=== PATIENT | female | born 1965 | race Caucasian/White ===

== ENCOUNTER 2017-10-09 16:25 | Observation (INO) | payer MEDICARE, SELFPAY ==
[2017-10-09 17:07] LABS: #Eosinphils 0.2 thou/uL (0.0-0.7); #Lymphocytes 2.1 thou/uL (1.20-3.40); #Monocytes 0.3 thou/uL (0.11-0.59); #Neutrophils 4.7 thou/uL (1.40-6.50); %Basophils 0.6 % (0.0-1.0); %Eosinophils 2.1 % (0.0-10.0); %Lymphocytes 29.3 % (21.0-51.0); Hemoglobin 14.7 g/dL (12.0-16.0); Mean Corpuscular HGB CONC 33.8 g/dL (32.0-36.0); Mean Corpuscular Hemoglobin 31.5 pg (27.0-31.0); Mean Corpuscular Volume 93.1 fl (81.0-99.0); Platelet Count 247 thou/uL (130-400); RBC Distribution Width 13.2 % (11.5-14.5); Red Blood Cell (RBC) Count 4.67 mill/uL (4.20-5.40); White Blood Cell (WBC) Count 7.3 thou/uL (4.8-10.8)
[2017-10-09 17:13] LABS: Prothrombin Time 13.3 SEC (12.0-14.7)
[2017-10-09 17:14] LABS: PTT 22.3 SEC (22.9-36.1)
[2017-10-09 17:26] LABS: ALT (SGPT) 16 U/L (8-55); AST (SGOT) 17 U/L (5-34); Albumin 3.9 g/dL (3.5-5.0); Alkaline Phosphatase 68 U/L (40-150); Anion Gap 13 mmol/L (10-20); BUN (Urea Nitrogen) 15 mg/dL (9.8-20.1); CK (CPK) 47 U/L (29-168); Calc. Creatinine Clearance 0 mL/min (70-130); Calcium 10.6 mg/dL (7.8-10.44); Carbon Dioxide 23 mmol/L (22-29); Chloride 103 mmol/L (98-107); Estimated GFR-MDRD 42; Glucose 121 mg/dL (70-105); Lipase 19 U/L (8-78); Protein, Total 6.9 g/dL (6.0-8.3); Sodium 135 mmol/L (136-145)
[2017-10-09 17:31] LABS: CKMB 1.1 ng/mL (0-6.6); Troponin I 0.185 ng/mL (< 0.028)
--- NOTE | 2017-10-09 17:38 | RAD ---
PORTABLE CHEST: 10/09/17 HISTORY: Chest pain. COMPARISON: 04/12/17 study. The heart size is enlarged. Pacemaker is present. The lungs are clear of infiltrates. There is no sig ns of failure. IMPRESSION: Cardiomegaly. POS: CINTHYA
[2017-10-09 19:44] LABS: Troponin I 0.208 ng/mL (< 0.028)
[2017-10-09] MEDS ORDERED: Nitroglycerin 2% Ointment 1 INCH/1 GM Packet ONE (20:28)
[2017-10-09] MEDS ORDERED: Enoxaparin Sodium 100 MG/ML SYRINGE ONE (20:28)
[2017-10-09] MEDS ORDERED: Ondansetron ODT 4 MG TAB SL PRN (21:44)
[2017-10-09] MEDS ORDERED: Ondansetron HCl/PF 4 MG/2 ML Vial IVP PRN ×2 (21:44→21:50)
[2017-10-09] MEDS ORDERED: Acetaminophen 325 MG TAB PO PRN (21:50)
[2017-10-09] MEDS ORDERED: Senokot 8.6 MG TAB PO PRN (21:50)
[2017-10-09] MEDS ORDERED: HYDROcodone/Acetaminophen 5/325 mg Tablet PO PRN (21:50)
[2017-10-09] MEDS ORDERED: Lorazepam 1 MG TAB PO PRN (21:50)
[2017-10-09] MEDS ORDERED: Benzonatate 100 MG CAP PO PRN (21:50)
[2017-10-09] MEDS ORDERED: Calcium Carbonate 500 MG ChewTAB PO PRN (21:50)
[2017-10-09] MEDS ORDERED: Loratadine 10 MG TAB PO PRN (21:50)
[2017-10-09] MEDS ORDERED: Nitroglycerin 0.4 MG TAB (25 Tab Bottle) SL PRN (21:50)
[2017-10-09] MEDS ORDERED: hydrALAZINE 20 MG/ML VIAL SLOW IVP PRN (21:50)
[2017-10-09] MEDS ORDERED: cloNIDine 0.1 MG TAB PO PRN (21:50)
[2017-10-09] MEDS ORDERED: Mag-Al 1200 mg/1200 mg/30 ML UDCUP PO PRN (21:50)
[2017-10-09] MEDS ORDERED: Bisacodyl 5 MG TAB PO PRN (21:50)
[2017-10-09] MEDS ORDERED: Diabetic Tussin 200 MG/10 ML UDCUP PO PRN (21:50)
[2017-10-09] MEDS: traMADol HCl 50 MG TAB PO PRN (22:20)
[2017-10-09] MEDS ORDERED: Sodium Chloride 0.9% 1,000 ML IV SCH (23:15)
[2017-10-09 23:48] LABS: Troponin I 0.206 ng/mL (< 0.028)
[2017-10-09 23:51] VITALS: BMI 37.3
[2017-10-09] MEDS ORDERED: Nitroglycerin 2% Ointment 1 INCH/1 GM Packet TOP SCH (23:59)
[2017-10-10] MEDS ORDERED: Temazepam 15 MG CAP PO PRN (00:35)
--- NOTE | 2017-10-10 01:55 | HP ---
DATE OF ADMISSION: 10/09/2017 PRIMARY CARE PHYSICIAN: None. The patient has not seen a doctor in multiple years. She is not able to afford it. CHIEF COMPLAINT: Chest pain and possible AICD firing. HISTORY OF PRESENT ILLNESS: Ms. Fishman is a 52-year-old morbidly obese female with history of coronary artery disease as well as ischemic cardiomyopathy, status post AICD placement; and SVT, status post ablation who presented to the emergency room with the above-mentioned complaint. History is mainly obtained by the patient herself and electronic medical records have been checked. The robert ocampo was last seen in our facility in 04/2017 when she presented with complaints of AICD firing multi ple times. At that admission, her AICD was upgraded to biventricular and she also underwent ablation of supraventricular tachycardia, which was causing the misfire of the original AICD. Dr. Trevino and Dr. Holloway were involved in her care at that time. She was discharged on amiodarone and among other medications, but unfortunately has not been able to afford any medication and is not taking anything at all. Today, she reports that she was sitting in the car with her family, when all of a sudden she had a sh paulo twinge in the chest and she jerked. Since then, she has been having some chest pain. She is uns ure if it was an AICD firing, but thinks that this is what it was with sudden onset of sharp twinge c hest pain. Other than that, she reports weakness, tiredness, and generalized malaise. She has also not been able to afford a thyroid medication either. She denies any orthopnea, shortness of breath, or excessive lower extremity edema otherwise. She denies any recent illnesses. Upon presentation to the emergency room, she was hemodynamically stable with a blood pressure 162/97 and a pulse of 88. She underwent a 12-lead EKG, which showed paced rhythm with frequent PVCs. Repor tedly, the ER physician tried to contact the [facility] people, but were unable to get hold of them. Her workup included elevated cardiac enzymes at 0.185. Her BNP was elevated to 334. She received o ne dose of therapeutic Lovenox at 1 mg/kg dosing in the emergency room along with nitroglycerin ointm ent and aspirin and is now being admitted for further workup for the chest pain and possible arrhythm ia versus AICD malfunction. PAST MEDICAL HISTORY: 1. History of ventricular tachycardia, status post ablation in 2013 and once again in 04/2017. 2. Ischemic cardiomyopathy. 3. History of myocardial infarction, status post stenting. 4. Hypertension. 5. Dyslipidemia. 6. Chronic systolic congestive heart failure with EF of 29%. 7. Noncompliance. 8. Tobacco abuse. 9. Hypothyroidism. PAST SURGICAL HISTORY: 1. Tonsillectomy. 2. Stent placement. 3. Supraventricular tachycardia ablation. 4. AICD placement and later upgrade in 04/2017. 5. Tonsillectomy. ALLERGIES: IODINE, PENICILLIN, and SHELLFISH DERIVATIVE. CURRENT MEDICATIONS: None. The patient is not able to afford any medication. FAMILY HISTORY: Significant for [place] in the father, and mother with dementia and CVA. SOCIAL HISTORY: She smokes about a pack per day for the last 30 years. No history of drug or alcoho l abuse. She is disabled, , and has 1 child. REVIEW OF SYSTEMS: The following complete review of systems was negative, unless otherwise mentioned in the HPI or below: Constitutional: Weight loss or gain, ability to conduct usual activities. Skin: Rash, itching. Eyes: Double vision, pain. ENT/Mouth: Nose bleeding, neck stiffness, pain, tenderness. Cardiovascular: Palpitations, dyspnea on exertion, orthopnea. Respiratory: Shortness of breath, wheezing, cough, hemoptysis, fever or night sweats. Gastrointestinal: Poor appetite, abdominal pain, heartburn, nausea, vomiting, constipation, or diarr hea. Genitourinary: Urgency, frequency, dysuria, nocturia. Musculoskeletal: Pain, swelling. Neurologic/Psychiatric: Anxiety, depression. Allergy/Immunologic: Skin rash, bleeding tendency. It is negative except for those mentioned in the history and physical. LABORATORY EXAMINATION: CBC is Unremarkable. Serum chemistries showed sodium of 135, creatinine 1.3 4, blood sugar 121, calcium 10.6. Her initial cardiac enzyme is 0.185 with a repeat cardiac enzyme o f troponin of 0.208 and 0.206. CK-MB is normal at 1.1. TSH is 5.91. BNP is 334. Magnesium is norm al at 2.3. Chest x-ray by my review does not show any evidence of pleural effusion, edema, or infilt rate. IMPRESSION AND PLAN: 1. Chest pain. Most likely the patient has sustained either tachycardia with automatic implantable cardioverter-defibrillator firing or just automatic implantable cardioverter-defibrillator misfiring. It is doubtful that she has sustained an acute myocardial infarction at this point. Nevertheless, she has received one dose of therapeutic Lovenox in the emergency room. Her repeat cardiac enzymes s howed a downtrend at this point. We will restart her on aspirin along with carvedilol and lisinopril . We will repeat her echocardiogram and consult her estimate clerk in the morning. We will also conta ct the K[facility] for AICD interrogation. She will be monitored on telemetry unit. At this t enmanuel, there is no arrhythmia on the tele monitor, but if it occurs, we will start her on amiodarone dr moncada. At this time, we will add DVT prophylactic dose of Lovenox for her. 2. History of coronary artery disease, status post stenting. We will restart her home medications a nd reconsult them as per Cardiology recommendations. 3. Hypothyroidism. Restart her on levothyroxine. She has elevated TSH and will need to have repeat blood work done in 4-6 weeks. 4. History of chronic congestive systolic heart failure. Appears euvolemic at this time. We will r epeat the echocardiogram to assess her cardiac function. 5. Ischemic cardiomyopathy. We will restart her aspirin, beta cheryl, KAIMLA inhibitor. We will rest art her atorvastatin as well. She used to be on Plavix as well. At this time, we will defer the use of Plavix in case she needs any surgical intervention. 6. History of supraventricular tachycardia, status post ablation x2. The patient needs to be on an antiarrhythmic. She has stopped taking her amiodarone. She might benefit from any alternative or ma ybe just restarting of this. We will defer the choice of antiarrhythmics to Cardiology at this time. She has AICD in place. 7. Acute renal insufficiency. Creatinine is somewhat elevated from her baseline. We will avoid giv ing any IV fluids until her cardiac function is known. We will avoid any nephrotoxic medications at this time. 8. Dyslipidemia. Resume home medication of atorvastatin. 9. Medication noncompliance. We will consult case management to help with the prescription coverage . 10. Tobacco abuse. We will add nicotine patch. The patient is counseled. 11. Deep venous thrombosis and gastrointestinal prophylaxis. 12. Code status: FULL CODE. DISPOSITION: The patient is currently being admitted to the hospital for workup for chest pain and p ossible AICD misfiring. Further management will depend upon her clinical course. If she requires an y invasive procedure, she can be changed to inpatient status, but at this time, estimated length of s ankit is less than 2 midnights.
[2017-10-10] MEDS: traMADol HCl 50 MG TAB PO PRN (04:49)
[2017-10-10] MEDS ORDERED: Levothyroxine Sodium 25 MCG TAB PO SCH (06:00)
[2017-10-10 06:09] LABS: #Basophils 0.1 thou/uL (0.0-0.2); #Eosinphils 0.2 thou/uL (0.0-0.7); #Lymphocytes 2.2 thou/uL (1.20-3.40); #Monocytes 0.3 thou/uL (0.11-0.59); #Neutrophils 2.5 thou/uL (1.40-6.50); %Basophils 1.2 % (0.0-1.0); %Eosinophils 3.7 % (0.0-10.0); %Lymphocytes 42.2 % (21.0-51.0); %Monocytes 4.9 % (0.0-10.0); Hemoglobin 14.8 g/dL (12.0-16.0); Mean Corpuscular HGB CONC 32.9 g/dL (32.0-36.0); Mean Corpuscular Hemoglobin 31.2 pg (27.0-31.0); Mean Corpuscular Volume 94.8 fl (81.0-99.0); Mean Platelet Volume 10.2 fL (7.4-10.4); Platelet Count 194 thou/uL (130-400); RBC Distribution Width 13.4 % (11.5-14.5); Red Blood Cell (RBC) Count 4.73 mill/uL (4.20-5.40); White Blood Cell (WBC) Count 5.3 thou/uL (4.8-10.8)
[2017-10-10 06:31] LABS: Anion Gap 15 mmol/L (10-20); BUN (Urea Nitrogen) 15 mg/dL (9.8-20.1); Calc. Creatinine Clearance 94 mL/min (70-130); Calcium 9.9 mg/dL (7.8-10.44); Carbon Dioxide 20 mmol/L (22-29); Chloride 104 mmol/L (98-107); Estimated GFR-MDRD 46; Glucose 79 mg/dL (70-105); Sodium 135 mmol/L (136-145)
[2017-10-10] MEDS ORDERED: Carvedilol 3.125 MG TAB PO SCH (08:00)
[2017-10-10 08:04] VITALS: BP 127/84; TEMP 97.6
[2017-10-10] MEDS ORDERED: diphenhydrAMINE 25 MG CAP PO PRN (08:51)
[2017-10-10] MEDS ORDERED: Enoxaparin Sodium 40 MG/0.4 ML SYRINGE SC SCH (09:00)
[2017-10-10] MEDS ORDERED: Lisinopril 10 MG TAB PO SCH (09:00)
[2017-10-10] MEDS ORDERED: FLU VACC QS2017-18 36 mo. & older 0.5 ML SYRINGE IM ONE (09:00)
[2017-10-10] MEDS ORDERED: Aspirin 325 MG TAB PO SCH (09:00)
[2017-10-10] MEDS ORDERED: Aspirin 81 mg Enteric Coated Tablet PO SCH (09:00)
--- NOTE | 2017-10-10 16:56 | CON ---
DATE OF CONSULTATION: 10/10/2017 REASON FOR CONSULTATION: Chest pain. HISTORY OF PRESENT ILLNESS: Mrs. Fishman is a 52-year-old white female, who comes to the hospital for chest pain. She was just sitting there and she felt a little pain around device, her AICD device, a nd she got worried that this might be her AICD firing. She has had it fired before several times in the setting of SVT that was confusing the defibrillator. She was getting appropriate shocks. She al so had ATP therapy several times in the past due to VT that required her to have a VT ablation. She is here, she got her device interrogated yesterday and it showed that she has not received any therap ies recently, the last time she had one was in early August and is in the form of ATP. She also geronimo d an echocardiogram today that showed that her LV function is continued to reduce, EF is at 20% to 25 %. She has been out of medicines for the last 3 months. She has never once called our office. I geronimo ve never seen her in the office. She is noncompliant with her regimen. Her daughter who is with her at the time of my evaluation tells me that she has been a lot more anxious recently and she feels th at her pain that she had yesterday was most likely related to anxiety. Touching her ICD area is a li ttle bit tender and she stated that the same pain she had yesterday. She currently is not having any more pain. PAST MEDICAL HISTORY: 1. History of sustained VT, status post VT ablation. 2. Combined ischemic and nonischemic cardiomyopathy, mostly ischemic. 3. Hypertension. 4. Hyperlipidemia. 5. Heart function reduced chronically. 6. Noncompliance. 7. Tobacco abuse. 8. Hypothyroidism. 9. Supraventricular tachycardia, status post ablation. PAST SURGICAL HISTORY: 1. Tonsillectomy. 2. Stenting in the past with previous stent to the left circumflex and RCA in outside facility. She did receive a left circumflex stent about 7 to 8 months ago. This was a bare metal stent. She has been off Plavix for 3 months. 3. Supraventricular tachycardia, status post supraventricular tachycardia ablation. 4. Sustained ventricular tachycardia, status post VT ablation. 5. AICD placement, biventricular. OUTPATIENT MEDICATIONS: Currently none. ALLERGIES: IODINE, PENICILLIN, and SHELLFISH DERIVATIVES. FAMILY HISTORY: Father with an ME and mother with dementia and CVA. SOCIAL HISTORY: Continues to smoke a pack a day, done so for the last 30 years. No alcohol or drug use. REVIEW OF SYSTEMS: A 12-point review of systems was done and is all negative unless stated in the hi story of present illness. PHYSICAL EXAMINATION: VITAL SIGNS: Temperature 97.6, pulse 83, respiratory rate 16, satting 95% on room air, blood pressur e 127/84. GENERAL: Awake, alert, and oriented x3, in no distress. HEENT: Normocephalic, atraumatic. NECK: Supple. LUNGS: Clear. CARDIOVASCULAR: S1, S2, no S3 or S4. There is a grade 3/6 holosystolic murmur at the apex. ABDOMEN: Soft. Positive bowel sounds. EXTREMITIES: Trace edema bilaterally. SKIN: Warm and dry. LABORATORY DATA: Laboratory work was reviewed. CBC was unremarkable. Coags were unremarkable. Nell mistries were unremarkable. Creatinine is 1.23. Troponins are indeterminate of 0.2, 0.2, and 0.2. BNP was 334. TSH was 5.9. Lipase was normal. IMAGING: EKG was reviewed, AV paced. Interrogation of her AICD shows normal function, good battery life. She had one episode of VT that w as terminated by ATP in August, has not had any episode since. Her is normal. She is not vo lume overload according to the intracardiac pressures. Echocardiogram was reviewed, EF has been reduced, now at 20% to 25%. ASSESSMENT AND PLAN: 1. Chest pain: Most likely related to her device. She has a little pain on palpation of the device and this is consistent with the pain she had yesterday. No evidence of an acute coronary syndrome a t this time. 2. Chronic systolic heart failure. 3. Ischemic dilated cardiomyopathy. 4. Presence of an automatic implantable cardioverter defibrillator. 5. Noncompliance. 6. History of stenting to the left circumflex and right coronary artery. 8. Ventricular tachycardia and supraventricular tachycardia, status post ablation of both. PLAN: 1. At this point, I suspect that reason her LV function is continually coming down, this is related to her noncompliance. She has not really had an acute coronary syndrome and her symptoms are most li kristen related to the AICD site. We will plan on restarting some of her home medications. We will put her back on low-dose beta-cheryl and I have given her a card. She states that she is already marla barrera on her Medicare application as she is supposed to be covered starting 10/10/2017, which is today. I told her that either way I needed to see her back in the office in 1 month after restarting all of these medications. We will also put her back on her lisinopril at 5 mg. We will see her at that ti me in a month and if she is tolerating her medications, we will plan on up titration of them. Otherw ise, continue aspirin. She may be off Plavix at this time as she had a bare metal stent. 2. She may be discharged home today with follow up in 1 month. I have encouraged her to followup. She told to given my office a call at this time and try to get an appointment in a month, her herve r is in the room and she is actually calling as I left the room. Thank you for letting us participate in the care of your patient. We will sign off. Please call stephanie melo any questions.
[2017-10-11] MEDS ORDERED: Lisinopril 5 MG TAB PO SCH (09:00)
--- NOTE | 2017-10-11 09:28 | DIS ---
DISCHARGE DISPOSITION: Home. FOLLOWUP: 1. Follow up with primary care physician at [facility] in 1 week. 2. Outpatient followup with Dr. Trevino was also recommended to the patient. ALLERGIES: The patient is allergic to PENICILLIN, SHELLFISH and IODINE. The patient was seen and examined on the day of discharge, denies any new complaints. No chest pain, shortness of breath or palpitations. BRIEF HOSPITAL COURSE: The patient is a 52-year-old morbidly obese white female with coronary artery disease, chronic systolic heart failure, status post AICD, presented to the emergency room with AICD firing with chest discomfort. Please refer to the history and physical dated 10/09/[address] Ronald Worthington for further details. The patient was admitted to the hospital with the diagnosis of chest discomfort with indeterminate tr oponins as well as recurrent AICD firing. Her AICD was interrogated that showed normal function with good battery life. She had 1 episode of ventricular tachycardia that was terminated by ATP in Dece markus. She had no new episodes since then. She is not volume overloaded according to the intracardiac pressures. She has been cleared by Cardiology for discharge. Please note that patient was taking n o medications on admission. She was advised to continue KAMILA inhibitor and beta blockers along with l ow dose aspirin. She was advised to get blood work done after 2 weeks. FINAL DIAGNOSES: 1. Chest discomfort, acute coronary syndrome ruled out. 2. Elevated troponins, probably secondary to demand ischemia from not taking her medications. 3. Coronary artery disease, status post stent placement. 4. Ischemic cardiomyopathy. 5. Chronic systolic heart failure, status post AICD with normal functioning. There was no AICD firi ng noted. 6. Medication noncompliance. 7. History of ventricular tachycardia, and supraventricular tachycardia in the past, status post abl ation. 8. Chronic kidney disease stage 3. 9. Obesity with body mass index 37.4. 10. Chronic diastolic heart failure. Plan of care was discussed with the patient in detail. DIAGNOSTIC TESTS: Echocardiogram showed ejection fraction 20-25% with grade 2/3 diastolic dysfunctio n with moderate mitral regurgitation.
--- NOTE | 2017-10-12 14:59 | EKG ---
Test Reason : Blood Pressure : / mmHG Vent. Rate : 082 BPM Atrial Rate : 082 BPM P-R Int : 168 ms QRS Dur : 194 ms QT Int : 484 ms P-R-T Axes : 000 -09 077 degrees QTc Int : 565 ms AV dual-paced rhythm with frequent ventricular-paced complexes Abnormal ECG Confirmed by KASSY PATEL DO ([id number]), video effects editor SABRINA LOZANO ([id number]) on 10/12/2017 2:59:08 PM Referred By: Confirmed By:KASSY PATEL DO
== END 2017-10-10 13:17 | disposition home or self-care (01) ==
LOC: ERS 16:25 → INTOOBSV 20:07 → 2SW 20:07
PROVIDERS: ADMIT Internal Medicine; ATTEND Internal Medicine
DX: R07.89 Other chest pain (principal); R79.89 Other specified abnormal findings of blood chemistry; I25.10 Atherosclerotic heart disease of native coronary artery without angina pectoris; I25.5 Ischemic cardiomyopathy; I13.0 Hypertensive heart and chronic kidney disease with heart failure and stage 1 through stage 4 chronic kidney disease, or unspecified chronic kidney disease; N18.3 Chronic kidney disease, stage 3 (moderate); I50.42 Chronic combined systolic (congestive) and diastolic (congestive) heart failure; I25.2 Old myocardial infarction; E78.5 Hyperlipidemia, unspecified; E03.9 Hypothyroidism, unspecified; F17.200 Nicotine dependence, unspecified, uncomplicated; E66.9 Obesity, unspecified; Z68.37 Body mass index [BMI] 37.0-37.9, adult; Z88.0 Allergy status to penicillin; Z91.013 Allergy to seafood; Z91.041 Radiographic dye allergy status; Z91.14 Patient's other noncompliance with medication regimen; Z95.810 Presence of automatic (implantable) cardiac defibrillator; Z95.5 Presence of coronary angioplasty implant and graft; Z98.890 Other specified postprocedural states; Z82.49 Family history of ischemic heart disease and other diseases of the circulatory system; Z82.3 Family history of stroke
CPT/HCPCS: 71045; 80048; 82550; 82553; 83690; 83735; 83880; 84484 ×2; 85025; 85610; 85730; 93005; 93306; 94760; 96372; 96374; 99285; G0008; G0378; Q2036; 36415; 80053; 84443; 90471; 90682; J1650; J2270

== ENCOUNTER 2017-12-08 23:05 | Inpatient (IN) | payer MEDICARE ==
--- NOTE | 2017-12-08 23:42 | RAD ---
PA AND LATERAL CHEST: Indication: Chest pain. IMPRESSION: No acute cardiopulmonary abnormality. There is stable cardiomegaly with AICD, when compared to the pr ior dated 05-15-17. No appreciable change is seen from the comparison study. POS: CINTHYA
[2017-12-08] MEDS ORDERED: Morphine 4 MG/ML VIAL ONE (23:52)
[2017-12-08] MEDS ORDERED: Heparin 5,000 UNITS/ML VIAL ONE (23:53)
[2017-12-08] MEDS ORDERED: Heparin 25,000 units/D5W 500 ML ONE (23:53)
--- NOTE | 2017-12-09 00:07 | PDOC.FPRHP ---
- History of Present Illness Chief Complaint: chest pain since yesterday History of Present Illness: Left upper chest pain since last night. dull pain, with some sharp instances. does not get worse with exertion. very positional, hurts alot when she lays on her left side. got better with nitro drip and heparin. She has felt more pain and some shortness of breath when she lays on her back or left side. no radiation to neck or jaw. ED Course: Nitro drip, heparin drip, morphine, nitro, aspirin - Allergies/Adverse Reactions Allergies Allergy/AdvReac Type Severity Reaction Status Date / Time Iodinated Contrast- Oral and Allergy Hives Verified 12/09/17 02:38 IV Dye Penicillins Allergy Verified 12/09/17 02:38 shellfish derived Allergy Verified 12/09/17 02:38 - Home Medications Medication Instructions Recorded Confirmed Type Aspirin [Ecotrin Low Strength] 81 mg PO DAILY #30 tab 04/11/17 12/09/17 Rx Carvedilol [Coreg] 3.125 mg PO BID-WM #60 tab 10/10/17 12/09/17 Rx Atorvastatin Calcium 40 mg PO DAILY 12/09/17 12/09/17 History Ibuprofen/Diphenhydramine Cit 2 tablet PO HS PRN 12/09/17 12/09/17 History [Advil PM Caplet] diphenhydrAMINE [Benadryl] 50 mg PO Q4HR PRN 12/09/17 12/09/17 History - History PMHx: CAD CHF with reduced EF- 20-25% with 2/3 diastolic dysfunction. HLD Hypothyroidism Tobacco abuse Anxiety HTN PSHx: Biventricular pacer placed april of 2017 Stents- FHx: cardiac disease Social: current smoker (intends to quit) appx 50 pk year hx previous heavy drinker no recreational drugs. - Review of Systems General: reports: fatigue. denies: fever/chills, weight/appetite/sleep changes , night sweats Eyes: denies: eye pain, vision changes ENT: denies: nasal congestion, rhinorrhea Respiratory: reports: cough, shortness of breath Cardiovascular: reports: chest pain, paroxysmal nocturnal dyspnea, orthopnea Gastrointestinal: reports: nausea. denies: vomiting, diarrhea, constipation, abdominal pain, GI bleeding Genitourinary: denies: incontinence, dysuria Skin: denies: rashes, lesions Musculoskeletal: reports: pain, tenderness Neurological: denies: numbness, syncope Psychological: denies: anxiety, depression - Vital signs BP: 133/91 HR: 84 RR: 20 Tmax: 98.4 Pox: 95% on room air Wt: 108 kg - Physical Exam Constitutional: NAD, awake, alert and oriented, other (Obese) HEENT: normocephalic and atraumatic, PERRLA Neck: supple, FROM, trachea midline -Chest: Tender over left upper chest and left upper back. Heart: RRR, normal S1/S2, no murmurs/rubs/gallops, pulses present Lungs: CTAB, no respiratory distress, good air movement, no rales/rhonchi Abdomen: soft, non-tender Musculoskeletal: normal structure, normal tone -Musculoskeletal: Tender to palpation over left chest. Tender over left upper back Neurological: no focal deficit, CN II-XII intact, normal sensation Skin: no rash/lesions, good turgor, capillary refill <2 seconds Heme/Lymphatic: no unusual bruising or bleeding Psychiatric: normal mood and affect, good judgment and insight FMR H&P: Results - Labs Result Diagrams: 12/09/17 03:32 12/09/17 03:32 Lab results: Laboratory Tests 12/08/17 12/08/17 12/08/17 20:50 20:50 21:13 WBC 8.2 Hgb 15.8 Hct 46.8 Plt Count 281 Sodium 135 L Potassium 3.8 Chloride 101 Carbon Dioxide 25 Anion Gap 13 BUN 21 H Creatinine 1.62 H Glucose 119 H Calcium 10.3 Total Bilirubin 0.5 AST 14 ALT 15 CK-MB (CK-2) 0.6 Troponin I 0.158 H Serum Total Protein 6.7 Albumin 3.6 - Radiology Interpretation Chest x-ray Status: image reviewed by me, report reviewed by me Additional comment: cardiomegaly with AICD FMR H&P: A/P - Problem List (1) NSTEMI (non-ST elevated myocardial infarction) Current Visit: No Status: Acute Code(s): I21.4 - NON-ST ELEVATION (NSTEMI) MYOCARDIAL INFARCTION Assessment and Plan: Patient is having chest pain and has a significant cardiac history. Troponins are elevated, but have been elevated to this level before. Dr. Lyons recommended continued heparin and nitro drip until the morning. I will follow that recommendation. There are features of the chest pain that could indicate non cardiac source, such as tenderness to palpation, so we will keep costochondritis in our differential. Will trend troponins and continue drips and aspirin. Appreciate further cardiology recommendations in the morning. (2) AICD (automatic cardioverter/defibrillator) present Current Visit: No Status: Chronic Code(s): Z95.810 - PRESENCE OF AUTOMATIC ( IMPLANTABLE) CARDIAC DEFIBRILLATOR (3) Coronary artery disease Current Visit: No Status: Chronic Code(s): I25.10 - ATHSCL HEART DISEASE OF [place] CORONARY ARTERY W/O ANG PCTRS Qualifiers: Coronary Disease-Associated Artery/Lesion type: [place] artery [place] vs. transplanted heart: [place] heart Associated angina: with other forms of angina Qualified Code(s): I25.118 - Atherosclerotic heart disease of [place] coronary artery with other forms of angina pectoris Assessment and Plan: Patient has hx of stents. continue asa and statin. see NSTEMI (4) Systolic heart failure Current Visit: No Status: Chronic Code(s): I50.20 - UNSPECIFIED SYSTOLIC ( CONGESTIVE) HEART FAILURE Qualifiers: Heart failure chronicity: chronic Qualified Code(s): I50.22 - Chronic systolic (congestive) heart failure Assessment and Plan: Patient states she has had her coreg but not her KAMILA because she does not have an outpatient PCP. Will restart once off the nitro drip. continue coreg. Will order BNP (5) Acute kidney injury Current Visit: No Status: Acute Code(s): N17.9 - ACUTE KIDNEY FAILURE, UNSPECIFIED Assessment and Plan: CR elevated above baseline. She has fluctuating renal function, so she likely has at least CKD2, but we do not have healthy outpatient levels to confirm. Seems to be in state of acute worsening at this time. (6) Tobacco use Current Visit: No Status: Chronic Code(s): Z72.0 - TOBACCO USE Assessment and Plan: Patient states she plans to quit. will encourage and supply nicotine patches in hospital. - Plan DVT PPx- on heparin Full code No established PCP Disposition/LOS: 3 nights. inpatient. Attending Addendum - Attending Addendum Date/Time: 12/09/17 0145 I personally evaluated the patient and discussed the management with Dr. Smiley. The H&P is repeated by me. I agree with the History, Examination, Assessment and Plan documented above with any addition or exceptions noted below.
[2017-12-09 00:16] LABS: Prothrombin Time 13.2 SEC (12.0-14.7)
[2017-12-09 00:18] LABS: CKMB 0.6 ng/mL (0-6.6); Troponin I 0.136 ng/mL (< 0.028)
[2017-12-09] MEDS ORDERED: Nitroglycerin 50 MG/250 ML BOT 250 ML ONE (00:25)
[2017-12-09] MEDS ORDERED: Acetaminophen 325 MG TAB PO PRN (01:31)
[2017-12-09] MEDS ORDERED: Ondansetron HCl/PF 4 MG/2 ML Vial IVP PRN (01:31)
[2017-12-09] MEDS ORDERED: Ondansetron ODT 4 MG TAB SL PRN (01:31)
[2017-12-09 01:47] VITALS: BMI 36.7
[2017-12-09] MEDS ORDERED: Nitroglycerin 50 MG/250 ML BOT 250 ML IVPB SCH (02:15)
[2017-12-09] MEDS ORDERED: Heparin 10,000 UNITS/ 10 ML VIAL SLOW IVP SCH (02:15)
[2017-12-09] MEDS ORDERED: Heparin 25,000 units/D5W 500 ML IVPB SCH (02:15)
[2017-12-09] MEDS: Morphine 4 MG/ML VIAL SLOW IVP PRN ×6 (02:26→20:25)
[2017-12-09 03:41] LABS: #Basophils 0.1 thou/uL (0.0-0.2); #Eosinphils 0.2 thou/uL (0.0-0.7); #Lymphocytes 2.4 thou/uL (1.20-3.40); #Monocytes 0.4 thou/uL (0.11-0.59); #Neutrophils 3.3 thou/uL (1.40-6.50); %Basophils 1.1 % (0.0-1.0); %Eosinophils 3.5 % (0.0-10.0); %Lymphocytes 38.2 % (21.0-51.0); %Monocytes 5.8 % (0.0-10.0); %Neutrophils 51.5 % (42.0-75.0); Hemoglobin 14.6 g/dL (12.0-16.0); Mean Corpuscular HGB CONC 33.3 g/dL (32.0-36.0); Mean Corpuscular Hemoglobin 30.9 pg (27.0-31.0); Mean Corpuscular Volume 92.6 fl (81.0-99.0); Mean Platelet Volume 7.4 fL (7.4-10.4); Platelet Count 243 thou/uL (130-400); RBC Distribution Width 12.6 % (11.5-14.5); Red Blood Cell (RBC) Count 4.73 mill/uL (4.20-5.40); White Blood Cell (WBC) Count 6.4 thou/uL (4.8-10.8)
[2017-12-09 04:03] LABS: Anion Gap 9 mmol/L (10-20); BUN (Urea Nitrogen) 18 mg/dL (9.8-20.1); Calc. Creatinine Clearance 84 mL/min (70-130); Calcium 9.5 mg/dL (7.8-10.44); Carbon Dioxide 24 mmol/L (22-29); Chloride 104 mmol/L (98-107); Estimated GFR-MDRD 41; Glucose 121 mg/dL (70-105); Potassium 3.9 mmol/L (3.5-5.1); Sodium 133 mmol/L (136-145)
[2017-12-09 04:09] LABS: Troponin I 0.122 ng/mL (< 0.028)
[2017-12-09] MEDS: Nicotine 21 MG PATCH TD SCH (05:43)
[2017-12-09 07:21] LABS: Troponin I 0.127 ng/mL (< 0.028)
[2017-12-09] MEDS: Aspirin 81 mg Enteric Coated Tablet PO SCH (09:35)
[2017-12-09] MEDS: Atorvastatin Calcium 20 MG TAB PO SCH (09:35)
[2017-12-09] MEDS: Carvedilol 3.125 MG TAB PO SCH ×2 (09:35→16:26)
--- NOTE | 2017-12-09 14:39 | CON ---
DATE OF CONSULTATION: 12/09/2017 HISTORY OF PRESENT ILLNESS: The patient was admitted with chest pain, worse. She has known history of coronary artery disease. She is on a heparin drip. Proposal Consultant is Dr. Trevino. She smokes a pac k a day. She received nitro and aspirin in [facility]. She is in the ICU, reason for consult. She said she is feeling much better, still having some vague pain, no difficulty breathing, coughing or wheezing. PAST MEDICAL HISTORY: Pertinent for KS, multiple stents, AICD, hypertension, high cholesterol, tobac co abuse. PAST SURGICAL HISTORY: As noted, stents, AICD. MEDICATIONS: List of medicine from home are supposed to be Benadryl, ibuprofen, Coreg 3.25, calcium 40, aspirin, . She is unable to afford her medication. ALLERGIES: PENICILLIN and IODINE. SOCIAL/FAMILY HISTORY: Unemployed. REVIEW OF SYSTEMS: Otherwise, 10-point otherwise unremarkable. PHYSICAL EXAMINATION: GENERAL: Awake, alert, responsive, appears to be in no distress. VITAL SIGNS: Pulse 80, blood pressure 120/86. Sats 90% on 2 liters, respirations 20. CHEST: Chest revealed decreased breath sounds, no wheezing. CARDIAC: Normal S1-S2. No gallops. ABDOMEN: Soft. No mass. LABORATORY: Lab shows a white count 6,000, H&H of 18 and 43, platelet count normal. Creatinine 1.3. BNP 117. Troponin is elevated at 0.12. X-ray shows no acute infiltrates. The rest of additional laboratory pending. IMPRESSION: 1. Omg-SX-neggozo elevation myocardial infarction. 2. Elevated troponin 3. Hypertension. 4. Renal failure. 5. Ongoing tobacco abuse. 6. Status post automatic implantable cardioverter/defibrillator. 7. Obesity. 8. Noncompliance. 9. Hypothyroidism. PLAN: She is on IV heparin. Await input from Cardiology. Pulmonary will follow while in the ICU. She has seen Dr. Wallace in the past. I will notify Dr. Wallace in the morning. Please note this is a consultation note, 70 minutes of which 50% was spent in direct patient care.
--- NOTE | 2017-12-09 18:15 | CON ---
DATE OF CONSULTATION: 12/09/2017 CARDIOLOGY CONSULTATION REASON FOR CONSULTATION: Chest pain. PRIMARY PROOFER BLACK AND WHITE: Dr. Skyler Trevino. HISTORY OF PRESENT ILLNESS: Ms. Fishman is a very pleasant 52-year-old white female very well known t o myself who comes to the hospital for chest pain. She states she has had pain since 2 nights ago. She states the pain is worse when moving her shoulder, worse when lying on her left side, alleviated by laying flat on her back or laying on the right side or not moving her shoulder at all. She tells me she has had an old injury that affected her left shoulder and had the same pain at that time. She feels she might have aggravated this injury. She otherwise denies any diaphoresis, lightheadedness, has not had any defibrillator shocks delivered. She has had MIs in the past. This did not feel lik e any of her previous MIs. PAST MEDICAL HISTORY: 1. History of sustained VT status post VT ablation. 2. Ischemic cardiomyopathy. 3. Ejection fraction at 20-25%. 4. Hypertension. 5. Hyperlipidemia. 6. Noncompliance. 7. Tobacco abuse, ongoing. 8. Hypothyroidism. 9. Supraventricular tachycardia status post ablation. PAST SURGICAL HISTORY: 1. Tonsillectomy. 2. Previous stent to the left circumflex and RCA at outside facility bare metal stent to the left ci rcumflex about 9-10 months ago. This was a bare metal stent. 3. SVT ablation. 4. VT ablation. 5. AICD placement biventricular. OUTPATIENT MEDICATIONS: Include: 1. Benadryl. 2. Ibuprofen. 3. Coreg 3.125 mg b.i.d. 4. Atorvastatin 40 mg a day. 5. Aspirin 81 a day. ALLERGIES: PINEAPPLE, DYE, PENICILLIN, AND SHELLFISH. FAMILY HISTORY: Father with early OK in her 60s. Mother with dementia and CVA. SOCIAL HISTORY: Smokes a pack a day. Continues to do so for the last 30 years. No alcohol or drug use. REVIEW OF SYSTEMS: A 12-point review of systems was done and is all negative unless stated in the hi story of present illness. PHYSICAL EXAMINATION: VITAL SIGNS: Temperature 98.1, pulse 80, respiratory rate 26, satting 96% on 1 liter, blood pressure 144/84. GENERAL: Awake, alert, oriented x3, in moderate pain. HEENT: Normocephalic, atraumatic. NECK: Supple. LUNGS: Clear. CARDIOVASCULAR: S1, S2, no S3, S4, no murmurs or rubs. ABDOMEN: Soft, positive bowel sounds. EXTREMITIES: Trace edema. SKIN: Warm and dry. MUSCULOSKELETAL: She is exquisitely painful on palpation of the left chest and painful on any moveme nt of the left shoulder. This is the pain that brought her to the hospital. LABORATORY WORK: Reviewed. CBC with a white count of 6.4, hemoglobin of 14, hematocrit of 43, plate let count of 243. Coags were reviewed. Chemistries were reviewed. Sodium 133, potassium 3.9, BUN 1 8, creatinine of 1.3, GFR was 41. Troponin I is 0.13, 0.12 0.12. BNP was 111, CK-MB was normal. Gl ucose was 108. Calcium was 9.5. Chest x-ray on admission shows no acute cardiopulmonary abnormalities, AICD in place. Last echocardiogram in September of this year, an EF of 20-25% with 2/3 diastolic dysfunction. ASSESSMENT AND PLAN: Chest pain: Most likely musculoskeletal. It is reproducible with palpation. It is reproducible by moving her left shoulder, exquisitely painful by moving her left shoulder. It is worse when lying on that side, alleviates by not laying on that side unlikely to be cardiac in kostas ure. Her troponin is just chronically elevated and is not in a typical rise and fall pattern that I would expect to see on a real OK. At this point, I will recommend stopping the heparin drip, stoppin g the nitroglycerin drip. I think she can go to the telemetry floor and will repeat an echocardiogra m to make sure there is no fluid around the heart which would suggest pericarditis. I do not have an y plans on doing a heart catheterization at this time unless the fourth set of troponin, which I just ordered has increased significantly, then we will plan on doing this tomorrow morning. Otherwise, s he may need x-ray imaging of her shoulder, we will leave that up to the primary team. Thank you for letting us participate in the care of your patient. We will continue to follow.
[2017-12-09 18:21] LABS: Troponin I 0.125 ng/mL (< 0.028)
[2017-12-09] MEDS: Naproxen 500 MG TAB PO SCH (21:25)
--- NOTE | 2017-12-09 22:08 | EKG ---
Test Reason : Blood Pressure : / mmHG Vent. Rate : 080 BPM Atrial Rate : 080 BPM P-R Int : 000 ms QRS Dur : 198 ms QT Int : 488 ms P-R-T Axes : 000 211 -54 degrees QTc Int : 562 ms AV sequential or dual chamber electronic pacemaker When compared with ECG of 08-DEC-2017 23:10, (Unconfirmed) Vent. rate has decreased BY 2 BPM Confirmed by JONAH MURGUIA M.D. ([id number]) on 12/09/2017 10:08:16 PM Referred By: SEIRRA Confirmed By:JONAH MURGUIA M.D.
[2017-12-10] MEDS: Morphine 4 MG/ML VIAL SLOW IVP PRN (01:02)
[2017-12-10 04:36] LABS: #Eosinphils 0.2 thou/uL (0.0-0.7); #Lymphocytes 1.8 thou/uL (1.20-3.40); #Monocytes 0.4 thou/uL (0.11-0.59); #Neutrophils 3.8 thou/uL (1.40-6.50); %Basophils 0.6 % (0.0-1.0); %Eosinophils 2.8 % (0.0-10.0); %Lymphocytes 28.9 % (21.0-51.0); %Monocytes 6.3 % (0.0-10.0); %Neutrophils 61.4 % (42.0-75.0); Hemoglobin 14.2 g/dL (12.0-16.0); Mean Corpuscular HGB CONC 33.3 g/dL (32.0-36.0); Mean Corpuscular Hemoglobin 31.3 pg (27.0-31.0); Mean Corpuscular Volume 93.9 fl (81.0-99.0); Mean Platelet Volume 7.4 fL (7.4-10.4); Platelet Count 258 thou/uL (130-400); RBC Distribution Width 12.7 % (11.5-14.5); Red Blood Cell (RBC) Count 4.55 mill/uL (4.20-5.40); White Blood Cell (WBC) Count 6.2 thou/uL (4.8-10.8)
[2017-12-10 04:51] LABS: Anion Gap 8 mmol/L (10-20); BUN (Urea Nitrogen) 17 mg/dL (9.8-20.1); Calc. Creatinine Clearance 100 mL/min (70-130); Calcium 9.4 mg/dL (7.8-10.44); Carbon Dioxide 29 mmol/L (22-29); Chloride 101 mmol/L (98-107); Estimated GFR-MDRD 50; Glucose 102 mg/dL (70-105); Potassium 4.4 mmol/L (3.5-5.1); Sodium 134 mmol/L (136-145)
[2017-12-10] MEDS: Nicotine 21 MG PATCH TD SCH (05:15)
--- NOTE | 2017-12-10 07:56 | PDOC.FM ---
- Subjective Subjective: Patient sitting up in bed resting comfortably this morning. Her chest pain has improved, though she still cannot lay on her left side. 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 She denies CODY, SOB, and palpitations. Vital signs remain stable and she is afebrile. - Objective MAR Reviewed: Yes Vital Signs & Weight: Vital Signs (12 hours) Temp Pulse Resp Pulse Ox 12/10/17 04:00 98.3 F 12/10/17 00:00 98.4 F 12/09/17 20:00 98.2 F 80 19 92 L Weight Admit Weight 109.6 kg Weight 109.4 kg Most Recent Monitor Data Heart Rate from ECG 80 NIBP 124/86 NIBP BP-Mean 98 Respiration from ECG 16 SpO2 98 I&O: 12/09/17 12/10/17 12/11/17 06:59 06:59 06:59 Intake Total 177.4 1336 Output Total 1350 Balance 177.4 -14 Result Diagrams: 12/10/17 03:58 12/10/17 03:58 <Timur Shell - Last Filed: 12/10/17 07:54> - Objective Vital Signs & Weight: Vital Signs (12 hours) Temp Pulse Resp Pulse Ox 12/10/17 08:00 97.5 F L 87 20 94 L 12/10/17 04:00 98.3 F 12/10/17 00:00 98.4 F Weight Admit Weight 109.6 kg Weight 109.4 kg Most Recent Monitor Data Heart Rate from ECG 80 NIBP 124/86 NIBP BP-Mean 98 Respiration from ECG 13 SpO2 96 I&O: 12/09/17 12/10/17 12/11/17 06:59 06:59 06:59 Intake Total 177.4 1336 Output Total 1350 250 Balance 177.4 -14 -250 Result Diagrams: 12/10/17 03:58 12/10/17 03:58 <Santo Francisco - Last Filed: 12/10/17 10:43> Phys Exam - Physical Examination Constitutional: NAD HEENT: moist MMs Neck: no JVD Respiratory: no wheezing, no rales Cardiovascular: RRR, no significant murmur Gastrointestinal: soft, non-tender Musculoskeletal: no edema TTP over left chest wall Neurological: non-focal, normal sensation, moves all 4 limbs Psychiatric: normal affect, A&O x 3 Skin: no rash <Timur Shell - Last Filed: 12/10/17 07:54> Dx/Plan (1) Atypical chest pain Code(s): R07.89 - OTHER CHEST PAIN Status: Acute Plan: Cardiology has evaluated and feels this is MSK related given her history, normal cardiac enzyme profile, and normal EKG TTE to r/o pericarditis today Continue Naproxen BID for MSK etiology (2) Coronary artery disease Code(s): I25.10 - ATHSCL HEART DISEASE OF ELEM CORONARY ARTERY W/O ANG PCTRS Status: Chronic QualifierTitle: Coronary Disease-Associated Artery/Lesion type: [place] artery [place] vs. transplanted heart: [place] heart Associated angina: with other forms of angina Qualified Code(s): I25.118 - Atherosclerotic heart disease of [place] coronary artery with other forms of angina pectoris Plan: Patient of Dr. Trevino s/p stent placement He has evaluated patient and has ordered TTE for the morning. No indication for catheterization at this time. F/u in OP setting (3) S/P implantation of automatic cardioverter/defibrillator (AICD) Code(s): Z95.810 - PRESENCE OF AUTOMATIC (IMPLANTABLE) CARDIAC DEFIBRILLATOR Status: Chronic (4) Hyperlipidemia Code(s): E78.5 - HYPERLIPIDEMIA, UNSPECIFIED Status: Chronic QualifierTitle: Hyperlipidemia type: mixed hyperlipidemia Qualified Code( s): E78.2 - Mixed hyperlipidemia Plan: Continue home atorvastatin (5) Hypertension Code(s): I10 - ESSENTIAL (PRIMARY) HYPERTENSION Status: Chronic QualifierTitle: Hypertension type: essential hypertension Qualified Code( s): I10 - Essential (primary) hypertension Plan: Well controlled since admission Continue coreg (6) Systolic CHF with reduced left ventricular function, NYHA class 2 Code(s): I50.20 - UNSPECIFIED SYSTOLIC (CONGESTIVE) HEART FAILURE Status: Chronic Plan: BNP of 111 on admission No CODY, SOB, or orthopnea (7) Tobacco abuse Code(s): Z72.0 - TOBACCO USE Status: Chronic Plan: Nicotine patch - Plan Plan: -TTE this morning per Cardiology -d/c pending results on Naproxen BID for MSK chest pain, f/u OP <Timur Shell - Last Filed: 12/10/17 07:54> Attending Addendum - Attending Addendum Date/Time: 12/10/17 1036 I personally evaluated the patient and discussed the management with Dr. Shell I agree with the History, Examination, Assessment and Plan documented above with any addition or exceptions noted below. 52 y/o F who presented for chest pain initially and placed on nitro and heparin gtt in the ICU. Peak troponin of 0.15 during this time which appeared to be near her baseline from prior admissions. She was seen and evaluated by cardiology who felt that pain was likely MSK in nature. She has since been weaned off the drips and transitioned out of the ICU and to telemetry. Chest pain improved this morning. Plan for TTE with cardiology to rule out any pericardial effusion/pericarditis which could be confounding diagnosis later today. Will admin toradol and monitor for improvement in sxs w/ transition to PO NSAIDs for further pain control upon discharge home later today. <Santo Francisco - Last Filed: 12/10/17 10:43>
[2017-12-10] MEDS: Aspirin 81 mg Enteric Coated Tablet PO SCH (10:48)
[2017-12-10] MEDS: Carvedilol 3.125 MG TAB PO SCH (10:48)
[2017-12-10] MEDS: Atorvastatin Calcium 20 MG TAB PO SCH (10:52)
[2017-12-10] MEDS: Naproxen 500 MG TAB PO SCH (10:52)
[2017-12-10] MEDS ORDERED: Ketorolac Tromethamine 30 MG/ML VIAL IVP SCH (11:45)
--- NOTE | 2017-12-10 12:19 | PDOC.CTH ---
Cardiology Progress Note - Subjective She is feeling better since NSIADs were given for pain. Her follow up troponin is stable and at her baseline. Echo is pending. - Objective Vital Signs Temp Pulse Resp Pulse Ox 12/10/17 08:00 97.5 F L 87 20 94 L 12/10/17 04:00 98.3 F Admit Weight 241 lb 10.026 oz Weight 241 lb 2.971 oz 12/09/17 12/10/17 12/11/17 06:59 06:59 06:59 Intake Total 177.4 1336 Output Total 1350 250 Balance 177.4 -14 -250 - Physical Examination General/Neuro: alert & oriented x3, NAD Neck: no JVD present Lungs: CTA, unlabored respirations Heart: RRR Abdomen: NT/ND Extremities: + edema B (trace) - Telemetry Telemetry Rhythm: Paced - Labs Result Diagrams: 12/10/17 03:58 12/10/17 03:58 Troponin/CKMB CK-MB (CK-2) 0.6 ng/mL (0-6.6) 12/08/17 23:42 Troponin I 0.125 ng/mL (< 0.028) H 12/09/17 17:40 - Assessment/Plan 1. Chest pain. Likely chest wall pain, MSK. 2. CAD, stable. 3. Dilated CM, EF at 20-25% on last echo recently. 4. AICD in place PLAN: - Echo today and if unchanged may discharge home. - Follow up in 2 months in the office.
[2017-12-10 16:29] VITALS: TEMP 97.7
--- NOTE | 2017-12-11 01:21 | DIS-2 ---
DATE OF ADMISSION: 12/09/2017 DATE OF DISCHARGE: 12/10/2017 RESIDENT: Timur Shell M.D. ADMITTING ATTENDING: Jelani Bruce M.D. DISCHARGE ATTENDING: Santo Francisco M.D. CONSULTS: Cardiology. PROCEDURES: 1. PA and lateral chest x-ray showing no acute cardiopulmonary abnormalities. This is a stable card iomegaly with AICD when compared to chest x-ray from 05/15/2017. 2. Transthoracic echocardiogram showing an unchanged ejection fraction of 20%-25%, grade 2/3 diastol ic dysfunction unchanged, and no evidence of any pericardial effusion. PRIMARY DIAGNOSIS: Atypical chest pain. SECONDARY DIAGNOSES: 1. Systolic congestive heart failure. 2. Coronary artery disease, status post multiple stents and automated implantable cardioverter-defib rillator placement. 3. Acute kidney injury. 4. Hyperlipidemia. 5. Hypertension. 6. Hypothyroidism. 7. Tobacco abuse. DISCHARGE MEDICATIONS: 1. Aspirin 81 mg p.o. daily. 2. Carvedilol 3.125 mg p.o. b.i.d. 3. Atorvastatin 40 mg p.o. daily. 4. Benadryl 50 mg p.o. q.4 hours p.r.n. 5. Naproxen 500 mg p.o. b.i.d. DISCONTINUED MEDICATIONS: 1. Nitroglycerin drip. 2. Heparin drip. 3. Morphine 2 mg q.2 hours p.r.n. for pain. 4. Nicotine patch. HISTORY OF PRESENT ILLNESS/HOSPITAL COURSE: A 52-year-old white female admitted to the hospital for chest pain that started 2 nights prior to admission. Pain is worsened by moving the shoulder lying o n the left side, but is alleviated by lying flat on her back or lying on her right side. She has an old musculoskeletal injury of the left shoulder in the remote past. She denies any diaphoresis, ligh theadedness or AICD shocks. Due to her concerning history including previous MIs, she was admitted f or ACS rule out. The patient normally sees Dr. Trevino in the outpatient setting. He was consulted for evaluation. He feels that the chest pain is likely musculoskeletal since it is reproducible with palpation. Her tr oponins remained between 0.12 and 0.15, which is her normal baseline. EKGs remained normal throughou t admission. Heparin drip and nitroglycerin drips were stopped after 24 hours and the patient remain ed stable. Heart rate was monitored by telemetry showing normal sinus throughout admission. Transth oracic echocardiogram was done to rule out any sort of pericardial effusion suggesting pericarditis. This was negative, see above. Cardiology recommended against heart catheterization at this time and recommended followup in 1-2 months in the outpatient setting. The patient was counseled extensively of musculoskeletal nature of this pain. She agrees with the as sessment and will take the naproxen 500 mg b.i.d. until followups. DISPOSITION: Stable. DISCHARGE INSTRUCTIONS: 1. Location: Home. 2. Diet: Heart healthy. 3. Activity: As tolerated. 4. Followup: Followup with [facility] in 1 week to assess renal function and followup with Dr. Trevino in 1-2 months.
--- NOTE | 2017-12-14 20:24 | EKG ---
Test Reason : CHEST PAIN Blood Pressure : / mmHG Vent. Rate : 082 BPM Atrial Rate : 441 BPM P-R Int : 000 ms QRS Dur : 194 ms QT Int : 470 ms P-R-T Axes : 000 211 027 degrees QTc Int : 549 ms AV sequential or dual chamber electronic pacemaker Confirmed by BENNETT MCLEAN ([id number]), avid editor REINIER LANCASTER ([id number] on 12/14/2017 8:23:36 PM Referred By: Confirmed By:BENNETT MCLEAN
== END 2017-12-10 16:23 | disposition home or self-care (01) | DRG 313 ==
LOC: ERS 23:05 → CCU 12-09 00:12
PROVIDERS: ADMIT Family Medicine; ATTEND Family Medicine
DX: R07.89 Other chest pain (principal); I25.10 Atherosclerotic heart disease of native coronary artery without angina pectoris; N17.9 Acute kidney failure, unspecified; I42.0 Dilated cardiomyopathy; I11.0 Hypertensive heart disease with heart failure; I50.22 Chronic systolic (congestive) heart failure; E78.5 Hyperlipidemia, unspecified; E03.9 Hypothyroidism, unspecified; F17.210 Nicotine dependence, cigarettes, uncomplicated; Z79.82 Long term (current) use of aspirin; I25.5 Ischemic cardiomyopathy; Z95.5 Presence of coronary angioplasty implant and graft; Z95.810 Presence of automatic (implantable) cardiac defibrillator; Z88.0 Allergy status to penicillin; Z91.013 Allergy to seafood; Z88.8 Allergy status to other drugs, medicaments and biological substances; Z91.018 Allergy to other foods; Z91.19 Patient's noncompliance with other medical treatment and regimen; F32.9 Major depressive disorder, single episode, unspecified
CPT/HCPCS: 36415; 36416; 71046; 80048; 83880; 84484; 85025; 85610; 85730; 93005; 93010; 93306; 96365; 96375; 99406; J1644; J2270; J2405

== ENCOUNTER 2018-05-25 21:04 | Inpatient (IN) | payer MEDICARE ==
--- NOTE | 2018-05-25 21:34 | RAD ---
CHEST ONE VIEW: HISTORY: Chest pain. COMPARISON: Chest radiograph from 04/28/2018. FINDINGS: The heart size is enlarged. No pneumothorax. No effusion. No acute osseous abnormality. IMPRESSION: Cardiomegaly; otherwise, unremarkable examination. POS: [facility]
[2018-05-25 22:00] LABS: #Eosinphils 0.8 thou/uL (0.0-0.7); #Lymphocytes 2.2 thou/uL (1.20-3.40); #Monocytes 0.4 thou/uL (0.11-0.59); #Neutrophils 4.2 thou/uL (1.40-6.50); %Basophils 0.6 % (0.0-1.0); %Eosinophils 10.1 % (0.0-10.0); %Lymphocytes 29.2 % (21.0-51.0); %Monocytes 5.7 % (0.0-10.0); %Neutrophils 54.5 % (42.0-75.0); Hemoglobin 14.3 g/dL (12.0-16.0); Mean Corpuscular HGB CONC 33.9 g/dL (32.0-36.0); Mean Corpuscular Volume 94.4 fL (78.0-98.0); Mean Platelet Volume 8.2 fL (7.4-10.4); Platelet Count 275 thou/uL (130-400); RBC Distribution Width 12.7 % (11.5-14.5); Red Blood Cell (RBC) Count 4.47 mill/uL (4.20-5.40); White Blood Cell (WBC) Count 7.7 thou/uL (4.8-10.8)
[2018-05-25 22:19] LABS: ALT (SGPT) 11 U/L (8-55); AST (SGOT) 13 U/L (5-34); Albumin 3.6 g/dL (3.5-5.0); Alkaline Phosphatase 64 U/L (40-150); Anion Gap 10 mmol/L (10-20); BUN (Urea Nitrogen) 19 mg/dL (9.8-20.1); CK (CPK) 51 U/L (29-168); Calc. Creatinine Clearance 0 mL/min (70-130); Calcium 10.7 mg/dL (7.8-10.44); Carbon Dioxide 26 mmol/L (22-29); Chloride 104 mmol/L (98-107); Estimated GFR-MDRD 50; Globulin 2.8 g/dL (2.4-3.5); Glucose 115 mg/dL (70-105); Potassium 3.8 mmol/L (3.5-5.1); Protein, Total 6.4 g/dL (6.0-8.3); Sodium 136 mmol/L (136-145)
[2018-05-25 22:23] LABS: CKMB 0.9 ng/mL (0-6.6)
[2018-05-25] MEDS ORDERED: Enoxaparin Sodium 100 MG/ML SYRINGE ONE (22:43)
[2018-05-25 23:45] VITALS: BMI 36.7
[2018-05-26 01:19] LABS: Troponin I 0.148 ng/mL (< 0.028)
[2018-05-26] MEDS: Acetaminophen 325 MG TAB PO PRN ×3 (03:27→20:35)
[2018-05-26 04:55] LABS: Troponin I 0.156 ng/mL (< 0.028)
[2018-05-26] MEDS: Levothyroxine Sodium 75 MCG TAB PO SCH (05:47)
[2018-05-26] MEDS ORDERED: Aspirin 325 MG TAB PO SCH (08:00)
[2018-05-26] MEDS: Carvedilol 25 MG TAB PO SCH ×2 (08:33→16:11)
[2018-05-26] MEDS ORDERED: Enoxaparin Sodium 120 MG/0.8 ML SYRINGE SC SCH (09:00)
[2018-05-26] MEDS ORDERED: Sodium Chloride 0.9% 1,000 ML IV SCH ×2 (09:00→23:30)
[2018-05-26] MEDS: Aspirin 81 mg Enteric Coated Tablet PO SCH (09:51)
--- NOTE | 2018-05-26 11:31 | CON ---
DATE OF CONSULTATION: 05/26/2018 REASON FOR CONSULTATION: Palpitations and chest tightness. HISTORY OF PRESENT ILLNESS: Ms. Fishman is a very pleasant 52-year-old white female who comes to the hospital for palpitations. She has a dilated cardiomyopathy, ischemic, who had an AICD placed and geronimo d to have a VT ablation done as well. She had been on amiodarone chronically and recently was found to have hypothyroidism, likely due to the amiodarone, so the amiodarone was stopped. She was placed on levothyroxine. She states she feels much better with the levothyroxine, but since we stopped the amiodarone she started to have episodes of VT again. She had a few bouts in the last few months. Sh traci was interrogated last week and was told that she had several runs of VT that were successfully catrachito mahamed with antitachycardia pacing. She comes today as yesterday she had several episodes of palpitatio ns similar to the episode when she had VT and decided to come in for evaluation. Currently, she is c hest pain free. She is feeling just well. When she does have the palpitations, she gets a little ch est tightness. PAST MEDICAL HISTORY: 1. Ischemic cardiomyopathy. 2. History of ventricular tachycardia, status post VT ablation. 3. History of an myocardial infarction. 4. Ischemic cardiomyopathy, EF of 20-25%. 5. Hypertension. 6. Coronary artery disease. 7. Hyperlipidemia. 8. Noncompliance. 9. History of smoking. 10. Hypothyroidism. 11. Supraventricular tachycardia status post ablation. PAST SURGICAL HISTORY: 1. Stent to the circ and right coronary arteries; circ was here, right coronary was at a different f acility. 2. VT ablation. 3. Supraventricular tachycardia ablation. 4. Biventricular AICD placement. 5. Tonsillectomy. HOME MEDICATIONS: 1. Aspirin 81. 2. Carvedilol 12.5 twice a day. 3. Levothyroxine 75 mcg a day. 4. Simvastatin 40 mg at bedtime. ALLERGIES: 1. IODINE gives her swelling. 2. PENICILLIN, severe. SOCIAL HISTORY: She continues to smoke for the last 30 years, about a pack a day. Lives alone at [facility]. No drugs or alcohol use. FAMILY HISTORY: Noncontributory. REVIEW OF SYSTEMS: Twelve point review of systems was done and is all negative unless stated in the history of present illness. PHYSICAL EXAMINATION: VITAL SIGNS: Temperature 97.5, pulse 70, respiration rate 15, satting 93% on room air, blood pressur e 125/79. GENERAL: Awake, alert, oriented x3, in no distress. HEENT: Normocephalic, atraumatic. NECK: Supple. LUNGS: Clear. CARDIOVASCULAR: S1, S2. No S3 or S4. ABDOMEN: Soft. Positive bowel sounds. EXTREMITIES: No edema. SKIN: Warm and dry. LABORATORY WORK: Reviewed. CBC is unremarkable. CMP unremarkable except for creatinine 1.15, GFR 5 0, glucose of 115, calcium 10.7. Troponin has been 0.15, 0.14, 0.15 with a BNP of 398. Albumin of 3.6, globulin 2.8. TSH last time it was checked was back on 04/2018 and it was high at 5.7. EKG was reviewed, AV paced, biventricularly paced. ASSESSMENT AND PLAN: 1. Ventricular tachycardia. 2. Coronary artery disease. 3. Ischemic cardiomyopathy, ejection fraction of 20-25%. 4. Status post biventricular automatic implantable cardioverter/defibrillator. 5. Ongoing tobacco abuse. 6. Elevated troponins. PLAN: 1. Certainly has been having more VT since the amiodarone was stopped; however, this could also just mean that she has a new ischemic burden that amiodarone was keeping at bay. We will plan on doing a heart catheterization to further risk stratify. She is allergic to IODINE, so we will have to preme dicate today and hopefully, do this procedure tomorrow morning to make it safer. 2. We will check thyroid studies as the last TSH was elevated. 3. Elevated troponin is just mildly elevated at her normal baseline, most likely related to her dila mahamed cardiomyopathy. Thank you for letting us participate in the care of your patient. We will follow.
[2018-05-26] MEDS ORDERED: predniSONE 50 MG TAB PO SCH (11:45)
[2018-05-26 12:20] LABS: Free T4 (Free Thyroxine) 1.25 ng/dL (0.70-1.48); Thyroid Stimulating Hormone 1.6263 uIU/mL (0.35-4.94)
--- NOTE | 2018-05-26 16:12 | HP ---
PRIMARY CARE PROVIDER: Nelson Gandhi M.D. CHIEF COMPLAINT: Chest pain. HISTORY OF PRESENT ILLNESS: Ms. Fishman is a pleasant 52-year-old lady who was seen at [facility] on 05/26/2018. She reports that she was sitting in her bed watching television yesterday afternoon when she develope d left-sided chest discomfort. She describes it as dull, tightness like sensation, 8-9/[address], on and off, no known aggravating factors, but better she was not moving, accompanied by shortness of breath. She also reports on and off palpitations. She reports that she is followed by Electroph ysiology Service. She was supposed to follow up with them during this week, but today called her to the office last week because there were episodes of ventricular tachycardia. She has been told that she may need a stress test. She also reports lightheadedness and diaphoresis with her chest discomfort and palpitations. REVIEW OF SYSTEMS: All other systems reviewed and found to be negative. PAST MEDICAL HISTORY: Coronary artery disease, congestive heart failure, systolic, dyslipidemia, hyp othyroidism, tobacco abuse, anxiety, and hypertension. PAST SURGICAL HISTORY: Cardiac stent in 2014 and 2017, SVT ablation, tonsillectomy and biventricular AICD placement. FAMILY HISTORY: Her father of myocardial infarction at age 45. SOCIAL HISTORY: She denies alcohol use or recreational drug use. She reports smoking half to 1 pack of cigarettes a day. ALLERGIES: IODINATED CONTRAST and PENICILLIN. HOME MEDICATIONS: Benadryl 50 mg every 4 hours as needed, Coreg 12.5 mg 2 times a day, Zocor 40 mg a t bedtime, aspirin 81 mg daily, Synthroid 75 mcg daily. PHYSICAL EXAMINATION: GENERAL: On examination, Ms. Fishman is awake and alert, not in acute distress. She is obese, with a BMI of 36.8. VITAL SIGNS: Blood pressure is 125/79, pulse 70, respiratory rate 15, and oxygen saturation 93% on r oom air. She is afebrile. EYES: No scleral icterus. No conjunctival pallor. ENT: Moist mucosal membranes, no oropharyngeal erythema or exudates. NECK: Supple, nontender, trachea is midline. RESPIRATORY: Accessory muscles of breathing are not active. Chest wall movements are symmetric bila terally. LUNGS: Clear to auscultation without wheeze, rhonchi or crepitations. CARDIOVASCULAR: S1 and S2 are heard, regular. Peripheral pulses palpable. No carotid bruit, no per icardial rub. NEUROLOGIC: Cranial nerves II-XII intact. Deep tendon reflexes are 2+. ABDOMEN: Soft, nontender, bowel sounds are heard. MUSCULOSKELETAL: Mild reproducible tenderness over the left chest wall. Power is 5/5 in all 4 extre mities. SKIN: No rashes or subcutaneous nodules. LYMPHATIC: No cervical lymphadenopathy. PSYCHIATRIC: Normal mood, normal affect, patient is oriented to person, place, and time. IMAGING DATA AND LABORATORY DATA: Ms. Fishman's labs and investigations were reviewed. I reviewed he r electrocardiogram, which shows electronic AV paced rhythm. I also reviewed her chest x-ray, which does not show any pulmonary infiltrates. She has cardiomegaly. She has an unremarkable CBC, mildly elevated creatinine of 1.15, indeterminate troponin I of 0.150, her troponins have been in the simila r range in the past as well, elevated BNP of 398 and an unremarkable liver profile. Electrolytes are normal. ASSESSMENT AND PLAN: Ms. Fishman is a pleasant 52-year-old lady who was seen at [facility] on 05/26/2018. Her problem list includes: 1. Palpitations: Concern here is regarding whether she is having recurrent ventricular tachycardia. She will be admitted to the hospital for further management and monitored on telemetry. Cardiology Service will be consulted. 2. Chest pain: We will recheck troponins. We will defer to Cardiology regarding further modalities to risk stratify Ms. Fishman. 3. Tobacco abuse: Patient has been counseled regarding tobacco cessation. She reports that she is trying to quit smoking. 4. Hypercalcemia: Calcium is mildly elevated at 10.7. We will recheck. 5. Dyslipidemia: Continue statin. 6. Hypothyroidism: Continue Synthroid. Many thanks for allowing me to participate in your patient's care. Please feel free to contact me wi th any questions or concerns. LEVEL OF RISK: High. LEVEL OF COMPLEXITY: High.
[2018-05-26] MEDS: Atorvastatin Calcium 20 MG TAB PO SCH (20:35)
[2018-05-26] MEDS: predniSONE 50 MG TAB PO SCH (20:35)
[2018-05-27] MEDS: Levothyroxine Sodium 75 MCG TAB PO SCH (05:33)
[2018-05-27] MEDS: Carvedilol 25 MG TAB PO SCH ×2 (05:33→17:49)
[2018-05-27] MEDS: predniSONE 50 MG TAB PO SCH ×2 (05:34→20:34)
[2018-05-27] MEDS: Aspirin 81 mg Enteric Coated Tablet PO SCH (05:35)
[2018-05-27] MEDS ORDERED: Famotidine 20 MG TAB PO SCH (07:00)
[2018-05-27] MEDS ORDERED: diphenhydrAMINE 50 MG CAP PO SCH (07:00)
[2018-05-27] MEDS ORDERED: Iopamidol 370 76% 100 ML VIAL ONE (09:00)
[2018-05-27] MEDS ORDERED: Lidocaine 1% (PF) 30 ML VIAL ONE (11:47)
[2018-05-27] MEDS ORDERED: Midazolam HCl 2 mg/2 ml Vial ONE (13:26)
[2018-05-27] MEDS ORDERED: Fentanyl 100 MCG/2 ML VIAL ONE (13:26)
[2018-05-27] MEDS ORDERED: diphenhydrAMINE 50 MG/ML VIAL ONE (13:47)
[2018-05-27] MEDS ORDERED: hydrALAZINE 20 MG/ML VIAL ONE (14:02)
[2018-05-27] MEDS ORDERED: Acetaminophen/Codeine 30-300mg Tablet PO PRN (14:56)
[2018-05-27] MEDS ORDERED: traMADol HCl 50 MG TAB PO PRN (14:56)
[2018-05-27] MEDS ORDERED: Sodium Chloride 0.9% 200 ML IV PRN (15:00)
--- NOTE | 2018-05-27 17:55 | PDOC.PN ---
- Subjective Encounter Start Date: 05/27/18 Encounter Start Time: 09:20 Pt seen for followup re: chest pain. Reports chest pain is better, palpitations better as well. - Objective MAR Reviewed: Yes Vital Signs & Weight: Vital Signs (12 hours) Temp Pulse Resp BP Pulse Ox 05/27/18 15:06 97.7 F 81 20 111/72 93 L 05/27/18 14:15 97.7 F 89 20 133/87 93 L 05/27/18 11:17 97.5 F L 80 20 132/74 92 L 05/27/18 07:42 97.7 F 81 20 117/60 92 L Weight Admit Weight 241 lb 12.8 oz Weight 241 lb 12.8 oz I&O: 05/26/18 05/27/18 05/28/18 06:59 06:59 06:59 Intake Total 200 770 Output Total 1350 1500 Balance -1150 -730 Result Diagrams: 05/25/18 21:51 05/25/18 21:51 EKG Reviewed by me: Yes (Tele: electronic AV-paced rhythm) Phys Exam - Physical Examination Obese HEENT: moist MMs, sclera anicteric, oral pharynx no lesions, 2+ tonsils Neck: no nodes, no JVD, supple, full ROM Respiratory: no wheezing, no rales, no rhonchi, clear to auscultation bilateral Cardiovascular: RRR, no rub S1, S2 Gastrointestinal: soft, non-tender, no distention, positive bowel sounds Neurological: moves all 4 limbs Psychiatric: normal affect, A&O x 3 Dx/Plan (1) Chest pain Code(s): R07.9 - CHEST PAIN, UNSPECIFIED Status: Acute Comment: for cath today (2) Palpitations Code(s): R00.2 - PALPITATIONS Status: Acute Comment: No arrhythmias seen on tele monitor, continue to monitor (3) Hyperlipidemia Code(s): E78.5 - HYPERLIPIDEMIA, UNSPECIFIED Status: Chronic Qualifiers: Comment: continue statin (4) Hypertension Code(s): I10 - ESSENTIAL (PRIMARY) HYPERTENSION Status: Chronic Comment: controlled (5) Tobacco abuse Code(s): Z72.0 - TOBACCO USE Status: Chronic Comment: Pt counseled re: tobacco cessation - Plan * . Review of Systems - Review of Systems Constitutional: negative: fever, chills, sweats, weakness, malaise Respiratory: Sputum. negative: Cough, Shortness of Breath, SOB with Excertion, Pleuritic Pain, Wheezing Cardiovascular: chest pain, palpitations. negative: orthopnea, paroxysmal nocturnal dyspnea, edema, light headedness Gastrointestinal: negative: Nausea, Vomiting, Abdominal Pain, Diarrhea, Constipation, Melena, Hematochezia Genitourinary: negative: Dysuria, Frequency, Incontinence, Hematuria, Retention Skin: negative: Rash, Lesions, Yruy, Bruising - Medications/Allergies Allergies/Adverse Reactions: Allergies Allergy/AdvReac Type Severity Reaction Status Date / Time pineapple Allergy Unknown Hives Verified 12/09/17 14:17 Iodinated Contrast- Oral and Allergy Hives Verified 05/25/18 23:58 IV Dye Penicillins Allergy Verified 05/25/18 23:58 shellfish derived Allergy Verified 05/25/18 23:58 Medications: Current Medications Acetaminophen (Tylenol) 650 mg PO Q6H PRN PRN Reason: Mild Pain (1-3) Last Admin: 05/26/18 20:35 Dose: 650 mg Acetaminophen/Codeine Phosphate (Tylenol #3) 1 tab PO Q4H PRN PRN Reason: Mild Pain (1-3) Acetaminophen/Codeine Phosphate (Tylenol #3) 2 tab PO Q4H PRN PRN Reason: Moderate Pain (4-6) Aspirin (Ecotrin) 81 mg PO DAILY [facility] Last Admin: 05/27/18 05:35 Dose: 81 mg Atorvastatin Calcium (Lipitor) 20 mg PO [facility] Last Admin: 05/26/18 20:35 Dose: 20 mg Carvedilol (Coreg) 6.25 mg PO BID-[facility] Diphenhydramine HCl (Benadryl) 50 mg PO Q4H PRN PRN Reason: Allergies Sodium Chloride (Normal Saline 0.9%) 1,000 mls @ 50 mls/hr IV .Q20H [facility] Stop: 05/27/18 19:00 Last Admin: 05/27/18 00:14 Dose: 1,000 mls Sodium Chloride (Normal Saline 0.9%) 200 mls @ 0 mls/hr IV ONE PRN PRN Reason: Bolus PRN SBP < 90 mm Hg Stop: 05/30/18 15:01 Levothyroxine Sodium (Synthroid) 75 mcg PO 0600 [facility] Last Admin: 05/27/18 05:33 Dose: 75 mcg Prednisone (Prednisone) 50 mg PO Q12HR [facility] Stop: 05/27/18 23:59 Last Admin: 05/27/18 05:34 Dose: 50 mg Sodium Chloride (Flush - Normal Saline) 10 ml IVF Q12HR [facility] Last Admin: 05/27/18 07:57 Dose: Not Given Sodium Chloride (Flush - Normal Saline) 10 ml IVF PRN PRN PRN Reason: Saline Flush Last Admin: 05/27/18 00:12 Dose: 10 ml Sotalol HCl (Betapace) 120 mg PO BID [facility] Tramadol HCl (Ultram) 50 mg PO Q6H PRN PRN Reason: Moderate Pain (4-6)
[2018-05-27] MEDS: Acetaminophen/Codeine 30-300mg Tablet PO PRN (20:33)
[2018-05-27] MEDS: Atorvastatin Calcium 20 MG TAB PO SCH (20:34)
[2018-05-27] MEDS: Sotalol HCl 80 MG TAB PO SCH (20:34)
[2018-05-28] MEDS: Acetaminophen/Codeine 30-300mg Tablet PO PRN ×2 (00:48→15:19)
[2018-05-28] MEDS: diphenhydrAMINE 50 MG CAP PO PRN ×2 (03:57→22:38)
[2018-05-28] MEDS: Levothyroxine Sodium 75 MCG TAB PO SCH (06:06)
[2018-05-28] MEDS: Carvedilol 6.25 MG TAB PO SCH ×2 (09:07→17:51)
[2018-05-28] MEDS: Sotalol HCl 80 MG TAB PO SCH ×2 (09:07→22:38)
[2018-05-28] MEDS: Aspirin 81 mg Enteric Coated Tablet PO SCH (09:07)
--- NOTE | 2018-05-28 10:29 | CON ---
DATE OF CONSULTATION: 05/27/2018 ELECTROPHYSIOLOGY CONSULTATION REPORT REFERRING PHYSICIAN: Skyler Trevino MD I am seeing Ms. Fishman at our [facility] telemetry as an electrophysiology event management consultant. Her problems are: 1. Recurrent ventricular arrhythmias. A. Prior history of SVT ablation in 2014 Dr. Nguyen. B. Chronic amiodarone therapy. Recently discontinued hence hypothyroidism. C. Recurrent VT terminated ventricular tachycardia episodes with increasing frequency in 05/2018 not ed prompting her current admission. 2. Atrial arrhythmias with rapid rates. A. Prior history of AV susan ablation as well as a biventricular ICD implantation and upgrade Medtronic Viva device, currently with adequate function. 3. Chronic systolic congestive heart failure with ischemic cardiomyopathy. A. History of myocardial infarction with LVEF 40% in the past. B. Prior history of circumflex artery and RCA stenting. C. Left heart catheterization from 05/26/2018 demonstrating a patent circumflex and RCA stent. LVEF 30%. 4. Risk factors including hypertension, tobacco abuse, and obesity. 5. Hypothyroidism, on replacement. 6. History of ETOH abuse. ALLERGIES: PINEAPPLE, IODINATED CONTRAST, IV DYE, PENICILLIN. MEDICATIONS: Medications currently at home included aspirin, diphenhydramine, carvedilol 3.125 mg ta blets up to 12.5 mg twice a day, levothyroxine, simvastatin. SUBJECTIVE: Ms. Fishman is here due to palpitations. She had rapid heartbeats and her ICD interrogat ion did reveal recurrences of ventricular arrhythmias. She did see Dr. Nguyen last week, but cont inued to have palpitations, prompting her to come to the ER again. She was evaluated by Dr. Trevino, undergoing left heart catheterization, and her coronary status was stable. Since hospital, she did n ot have further recurrent arrhythmias. Currently, she is feeling fair, recovering from the heart catheterization. No angina, no CHF. Denie s dizziness or loss of consciousness. No PND or orthopnea. The rest of 12-point systems is otherwis e unremarkable. PAST MEDICAL HISTORY: As above. SOCIAL HISTORY: The patient denies ETOH or drug abuse at this time. She does report smoking 1 pack of cigarettes a day. FAMILY HISTORY: Significant for father dying of myocardial infarction at age 45. OBJECTIVE DATA: VITAL SIGNS: Blood pressure 111/72, heart rate of 81, respirations 20, temperature 97.7 degrees Fahr enheit. GENERAL: Alert and oriented woman in no apparent distress. NECK: Supple. Jugular veins are not distended. CHEST: Coarse without crackles. CARDIOVASCULAR: Heart sounds are regular to rate and rhythm. No murmur or gallop. ABDOMEN: Benign. Bowel sounds positive. EXTREMITIES: Lower extremity without edema, clubbing, or cyanosis. NEUROLOGIC: The patient is nonfocal. MUSCULOSKELETAL: No joint swelling or deformities. SKIN: Without rash. Elevated BMI noted. The right femoral catheterization sites are intact. Left precordial pacing site without reaction. LABORATORY DATA: White count 7.7, hemoglobin 14.3, platelet count is 275. Sodium 136, potassium is 3.8, BUN is 19, creatinine is 1.15. Troponin I are 0.15, 0.148, and 0.156. BNP is 398. DIAGNOSTIC DATA: EKG from admission reveals atrial and ventricular paced rhythm with biventricular p acing present. The QRS is prolonged at 204 milliseconds, QTC is 544 milliseconds, but that is predom inantly provoked by the increased QRS length. Telemetry strips revealed no recurrent ventricular arrhythmias. ICD interrogation was reviewed revealing a Medtronic Viva Quad AICD. Battery longevity is adequate, 5.2 years. Lead parameters are good. There are no significant atrial arrhythmias seen. The ventric ular tachycardia episodes increased frequency in April and also in May noted. Two VT episodes , both pace terminated since last interrogation last week. The chest x-ray shows cardiomegaly, otherwise stable chest. ASSESSMENT AND PLAN: Ms. Fishman is a pleasant 52-year-old woman with history of CHF and ischemic car diomyopathy. She has moderate to severely reduced LVEF at 30% on the left heart catheterization. Sh e had history of ventricular tachycardia and prior ablation, but has been maintained on amiodarone rowe bsequently. Amiodarone had been stopped though in the past due to thyroid abnormalities. Now, she i s back with further ventricular tachycardia episodes. I again discussed the treatment options through suppressive antiarrhythmia therapy is a reasonable op tion. Hence recent hospital and the renal function is still reasonable, I will attempt to load her w ith sotalol. She does have increased QTc, but predominantly this is driven by her markedly prolonged QRS. We will monitor for the initial dosage of sotalol. ICD will be also hopefully preventing furt her ventricular episodes and cover for any proarrhythmia as well if it occurs. Pros and cons of this approach was discussed. We will also entertained consideration of restarting a miodarone as alternative to this. I suspect Mexitil will be less likely to be successful. Finally, repeat VT ablation is also a possibility in the future.
--- NOTE | 2018-05-28 17:00 | PDOC.PN ---
- Subjective Encounter Start Date: 05/28/18 Encounter Start Time: 07:40 Pt seen for followup re: palpitations. Denies chest pain. No fevers or chills. - Objective MAR Reviewed: Yes Vital Signs & Weight: Vital Signs (12 hours) Temp Pulse Resp BP Pulse Ox 05/28/18 16:04 97.6 F 82 24 H 133/85 95 05/28/18 11:55 97.3 F L 81 20 133/84 92 L 05/28/18 07:40 97.4 F L 80 20 134/82 93 L Weight Admit Weight 241 lb 12.8 oz Weight 241 lb 12.8 oz I&O: 05/27/18 05/28/18 05/29/18 06:59 06:59 06:59 Intake Total 770 1176 Output Total 1500 1350 Balance -730 -174 Result Diagrams: 05/25/18 21:51 05/25/18 21:51 EKG Reviewed by me: Yes (Tele: AV-paced rhythm) Phys Exam - Physical Examination Constitutional: NAD HEENT: moist MMs Neck: supple Respiratory: clear to auscultation bilateral Cardiovascular: RRR Gastrointestinal: soft Neurological: moves all 4 limbs Psychiatric: normal affect Skin: no rash Dx/Plan (1) Palpitations Code(s): R00.2 - PALPITATIONS Status: Acute Comment: Pt has been started on sotalol, continue to monitor (2) Chest pain Code(s): R07.9 - CHEST PAIN, UNSPECIFIED Status: Acute Comment: s/p cath, for medical management (3) Hyperlipidemia Code(s): E78.5 - HYPERLIPIDEMIA, UNSPECIFIED Status: Chronic Qualifiers: Comment: on statin (4) Hypertension Code(s): I10 - ESSENTIAL (PRIMARY) HYPERTENSION Status: Chronic Comment: controlled (5) Tobacco abuse Code(s): Z72.0 - TOBACCO USE Status: Chronic - Plan * . Review of Systems - Review of Systems Respiratory: negative: Cough, Shortness of Breath, SOB with Excertion, Pleuritic Pain, Wheezing Cardiovascular: negative: chest pain, palpitations, orthopnea, paroxysmal nocturnal dyspnea, edema, light headedness - Medications/Allergies Allergies/Adverse Reactions: Allergies Allergy/AdvReac Type Severity Reaction Status Date / Time pineapple Allergy Unknown Hives Verified 12/09/17 14:17 Iodinated Contrast- Oral and Allergy Hives Verified 05/25/18 23:58 IV Dye Penicillins Allergy Verified 05/25/18 23:58 shellfish derived Allergy Verified 05/25/18 23:58 Medications: Current Medications Acetaminophen (Tylenol) 650 mg PO Q6H PRN PRN Reason: Mild Pain (1-3) Last Admin: 05/26/18 20:35 Dose: 650 mg Acetaminophen/Codeine Phosphate (Tylenol #3) 1 tab PO Q4H PRN PRN Reason: Mild Pain (1-3) Last Admin: 05/28/18 15:19 Dose: 1 tab Acetaminophen/Codeine Phosphate (Tylenol #3) 2 tab PO Q4H PRN PRN Reason: Moderate Pain (4-6) Aspirin (Ecotrin) 81 mg PO DAILY [facility] Last Admin: 05/28/18 09:07 Dose: 81 mg Atorvastatin Calcium (Lipitor) 20 mg PO HS [facility] Last Admin: 05/27/18 20:34 Dose: 20 mg Carvedilol (Coreg) 6.25 mg PO BID-[facility] Last Admin: 05/28/18 09:07 Dose: 6.25 mg Diphenhydramine HCl (Benadryl) 50 mg PO Q4H PRN PRN Reason: Allergies Last Admin: 05/28/18 03:57 Dose: 50 mg Sodium Chloride (Normal Saline 0.9%) 200 mls @ 0 mls/hr IV ONE PRN PRN Reason: Bolus PRN SBP < 90 mm Hg Stop: 05/30/18 15:01 Levothyroxine Sodium (Synthroid) 75 mcg PO 0600 [facility] Last Admin: 05/28/18 06:06 Dose: 75 mcg Sodium Chloride (Flush - Normal Saline) 10 ml IVF Q12HR [facility] Last Admin: 05/28/18 09:10 Dose: 10 ml Sodium Chloride (Flush - Normal Saline) 10 ml IVF PRN PRN PRN Reason: Saline Flush Last Admin: 05/27/18 00:12 Dose: 10 ml Sotalol HCl (Betapace) 120 mg PO BID [facility] Last Admin: 05/28/18 09:07 Dose: 120 mg Tramadol HCl (Ultram) 50 mg PO Q6H PRN PRN Reason: Moderate Pain (4-6) Last Admin: 05/28/18 09:08 Dose: 50 mg
--- NOTE | 2018-05-28 17:40 | PDOC.CTH ---
Cardiology Progress Note - Subjective EP progress note: patient seen and evaluated. No cardiac concerns or complaints. Denies heart racing, palpitations, chest pain/pressure, passing out. - Objective Vital Signs Temp Pulse Resp BP Pulse Ox 05/28/18 16:04 97.6 F 82 24 H 133/85 95 05/28/18 11:55 97.3 F L 81 20 133/84 92 L 05/28/18 07:40 97.4 F L 80 20 134/82 93 L Admit Weight 241 lb 12.8 oz Weight 241 lb 12.8 oz 05/27/18 05/28/18 05/29/18 06:59 06:59 06:59 Intake Total 770 1176 Output Total 1500 1350 Balance -730 -174 - Physical Examination General/Neuro: alert & oriented x3, NAD Neck: no JVD present Lungs: CTA, unlabored respirations Heart: PMI normal, RRR Abdomen: NT/ND, soft - Telemetry Telemetry Rhythm: SR - Labs Result Diagrams: 05/25/18 21:51 05/25/18 21:51 Troponin/CKMB CK-MB (CK-2) 0.9 ng/mL (0-6.6) 05/25/18 21:51 Troponin I 0.156 ng/mL (< 0.028) H 05/26/18 03:26 - Assessment/Plan Ventricular tachycardia- previously on amiodarone, now being loaded on sotalol which requires hospitalization for monitoring during initiation given its risk for QTc prolongation and PMVT. So far QTc is stable after her 1st dose of sotalol last night. She is AV paced and her QRS complex is already 200msec in duration making the QTc seem prolonged. Once this baseline QRS prolongation is accounted for, her QTc is doing well and has only seen a minimal lengthening with sotalol. ~20msec. Continue loading as ordered with 12 lead EKG 2 hours after every dose of sotalol
[2018-05-28] MEDS ORDERED: Ondansetron HCl/PF 4 MG/2 ML Vial IVP PRN (22:09)
[2018-05-28] MEDS: Atorvastatin Calcium 20 MG TAB PO SCH (22:38)
[2018-05-29] MEDS: Levothyroxine Sodium 75 MCG TAB PO SCH (05:41)
[2018-05-29] MEDS: Carvedilol 6.25 MG TAB PO SCH ×2 (08:57→16:15)
[2018-05-29] MEDS: Aspirin 81 mg Enteric Coated Tablet PO SCH (08:57)
[2018-05-29] MEDS: Sotalol HCl 80 MG TAB PO SCH (08:57)
[2018-05-29] MEDS: Acetaminophen 325 MG TAB PO PRN (10:36)
--- NOTE | 2018-05-29 13:26 | DIS ---
DATE OF ADMISSION: 05/26/2018 DATE OF DISCHARGE: 05/29/2018 PRIMARY CARE PROVIDER: Nelson Gandhi M.D. DISCHARGE DIAGNOSES: 1. Ventricular tachycardia. 2. Palpitations. 3. Coronary artery disease. CONDITION OF PATIENT ON THE DAY OF DISCHARGE: Stable. I assessed Ms. Fishman on the day of discharge. She denies any chest pain or shortness of breath. Vital signs are stable. S1 and S2 are heard, regular. Lungs are clear to auscultation bilaterally. DISCHARGE MEDICATIONS: Coreg dose decreased to 6.25 mg 2 times a day, sotalol 120 mg 2 times a day, Benadryl 50 mg every 4 hours as needed, Synthroid 75 mcg daily, aspirin 81 mg daily, Zocor 40 mg at bedtime. CONSULTATIONS DURING THIS HOSPITALIZATION: Cardiology, Dr. Trevino and Electrophysiology, Dr. Osuna. HOSPITAL COURSE: Ms. Fishman is a pleasant 52-year-old lady who was admitted to [facility] on 05/26/2018 for palpitations secondary to known ventricular tachycardia as well as chest pain. Please refer to my history and physical note dated 05/26/2018 for further details. She was seen by Cardiology Service and underwent cardiac catheterization. She was found to have inferior akinesis, patent left circumflex stent, patent RCA stent and mild coronary artery disease in LAD. She is recommended optimal medical therapy and risk factor modification. Electrophysiology was consulted for suppressive therapy for ventricular tachycardia. She has been started on sotalol. She will be seen by Electrophysiology Service in approximately 6 weeks' time. She had normal TSH, normal free T3 and normal free T4 during this hospitalization. BNP was elevated at 398.3. Creatinine was elevated at 1.15. Many thanks for allowing me to participate in your patient's care. Please feel free to contact me with any questions or concerns. DISCHARGE DESTINATION: Home. TOTAL AMOUNT OF TIME SPENT COORDINATING THIS DISCHARGE: 33 minutes. MTDD
[2018-05-29 16:15] VITALS: BP 122/77; TEMP 97.6
--- NOTE | 2018-06-01 17:06 | EKG ---
Test Reason : TIMED Blood Pressure : / mmHG Vent. Rate : 080 BPM Atrial Rate : 071 BPM P-R Int : 000 ms QRS Dur : 196 ms QT Int : 490 ms P-R-T Axes : 000 226 229 degrees QTc Int : 565 ms AV dual-paced rhythm with premature ventricular complexes Biventricular pacemaker detected Abnormal ECG When compared with ECG of 25-MAY-2018 21:17, (Unconfirmed) No significant change was found Confirmed by MARGARETH CABRERA (2) on 06/01/2018 5:06:09 PM Referred By: MOHAN Confirmed By:MARGARETH CABRERA
--- NOTE | 2018-06-01 17:16 | EKG ---
Test Reason : TIMED POST SOTALOL Blood Pressure : / mmHG Vent. Rate : 081 BPM Atrial Rate : 081 BPM P-R Int : 000 ms QRS Dur : 192 ms QT Int : 480 ms P-R-T Axes : 000 -48 174 degrees QTc Int : 557 ms AV sequential or dual chamber electronic pacemaker When compared with ECG of 27-MAY-2018 22:52, (Unconfirmed) No significant change was found Confirmed by MARGARETH CABRERA (2) on 06/01/2018 5:15:40 PM Referred By: MOHAN Confirmed By:MARGARETH CABRERA
--- NOTE | 2018-06-01 17:30 | EKG ---
Test Reason : Blood Pressure : / mmHG Vent. Rate : 080 BPM Atrial Rate : 080 BPM P-R Int : 000 ms QRS Dur : 196 ms QT Int : 466 ms P-R-T Axes : 000 261 015 degrees QTc Int : 537 ms AV sequential or dual chamber electronic pacemaker with premature ventricular complexes When compared with ECG of 28-MAY-2018 11:12, (Unconfirmed) No significant change was found Confirmed by MARGARETH CABRERA (2) on 06/01/2018 5:30:27 PM Referred By: MOHAN Confirmed By:MARGARETH CABRERA
--- NOTE | 2018-06-01 17:40 | EKG ---
Test Reason : Blood Pressure : / mmHG Vent. Rate : 088 BPM Atrial Rate : 088 BPM P-R Int : 000 ms QRS Dur : 190 ms QT Int : 460 ms P-R-T Axes : 000 -75 007 degrees QTc Int : 556 ms AV sequential or dual chamber electronic pacemaker When compared with ECG of 29-MAY-2018 01:01, (Unconfirmed) Vent. rate has increased BY 8 BPM Confirmed by MARGARETH CABRERA (2) on 06/01/2018 5:40:36 PM Referred By: MOHAN Confirmed By:MARGARETH CABRERA
== END 2018-05-29 18:14 | disposition home or self-care (01) | DRG 287 ==
LOC: ERS 21:04 → 2SW 22:45 → OBSVTOIN 05-26 13:27 → 2NO 05-28 18:14
PROVIDERS: ADMIT Hospitalist; ATTEND Hospitalist
PROC: 4A023N7 Measurement of Cardiac Sampling and Pressure, Left Heart, Percutaneous Approach (ICD-10-PCS; principal; 2018-05-27)
PROC: B2111ZZ Fluoroscopy of Multiple Coronary Arteries using Low Osmolar Contrast (ICD-10-PCS; 2018-05-27)
PROC: B2151ZZ Fluoroscopy of Left Heart using Low Osmolar Contrast (ICD-10-PCS; 2018-05-27)
DX: I47.2 Ventricular tachycardia (principal); I42.0 Dilated cardiomyopathy; I50.22 Chronic systolic (congestive) heart failure; I11.0 Hypertensive heart disease with heart failure; I25.10 Atherosclerotic heart disease of native coronary artery without angina pectoris; I25.2 Old myocardial infarction; E78.5 Hyperlipidemia, unspecified; E03.9 Hypothyroidism, unspecified; F17.210 Nicotine dependence, cigarettes, uncomplicated; F41.9 Anxiety disorder, unspecified; Z95.5 Presence of coronary angioplasty implant and graft; E83.52 Hypercalcemia; E66.9 Obesity, unspecified; Z79.899 Other long term (current) drug therapy; Z88.0 Allergy status to penicillin; Z91.041 Radiographic dye allergy status; Z91.018 Allergy to other foods; Z91.19 Patient's noncompliance with other medical treatment and regimen; Z95.810 Presence of automatic (implantable) cardiac defibrillator; Z79.82 Long term (current) use of aspirin
CPT/HCPCS: 36415; 71045; 80053; 82550; 82553; 83880; 84439; 84443; 84481; 84484; 85025; 93005; 93010; 93458; 96372; 99152; 99406; A4216; C1769; J0360; J1200; J1644; J1650; J2001; J2250; J2270; J2405; J3010

== ENCOUNTER 2018-06-11 19:55 | Observation (INO) | payer MEDICARE ==
[2018-06-11 20:52] LABS: #Eosinphils 0.5 thou/uL (0.0-0.7); #Lymphocytes 1.5 thou/uL (1.20-3.40); #Monocytes 0.5 thou/uL (0.11-0.59); #Neutrophils 7.2 thou/uL (1.40-6.50); %Basophils 0.4 % (0.0-1.0); %Eosinophils 4.9 % (0.0-10.0); %Lymphocytes 15.3 % (21.0-51.0); %Monocytes 4.9 % (0.0-10.0); %Neutrophils 74.6 % (42.0-75.0); Hemoglobin 14.4 g/dL (12.0-16.0); Mean Corpuscular HGB CONC 32.9 g/dL (32.0-36.0); Mean Corpuscular Hemoglobin 31.1 pg (27.0-31.0); Mean Corpuscular Volume 94.7 fL (78.0-98.0); Platelet Count 273 thou/uL (130-400); RBC Distribution Width 12.5 % (11.5-14.5); Red Blood Cell (RBC) Count 4.64 mill/uL (4.20-5.40); White Blood Cell (WBC) Count 9.7 thou/uL (4.8-10.8)
--- NOTE | 2018-06-11 20:57 | RAD ---
CHEST ONE VIEW: 06/11/18 COMPARISON: 05/25/18. HISTORY: Chest pain. FINDINGS: Stable left sided defibrillator. Upper normal cardiac silhouette. Pulmonary vessels and hilum are nor mal. No consolidation or mass. No pneumothorax or osseous abnormality. IMPRESSION: No acute cardiopulmonary process. POS: PPP
[2018-06-11 21:18] LABS: CKMB 1.1 ng/mL (0-6.6); Troponin I 0.152 ng/mL (< 0.028)
[2018-06-11 21:22] LABS: ALT (SGPT) 13 U/L (8-55); Albumin 3.7 g/dL (3.5-5.0); Alkaline Phosphatase 58 U/L (40-150); Anion Gap 13 mmol/L (10-20); BUN (Urea Nitrogen) 15 mg/dL (9.8-20.1); CK (CPK) 48 U/L (29-168); Calc. Creatinine Clearance 0 mL/min (70-130); Calcium 10.6 mg/dL (7.8-10.44); Carbon Dioxide 23 mmol/L (22-29); Chloride 106 mmol/L (98-107); Estimated GFR-MDRD 45; Globulin 2.9 g/dL (2.4-3.5); Glucose 135 mg/dL (70-105); Potassium 3.6 mmol/L (3.5-5.1); Protein, Total 6.6 g/dL (6.0-8.3); Sodium 138 mmol/L (136-145)
[2018-06-11] MEDS ORDERED: Morphine 4 MG/ML VIAL ONE (21:42)
[2018-06-11 23:03] LABS: AST (SGOT) 19 U/L (5-34)
[2018-06-12 00:37] VITALS: BMI 36.3
[2018-06-12 01:31] LABS: Troponin I 0.178 ng/mL (< 0.028)
[2018-06-12] MEDS: Ondansetron HCl/PF 4 MG/2 ML Vial SLOW IVP PRN (01:36)
[2018-06-12] MEDS: Morphine 2 MG/ML SYRINGE SLOW IVP PRN ×4 (01:38→21:52)
[2018-06-12 03:45] LABS: Troponin I 0.167 ng/mL (< 0.028)
[2018-06-12] MEDS ORDERED: diphenhydrAMINE 50 MG CAP PO PRN (06:06)
[2018-06-12] MEDS ORDERED: Acetaminophen 325 MG TAB PO PRN (06:09)
[2018-06-12] MEDS ORDERED: Sodium Chloride 0.9% 1,000 ML IV SCH (06:15)
--- NOTE | 2018-06-12 07:02 | HP ---
CHIEF COMPLAINT: Chest pain. HISTORY OF PRESENT ILLNESS: This is a 52-year-old female with past medical history of MO x2 treated with stents placement on ICD since 2017, hyperlipidemia, hypertension presenting with chest pain, pal pitations. The patient on the day of admission she sustained V-tach multiple times throughout the da y and she felt that her defibrillator fired during those times. The patient stated that she had a lo t of pain and she felt some palpitations. The patient then called EMS and EMS gave the patient aspir in. Amiodarone was also given and the patient also received nitro. The patient stated that her pain was 9/10 and it was substernal. Per patient, she had a cardiac catheterization 2 weeks ago and no s tents were placed during that procedure. At this time, patient denies any headaches, fever, shortnes s of breath, abdominal pain. REVIEW OF SYSTEMS: Positive for chest pain, palpitations, nausea and vomiting. Otherwise, as stated in the HPI. All other systems were reviewed and are negative. PAST MEDICAL HISTORY: MO x2, status post stents x4, status post AICD, hyperlipidemia, hypertension, obesity, hypothyroidism. PAST SURGICAL HISTORY: Cardiac stents x4, tonsillectomy. PSYCHIATRIC HISTORY: Depression, anxiety. SOCIAL HISTORY: The patient is a smoker. Patient smokes 1 pack per day. Patient denies ethanol use and illicit drug use. FAMILY HISTORY: Reviewed and noncontributory. ALLERGIES: The patient is allergic to IODINATED CONTRAST, PENICILLIN, PINEAPPLE and SHELLFISH. CURRENT MEDICATIONS: The patient is on simvastatin 40 mg, levothyroxine 75 mcg. Carvedilol 12.5 mg b.i.d., Sotalol 120 mg daily, aspirin 81 mg. PHYSICAL EXAMINATION: VITAL SIGNS: Blood pressure 172/92, pulse of 82, respiratory rate of 18, temperature of 97.8, oxygen saturation of 95. GENERAL: The patient is alert, oriented x3, not in acute distress, speaking in full sentences. She s tated that his thought she still has some discomfort due to her AICD firing. HEENT: Normocephalic, atraumatic. Pupils are equally round and reactive to light. Extraocular move ments are intact. No scleral icterus. Mucous membranes are moist. NECK: Supple, nontender. Trachea is midline. No JVD. . LUNGS: Clear to auscultation bilaterally. No wheezing, no rales, no rhonchi is appreciated. CARDIOVASCULAR: Positive S1, S2, regular rate and rhythm. No murmurs, no gallops, no rubs appreciat ed. ABDOMEN: Obese abdomen, soft, nontender, nondistended, positive bowel sounds in all quadrants. EXTREMITIES: Upper extremities 5/5, lower extremities 5/5. No edema noted and good pulses bilateral ly of the upper and lower extremities. NEURO: No focal neurologic deficits. SKIN: Warm, dry, and intact. PSYCHIATRIC: Normal affect, alert and oriented x3. EKG: A 12-lead EKG was done in the ED which showed a paced rhythm. In the ED, the patient was given morphine 4 mg. LABORATORY DATA: WBC 9.7, hemoglobin 14.4, hematocrit 43.9, platelet count is 273. Sodium 138, pota ssium 3.6, chloride 106, carbon dioxide 23, BUN is 15, creatinine is 1.24, GFR is 45, glucose is 135, calcium is 10.6. AST is 19, ALT is 13. Troponin 0.152, second troponin 0.167. ASSESSMENT AND PLAN: 1. This is a 52-year-old female being admitted for V-tach with defibrillator firing. At this point, we are going to admit the patient to telemetry. We will get Cardiology on consult to interrogate hua gustafson's AICD. We will start patient on her home medications to be taken with sips of water and we wi ll make the patient n.p.o. 2. Palpitations, likely due to arrhythmias. The patient was found to have ventricular tachycardia. The patient was given amiodarone en route to the hospital. At this point, we will wait for Cardiolo gy to evaluate the patient and we will follow cardiology's recommendations. 3. Elevated troponins, likely due to AICD ____. We will currently observe the patient's troponins. Cardiology is on consult. 4. Acute kidney injury. We will start the patient on IV fluids. We are assuming that the patient's elevated creatinine is due to possible dehydration. We will follow up on morning labs. 5. Hyperlipidemia, we will continue patient on current medications. 6. Hypothyroidism. We will continue the patient on her current medications. 7. History of depression, anxiety currently stable. We will monitor the patient. 8. Deep venous thrombosis and gastrointestinal prophylaxis. We do Lovenox for DVT prophylaxis and P epcid for GI prophylaxis.
[2018-06-12] MEDS: Levothyroxine Sodium 75 MCG TAB PO SCH (07:34)
[2018-06-12] MEDS: Famotidine 20 MG TAB PO SCH ×2 (07:38→21:45)
[2018-06-12] MEDS: Aspirin 81 mg Enteric Coated Tablet PO SCH (07:38)
[2018-06-12] MEDS ORDERED: Carvedilol 6.25 MG TAB PO SCH (08:00)
[2018-06-12] MEDS ORDERED: Sotalol HCl 80 MG TAB PO SCH (09:00)
[2018-06-12] MEDS ORDERED: Calcium Carbonate 500 MG ChewTAB PO SCH (11:00)
[2018-06-12] MEDS: Enoxaparin Sodium 40 MG/0.4 ML SYRINGE SC SCH (11:18)
[2018-06-12] MEDS ORDERED: Potassium Chloride 20 MEQ TAB PO SCH (14:30)
--- NOTE | 2018-06-12 15:00 | PDOC.PN ---
- Subjective Encounter Start Date: 06/12/18 Encounter Start Time: 12:00 -: old records requested/rev PT seen and examined, chart reviewed in its entirety, this is my frist visit with this patient follow up for VTach with AICD discharge. No further problems here. pt gives history of recently starting sotalol. no f/C, no N/V/D/C, no CP or SOB, no acute events all systems reviewed and neg x as above - Objective Resuscitation Status: Resuscitation Status FULL:Full Resuscitation MAR Reviewed: Yes Vital Signs & Weight: Vital Signs (12 hours) Temp Pulse Resp BP Pulse Ox 06/12/18 11:25 97.5 F L 80 16 124/73 93 L 06/12/18 07:08 97.7 F 80 18 115/74 93 L 06/12/18 04:38 97.6 F 80 16 115/69 92 L Weight Weight 239 lb 4 oz I&O: 06/11/18 06/12/18 06/13/18 06:59 06:59 06:59 Intake Total 240 Output Total 700 Balance -460 Result Diagrams: 06/11/18 20:43 06/11/18 20:43 Radiology Reviewed by me: Yes EKG Reviewed by me: Yes Phys Exam - Physical Examination Constitutional: NAD HEENT: PERRLA, moist MMs, sclera anicteric, oral pharynx no lesions Neck: no nodes, no JVD, supple, full ROM Respiratory: no wheezing, no rales, no rhonchi, clear to auscultation bilateral Cardiovascular: RRR, no significant murmur, no rub Gastrointestinal: soft, non-tender, no distention, positive bowel sounds Musculoskeletal: edema present Neurological: non-focal, normal sensation, moves all 4 limbs Lymphatic: no nodes Psychiatric: normal affect, A&O x 3 Skin: no rash, normal turgor, cap refill <2 seconds Dx/Plan (1) AICD discharge Code(s): Z45.02 - ENCNTR FOR ADJUST AND MGMT OF AUTOMATIC IMPLNTBL CARD DEFIB Status: Acute (2) Anxiety Code(s): F41.9 - ANXIETY DISORDER, UNSPECIFIED Status: Acute (3) Chest pain Code(s): R07.9 - CHEST PAIN, UNSPECIFIED Status: Acute Qualifiers: Chest pain type: precordial pain Qualified Code(s): R07.2 - Precordial pain Comment: s/p cath last month wiht minimal CAD, for medical management (4) Troponin I above reference range Code(s): R79.89 - OTHER SPECIFIED ABNORMAL FINDINGS OF BLOOD CHEMISTRY Status : Acute (5) AICD (automatic cardioverter/defibrillator) present Code(s): Z95.810 - PRESENCE OF AUTOMATIC (IMPLANTABLE) CARDIAC DEFIBRILLATOR Status: Chronic (6) Hyperlipidemia Code(s): E78.5 - HYPERLIPIDEMIA, UNSPECIFIED Status: Chronic Qualifiers: Comment: on statin (7) Hypertension Code(s): I10 - ESSENTIAL (PRIMARY) HYPERTENSION Status: Chronic Qualifiers: Hypertension type: essential hypertension Qualified Code(s): I10 - Essential (primary) hypertension Comment: controlled (8) Hypothyroidism Code(s): E03.9 - HYPOTHYROIDISM, UNSPECIFIED Status: Chronic Qualifiers: Hypothyroidism type: acquired Qualified Code(s): E03.9 - Hypothyroidism, unspecified (9) Obesity (BMI 30.0-34.9) Code(s): E66.9 - OBESITY, UNSPECIFIED Status: Chronic (10) Systolic CHF with reduced left ventricular function, NYHA class 2 Code(s): I50.20 - UNSPECIFIED SYSTOLIC (CONGESTIVE) HEART FAILURE Status: Chronic - Plan cont current plan of care, plan discussed w/ family * . follow up on EP recs
--- NOTE | 2018-06-12 18:20 | CON ---
DATE OF CONSULTATION: 06/12/2018 CARDIOLOGY CONSULTATION REASON FOR CONSULTATION: VT. HISTORY OF PRESENT ILLNESS: Ms. Fishman is a very pleasant 52-year-old white female, very well known to myself who comes to the hospital for episodes of VT. She has a history of previous NH with a redu jeet LV function of 30%. She has had a VT ablation in the past and had been on suppressive therapy wi th amiodarone, she developed hypothyroidism recently, it is thought to be a complication from the ami odarone, so the amiodarone was stopped and she was placed on thyroid replacement therapy. She starte d having VT a few weeks ago and she was evaluated at that time with a heart catheterization, which sh owed widely patent stents and really no significant coronary disease to attest for her VT, so this is most likely coming from her scar, so she was started on sotalol 120 mg twice a day and discharged ho me. She states that yesterday she started having lots of palpitations. She could feel the VT coming . Interrogation of her device shows that she had 15 episodes of ventricular tachycardia successfully treated with antitachycardia pacing, except for one where she had ATP twice and had to get a shock d elivered. She was being wheeled out of her house at that time by EMS. EMS gave her a bolus of amiod arone and she states that once that amiodarone came in, she has not had any more problems. PAST MEDICAL HISTORY: 1. Ischemic cardiomyopathy. 2. History of ventricular tachycardia, status post VT ablation. 3. History of myocardial infarction x2. 4. Ischemic cardiomyopathy with an EF of 30%. 5. Hypertension. 6. Hyperlipidemia. 7. Noncompliance in the past. She has been much more compliant recently. 8. History of smoking. 9. Hypothyroidism. 10. Supraventricular tachycardia status post ablation. PAST SURGICAL HISTORY: 1. PCI to the stent in right coronary artery in the past, widely patent on heart catheterization jus t 2 weeks ago. 2. VT ablation. 3. SVT ablation. 4. Biventricular AICD placement. 5. Tonsillectomy. OUTPATIENT MEDICATIONS: Include, 1. Ibuprofen PM. 2. Aspirin 81 a day. 3. Sotalol 120 mg b.i.d. 4. Zocor 40 mg at bedtime. 5. Synthroid 75 mcg a day. 6. Carvedilol 12.5 mg b.i.d. 7. Diphenhydramine 50 mg q.4 hours p.r.n. ALLERGIES: 1. IODINE. 2. PENICILLIN. SOCIAL HISTORY: Continues to smoke. Lives alone. No drugs or alcohol use. FAMILY HISTORY: Noncontributory. REVIEW OF SYSTEMS: A 12-point review of systems was done and is all negative unless stated in the hi story of present illness. PHYSICAL EXAMINATION: VITAL SIGNS: Temperature 97.4, pulse 80, respiration rate 16, satting 96% on room air, blood pressur e 108/57. GENERAL: Awake, alert, oriented x3, in no distress. HEENT: Normocephalic. NECK: Supple. LUNGS: Clear. CARDIOVASCULAR: S1, S2. No S3, S4. No murmurs. ABDOMEN: Soft, positive bowel sounds. EXTREMITIES: No edema. SKIN: Warm and dry. LABORATORY WORK: Reviewed. Her CBC is unremarkable. Chemistry is unremarkable. Creatinine is 1.24 , GFR of 45. Glucose was 135. Calcium was 10.6. Normal magnesium. Normal potassium. Troponin is in the indeterminate level, which is where it usually runs at, at 0.15, 0.17, 0.16. Normal CK-MB. Chest x-ray, no acute cardiopulmonary process. AICD interrogation was reviewed. She had 15 episodes of VT, 14 of them were successfully treated wit h ATP. One of them had 2 runs of ATP that were unsuccessful and received a 32-joule shock, which con verted her to sinus rhythm. ASSESSMENT AND PLAN: 1. Ventricular tachycardia. 2. Ischemic cardiomyopathy. 3. Coronary artery disease, stable on last evaluation just 2 weeks ago. 4. Hypothyroidism thought to be related to amiodarone. PLAN: 1. We may have to rechallenge her with amiodarone just to treat her hypothyroidism. We will discuss with EP, but sotalol is not being sufficient for suppression of ventricular tachycardia. 2. EP consultation pending. We will await their recommendations. 3. She may need a VT ablation and we will defer to Dr. Osuna. Thank you for letting us to participate in the care of your patient. We will follow.
[2018-06-12] MEDS ORDERED: Simvastatin 40 MG TAB PO SCH (21:00)
[2018-06-12] MEDS: Sotalol HCl 80 MG TAB PO SCH (21:46)
--- NOTE | 2018-06-12 23:16 | CON ---
ELECTROPHYSIOLOGY CONSULTATION DATE OF CONSULTATION: 06/12/2018 REFERRING PHYSICIAN: Dr. Demian Kline. REASON FOR CONSULTATION: Ventricular tachycardia and ICD discharges. HISTORY OF PRESENT ILLNESS: Ms. iFshman recently presented to [facility] via EMS. She had been experiencing ventricular tachycardia episodes at home with great frequency on 06/11/2018 an d eventually received an ICD shock. She was given amiodarone and nitro en route to the hospital. Dhruv aviles was recently hospitalized and discharged in the near past for her ventricular tachycardia and was l oaded on sotalol and also underwent cardiac catheterization that revealed nonocclusive coronary arter y disease and no PCI was indicated at that time. She has been tolerating the sotalol well without an y dizziness or hypotension. Her only presenting and concerning factor with her episodes of heart rac ing palpitation and suspected ventricular tachycardia with her eventual ICD discharge. She was place d in observation and her device was interrogated revealing frequent VT episodes recently and then grzegorz ntually the defibrillator fired. Currently, Ms. Fishman reports that she is feeling mostly well. She has not had any episodes of VTE, heart racing or palpitations and she received IV amiodarone. She does have some residual aching in h er chest from the tachycardia yesterday, but no acute chest pain is noted. She denies any recent str seamus or stroke-like symptoms. REVIEW OF SYSTEMS: Twelve-point review of systems was conducted, positive for diffuse chest aching, palpitations, some nausea, and otherwise, negative and as per HPI. PAST MEDICAL HISTORY: 1. Persistent congestive heart failure with ischemic cardiomyopathy, ejection fraction 40% with a hi story of prior [place]. 2. Coronary artery disease with prior myocardial infarction and RCA and circumflex stenting, left he art catheterization in 05/2018 as essentially normal. 3. Ventricular tachycardia with radiofrequency [place] [address] Nguyen requiring amiodaron e for suppression in the past recently loaded on sotalol. 4. Paroxysmal atrial arrhythmias occasionally with RVR, prompting AV susan ablation with a BiV ICD u pgrade on 04/12/2017 with a [employer] Viva device. 5. Hypothyroidism. 6. Coronary artery disease risk factors include hypertension and continued tobacco abuse. 7. History of alcohol abuse. 8. Continued tobacco habituation. 9. Obesity. ALLERGIES: Include PENICILLIN, IODINE CONTRAST, PINEAPPLE, and SHELLFISH. HOME MEDICATIONS: Include ibuprofen as needed, aspirin 81 mg daily, sotalol 120 mg p.o. b.i.d., Zoco r 40 mg p.o. at bedtime, Synthroid 75 mcg p.o. q.a.m., Coreg 12.5 mg p.o. b.i.d. and Benadryl 50 mg a s needed. FAMILY HISTORY: Negative for sudden cardiac or early-onset coronary artery disease. SOCIAL HISTORY: Positive for tobacco habituation 1 pack per day, longstanding history. Denies curre nt alcohol or illicit drug use, but does have a history of alcohol abuse. PHYSICAL EXAMINATION: VITAL SIGNS: Most recent vital signs 97.7 degrees Fahrenheit, pulse 80, blood pressure 115/74, respi rations 18, and oxygen is 96% on room air. GENERAL: This is a well-nourished, well-groomed, but obese woman in no apparent distress. HEENT: Normocephalic, atraumatic. Sclerae are anicteric. EOMs are intact. Oral mucosa is moist an d pink with poor dentition. NECK: Supple without jugular venous distention. CARDIOVASCULAR: Her heart rate is currently regular. Her device is seated at the left infraclavicul ar fossa without swelling, bruising, erosion, or drainage. ABDOMEN: Obese, soft, and nontender without palpable masses. Hepatojugular reflex is negative. LUNGS: Her lungs are clear to auscultation bilaterally. EXTREMITIES: Her extremities are warm and dry to touch without clubbing, cyanosis or edema. NEUROLOGIC: Her neurologic exam is grossly intact and nonfocal. DATABASE: Labs were all personally reviewed and were mostly unremarkable. Her creatinine is slightl y elevated at 1.24. Electrolytes were largely normal, potassium 3.6, magnesium 1.9. Her serum tropo nins were slightly elevated and attributed to her ventricular tachycardia and ICD discharge. Her ICD interrogation was reviewed and shows recent ventricular tachycardia episodes and ICD discharge. ASSESSMENT AND PLAN: 1. Recurrent ventricular tachycardia with eventual implantable cardioverter-defibrillator discharge. 2. Sotalol for antiarrhythmic suppression and recently added that higher doses required. 3. Biventricular implantable cardioverter-defibrillator in situ with normal operation. 4. Chronic systolic heart failure and ischemic cardiomyopathy. 5. Continued tobacco habituation. 6. Morbid obesity. RECOMMENDATIONS: For now, her QTC is stable from what it was prior to her sotalol initiation. Demetria alberto her baseline QTC was already prolonged with biventricular pacing and when she was discharged, her b aseline QRS complex is already 200 milliseconds in duration for initiating sotalol making her QTC see n somewhat prolonged. With her initial sotalol loading, there was only 20 milliseconds lengthening s een. At this point, we will increase her sotalol to 180 mg p.o. b.i.d. We have discussed redo ablat ion with her in the past. She has been on amiodarone in the past, which is not an ideal option for h er with her thyroid disease, but may be necessary if sotalol is an adequate suppression of ventricula r arrhythmias. We will keep her for additional monitoring while we increased her sotalol therapy and we will continue with 12-lead EKGs 2 hours after every dose. In the meantime, we recommend monitori ng her electrolytes and replacing her potassium to 4 and magnesium to 2.0. QTC is currently 569. Thank you for allowing us to participate in the care of this patient. We will continue to follow thr ough her hospitalization.
[2018-06-13] MEDS: Ondansetron HCl/PF 4 MG/2 ML Vial SLOW IVP PRN (01:08)
[2018-06-13 05:48] LABS: #Eosinphils 0.4 thou/uL (0.0-0.7); #Lymphocytes 1.5 thou/uL (1.20-3.40); #Monocytes 0.3 thou/uL (0.11-0.59); #Neutrophils 3.7 thou/uL (1.40-6.50); %Basophils 0.6 % (0.0-1.0); %Eosinophils 7.5 % (0.0-10.0); %Lymphocytes 24.8 % (21.0-51.0); %Monocytes 5.6 % (0.0-10.0); %Neutrophils 61.6 % (42.0-75.0); Hemoglobin 13.6 g/dL (12.0-16.0); Mean Corpuscular HGB CONC 32.7 g/dL (32.0-36.0); Mean Corpuscular Hemoglobin 31.3 pg (27.0-31.0); Mean Corpuscular Volume 95.8 fL (78.0-98.0); Mean Platelet Volume 8.8 fL (7.4-10.4); Platelet Count 237 thou/uL (130-400); RBC Distribution Width 12.6 % (11.5-14.5); Red Blood Cell (RBC) Count 4.36 mill/uL (4.20-5.40)
[2018-06-13] MEDS: Levothyroxine Sodium 75 MCG TAB PO SCH (05:49)
[2018-06-13 05:52] LABS: ALT (SGPT) 12 U/L (8-55); AST (SGOT) 14 U/L (5-34); Albumin 3.4 g/dL (3.5-5.0); Alkaline Phosphatase 54 U/L (40-150); Anion Gap 9 mmol/L (10-20); BUN (Urea Nitrogen) 12 mg/dL (9.8-20.1); Bilirubin, Total 0.8 mg/dL (0.2-1.2); Calc. Creatinine Clearance 112 mL/min (70-130); Calcium 8.9 mg/dL (7.8-10.44); Carbon Dioxide 23 mmol/L (22-29); Chloride 105 mmol/L (98-107); Estimated GFR-MDRD 58; Globulin 2.6 g/dL (2.4-3.5); Glucose 85 mg/dL (70-105); Magnesium 2.2 mg/dL (1.6-2.6); Potassium 4.3 mmol/L (3.5-5.1); Sodium 133 mmol/L (136-145)
[2018-06-13 08:05] VITALS: BP 107/67; TEMP 97.6
[2018-06-13] MEDS: Morphine 2 MG/ML SYRINGE SLOW IVP PRN (09:11)
[2018-06-13] MEDS: Sotalol HCl 80 MG TAB PO SCH (09:20)
[2018-06-13] MEDS: Aspirin 81 mg Enteric Coated Tablet PO SCH (09:23)
[2018-06-13] MEDS: Famotidine 20 MG TAB PO SCH (09:24)
[2018-06-13] MEDS: Enoxaparin Sodium 40 MG/0.4 ML SYRINGE SC SCH (09:25)
--- NOTE | 2018-06-13 10:31 | PRG ---
DATE OF SERVICE: 06/13/2018 SUBJECTIVE: Ms. Fishman seems to be doing better. No recurrent arrhythmias are noted. She currently is a higher dose of sotalol. OBJECTIVE DATA: VITAL SIGNS: Blood pressure is 107/67, heart rate 80, respiration 16, temperature 97.6 degrees Fahre nheit. GENERAL: Alert and oriented woman in no apparent distress. NECK: Supple. Jugular veins are distended. CHEST: Coarse without crackles. CARDIOVASCULAR: Heart sounds are regular rate and rhythm. No murmur or gallop. ABDOMEN: Benign. Bowel sounds positive. EXTREMITIES: Lower extremities without edema, clubbing or cyanosis. DATABASE: The EKG from 06/12/2018 at 10:00 p.m. reviewed revealing atrial ventricular paced rhythm. A very wide QRS of 196 milliseconds and QTC is 572 milliseconds noted. Allowing for long QRS. The QTC is not that extremely prolonged. Telemetry strips reveal no proarrhythmia. LABORATORY DATA: Laboratory reviewed is unremarkable. Sodium 133. The troponin levels peaked at 0. 178. The magnesium levels are adequate at 2.2. ASSESSMENT AND PLAN: Ms. Fishman is a pleasant 52-year-old woman with history of congestive heart carlos lure and cardiomyopathy. She had ischemic cardiomyopathy. She had prior ventricular tachycardia, st atus post ablation in the past. She had recurrent ventricular arrhythmias which most responding well to ATP therapy, but on occasion required shock. She was started on sotalol 100 mg twice a day, last visit, but now had recurrence. At this point opted for increasing the sotalol to 180 mg twice a day dose. Also might increase the aggressive use of the ATP therapies. I discussed the option for a re do ablation options as well. She is considering it. We will make arrangements as an outpatient. Hopefully, she will be stable for discharge this evening or tomorrow with the increased sotalol dose. We will discuss with Dr. Trevino if these efforts fail the next medical option would likely be resumin g amiodarone with close monitoring of her thyroid levels.
[2018-06-13] MEDS ORDERED: ALPRAZolam 0.25 MG TAB PO SCH (10:45)
--- NOTE | 2018-06-13 13:15 | PDOC.CTH ---
Cardiology Progress Note - Subjective She is doing well. No VT since increasing sotalol. - Objective Vital Signs Temp Pulse Resp BP Pulse Ox 06/13/18 09:20 80 06/13/18 07:08 97.6 F 80 16 107/67 93 L 06/13/18 05:04 97.7 F 76 16 108/68 94 L Weight 239 lb 3.2 oz 06/12/18 06/13/18 06/14/18 06:59 06:59 06:59 Intake Total 240 1120 Output Total 700 1450 250 Balance -460 -330 -250 - Physical Examination General/Neuro: alert & oriented x3, NAD Neck: no JVD present Lungs: unlabored respirations Heart: RRR Abdomen: NT/ND Extremities: + edema B (1+) - Telemetry Telemetry Rhythm: NSR - Labs Result Diagrams: 06/13/18 04:37 06/13/18 04:37 Troponin/CKMB CK-MB (CK-2) 1.1 ng/mL (0-6.6) 06/11/18 20:43 Troponin I 0.167 ng/mL (< 0.028) H 06/12/18 03:11 - Assessment/Plan 1. VT 2. CAD, stable 3. Ischemic CM 4. Presence of an AICD. PLAN: - Continue increased sotalol dose. - If she fails she will get a VT ablation. - May d/c home.
--- NOTE | 2018-06-15 20:57 | EKG ---
Test Reason : TIMED Blood Pressure : / mmHG Vent. Rate : 080 BPM Atrial Rate : 081 BPM P-R Int : 000 ms QRS Dur : 196 ms QT Int : 496 ms P-R-T Axes : 000 214 -03 degrees QTc Int : 572 ms AV dual-paced rhythm Biventricular pacemaker detected Abnormal ECG When compared with ECG of 11-JUN-2018 20:22, (Unconfirmed) Vent. rate has decreased BY 6 BPM Confirmed by Bill RODRIGUEZ ([id number]) on 06/15/2018 8:57:10 PM Referred By: JUAN JOSE Confirmed By:Bill RODRIGUEZ
--- NOTE | 2018-06-15 21:13 | EKG ---
Test Reason : 2HR POST MED Blood Pressure : / mmHG Vent. Rate : 080 BPM Atrial Rate : 080 BPM P-R Int : 000 ms QRS Dur : 200 ms QT Int : 510 ms P-R-T Axes : 000 168 -62 degrees QTc Int : 588 ms AV sequential or dual chamber electronic pacemaker When compared with ECG of 12-JUN-2018 22:22, (Unconfirmed) No significant change was found Confirmed by Bill RODRIGUEZ ([id number]) on 06/15/2018 9:12:48 PM Referred By: JUAN JOSE Confirmed By:Bill RODRIGUEZ
== END 2018-06-13 11:40 | disposition home or self-care (01) ==
LOC: ERS 19:55 → 2SW 22:44
PROVIDERS: ADMIT Internal Medicine; ATTEND Internal Medicine
DX: I47.2 Ventricular tachycardia (principal); I25.2 Old myocardial infarction; E78.5 Hyperlipidemia, unspecified; E03.9 Hypothyroidism, unspecified; F41.9 Anxiety disorder, unspecified; F32.9 Major depressive disorder, single episode, unspecified; F17.210 Nicotine dependence, cigarettes, uncomplicated; N17.9 Acute kidney failure, unspecified; R79.89 Other specified abnormal findings of blood chemistry; I11.0 Hypertensive heart disease with heart failure; I50.22 Chronic systolic (congestive) heart failure; I25.5 Ischemic cardiomyopathy; F10.11 Alcohol abuse, in remission; E66.01 Morbid (severe) obesity due to excess calories; Z68.36 Body mass index [BMI] 36.0-36.9, adult; Z95.5 Presence of coronary angioplasty implant and graft; Z95.810 Presence of automatic (implantable) cardiac defibrillator; Z79.82 Long term (current) use of aspirin; Z79.899 Other long term (current) drug therapy; Z88.0 Allergy status to penicillin; Z91.013 Allergy to seafood; Z91.018 Allergy to other foods; Z91.041 Radiographic dye allergy status
CPT/HCPCS: 71045; 80053 ×2; 82550; 82553; 83735 ×2; 84484 ×3; 85025 ×2; 90686; 93005 ×3; 96361; 96374; 96375; 96376 ×2; 99285; G0008; G0378 ×2; 36415; 90471; 93010; A4216; J1650; J2270; J2405

== ENCOUNTER 2018-08-24 07:37 | Observation (INO) | payer MEDICARE ==
--- NOTE | 2018-08-24 08:05 | RAD ---
RADIOGRAPH CHEST 1 VIEW: Date: 08/24/18 Time: 0657 HOURS HISTORY: 53-year-old female with dyspnea and chest pain. COMPARISON: 06/11/18. FINDINGS: Cardiomegaly is again noted. New finding of dense opacification of retrocardiac portion of left lower lobe, with partial silhouetting of the left hemidiaphragm. Again noted is the multilead left subclav pretty AICD. No pneumothorax. There is also a new finding of haziness in the right lower lobe. IMPRESSION: 1. Interval increase in attenuation of the bilateral lower lobes, left greater than right. Uncertain whether these represent atelectasis, pulmonary edema, or pneumonia. 2. There are probably small bilateral pleural effusions. 3. Cardiomegaly. 4. Automatic implantable cardioverter-defibrillator. 5. A lateral view would be useful. MARLON [] POS: FARRUKH
[2018-08-24 08:30] LABS: #Basophils 0.1 thou/uL (0.0-0.2); #Eosinphils 0.5 thou/uL (0.0-0.7); #Monocytes 0.4 thou/uL (0.11-0.59); #Neutrophils 5.2 thou/uL (1.40-6.50); %Basophils 0.7 % (0.0-1.0); %Eosinophils 6.2 % (0.0-10.0); %Lymphocytes 24.7 % (21.0-51.0); %Monocytes 4.3 % (0.0-10.0); Hemoglobin 14.8 g/dL (12.0-16.0); Mean Corpuscular Hemoglobin 30.1 pg (27.0-31.0); Mean Platelet Volume 8.3 fL (7.4-10.4); Platelet Count 234 thou/uL (130-400); RBC Distribution Width 12.5 % (11.5-14.5); Red Blood Cell (RBC) Count 4.91 mill/uL (4.20-5.40); White Blood Cell (WBC) Count 8.1 thou/uL (4.8-10.8)
[2018-08-24 08:39] LABS: PTT 28.5 SEC (22.9-36.1); Prothrombin Time 13.7 SEC (12.0-14.7)
[2018-08-24 08:55] LABS: ALT (SGPT) 9 U/L (8-55); AST (SGOT) 13 U/L (5-34); Albumin 3.9 g/dL (3.5-5.0); Alkaline Phosphatase 66 U/L (40-150); Anion Gap 10 mmol/L (10-20); BUN (Urea Nitrogen) 16 mg/dL (9.8-20.1); Bilirubin, Total 1.3 mg/dL (0.2-1.2); Calc. Creatinine Clearance 0 mL/min (70-130); Calcium 9.8 mg/dL (7.8-10.44); Carbon Dioxide 22 mmol/L (22-29); Chloride 108 mmol/L (98-107); Estimated GFR-MDRD 51; Globulin 3.1 g/dL (2.4-3.5); Glucose 102 mg/dL (70-105); Potassium 4.7 mmol/L (3.5-5.1); Sodium 135 mmol/L (136-145)
[2018-08-24 09:17] LABS: CKMB 1.2 ng/mL (0-6.6)
[2018-08-24 09:21] LABS: Bilirubin Small (Negative); Blood, Urine Negative (Negative); Clarity CLEAR (Clear); Glucose, Urine (Dipstick) Negative (Negative); Leukocyte Negative (Negative); Nitrite Negative (Negative); Protein, Urine (Dipstick) Trace mg/dL (Neg-Trace); pH, Urine 5.5 (5.0-9.0)
[2018-08-24] MEDS ORDERED: Furosemide 40 MG/4 ML VIAL ONE (09:25)
[2018-08-24] MEDS ORDERED: Sodium Chloride 0.65% Nasal 44 ML BOT EA NARE PRN (11:09)
[2018-08-24] MEDS ORDERED: hydrALAZINE 20 MG/ML VIAL SLOW IVP PRN (11:09)
[2018-08-24] MEDS ORDERED: Diabetic Tussin 200 MG/10 ML UDCUP PO PRN (11:09)
[2018-08-24] MEDS ORDERED: Zolpidem Tartrate 5 MG TAB PO PRN (11:09)
[2018-08-24] MEDS ORDERED: Loratadine 10 MG TAB PO PRN (11:09)
[2018-08-24] MEDS ORDERED: Calcium Carbonate 500 MG ChewTAB PO PRN (11:09)
[2018-08-24] MEDS ORDERED: Senokot S 8.6-50 MG TAB PO PRN (11:09)
[2018-08-24] MEDS ORDERED: Loperamide HCl 2 MG CAP PO PRN (11:09)
[2018-08-24] MEDS ORDERED: Bisacodyl 5 MG TAB PO PRN (11:09)
[2018-08-24] MEDS ORDERED: Metoclopramide HCl 10 MG/2 ML VIAL IVP PRN (11:09)
[2018-08-24] MEDS ORDERED: Nicotine 21 MG PATCH TD PRN (11:09)
[2018-08-24] MEDS ORDERED: Eucerin (Mineral Oil/Petrolatum,White) 30 gm Jar TOP PRN (11:09)
[2018-08-24] MEDS ORDERED: Artificial Tears 18 DROP/0.9 ML EA EYE PRN (11:09)
[2018-08-24] MEDS ORDERED: Cepastat Lozenges 1 LOZ PO PRN (11:09)
[2018-08-24] MEDS ORDERED: Acetaminophen 325 MG TAB PO PRN (11:09)
[2018-08-24] MEDS ORDERED: Bisacodyl 10 MG SUPP PR PRN (11:09)
--- NOTE | 2018-08-24 11:13 | HP ---
PRIMARY CARE PHYSICIAN: Dr. Gandhi. REASON FOR ADMISSION: [id number] systolic and diastolic congestive heart failure exacerbation, chest pain. HISTORY OF PRESENT ILLNESS: A 53-year-old female who has underlying history of ischemic cardiomyopathy as well as paroxysmal ventricular tachycardia, who came to emergency room today for evaluation of increasing shortness of breath. The patient normally able to do routine activities without getting out of breath. She has baseline NYHA stage II shortness of breath. For last 3 to 4 days, she was experiencing increasing shortness of breath. Lately whenever she was going outside for shopping, she noticed that she cannot walk longer which she used to, and for last 3 to 4 days, the patient is experiencing walking short distance, and now, the patient is getting out of breath even with rest and after walking few steps. The patient does give history of orthopnea, sometimes PND and she noticed that her chest was getting congested and she was hearing her own wheezing and she was having cough, which is mostly productive of white sputum. She started getting chest pain today, which was predominantly right-sided without any radiation and without any association of vomiting. Only one time nausea happened today in the emergency room. She denies any associated diaphoresis. She did not feel any palpitation, dizziness, or syncope. She denies any fever or chills. She denies any UTI symptoms. She denies any constipation or diarrhea. The patient reports that she is still smoking, but she sees trying to cut down. The patient was not taking any Lasix at home. In the emergency room, the patient has chronically elevated troponin. Her BNP is significantly elevated. Her chest x-ray is showing more pulmonary vascular congestion and small pleural effusion. Her vitals were stable in the emergency room. In the emergency room, the patient was given Lasix and aspirin, and subsequently, we are admitting this patient to telemetry floor. The patient denies any drinking excessive liquids. She denies any constipation, melena, or hematochezia. She denies any abdominal pain. She denies any cough, hemoptysis, lower extremity edema, or calf tenderness. She denies any relation of chest pain with food or activity. REVIEW OF SYSTEMS: CONSTITUTIONAL: Negative for weight loss or gain, ability to conduct usual activities. SKIN: Negative for rash, itching. EYES: Negative for double vision, pain. ENT/MOUTH: Negative for nose bleeding, neck stiffness, pain, tenderness. CARDIOVASCULAR: Negative for palpitations, dyspnea on exertion, orthopnea. RESPIRATORY: Negative for shortness of breath, wheezing, cough, hemoptysis, fever or night sweats. GASTROINTESTINAL: Negative for poor appetite, abdominal pain, heartburn, nausea, vomiting, constipation, or diarrhea. GENITOURINARY: Negative for urgency, frequency, dysuria, nocturia. MUSCULOSKELETAL: Negative for pain, swelling. NEUROLOGIC/PSYCHIATRIC: Negative for anxiety, depression. ALLERGY/IMMUNOLOGIC: Negative for skin rash, bleeding tendency. Please see my HPI for pertinent positives and negatives. All other review of systems are reviewed and negative except as mentioned in HPI. PAST MEDICAL HISTORY: Ischemic cardiomyopathy, chronic systolic and diastolic heart failure with EF of 20% to 25%, coronary artery disease, hypothyroidism, dyslipidemia, tobacco abuse disorder, hypertension, obesity, hypothyroidism. PAST PSYCHIATRIC HISTORY: Anxiety and depression. PAST SURGICAL HISTORY: Cardiac catheterization and stent placement in 2014 as well as in 2016, biventricular AICD placement in April 2017, and tonsillectomy. FAMILY HISTORY: Positive for coronary artery disease among several family members. SOCIAL HISTORY: The patient has history of smoking about 1 pack per day. She reports that she is trying to cut down, but she has not completely quit yet. She denies any alcohol abuse. She denies any other illicit drug abuse. She lives at home with family. ALLERGIES: TO IODINE AND PENICILLIN. CURRENT HOME MEDICATIONS: Based on last discharge summary, the patient was on following medications; 1. Coreg 12.5 mg p.o. b.i.d. 2. Zocor 40 mg p.o. at bedtime. 3. Aspirin 81 mg daily. 4. Synthroid 75 mcg p.o. daily. 5. Sotalol 180 mg p.o. b.i.d. PHYSICAL EXAMINATION: VITAL SIGNS: Today, blood pressure 128/87, pulse 79, respiratory rate 22, temperature 98.3, saturation 96% on room air. Weight 108.8 kg. GENERAL: The patient is currently alert, awake, in no obvious acute distress. HEENT: Head; normocephalic, atraumatic. Eyes; pupils are round, reactive to light. Extraocular muscle intact. ENT; oropharynx within normal limit. Moist mucous membranes. No oral lesion. No pharyngeal erythema. No exudate. NECK: Elevated JVD. No thyromegaly. No carotid bruit. LUNGS: Bibasilar rales and reduced air entry. Few end-expiratory wheezing heard. CARDIAC: S1, S2 appears regular. No murmur elicited. No gallop. No rub. ABDOMEN: Soft. Obesity present. Bowel sounds present. Nontender. Nondistended. No organomegaly. No mass. No suprapubic tenderness. BACK: Unremarkable. No CVA tenderness. EXTREMITIES: Upper extremities; passive movement of all joints are normal. Lower extremities; bilateral trace lower extremity pitting edema noted. No calf tenderness. SKIN: No skin rash. HEMATOLOGICAL: No lymphadenopathy. PSYCHIATRIC: Normal affect. NEUROLOGIC: Nonfocal examination. SIGNIFICANT LABORATORY AND DIAGNOSTIC DATA: EKG showing pacemaker rhythm. Chest x-ray showing bilateral pulmonary vascular congestion, more on the left; bilateral pleural effusion; AICD in place. CBC; WBC 8.1, hemoglobin 14.8, platelets 234. INR 1.0. BMP; sodium 135, potassium 4.7, chloride 108, carbon dioxide 22, anion gap 10, BUN 16, creatinine 1.12, glucose 102, calcium 9.8. LFT; AST 13, ALT 9, alkaline phosphatase 66, albumin 3.9. CK-MB 1.2, troponin I 0.131. BNP 1304. Urinalysis, unremarkable. ASSESSMENT AND PLAN: 1. [id number] systolic and diastolic congestive heart failure exacerbation. The patient has an EF of 20% to 25% with diastolic dysfunction based on echocardiography in April 2018. She has biventricular synchronized pacemaker in place. Currently, the patient has history of dyspnea on exertion, orthopnea, PND, leg swelling, elevated BNP, and chest x-ray finding as well as physical examination finding all supportive of CHF exacerbation. The patient was not on any diuretic therapy at home. Currently, the patient will need Lasix 40 mg IV b.i.d. We will replace magnesium oxide 400 mg twice daily along with potassium chloride 20 mEq p.o. daily and will repeat BMP as well as magnesium and uric acid tomorrow. We will also check TSH tomorrow. We will consult Cardiology as well, given the patient has advanced cardiomyopathy and recurrent ventricular tachycardia. We will monitor on telemetry floor. Heart failure education, fluid restriction, dietary education given to the patient. Cardiac rehab will be consulted. 2. Ischemic cardiomyopathy with AICD in place along with chronic heart failure. Currently, the patient is on Coreg 12.5 mg p.o. twice daily, which will continue while in hospital. We will also add low dose of lisinopril 2.5 mg p.o. daily. The patient is on Lasix for acute exacerbation. 3. Ventricular tachycardia, paroxysmal. We will monitor on telemetry floor. We will make sure electrolytes are well replaced. We will continue sotalol 180 mg p.o. b.i.d. as per home dosage. Cardiology will be consulted. 4. Hypothyroidism. We will continue Synthroid 75 mcg p.o. daily. We will check TSH tomorrow. 5. Dyslipidemia. Continue Zocor 40 mg p.o. at bedtime and check lipid profile tomorrow. 6. Elevated troponin, likely due to underlying demand ischemia and this elevated troponin is chronic. We will see the trend of troponin, and the patient will be kept on aspirin 81 mg daily. 7. Coronary artery disease. Continue aspirin, beta cheryl, KAMILA inhibitor therapy, and statin therapy. 8. Chest pain. The patient's chest pain description is atypical. We will do serial cardiac enzyme x3. The patient is already fully evaluated in the recent past with cardiac catheterization and things like her stroke or coronary artery disease is stable. Cardiology will be consulted. At this point, we will not pursue any more testing unless the patient's troponin gets significantly elevated. 9. Morbid obesity. Dietary education given. Weight loss education given. Healthy lifestyle measure discussed with the patient. 10. Tobacco abuse disorder. Smoking cessation counseling given. Healthy lifestyle measure discussed with the patient. 11. Deep venous thrombosis prophylaxis, on Lovenox 40 mg subcu daily. 12. GI prophylaxis, on Pepcid 20 mg p.o. b.i.d. CODE STATUS: The patient is full code. The patient does not have any surrogate decision maker. DISPOSITION PLAN: Based on clinical course and Cardiology recommendation. Plan of care discussed with the patient and family member at bedside in the emergency room extensively. Job ID: [id number]
[2018-08-24] MEDS ORDERED: Ondansetron PF 4 MG/2 ML Vial IVP PRN (11:16)
[2018-08-24] MEDS ORDERED: Ondansetron ODT 4 MG TAB PO PRN (11:16)
[2018-08-24 11:40] LABS: Troponin I 0.141 ng/mL (< 0.028)
[2018-08-24 11:48] VITALS: BMI 36.3
[2018-08-24] MEDS: Furosemide 40 MG/4 ML VIAL SLOW IVP SCH (14:54)
[2018-08-24 15:10] LABS: Troponin I 0.131 ng/mL (< 0.028)
[2018-08-24] MEDS: HYDROcodone/Acetaminophen 5/325 mg Tablet PO PRN ×2 (17:23→21:56)
[2018-08-24] MEDS: Famotidine 20 MG TAB PO SCH (20:02)
[2018-08-24] MEDS: Magnesium Oxide 400 MG TAB PO SCH (20:02)
[2018-08-24] MEDS: Simvastatin 40 MG TAB PO SCH (20:02)
[2018-08-24] MEDS: Sotalol HCl 80 MG TAB PO SCH (20:03)
[2018-08-25] MEDS: Carvedilol 6.25 MG TAB PO SCH ×3 (00:32→20:41)
[2018-08-25 05:07] LABS: #Basophils 0.1 thou/uL (0.0-0.2); #Eosinphils 0.4 thou/uL (0.0-0.7); #Lymphocytes 1.5 thou/uL (1.20-3.40); #Monocytes 0.3 thou/uL (0.11-0.59); #Neutrophils 2.3 thou/uL (1.40-6.50); %Basophils 1.1 % (0.0-1.0); %Eosinophils 8.9 % (0.0-10.0); %Lymphocytes 33.2 % (21.0-51.0); %Monocytes 5.8 % (0.0-10.0); Hemoglobin 15.2 g/dL (12.0-16.0); Mean Corpuscular HGB CONC 34.2 g/dL (32.0-36.0); Mean Corpuscular Volume 93.7 fL (78.0-98.0); Mean Platelet Volume 8.6 fL (7.4-10.4); Platelet Count 213 thou/uL (130-400); RBC Distribution Width 12.5 % (11.5-14.5); Red Blood Cell (RBC) Count 4.76 mill/uL (4.20-5.40); White Blood Cell (WBC) Count 4.6 thou/uL (4.8-10.8)
[2018-08-25 05:28] LABS: ALT (SGPT) 9 U/L (8-55); AST (SGOT) 13 U/L (5-34); Albumin 3.7 g/dL (3.5-5.0); Alkaline Phosphatase 64 U/L (40-150); Anion Gap 10 mmol/L (10-20); BUN (Urea Nitrogen) 19 mg/dL (9.8-20.1); Bilirubin, Total 1.5 mg/dL (0.2-1.2); Calc. Creatinine Clearance 95 mL/min (70-130); Carbon Dioxide 27 mmol/L (22-29); Cardiac Risk 3.9 (Less than 4.5); Chloride 101 mmol/L (98-107); Cholesterol 106 mg/dl (< 200 Desired); Estimated GFR-MDRD 48; Globulin 2.9 g/dL (2.4-3.5); Glucose 81 mg/dL (70-105); HDL Cholesterol 27 mg/dL (>60 Neg Risk); LDL Cholesterol, Calculated 56 mg/dL; Magnesium 2.2 mg/dL (1.6-2.6); Potassium 3.3 mmol/L (3.5-5.1); Protein, Total 6.6 g/dL (6.0-8.3); Sodium 135 mmol/L (136-145); Triglycerides 116 mg/dL (Less than 150); Uric Acid 5.3 mg/dL (2.6-6.0)
[2018-08-25] MEDS ORDERED: Levothyroxine Sodium 75 MCG TAB PO SCH ×2 (06:00→07:37)
[2018-08-25] MEDS: Furosemide 40 MG/4 ML VIAL SLOW IVP SCH ×2 (06:15→14:34)
[2018-08-25] MEDS ORDERED: diphenhydrAMINE 50 MG CAP PO PRN (07:36)
[2018-08-25] MEDS ORDERED: Potassium Chloride 20 MEQ TAB PO SCH (07:45)
--- NOTE | 2018-08-25 09:35 | CON ---
DATE OF CONSULTATION: HISTORY OF PRESENT ILLNESS: The patient a 53-year-old woman, who presents for evaluation of chest discomfort. The patient has a long history of coronary artery disease. She has previously undergone multiple PTCA and stent placements. The patient also has a long history of anxiety. Most recently, the patient underwent a cardiac catheterization in May of this year. She was found to have moderately decreased left ventricular ejection fraction of 30%. The inferior wall was akinetic. There was a patent stent in the left circumflex and right coronary artery with only mild disease in the LAD. The patient was felt to have atypical chest pain. She also has a history of ventricular tachycardia. She has undergone VT ablation. The patient presents once again with left-sided chest discomfort. She states that it is left-sided, associated with dyspnea. The patient states she has been having discomfort for the past several days. PAST MEDICAL HISTORY: 1. Ischemic cardiomyopathy. 2. Hypertension. 3. Hyperlipidemia. 4. Dyslipidemia. 5. History of VT ablation. 6. History of SVT ablation. 7. AICD placement. PAST SURGICAL HISTORY: Tonsillectomy ALLERGIES: IODINE AND PENICILLIN. SOCIAL HISTORY: Continues to smoke cigars. FAMILY HISTORY: Positive family history of coronary artery disease. MEDICATIONS: See nursing list. PHYSICAL EXAMINATION: GENERAL: Obese woman, in no acute distress. VITAL SIGNS: Blood pressure is 131/83. NECK: No jugular venous distention. LUNGS: Coarse breath sounds bilaterally. HEART: Regular rate and rhythm. Normal S1 and S2. ABDOMEN: Distended. EXTREMITIES: Showed no edema. LABORATORY DATA: Sodium 135, potassium 4.7, chloride 108, bicarbonate 22, BUN 15, creatinine is 1.12. Troponin 0.13. Her white blood cell count is 8.1, hemoglobin 14.8, hematocrit 46.1, platelet 234. IMAGING STUDIES: Her EKG revealed biventricular pacing. IMPRESSION: 1. Chest pain, atypical. 2. Cardiomyopathy. 3. History of PCI and stent placement. 4. History of automatic implantable cardioverter-defibrillator placement. 5. Status post VT ablation. 6. Status post SVT ablation. 7. Dyslipidemia. 8. Tobacco abuse. 9. Morbid obesity. 10. Anxiety. This patient presents with atypical chest pain. Cardiac enzymes reveal no evidence of myocardial infarction. Dr. Trevino will evaluate the patient tomorrow. Further recommendation will follow. Job ID: [id number] [facility]
[2018-08-25] MEDS: Potassium Chloride 20 MEQ TAB PO SCH (09:51)
[2018-08-25] MEDS: Aspirin 81 mg Enteric Coated Tablet PO SCH (09:53)
[2018-08-25] MEDS: Citalopram 20 MG TAB PO SCH (09:53)
[2018-08-25] MEDS: Lisinopril 2.5 MG TAB PO SCH (09:54)
[2018-08-25] MEDS: Famotidine 20 MG TAB PO SCH ×2 (09:54→20:37)
[2018-08-25] MEDS: Magnesium Oxide 400 MG TAB PO SCH ×2 (09:54→20:36)
[2018-08-25] MEDS: Enoxaparin Sodium 40 MG/0.4 ML SYRINGE SC SCH (09:54)
[2018-08-25] MEDS: Sotalol HCl 80 MG TAB PO SCH ×2 (10:40→20:42)
[2018-08-25] MEDS: HYDROcodone/Acetaminophen 5/325 mg Tablet PO PRN ×3 (10:41→20:36)
--- NOTE | 2018-08-25 12:01 | PDOC.PN ---
- Subjective Encounter Start Date: 08/25/18 Encounter Start Time: 09:00 -: old records requested/rev Patient seen and examined. No new complaints. No overnight events pt is feeling better, she is on room air, she still has CODY - Objective Resuscitation Status - Order Detail: 08/24/18 10:12 Resuscitation Status Routine Resuscitation Status: FULL: Full Resuscitation MAR Reviewed: Yes Vital Signs & Weight: Vital Signs (12 hours) Temp Pulse Resp BP BP Pulse Ox 08/25/18 10:40 89 107/61 08/25/18 09:54 89 107/61 08/25/18 09:53 107/61 08/25/18 07:20 97.4 F L 89 20 107/61 92 L 08/25/18 03:30 98.3 F 80 18 90/53 L 93 L 08/25/18 00:19 98.1 F 80 21 H 114/70 91 L Weight Weight 239 lb 11.2 oz I&O: 08/24/18 08/25/18 08/26/18 06:59 06:59 06:59 Intake Total 1014 Output Total 2800 900 Balance -1786 -900 Result Diagrams: 08/25/18 04:21 08/25/18 04:21 EKG Reviewed by me: Yes (pacing) Phys Exam - Physical Examination Constitutional: NAD HEENT: PERRLA, moist MMs, sclera anicteric Neck: no JVD, supple Respiratory: no wheezing, no rhonchi basal rales Cardiovascular: RRR, no significant murmur, no rub Gastrointestinal: soft, non-tender, no distention, positive bowel sounds Musculoskeletal: no edema, pulses present Neurological: non-focal, normal sensation, moves all 4 limbs Lymphatic: no nodes Psychiatric: normal affect, A&O x 3 Skin: no rash, normal turgor Dx/Plan (1) Acute on chronic combined systolic and diastolic ACC/AHA stage C congestive heart failure Code(s): I50.43 - ACUTE ON CHRONIC COMBINED SYSTOLIC AND DIASTOLIC HRT FAIL Status: Acute (2) Chest pain Code(s): R07.9 - CHEST PAIN, UNSPECIFIED Status: Acute Qualifiers: Comment: s/p cath last month wiht minimal CAD, for medical management (3) Hypokalemia Code(s): E87.6 - HYPOKALEMIA Status: Acute (4) AICD (automatic cardioverter/defibrillator) present Code(s): Z95.810 - PRESENCE OF AUTOMATIC (IMPLANTABLE) CARDIAC DEFIBRILLATOR Status: Chronic (5) Coronary artery disease Code(s): I25.10 - ATHSCL HEART DISEASE OF [place] CORONARY ARTERY W/O ANG PCTRS Status: Chronic Qualifiers: (6) Dysthymic disorder Status: Chronic (7) Hyperlipidemia Code(s): E78.5 - HYPERLIPIDEMIA, UNSPECIFIED Status: Chronic Qualifiers: Comment: on statin (8) Hypertension Code(s): I10 - ESSENTIAL (PRIMARY) HYPERTENSION Status: Chronic Qualifiers: Comment: controlled (9) Hypothyroidism Code(s): E03.9 - HYPOTHYROIDISM, UNSPECIFIED Status: Chronic Qualifiers: (10) Noncompliance with medication regimen Code(s): Z91.14 - PATIENT'S OTHER NONCOMPLIANCE WITH MEDICATION REGIMEN Status : Chronic (11) Paroxysmal SVT (supraventricular tachycardia) Code(s): I47.1 - SUPRAVENTRICULAR TACHYCARDIA Status: Chronic (12) Paroxysmal VT Code(s): I47.2 - VENTRICULAR TACHYCARDIA Status: Chronic (13) Tobacco abuse Code(s): Z72.0 - TOBACCO USE Status: Chronic - Plan cont current plan of care, respiratory therapy * continue lasix * replace potassium * monitor labs * medication reviewed as below * symptomatic treatment. * add levothyroxine 25 mcg po daily * cardiology following Review of Systems - Review of Systems Eyes: negative: Pain, Vision Change, Conjunctivae Inflammation, Eyelid Inflammation, Redness, Other ENT: negative: Ear Pain, Ear Discharge, Nose Pain, Nose Discharge, Nose Congestion, Mouth Pain, Mouth Swelling, Throat Pain, Throat Swelling, Other Respiratory: Shortness of Breath, SOB with Excertion. negative: Cough, Dry, Hemoptysis, Pleuritic Pain, Sputum, Wheezing Cardiovascular: negative: chest pain, palpitations, orthopnea, paroxysmal nocturnal dyspnea, edema, light headedness, other Gastrointestinal: negative: Nausea, Vomiting, Abdominal Pain, Diarrhea, Constipation, Melena, Hematochezia, Other Genitourinary: negative: Dysuria, Frequency, Incontinence, Hematuria, Retention , Other Musculoskeletal: negative: Neck Pain, Shoulder Pain, Arm Pain, Back Pain, Hand Pain, Leg Pain, Foot Pain, Other Skin: negative: Rash, Lesions, [place], Bruising, Other - Medications/Allergies Allergies/Adverse Reactions: Allergies Allergy/AdvReac Type Severity Reaction Status Date / Time pineapple Allergy Unknown Hives Verified 08/24/18 11:14 Iodinated Contrast- Oral and Allergy Hives Verified 08/24/18 11:14 IV Dye Penicillins Allergy Verified 08/24/18 11:14 shellfish derived Allergy Verified 08/24/18 11:14 Medications: Current Medications Acetaminophen (Tylenol) 650 mg PO Q4H PRN PRN Reason: Headache/Fever/Mild Pain (1-3) Hydrocodone Bitart/Acetaminophen ([place] 5/325) 1 tab PO Q4H PRN PRN Reason: Moderate Pain (4-6) Last Admin: 08/25/18 10:41 Dose: 1 tab Artificial Tears (Tears Naturale) 2 drop EA EYE PRN PRN PRN Reason: Dry Eyes Aspirin (Ecotrin) 81 mg PO DAILY [facility] Last Admin: 08/25/18 09:53 Dose: 81 mg Bisacodyl (Dulcolax) 10 mg RI DAILYPRN PRN PRN Reason: Constipation Bisacodyl (Dulcolax) 10 mg PO DAILYPRN PRN PRN Reason: Constipation Calcium Carbonate (Tums) 1,000 mg PO Q4H PRN PRN Reason: Heartburn or Indigestion Carvedilol (Coreg) 12.5 mg PO BID [facility] Last Admin: 08/25/18 09:53 Dose: 12.5 mg Citalopram Hydrobromide (Celexa) 40 mg PO DAILY [facility] Last Admin: 08/25/18 09:53 Dose: 40 mg Diphenhydramine HCl (Benadryl) 50 mg PO Q4H PRN PRN Reason: Allergies Enoxaparin Sodium (Lovenox) 40 mg SC 0900 [facility] Last Admin: 08/25/18 09:54 Dose: 40 mg Famotidine (Pepcid) 20 mg PO BID [facility] Last Admin: 08/25/18 09:54 Dose: 20 mg Furosemide (Lasix) 40 mg SLOW IVP 0600,1400 [facility] Last Admin: 08/25/18 06:15 Dose: 40 mg Guaifenesin (Robitussin Sf) 200 mg PO Q4H PRN PRN Reason: Cough Hydralazine HCl (Apresoline) 10 mg SLOW IVP Q4H PRN PRN Reason: SBP > 180 and HR < 70 Levothyroxine Sodium (Synthroid) 25 mcg PO 0600 [facility] Lisinopril (Zestril) 2.5 mg PO DAILY [facility] Last Admin: 08/25/18 09:54 Dose: 2.5 mg Loperamide HCl (Imodium) 2 mg PO PRN PRN PRN Reason: Diarrhea/Loose Stools Loratadine (Claritin) 10 mg PO DAILYPRN PRN PRN Reason: Sinus Symptoms Magnesium Oxide (Magnesium Oxide) 400 mg PO BID [facility] Last Admin: 08/25/18 09:54 Dose: 400 mg Metoclopramide HCl (Reglan) 10 mg IVP Q6H PRN PRN Reason: Nausea/Vomiting Mineral Oil/White Petrolatum (Eucerin Cream) 0 gm TOP BIDPRN PRN PRN Reason: Dry Skin Nicotine (Nicoderm Patch) 21 mg TD Q24HR PRN PRN Reason: Smoking Cessation Potassium Chloride (K-Dur) 20 meq PO QAM-[facility] Last Admin: 08/25/18 09:51 Dose: Not Given Senna/Docusate Sodium (Senokot S) 2 tab PO BID PRN PRN Reason: Constipation Simvastatin (Zocor) 40 mg PO [facility] Last Admin: 08/24/18 20:02 Dose: 40 mg Sodium Chloride ([place] 0.65%) 0 ml EA NARE QIDPRN PRN PRN Reason: Nasal Congestion Sotalol HCl (Betapace) 180 mg PO BID [facility] Last Admin: 08/25/18 10:40 Dose: 180 mg Throat Lozenges (Cepastat Lozenges) 1 kath PO Q2H PRN PRN Reason: Sore Throat Zolpidem Tartrate (Ambien) 5 mg PO HSPRN PRN PRN Reason: Insomnia
--- NOTE | 2018-08-25 17:53 | PDOC.CTH ---
Cardiology Progress Note - Subjective No new issues. Breathing still difficult but much better than when admitted. - Objective Vital Signs Temp Pulse Pulse Pulse Resp BP BP 08/25/18 15:55 97.2 F L 80 20 08/25/18 12:17 97.3 F L 81 20 08/25/18 11:35 80 82 110/71 08/25/18 10:40 89 107/61 08/25/18 09:54 89 107/61 08/25/18 09:53 107/61 08/25/18 07:20 97.4 F L 89 20 BP BP Pulse Ox Pulse Ox Pulse Ox 08/25/18 15:55 98/58 L 96 08/25/18 12:17 107/65 92 L 08/25/18 11:35 107/65 90 L 95 08/25/18 10:40 08/25/18 09:54 08/25/18 09:53 08/25/18 07:20 107/61 92 L Weight 239 lb 11.2 oz 08/24/18 08/25/18 08/26/18 06:59 06:59 06:59 Intake Total 1014 4 Output Total 2800 900 Balance -7043 -096 - Physical Examination General/Neuro: alert & oriented x3, NAD Neck: no JVD present Lungs: unlabored respirations, other: (Mild crackles. ) Heart: RRR Abdomen: NT/ND Extremities: + edema B (1+) - Telemetry Telemetry Rhythm: NSR - Labs Result Diagrams: 08/25/18 04:21 08/25/18 04:21 Troponin/CKMB CK-MB (CK-2) 1.2 ng/mL (0-6.6) 08/24/18 08:21 Troponin I 0.131 ng/mL (< 0.028) H 08/24/18 14:29 - Assessment/Plan 1. Acute on chronic systolic heart failure. 2. CAD 3. Presence of an AICD. 4. VT s/p ablation/ACID placement. PLAN: - Continue IV diuresis. - No plan on [facility], her troponins are her normal elevation she always has. - Home once diuresed better. . - Replace K.
[2018-08-25] MEDS: Simvastatin 40 MG TAB PO SCH (20:35)
[2018-08-26] MEDS ORDERED: Levothyroxine Sodium 25 MCG TAB PO SCH (06:00)
[2018-08-26] MEDS: HYDROcodone/Acetaminophen 5/325 mg Tablet PO PRN ×2 (06:32→12:43)
[2018-08-26] MEDS: Furosemide 40 MG/4 ML VIAL SLOW IVP SCH ×2 (07:32→14:10)
[2018-08-26] MEDS: Citalopram 20 MG TAB PO SCH (09:55)
[2018-08-26] MEDS: Magnesium Oxide 400 MG TAB PO SCH (09:55)
[2018-08-26] MEDS: Carvedilol 6.25 MG TAB PO SCH (09:55)
[2018-08-26] MEDS: Potassium Chloride 20 MEQ TAB PO SCH (09:55)
[2018-08-26] MEDS: Famotidine 20 MG TAB PO SCH (09:55)
[2018-08-26] MEDS: Sotalol HCl 80 MG TAB PO SCH (09:56)
[2018-08-26] MEDS: Lisinopril 2.5 MG TAB PO SCH (09:56)
[2018-08-26] MEDS: Aspirin 81 mg Enteric Coated Tablet PO SCH (09:56)
[2018-08-26] MEDS: Enoxaparin Sodium 40 MG/0.4 ML SYRINGE SC SCH (09:56)
--- NOTE | 2018-08-26 11:15 | DIS ---
DATE OF ADMISSION: 08/24/2018 DATE OF DISCHARGE: 08/26/2018 PRIMARY CARE PHYSICIAN: Dr. Gandhi. DISCHARGE DISPOSITION: Home. PRIMARY DISCHARGE DIAGNOSES: 1. Acute on chronic combined systolic and diastolic heart failure ACC stage C. 2. Chest pain, ruled out acute coronary syndrome. 3. Hypokalemia, corrected. SECONDARY DISCHARGE DIAGNOSES: 1. Tobacco abuse disorder. 2. Paroxysmal supraventricular tachycardia And ventricular tachycardia. 3. Noncompliance with medication. 4. Hypothyroidism. 5. Hypertension. 6. Dyslipidemia. 7. Dysthymic disorder. 8. Coronary artery disease, AICD in place. 9. Chronic combined systolic and diastolic heart failure. 10. Obesity with BMI 36. PRIMARY PROCEDURE/OPERATION: None. RADIOLOGICAL INVESTIGATION: Chest x-ray. SIGNIFICANT LABORATORY DATA: WBC 4.6, hemoglobin 15.2, platelet 213, INR 1.0. Sodium 135, potassium 3.3, BUN 19, creatinine 1.17, glucose 81. LFT normal. Troponin 0.131. TSH 7.5, LDL 106. Urinalysis unremarkable. DISCHARGE MEDICATION: 1. Benadryl 50 mg q.4 hourly p.r.n. 2. Coreg 12.5 mg p.o. b.i.d. 3. Celexa 40 mg daily. 4. Zocor 40 mg p.o. at bedtime. 5. Aspirin 81 mg daily. 6. Pepcid 20 mg p.o. b.i.d. 7. Lasix 40 mg p.o. b.i.d. 8. Lisinopril 2.5 mg p.o. daily. 9. Magnesium oxide 400 mg p.o. daily. 10. Potassium chloride 20 mEq p.o. daily. 11. Sotalol 180 mg p.o. b.i.d. CONTRAINDICATION: None. CODE STATUS: Full code. INPATIENT FACTORY CLERK: Dr. Trevino and Dr. Lyons were following while in hospital. TEST RESULTS PENDING ON DISCHARGE: None. ALLERGIES: IODINATED CONTRAST, PENICILLIN. DISCHARGE PLAN: Posthospital, the patient is advised to follow up with [facility] Dr. Trevino and Dr. Gandhi as instructed. HOSPITAL COURSE: A 53-year-old female, who was admitted by me. Please see my HPI for further details. The patient was presented to emergency room with dyspnea on exertion, orthopnea, PND, slight lower extremity edema as well as chest pain. Her presentation was consistent with CHF exacerbation. She had elevated troponin, but which was chronic. We admitted this patient in the hospital on telemetry floor as observation status. We treated her with Lasix 40 mg IV b.i.d. and she became euvolemic and significantly improved in next 24 to 48 hours. Cardiology evaluated this patient and they are not thinking that this patient needs any more investigation at this point rather than congestive heart failure treatment. I have provided the patient education about heart failure, dietary education, fluid restriction, and medication compliance education is given. She will follow up with [facility]iology and primary care physician. At this point, the patient is on room air. She is able to lie down flat without any problem. She is euvolemic and ready for discharge. The patient is seen and examined at bedside today. REVIEW OF SYSTEMS: All review of systems reviewed with her and negative. PHYSICAL EXAMINATION: VITAL SIGNS: Currently temperature 97.4, pulse 80, respiratory rate 16, saturation 94% on room air, blood pressure 114/69, weight 239 pounds. GENERAL: The patient is currently alert, awake, in no obvious acute distress. HEENT: Head; normocephalic and atraumatic. Eyes; pupils round, reactive to light. Extraocular muscle intact. ENT; oropharynx within normal limits. Moist mucous membranes. No oral lesion. No pharyngeal erythema. No exudate. NECK: Supple. No JVD. No thyromegaly. No carotid bruit. No jugular venous distention. LUNGS: Clear to auscultation without any rhonchi or rales. CARDIAC: S1 and S2 regular without any murmur. ABDOMEN: Soft and benign without any tenderness. EXTREMITIES: No edema. NEUROLOGIC: Nonfocal examination. While in hospital, her telemetry remained unremarkable. The patient is stable for discharge. During this admission we started Lasix and lisinopril on her regimen. Rest of medication was continued as per previous. Job ID: [id number]
[2018-08-26 12:06] VITALS: TEMP 97.5
[2018-08-26 12:53] VITALS: BP 106/67
--- NOTE | 2018-08-26 12:57 | EKG ---
Test Reason : CP Blood Pressure : / mmHG Vent. Rate : 080 BPM Atrial Rate : 023 BPM P-R Int : 000 ms QRS Dur : 188 ms QT Int : 492 ms P-R-T Axes : 000 -52 068 degrees QTc Int : 567 ms AV dual-paced rhythm Abnormal ECG Confirmed by JHONNY EAGLE ([id number]), primer expeditor and drier REINIER LANCASTER ([id number]) on 08/26/2018 12:56:39 PM Referred By: Confirmed By:JHONNY EAGLE
== END 2018-08-26 14:54 | disposition home or self-care (01) ==
LOC: ERS 07:37 → 2SW 11:03
PROVIDERS: ADMIT Internal Medicine; ATTEND Internal Medicine
DX: I11.0 Hypertensive heart disease with heart failure (principal); I50.42 Chronic combined systolic (congestive) and diastolic (congestive) heart failure; E87.6 Hypokalemia; I25.5 Ischemic cardiomyopathy; I47.2 Ventricular tachycardia; I25.10 Atherosclerotic heart disease of native coronary artery without angina pectoris; E03.9 Hypothyroidism, unspecified; E78.5 Hyperlipidemia, unspecified; F41.9 Anxiety disorder, unspecified; F32.9 Major depressive disorder, single episode, unspecified; F17.210 Nicotine dependence, cigarettes, uncomplicated; F34.1 Dysthymic disorder; E66.01 Morbid (severe) obesity due to excess calories; Z68.36 Body mass index [BMI] 36.0-36.9, adult; Z88.0 Allergy status to penicillin; Z95.810 Presence of automatic (implantable) cardiac defibrillator; Z95.5 Presence of coronary angioplasty implant and graft; Z90.89 Acquired absence of other organs; Z91.041 Radiographic dye allergy status; Z91.013 Allergy to seafood; Z91.018 Allergy to other foods; Z79.82 Long term (current) use of aspirin; Z79.899 Other long term (current) drug therapy
CPT/HCPCS: 51701; 71045; 80053; 80061; 81003; 82553; 83735; 83880; 84484 ×2; 84550; 85025; 85610; 85730; 93005; 93798; 94760; 96372 ×2; 96374; 96376 ×3; 99285; G0378 ×3; 36415; 84443; A4353; J1650; J1940

== ENCOUNTER 2019-02-03 08:05 | Outpatient (CLI) | payer MEDICARE ==
--- NOTE | 2019-02-03 08:46 | MMO ---
Bilateral MAMMO Bilat Screen [facility]. CLINICAL HISTORY: Patient is 53 years old and is seen for screening. The patient has no family history of breast cancer. The patient has no personal history of cancer. VIEWS: The views performed were: bilateral craniocaudal with tomosynthesis; bilateral mediolateral oblique with tomosynthesis; and left mediolateral oblique. MAMMOGRAM FINDINGS: There are scattered fibroglandular densities. There are no suspicious masses, calcifications or areas of architectural distortion. Left breast intramammary lymph node only appreciated on the MLO view. There are no suspicious masses, suspicious calcifications, or new areas of architectural distortion. IMPRESSION: THERE IS NO MAMMOGRAPHIC EVIDENCE OF MALIGNANCY. A ROUTINE FOLLOW-UP MAMMOGRAM IN 1 YEAR IS RECOMMENDED. THE RESULTS OF THIS EXAM WERE SENT TO THE PATIENT. ACR BI-RADS Category 2 - Benign finding MAMMOGRAPHY NOTE: 1. A negative mammogram report should not delay a biopsy if a dominant of clinically suspicious mass is present. 2. Approximately 10% to 15% of breast cancers are not detected by mammography. 3. Adenosis and dense breasts may obscure an underlying neoplasm.
== END 2019-02-03 08:06 | disposition home or self-care (01) ==
LOC: BICMAMMO 08:05
PROVIDERS: ATTEND Internal Medicine
DX: Z12.31 Encounter for screening mammogram for malignant neoplasm of breast (principal)
CPT/HCPCS: 77063; 77067

== ENCOUNTER 2019-03-16 13:40 | Emergency (ER) | payer MEDICARE ==
[2019-03-16 14:22] LABS: #Basophils 0.1 thou/uL (0.0-0.2); #Eosinphils 0.3 thou/uL (0.0-0.7); #Lymphocytes 1.5 thou/uL (1.20-3.40); #Monocytes 0.3 thou/uL (0.11-0.59); #Neutrophils 5.1 thou/uL (1.40-6.50); %Basophils 1.1 % (0.0-1.0); %Eosinophils 3.8 % (0.0-10.0); %Monocytes 4.3 % (0.0-10.0); %Neutrophils 69.8 % (42.0-75.0); Hemoglobin 15.4 g/dL (12.0-16.0); Mean Corpuscular HGB CONC 32.6 g/dL (32.0-36.0); Mean Corpuscular Hemoglobin 31.8 pg (27.0-31.0); Mean Corpuscular Volume 97.4 fL (78.0-98.0); Mean Platelet Volume 8.6 fL (7.4-10.4); Platelet Count 201 thou/uL (130-400); RBC Distribution Width 14.1 % (11.5-14.5); Red Blood Cell (RBC) Count 4.86 mill/uL (4.20-5.40); White Blood Cell (WBC) Count 7.3 thou/uL (4.8-10.8)
--- NOTE | 2019-03-16 14:42 | RAD ---
SINGLE VIEW CHEST: Date: 03/16/19 COMPARISON: 08/24/18. HISTORY: Electrocuted in the left arm with pain in the left side. FINDINGS: Single view of the chest shows an enlarged cardiomediastinal silhouette. The pacemaker is unchanged i n position. There is no evidence of consolidation, mass, or pleural effusion. IMPRESSION: Cardiomegaly. POS: C
[2019-03-16 14:45] LABS: ALT (SGPT) 12 U/L (8-55); AST (SGOT) 14 U/L (5-34); Albumin 4.2 g/dL (3.5-5.0); Alkaline Phosphatase 65 U/L (40-150); Anion Gap 13 mmol/L (10-20); BUN (Urea Nitrogen) 10 mg/dL (9.8-20.1); Bilirubin, Total 1.4 mg/dL (0.2-1.2); CK (CPK) 67 U/L (29-168); Calc. Creatinine Clearance 0 mL/min (70-130); Calcium 9.3 mg/dL (7.8-10.44); Carbon Dioxide 23 mmol/L (22-29); Chloride 104 mmol/L (98-107); Estimated GFR-MDRD 46; Globulin 2.8 g/dL (2.4-3.5); Glucose 109 mg/dL (70-105); Potassium 3.4 mmol/L (3.5-5.1); Sodium 137 mmol/L (136-145)
== END 2019-03-16 15:30 | disposition home or self-care (01) ==
LOC: ERS 13:40
DX: T75.4XXA Electrocution, initial encounter (principal); I11.0 Hypertensive heart disease with heart failure; I50.9 Heart failure, unspecified; R79.89 Other specified abnormal findings of blood chemistry; I25.2 Old myocardial infarction; E78.5 Hyperlipidemia, unspecified; E66.9 Obesity, unspecified; E03.9 Hypothyroidism, unspecified; I48.91 Unspecified atrial fibrillation; F41.9 Anxiety disorder, unspecified; F32.9 Major depressive disorder, single episode, unspecified; F17.210 Nicotine dependence, cigarettes, uncomplicated
CPT/HCPCS: 36415; 71045; 80053; 82550; 82553; 83880; 84484; 85025; 93005

== ENCOUNTER 2019-03-25 20:21 | Observation (INO) | payer MEDICARE ==
[2019-03-25] MEDS ORDERED: Nitroglycerin 2% Ointment 1 INCH/1 GM Packet ONE (20:57)
[2019-03-25] MEDS ORDERED: Morphine 4 MG/ML VIAL ONE (20:57)
[2019-03-25 21:06] LABS: #Eosinphils 0.3 thou/uL (0.0-0.7); #Lymphocytes 2.6 thou/uL (1.20-3.40); #Monocytes 0.4 thou/uL (0.11-0.59); %Basophils 0.1 % (0.0-1.0); %Eosinophils 3.2 % (0.0-10.0); %Lymphocytes 30.9 % (21.0-51.0); %Monocytes 5.3 % (0.0-10.0); %Neutrophils 60.6 % (42.0-75.0); Hemoglobin 14.8 g/dL (12.0-16.0); Mean Corpuscular HGB CONC 32.7 g/dL (32.0-36.0); Mean Corpuscular Hemoglobin 31.9 pg (27.0-31.0); Mean Corpuscular Volume 97.6 fL (78.0-98.0); Mean Platelet Volume 8.9 fL (7.4-10.4); Platelet Count 178 thou/uL (130-400); RBC Distribution Width 14.1 % (11.5-14.5); Red Blood Cell (RBC) Count 4.64 mill/uL (4.20-5.40); White Blood Cell (WBC) Count 8.3 thou/uL (4.8-10.8)
--- NOTE | 2019-03-25 21:07 | RAD ---
CHEST ONE VIEW: 03/25/19 HISTORY: Chest pain. COMPARISON: Radiograph 03/16/19. FINDINGS: Heart size is enlarged. Mild pulmonary venous congestion. AICD/pacer is in place. No acute osseous abnormality. IMPRESSION: Cardiomegaly with mild pulmonary venous congestion. POS: HOME
[2019-03-25] MEDS ORDERED: Ondansetron PF 4 MG/2 ML Vial ONE (21:09)
[2019-03-25 21:19] LABS: Phosphorus 2.8 mg/dL (2.3-4.7)
[2019-03-25 21:21] LABS: ALT (SGPT) 10 U/L (8-55); AST (SGOT) 19 U/L (5-34); Albumin 3.9 g/dL (3.5-5.0); Alkaline Phosphatase 54 U/L (40-150); Anion Gap 12 mmol/L (10-20); BUN (Urea Nitrogen) 10 mg/dL (9.8-20.1); Calc. Creatinine Clearance 0 mL/min (70-130); Calcium 9.7 mg/dL (7.8-10.44); Carbon Dioxide 20 mmol/L (22-29); Chloride 107 mmol/L (98-107); Estimated GFR-MDRD 43; Globulin 2.8 g/dL (2.4-3.5); Glucose 105 mg/dL (70-105); Potassium 4.2 mmol/L (3.5-5.1); Protein, Total 6.7 g/dL (6.0-8.3); Sodium 135 mmol/L (136-145)
--- NOTE | 2019-03-25 21:33 | CT ---
Exam: CT brain PROVIDED CLINICAL HISTORY: Left-sided numbness and tingling COMPARISON: None FINDINGS: The ventricular system is normal in size and morphology. No evidence for intracranial hemorrhage or mass effect. Areas of remote cortical infarction involving the left frontal and right occipital regions. Age-indeterminate lacunar infarctions involving bilateral basal ganglia. The extracranial so ft tissues and osseous structures demonstrate no evidence for an acute abnormality. IMPRESSION: No evidence for intracranial hemorrhage or mass effect.
[2019-03-25 21:35] LABS: CKMB 1.1 ng/mL (0-6.6)
[2019-03-25] MEDS ORDERED: Furosemide 40 MG/4 ML VIAL ONE (22:14)
[2019-03-25] MEDS ORDERED: Fentanyl 100 MCG/2 ML VIAL ONE (22:14)
[2019-03-26 00:13] LABS: Troponin I 0.118 ng/mL (< 0.028)
[2019-03-26 01:00] VITALS: BMI 39.2
[2019-03-26] MEDS ORDERED: Morphine 2 MG/ML SYRINGE SLOW IVP SCH (02:15)
[2019-03-26 03:16] LABS: Troponin I 0.113 ng/mL (< 0.028)
[2019-03-26 07:43] VITALS: BP 100/61; TEMP 97.3
[2019-03-26] MEDS ORDERED: Ondansetron ODT 4 MG TAB PO PRN (08:06)
[2019-03-26] MEDS ORDERED: Enoxaparin Sodium 40 MG/0.4 ML SYRINGE SC SCH (09:00)
--- NOTE | 2019-03-26 09:34 | SS ---
DATE OF ADMISSION: 03/25/2019 DATE OF DISCHARGE: 03/26/2019 PRIMARY CARE PROVIDER: Nelson Gandhi MD. DISPOSITION: Discharged to home. FINAL DIAGNOSES: 1. Ventricular tachycardia terminated normally by pacemaker function. 2. Severe cardiomyopathy. 3. Automatic implantable cardioverter-defibrillator. 4. Ischemic coronary artery disease. 5. Anxiety and depression. 6. Coronary artery disease, hypothyroidism, dyslipidemia, hypertension, tobacco abuse disorder. DISCHARGE MEDICATIONS: 1. Naproxen 500 mg p.o. b.i.d. 2. Celexa 40 mg a day. 3. Coreg 25 mg twice a day. 4. Sotalol 120 mg twice a day. 5. Pepcid 20 mg twice a day. 6. Aspirin 81 mg a day. 7. Zocor 40 mg a day. 8. Potassium chloride 10 mEq a day. 9. Lasix 40 mg a day. 10. Lisinopril 2.5 mg a day. ALLERGIES: 1. IODINATED CONTRAST. 2. PENICILLIN. DIET: Heart healthy. PENDING AT TIME OF DISCHARGE: Nothing. CODE STATUS: Full. [facility]: [facility] The patient states she went into ventricular tachycardia. I asked her how she knew that, she said "I could feel it." She had the defibrillator interrogated. She denies a defibrillator firing. She has had nonstop tight chest discomfort for 12 hours. She states she had a flu shot yesterday in her arm and is still hurts. She smokes one pack per day. No orthopnea or paroxysmal nocturnal dyspnea. REVIEW OF SYSTEMS: GENERAL: She has had some headaches, dizziness with present illness. HEENT: She states she has blurry vision. Eyes watering. Ear, nose, and throat, she has nasal congestion. No nasal bleeding. No oral pain. No ear pain or drainage. CARDIAC: No orthopnea or paroxysmal nocturnal dyspnea. RESPIRATION: She has positive dry cough. Occasional wheezing. GASTROINTESTINAL: She has had some nausea yesterday. This is resolved. No vomiting. No abdominal pain. She had diarrhea yesterday with no blood. GENITOURINARY: No hematuria or dysuria. MUSCULOSKELETAL: She sometimes swells in her left leg. No muscle pains. NEUROLOGICAL: She states that she did a lot of heavy moving and lifting. The both arms were weak. Her legs were weak and she had to walk slow. She had no focal weakness. No speech defect. No double vision, etc,. PSYCHIATRIC: Positive for anxiety, depression. SKIN: She has scratches on her body from her cats and dogs. HEME/LYMPH: No tender or swollen lumps in underarms, neck, or groin. PHYSICAL EXAMINATION: GENERAL: She is alert, oriented, cooperative lady. VITAL SIGNS: Blood pressure 100/61 to 136/92, respirations 16 to 20, room air sats normal, pulse 79 to 80, temperature 97.4. HEAD, EYES, EARS, NOSE, AND THROAT: Revealed pupils are equal, round, and reactive to light. Extraocular movements are intact. Sclerae are white. Tympanic membranes clear. Nose clear. Oral mucous membranes are wet. Dental hygiene is adequate. NECK: No jugular venous distention, adenopathy or thyromegaly. CHEST: Clear to auscultation and percussion. HEART: Regular rate and rhythm. First and second heart sounds are clear. No appreciated murmurs. ABDOMEN: Soft. Bowel sounds are normal. There is no hepatosplenomegaly. No mass. No rebound. EXTREMITIES: Reveal no cyanosis, clubbing, or edema. PULSES: Carotid, radial, femoral, and dorsalis pedis pulses intact and symmetric. SKIN: Warm and dry with some scratches on her legs. HEME/LYMPH NODES: No tender or swollen lymph nodes in axilla, inguinal, cervical area. NEUROLOGICAL: Cranial nerves 2 through 12 are intact. Deep tendon reflexes symmetric. Strength symmetric. Toes downgoing. IMAGING STUDIES: A brain CT was done. No acute intracranial abnormality. Chest x-ray was done, cardiomegaly, AICD pacemaker in the left chest. Both chest x-ray and EKG reviewed by me. LABORATORY DATA: CBC is normal. Comprehensive metabolic profile; sodium is 135, potassium 4.2, chloride 107, CO2 of 20, BUN 10, creatinine 1.29. Bilirubin is 2. Transaminases are normal. Phosphorus and magnesium were normal. Cardiac enzymes 0.118, 0.113, consistent with numbers from previous admission. ADMITTING DIAGNOSES: 1. Ventricular tachycardia, terminated normally by pacemaker automatic implantable cardioverter-defibrillator without defibrillation. 2. Chest discomfort. 3. Severe cardiomyopathy. 4. Coronary artery disease. 5. Hypertension. 6. Hypothyroidism. 7. Dyslipidemia. 8. Tobacco abuse. PLAN: I have discussed this case with Dr. Trevino. Defibrillator function is normal. Electrolytes were unremarkable. He was in agreement with discharge home for followup by PCP was appropriate as the AICD is in for ventricular tachycardia and is working normally. There is no electrolytes abnormalities to adjust. I have discussed was with the patient. She is agreeable with going home. Job ID: [id number]
--- NOTE | 2019-03-28 14:52 | EKG ---
Test Reason : ER INDICATION Blood Pressure : / mmHG Vent. Rate : 080 BPM Atrial Rate : 080 BPM P-R Int : 000 ms QRS Dur : 200 ms QT Int : 488 ms P-R-T Axes : 000 -60 065 degrees QTc Int : 562 ms AV dual-paced rhythm with occasional ventricular-paced complexes Abnormal ECG No Sgarbossa Confirmed by JEANE DE LEON M.D. ([id number]), metropolitan editor SABRINA LOZANO ([id number]) on 03/28/2019 2:51:56 PM Referred By: Confirmed By:JEANE DE LEON M.D.
== END 2019-03-26 09:36 | disposition home or self-care (01) ==
LOC: ERS 20:21 → 2SE 22:00 → INTOOBSV 22:00
PROVIDERS: ADMIT Family Medicine; ATTEND Family Medicine
DX: I47.2 Ventricular tachycardia (principal); I42.9 Cardiomyopathy, unspecified; I25.10 Atherosclerotic heart disease of native coronary artery without angina pectoris; F41.9 Anxiety disorder, unspecified; F32.9 Major depressive disorder, single episode, unspecified; E03.9 Hypothyroidism, unspecified; E78.5 Hyperlipidemia, unspecified; I10 Essential (primary) hypertension; F17.210 Nicotine dependence, cigarettes, uncomplicated; R07.89 Other chest pain; Z79.1 Long term (current) use of non-steroidal anti-inflammatories (NSAID); Z79.82 Long term (current) use of aspirin; Z79.899 Other long term (current) drug therapy; Z88.0 Allergy status to penicillin; Z91.013 Allergy to seafood; Z91.018 Allergy to other foods; Z91.041 Radiographic dye allergy status; Z95.5 Presence of coronary angioplasty implant and graft; Z95.810 Presence of automatic (implantable) cardiac defibrillator
CPT/HCPCS: 36415; 70450; 71045; 80053; 82553; 83735; 83880; 84100; 84439; 84443; 84484; 85025; 93005; 96361; 96372; 96374; 96375; J1650; J1940; J2270; J2405; J3010

== ENCOUNTER 2019-04-06 13:57 | Inpatient (IN) | payer MEDICARE ==
[2019-04-06] MEDS ORDERED: Fentanyl 100 MCG/2 ML VIAL ONE ×2 (16:07→18:53)
[2019-04-06 16:33] LABS: ALT (SGPT) 16 U/L (8-55); AST (SGOT) 13 U/L (5-34); Albumin 3.6 g/dL (3.5-5.0); Alkaline Phosphatase 51 U/L (40-150); Anion Gap 13 mmol/L (10-20); BUN (Urea Nitrogen) 12 mg/dL (9.8-20.1); Bilirubin, Total 1.9 mg/dL (0.2-1.2); Calc. Creatinine Clearance 0 mL/min (70-130); Calcium 8.7 mg/dL (7.8-10.44); Carbon Dioxide 24 mmol/L (22-29); Chloride 103 mmol/L (98-107); Estimated GFR-MDRD 53; Globulin 2.2 g/dL (2.4-3.5); Glucose 116 mg/dL (70-105); Potassium 3.8 mmol/L (3.5-5.1); Protein, Total 5.8 g/dL (6.0-8.3); Sodium 136 mmol/L (136-145)
[2019-04-06 16:38] LABS: Troponin I 0.086 ng/mL (< 0.028)
[2019-04-06] MEDS ORDERED: Acetaminophen 325 MG TAB PO PRN (18:08)
[2019-04-06] MEDS ORDERED: Ondansetron PF 4 MG/2 ML Vial IVP PRN (20:37)
[2019-04-06] MEDS ORDERED: Ondansetron ODT 4 MG TAB SL PRN (20:37)
[2019-04-06] MEDS: metroNIDAZOLE 500 MG in Premix Bag 1 BAG IVPB SCH (21:14)
[2019-04-06] MEDS: Sodium Chloride 0.9% 1,000 ML IV SCH (21:14)
--- NOTE | 2019-04-06 21:20 | HP ---
CHIEF COMPLAINT: Abdominal pain, vomiting. HISTORY OF PRESENT ILLNESS: This patient is a 53-year-old female who reports she was in her usual state of health until Saturday. She reports that she ate at [employer] restaurant, although she has allergies to pineapples and shellfish. She subsequently developed some nausea and vomiting with some mild generalized abdominal pain. She apparently saw in some type of urgent cares because she was feeling like her tongue might be swelling, she got some steroids and was discharged. She continued to have some generalized abdominal pain and vomiting and one episode of diarrhea yesterday. Today, she presented to the emergency department, although she reports that her last episode of vomiting was actually yesterday. She continues to have sharp pain in the right side of her abdomen, primarily in the lower quadrant area. She has not had any significant fevers or chills and has only had the 1 episode of loose stools. She has not been eating much, although today she did actually manage to eat a sausage biscuit, did not seem to exacerbate her pain. All other systems reviewed, all pertinent positives and negatives noted in the History of Present Illness. Specifically, the patient did not have any associated chest pain or shortness of breath. PAST MEDICAL HISTORY: Notable for prior myocardial infarctions. She has a history of severe cardiomyopathy with EF around 30% based on most recent echo. She has a history of VTach with defibrillator placement, anxiety, depression, coronary artery disease with TN x2, hypothyroidism, dyslipidemia, hypertension, tobacco abuse disorder. She also has remote tonsillectomy. PAST SURGICAL HISTORY: AICD placement and coronary stents. FAMILY HISTORY: Positive for coronary artery disease known in multiple family members. SOCIAL HISTORY: The patient continues to smoke about half a pack cigarettes per day. She has no history of alcohol abuse or drug abuse. She lives at home with family. She is full code. ALLERGIES: PINEAPPLE, IODINE CONTRAST, PENICILLIN, AND SHELLFISH. HOME MEDICATIONS: Include; 1. Zoloft 25 mg p.o. daily. 2. Carvedilol 12.5 mg b.i.d. 3. Simvastatin 5 mg daily. 4. Lisinopril 10 mg daily. 5. Lasix 20 mg daily. 6. Potassium 10 mEq daily. 7. Magnesium 100 mg daily. 8. Escitalopram 40 mg daily. PHYSICAL EXAMINATION: VITAL SIGNS: BP is 114/76, pulse 82, respirations 16, O2 saturation 94% on 1 L. GENERAL APPEARANCE: Obese, age-appropriate female, in no distress. She appears to be a bit uncomfortable. She has some mild generalized diaphoresis and her face is a bit erythematous, flushed. HEENT: PERRL. No OP lesions. Some poor dentition. NECK: Supple and symmetric without lymphadenopathy. HEART: Regular rate and rhythm without murmurs, gallops, or rubs. LUNGS: Clear to auscultation bilaterally with good chest wall expansion and air exchange. ABDOMEN: Soft, nondistended. Positive bowel sounds. She has tenderness to palpation in the right lower quadrant with no guarding or rebound. She has slight tenderness in the right upper quadrant. Negative Antunez sign. No guarding. No rebound. EXTREMITIES: Have no cyanosis, clubbing, or edema. PSYCH: Normal affect and behavior. NEUROLOGIC: The patient moves spontaneously in all extremities with no evidence of focal defects or deficits. LABORATORY DATA: Sodium 136, potassium 3.8, chloride 103, CO2 is 24, BUN 12, creatinine is 1.09, glucose 116, calcium 8.4, total bilirubin 1.9, AST 13, ALT 16. Troponin initially 0.71, subsequent 0.86. White count 9.5, hemoglobin 13.7, platelets 194. Of note, initial potassium was 2.9, creatinine 1.23 and GFR is 46. EKG shows paced rhythm at 82. CT scan actually reveals inflammatory changes adjacent to the right colon, possibly secondary to focal colitis or diverticulitis. ER COURSE: The patient was initially seen in the [facility], transferred to this facility. She has received IV Cipro and Flagyl, fluids and pain medications. IMPRESSION AND PLAN: 1. Abdominal pain. This was associated initially with some nausea and vomiting, and one small minimal episode of diarrhea. Currently CT is consistent with right-sided colitis. Her exam lines up with that as well. We will continue with fluids and IV antibiotics of cefepime and Flagyl. She is allergic to penicillin and it looks like she is probably on sotalol as well based on her outpatient pharmacy search, therefore, we will avoid quinolones with a potential interaction. 2. Nausea and vomiting appears to be resolved. 3. History of coronary artery disease. The patient currently has elevated troponins; however, looking at her previous admissions, her troponins have never actually been this low going back to 2014. It appears that this is her baseline or below her baseline level. Do not suspect this represents acute ischemia, nor do I suspect this represents type 2 NSTEMI or demand ischemia, I believe this is simply her normal baseline. 4. Elevated bilirubin. The patient was not substantially tender in the right upper quadrant. She had a negative Antunez sign and CT showed a normal gallbladder and liver. She also has had elevated bilirubin levels on her labs going back to August. We will continue to monitor, but no further investigation anticipated at this time. 5. Hypokalemia. Initial potassium was 2.9, that has been addressed and is back to normal. 6. Chronic kidney disease, stage 3. The patient's current GFR is consistent with her baseline. 7. History of cardiomyopathy, ischemic in nature. Continue with gentle hydration. Watch her fluid levels overall. We will likely hold her Lasix for a day or so to get her back to euvolemic. I suspect she is probably a little on the dry side. We will continue with her carvedilol and KAMILA inhibitor. 8. History of hyperlipidemia. We will continue statin. Job ID: [id number]
[2019-04-06] MEDS: cefOXitin 2 GM in Sodium Chloride 0.9% 100 ML IVPB SCH (23:21)
[2019-04-06] MEDS: Morphine 4 MG/ML VIAL SLOW IVP PRN (23:23)
[2019-04-07 01:09] VITALS: BMI 39.1
[2019-04-07 05:48] LABS: #Eosinphils 0.4 thou/uL (0.0-0.7); #Lymphocytes 1.6 thou/uL (1.20-3.40); #Monocytes 0.5 thou/uL (0.11-0.59); #Neutrophils 4.5 thou/uL (1.40-6.50); %Basophils 0.2 % (0.0-1.0); %Eosinophils 5.4 % (0.0-10.0); %Lymphocytes 23.1 % (21.0-51.0); %Monocytes 6.9 % (0.0-10.0); %Neutrophils 64.4 % (42.0-75.0); Hemoglobin 13.3 g/dL (12.0-16.0); Mean Corpuscular HGB CONC 31.5 g/dL (32.0-36.0); Mean Corpuscular Hemoglobin 31.6 pg (27.0-31.0); Platelet Count 174 thou/uL (130-400); RBC Distribution Width 13.8 % (11.5-14.5); Red Blood Cell (RBC) Count 4.19 mill/uL (4.20-5.40); White Blood Cell (WBC) Count 6.9 thou/uL (4.8-10.8)
[2019-04-07] MEDS: metroNIDAZOLE 500 MG in Premix Bag 1 BAG IVPB SCH ×3 (06:05→21:12)
[2019-04-07] MEDS: cefOXitin 2 GM in Sodium Chloride 0.9% 100 ML IVPB SCH ×3 (06:06→21:34)
[2019-04-07 06:08] LABS: ALT (SGPT) 12 U/L (8-55); AST (SGOT) 12 U/L (5-34); Albumin 3.2 g/dL (3.5-5.0); Alkaline Phosphatase 47 U/L (40-150); Anion Gap 9 mmol/L (10-20); BUN (Urea Nitrogen) 11 mg/dL (9.8-20.1); Bilirubin, Total 1.5 mg/dL (0.2-1.2); Calc. Creatinine Clearance 111 mL/min (70-130); Calcium 8.8 mg/dL (7.8-10.44); Carbon Dioxide 25 mmol/L (22-29); Chloride 106 mmol/L (98-107); Estimated GFR-MDRD 57; Globulin 2.4 g/dL (2.4-3.5); Glucose 82 mg/dL (70-105); Potassium 3.8 mmol/L (3.5-5.1); Protein, Total 5.6 g/dL (6.0-8.3); Sodium 136 mmol/L (136-145)
[2019-04-07] MEDS: Carvedilol 6.25 MG TAB PO SCH ×2 (08:12→21:11)
[2019-04-07] MEDS: Escitalopram Oxalate 20 mg Tablet PO SCH (08:12)
[2019-04-07] MEDS: Lisinopril 2.5 MG TAB PO SCH (08:13)
[2019-04-07] MEDS: Morphine 4 MG/ML VIAL SLOW IVP PRN ×2 (08:13→14:07)
[2019-04-07] MEDS: Sotalol HCl 80 MG TAB PO SCH ×2 (08:13→21:10)
[2019-04-07] MEDS: Aspirin 81 mg Enteric Coated Tablet PO SCH (08:13)
[2019-04-07] MEDS: Sodium Chloride 0.9% 1,000 ML IV SCH ×4 (08:19→18:41)
--- NOTE | 2019-04-07 17:44 | PDOC.HOSPP ---
- Subjective Subjective: Continues to have some right sided abdominal pain. She has not nausea. Tolerating clear liquids. Would like something more. - Objective Vital Signs & Weight: Vital Signs (12 hours) Temp Pulse Resp BP BP Pulse Ox 04/07/19 15:58 97.8 F 80 16 111/88 95 04/07/19 12:00 97.8 F 83 16 111/66 92 L 04/07/19 08:13 83 04/07/19 08:00 97.5 F L 83 18 116/76 92 L Weight Weight 245 lb 12.8 oz I&O: 04/06/19 04/07/19 04/08/19 06:59 06:59 06:59 Intake Total 240 1030.5 Balance 240 1030.5 Result Diagrams: 04/07/19 05:14 04/07/19 05:14 ROS - Review of Systems All systems: All other ROS were reviewed and found negative. - Medication Medications: Active Medications Generic Name Dose Route Start Last Admin Trade Name Freq PRN Reason Stop Dose Admin Aspirin 81 mg 04/07/19 09:00 04/07/19 08:13 Ecotrin PO 81 mg DAILY MALIHA Administration Carvedilol 12.5 mg 04/07/19 09:00 04/07/19 08:12 Coreg PO 12.5 mg BID MALIHA Administration Escitalopram Oxalate 40 mg 04/07/19 09:00 04/07/19 08:12 Lexapro PO 40 mg DAILY MALIHA Administration Cefoxitin Sodium 2 gm/ Sodium 100 mls @ 100 mls/hr 04/06/19 22:00 04/07/19 15 :30 Chloride IVPB 100 mls Q8HR MALIHA Administration Metronidazole 500 mg/ Device 100 mls @ 100 mls/hr 04/06/19 22:00 04/07/19 14: 06 IVPB 100 mls Q8HR MALIHA Administration Lisinopril 2.5 mg 04/07/19 09:00 04/07/19 08:13 Zestril PO 2.5 mg DAILY MALIHA Administration Morphine Sulfate 2 mg 04/06/19 18:42 04/07/19 14:07 Morphine SLOW IVP 2 mg Q4H PRN Administration Moderate to Severe Pain (6-10) Sertraline HCl 25 mg 04/07/19 09:00 04/07/19 08:13 Zoloft PO 25 mg DAILY MALIHA Administration Sodium Chloride 10 ml 07/29/19 21:00 04/07/19 08:23 Flush - Normal Saline IVF Not Given Q12HR [facility] Sotalol HCl 120 mg 04/07/19 09:00 04/07/19 08:13 Betapace PO 120 mg BID MALIHA Administration - Exam NAD (Obese), awake alert Heart: RRR, no murmur, no gallops, no rubs, normal peripheral pulses Respiratory: CTAB, no wheezes, no rales, no ronchi, normal chest expansion, no tachypnea, normal percussion Gastrointestinal: soft, non-distended, normal bowel sounds, no palpable masses, tender to palpation (RLQ) Musculoskeletal: normal tone, normal strength Psychiatric: normal affect, normal behavior, A&O x 3 Hosp A/P (1) Colitis Code(s): K52.9 - NONINFECTIVE GASTROENTERITIS AND COLITIS, UNSPECIFIED Status : Acute (2) Hx of ventricular tachycardia Code(s): Z86.79 - PERSONAL HISTORY OF OTHER DISEASES OF THE CIRCULATORY SYSTEM Status: Acute (3) History of PSVT (paroxysmal supraventricular tachycardia) Code(s): Z86.79 - PERSONAL HISTORY OF OTHER DISEASES OF THE CIRCULATORY SYSTEM Status: Acute (4) AICD (automatic cardioverter/defibrillator) present Code(s): Z95.810 - PRESENCE OF AUTOMATIC (IMPLANTABLE) CARDIAC DEFIBRILLATOR Status: Chronic (5) Coronary artery disease Code(s): I25.10 - ATHSCL HEART DISEASE OF ELEM CORONARY ARTERY W/O ANG PCTRS Status: Chronic Qualifiers: (6) Dysthymic disorder Status: Chronic (7) Hyperlipidemia Code(s): E78.5 - HYPERLIPIDEMIA, UNSPECIFIED Status: Chronic Qualifiers: (8) Hypertension Code(s): I10 - ESSENTIAL (PRIMARY) HYPERTENSION Status: Chronic Qualifiers: (9) Hypothyroidism Code(s): E03.9 - HYPOTHYROIDISM, UNSPECIFIED Status: Chronic Qualifiers: - Plan continue antibiotics Advance diet as tolerated. Will decrease IVF given cardiac situation and increased po intake. Pain meds as needed. Continue Sotalol, Coreg, ACEI, ASA.
[2019-04-07] MEDS ORDERED: Heparin 5,000 UNITS/ML VIAL SC SCH (18:00)
[2019-04-07] MEDS ORDERED: Atorvastatin Calcium 20 MG TAB PO SCH (21:00)
[2019-04-08] MEDS: cefOXitin 2 GM in Sodium Chloride 0.9% 100 ML IVPB SCH (05:17)
[2019-04-08] MEDS: metroNIDAZOLE 500 MG in Premix Bag 1 BAG IVPB SCH (05:18)
[2019-04-08] MEDS ORDERED: Cepastat Lozenges 1 LOZ PO PRN (06:48)
[2019-04-08] MEDS ORDERED: Calcium Carbonate 500 MG ChewTAB PO PRN (06:48)
[2019-04-08] MEDS ORDERED: Senokot S 8.6-50 MG TAB PO PRN (06:48)
[2019-04-08] MEDS ORDERED: Sodium Chloride 0.65% Nasal 44 ML BOT EA NARE PRN (06:48)
[2019-04-08] MEDS ORDERED: Loratadine 10 MG TAB PO PRN (06:48)
[2019-04-08] MEDS ORDERED: hydrALAZINE 20 MG/ML VIAL SLOW IVP PRN (06:48)
[2019-04-08] MEDS ORDERED: Temazepam 15 MG CAP PO PRN (06:48)
[2019-04-08] MEDS ORDERED: Diabetic Tussin 200 MG/10 ML UDCUP PO PRN (06:48)
[2019-04-08] MEDS ORDERED: HYDROcodone/Acetaminophen 5/325 mg Tablet PO PRN (06:48)
[2019-04-08] MEDS ORDERED: Metoclopramide HCl 10 MG/2 ML VIAL IVP PRN (06:49)
[2019-04-08 07:54] VITALS: BP 133/85; TEMP 97.9
[2019-04-08] MEDS ORDERED: metroNIDAZOLE 500 MG TAB PO SCH (09:00)
[2019-04-08] MEDS ORDERED: Enoxaparin Sodium 40 MG/0.4 ML SYRINGE SC SCH (09:00)
[2019-04-08] MEDS ORDERED: Saccharomyces boulardii 250 MG CAP PO SCH (09:00)
[2019-04-08] MEDS ORDERED: Magnesium Oxide 400 MG TAB PO SCH (09:00)
[2019-04-08] MEDS ORDERED: Cefdinir 300 MG CAP PO SCH (09:00)
[2019-04-08] MEDS: Carvedilol 6.25 MG TAB PO SCH (09:45)
[2019-04-08] MEDS: Escitalopram Oxalate 20 mg Tablet PO SCH (09:45)
[2019-04-08] MEDS: Lisinopril 2.5 MG TAB PO SCH (09:47)
[2019-04-08] MEDS: Sotalol HCl 80 MG TAB PO SCH (09:47)
[2019-04-08] MEDS: Aspirin 81 mg Enteric Coated Tablet PO SCH (09:47)
--- NOTE | 2019-04-08 10:28 | DIS ---
DATE OF ADMISSION: 04/07/2019 DATE OF DISCHARGE: 04/08/2019 PRIMARY CARE PHYSICIAN: Nelson Gandhi MD DISCHARGE DISPOSITION: Home. PRIMARY DISCHARGE DIAGNOSIS: Focal colitis. SECONDARY DISCHARGE DIAGNOSES: Tobacco abuse disorder, history of paroxysmal supraventricular tachycardia and ventricular tachycardia, noncompliance with medication treatment, hypothyroidism, hypertension, dyslipidemia, dysthymic disorder, coronary artery disease, automatic implantable cardioverter-defibrillator in place, and chronic combined systolic and diastolic heart failure. PRIMARY PROCEDURE/OPERATION: None. RADIOLOGICAL INVESTIGATION: Abdomen and pelvis CT scan showed focal colitis as well as diverticulosis. SIGNIFICANT LABORATORY DATA: WBC 6.9, hemoglobin 13.3, and platelet 174. Sodium 136, potassium 3.8, BUN 11, and creatinine 1.02. Troponin 0.08. AST 12, ALT 12, alkaline phosphatase 47, and albumin 3.2. DISCHARGE MEDICATIONS: New medications; 1. Omnicef 300 mg p.o. b.i.d. for 5 days. 2. Flagyl 500 mg p.o. t.i.d. for 5 days. 3. Florastor 250 mg p.o. daily for 5 days. Continue following medications; 1. Coreg 12.5 mg p.o. b.i.d. 2. Lexapro 40 mg p.o. daily. 3. Lasix 40 mg p.o. daily. 4. Magnesium oxide 1 tablet daily. 5. Potassium chloride 10 mEq p.o. daily. 6. Zoloft 25 mg p.o. daily. 7. Zocor 40 mg p.o. at bedtime. 8. Sotalol 120 mg p.o. b.i.d. 9. Aspirin 81 mg p.o. daily. 10. Lisinopril 2.5 mg p.o. daily. CONTRAINDICATION: None. CODE STATUS: Full code. INPATIENT ELEVATOR PILOT: None. ALLERGIES: PINEAPPLE, IODINE, PENICILLIN, AND SHELLFISH. DISCHARGE PLAN: Posthospital, the patient will follow up with primary care physician in one week. The patient is instructed to make appointment with insurance business analyst for colonoscopy in 1 or 2 weeks. HOSPITAL COURSE: A 53-year-old female with above-mentioned medical problem, who was admitted by Dr. Méndez, please see his H and P for further details. The patient was having right-sided abdominal pain, nausea, and vomiting. The patient had CT abdomen and pelvis in the emergency room, which showed focal colitis with mild diverticulosis. The patient was admitted to the hospital. She was treated with cefoxitin and Flagyl and IV fluid. The patient had rapid improvement. She was initially kept on clear liquid and then diet was advanced. She was tolerating diet without any nausea or vomiting. The patient did not have any diarrhea. We are suspecting that the patient has underlying cardiomyopathy and she may have ischemic colitis, which improved with IV fluid and conservative therapy. We also offered to go for colonoscopy during this admission, but the patient deferred to that as an outpatient basis. She reassured me that she will follow up with insurance business analyst in 1 or 2 weeks to get done. She had chronically elevated troponin. She did not have any congestive heart failure. She did not have any chest pain while in hospital. She remained hemodynamically stable. Today, we are changing her antibiotic to Omnicef and Flagyl, which she will continue for 5 more days. We are not suspecting any infectious etiology, but we are more prominently thinking that the patient has ischemic colitis and we are giving this antibiotic to prevent infection. The patient is seen and examined at bedside today. All review of systems reviewed with her and negative. She has completely normal examination. She does not have any tenderness or peritoneal signs on her abdomen examination. All new medication prescription sent to her Pharmacy. The patient is stable for discharge today. Job ID: [id number]
--- NOTE | 2019-04-08 10:30 | PDOC.HOSPP ---
- Subjective Subjective: Patient seen and examined. No new complaints. No overnight events - Objective Vital Signs & Weight: Vital Signs (12 hours) Temp Pulse Resp BP Pulse Ox 04/08/19 07:51 97.9 F 79 15 133/85 95 04/08/19 03:01 97.5 F L 80 18 107/66 91 L 04/07/19 23:29 82 121/69 Weight Weight 247 lb 12.8 oz I&O: 04/07/19 04/08/19 04/09/19 06:59 06:59 06:59 Intake Total 240 3305.5 Output Total 700 Balance 240 2605.5 Result Diagrams: 04/07/19 05:14 04/07/19 05:14 EKG Reviewed by me: Yes ROS - Review of Systems All systems: All other ROS were reviewed and found negative. Eyes: denies: pain, vision change, conjunctivae inflammation, eyelid inflammation, redness, other ENT: denies: ear pain, ear discharge, nose pain, nose discharge, nose congestion , mouth pain, mouth swelling, throat pain, throat swelling, other Respiratory: denies: cough, dry, shortness of breath, hemoptysis, SOB with excertion, pleuritic pain, sputum, wheezing, other Cardiovascular: denies: chest pain, palpitations, orthopnea, paroxysmal noc. dyspnea, edema, light headedness, other Gastrointestinal: denies: nausea, vomitting, abdominal pain, diarrhea, constipation, melena, hematochezia, other Genitourinary: denies: dysuria, frequency, incontinence, hematuria, retention, other Musculoskeletal: denies: neck pain, shoulder pain, arm pain, back pain, hand pain, leg pain, foot pain, other - Medication Medications: Active Medications Generic Name Dose Route Start Last Admin Trade Name Freq PRN Reason Stop Dose Admin Aspirin 81 mg 04/07/19 09:00 04/08/19 09:47 Ecotrin PO 81 mg DAILY MALIHA Administration Atorvastatin Calcium 20 mg 04/07/19 21:00 04/07/19 21:11 Lipitor PO 20 mg HS MALIHA Administration Carvedilol 12.5 mg 04/07/19 09:00 04/08/19 09:45 Coreg PO 12.5 mg BID MALIHA Administration Cefdinir 300 mg 04/08/19 09:00 04/08/19 09:45 Omnicef PO 300 mg BID MALIHA Administration Enoxaparin Sodium 40 mg 04/08/19 09:00 04/08/19 09:44 Lovenox SC 40 mg 0900 MALIHA Administration Escitalopram Oxalate 40 mg 04/07/19 09:00 04/08/19 09:45 Lexapro PO 40 mg DAILY MALIHA Administration Sodium Chloride 1,000 mls @ 50 mls/hr 04/07/19 17:41 04/07/19 18:41 Normal Saline 0.9% IV 1,000 mls .Q20H MALIHA Administration Lisinopril 2.5 mg 04/07/19 09:00 04/08/19 09:47 Zestril PO 2.5 mg DAILY MALIHA Administration Magnesium Oxide 100 mg 04/08/19 09:00 04/08/19 09:46 Magnesium Oxide PO 100 mg DAILY MALIHA Administration Metronidazole 500 mg 04/08/19 09:00 04/08/19 09:46 Flagyl PO 500 mg TID MALIHA Administration Morphine Sulfate 2 mg 04/06/19 18:42 04/07/19 14:07 Morphine SLOW IVP 2 mg Q4H PRN Administration Moderate to Severe Pain (6-10) Saccharomyces Boulardii 250 mg 04/08/19 09:00 04/08/19 09:46 Florastor PO 250 mg DAILY MALIHA Administration Sertraline HCl 25 mg 04/07/19 09:00 04/08/19 09:45 Zoloft PO 25 mg DAILY MALIHA Administration Sodium Chloride 10 ml 04/06/19 21:00 04/08/19 09:48 Flush - Normal Saline IVF Not Given Q12HR [facility] Sotalol HCl 120 mg 04/07/19 09:00 04/08/19 09:47 Betapace PO 120 mg BID MALIHA Administration - Exam NAD, awake alert Eye: PERRL, anicteric sclera ENT: normocephalic atraumatic, no oropharyngeal lesions Neck: supple, symmetric, no JVD, no Thyromegaly Heart: RRR, no murmur, no gallops, no rubs Respiratory: CTAB, no wheezes, no rales, no ronchi Gastrointestinal: soft, non-tender, non-distended, normal bowel sounds, no palpable masses Extremities: no cyanosis, no clubbing, no edema Skin: normal turgor, no lesions Neurological: CN's grossly intact, normal sensation to touch, no focal deficits Musculoskeletal: normal tone, normal strength Psychiatric: normal affect, normal behavior Hosp A/P (1) Colitis Code(s): K52.9 - NONINFECTIVE GASTROENTERITIS AND COLITIS, UNSPECIFIED Status : Acute (2) Chronic combined systolic (congestive) and diastolic (congestive) heart failure Code(s): I50.42 - CHRONIC COMBINED SYSTOLIC AND DIASTOLIC HRT FAIL Status: Chronic (3) Hx of ventricular tachycardia Code(s): Z86.79 - PERSONAL HISTORY OF OTHER DISEASES OF THE CIRCULATORY SYSTEM Status: Acute (4) AICD (automatic cardioverter/defibrillator) present Code(s): Z95.810 - PRESENCE OF AUTOMATIC (IMPLANTABLE) CARDIAC DEFIBRILLATOR Status: Chronic (5) Coronary artery disease Code(s): I25.10 - ATHSCL HEART DISEASE OF [place] CORONARY ARTERY W/O ANG PCTRS Status: Chronic Qualifiers: (6) Dysthymic disorder Status: Chronic (7) Hyperlipidemia Code(s): E78.5 - HYPERLIPIDEMIA, UNSPECIFIED Status: Chronic Qualifiers: (8) Hypertension Code(s): I10 - ESSENTIAL (PRIMARY) HYPERTENSION Status: Chronic Qualifiers: (9) Hypothyroidism Code(s): E03.9 - HYPOTHYROIDISM, UNSPECIFIED Status: Chronic Qualifiers: (10) Noncompliance with medication regimen Code(s): Z91.14 - PATIENT'S OTHER NONCOMPLIANCE WITH MEDICATION REGIMEN Status : Chronic (11) Paroxysmal SVT (supraventricular tachycardia) Code(s): I47.1 - SUPRAVENTRICULAR TACHYCARDIA Status: Chronic (12) Paroxysmal VT Code(s): I47.2 - VENTRICULAR TACHYCARDIA Status: Chronic (13) Tobacco abuse Code(s): Z72.0 - TOBACCO USE Status: Chronic - Plan old records reviewed/req, continue antibiotics medication reviewed as below symptomatic treatment see discharge brittany
[2019-04-08] MEDS ORDERED: Cipro 250 MG TAB PO SCH (20:00)
== END 2019-04-08 11:38 | disposition home or self-care (01) | DRG 394 ==
LOC: ERS 13:57 → ERHOLD 15:00 → 2NO 20:27 → OBSVTOIN 04-07 14:06
PROVIDERS: ADMIT Internal Medicine; ATTEND Internal Medicine
DX: K55.9 Vascular disorder of intestine, unspecified (principal); I50.42 Chronic combined systolic (congestive) and diastolic (congestive) heart failure; I13.0 Hypertensive heart and chronic kidney disease with heart failure and stage 1 through stage 4 chronic kidney disease, or unspecified chronic kidney disease; I47.1 Supraventricular tachycardia; Z68.41 Body mass index [BMI] 40.0-44.9, adult; I25.10 Atherosclerotic heart disease of native coronary artery without angina pectoris; E66.9 Obesity, unspecified; E87.6 Hypokalemia; E03.9 Hypothyroidism, unspecified; N18.3 Chronic kidney disease, stage 3 (moderate); E78.5 Hyperlipidemia, unspecified; I25.2 Old myocardial infarction; Z95.810 Presence of automatic (implantable) cardiac defibrillator; Z79.899 Other long term (current) drug therapy; Z91.14 Patient's other noncompliance with medication regimen; Z88.0 Allergy status to penicillin; Z91.013 Allergy to seafood; Z91.041 Radiographic dye allergy status
CPT/HCPCS: 36415; 80053; 85025; 94640; 96374; 96376; J0694; J1644; J1650; J2270; J3010; J3490

== ENCOUNTER 2019-06-05 11:06 | Observation (INO) | payer MEDICARE ==
[2019-06-05] MEDS ORDERED: Pantoprazole 40 MG VIAL ONE (12:07)
[2019-06-05 13:17] LABS: Hemoglobin 15.4 g/dL (12.0-16.0)
[2019-06-05] MEDS ORDERED: metroNIDAZOLE 500 MG/100 ML BAG ONE (13:37)
[2019-06-05] MEDS ORDERED: Morphine 4 MG/ML VIAL ONE (13:37)
[2019-06-05 13:46] LABS: Troponin I 0.137 ng/mL (< 0.028)
[2019-06-05] MEDS ORDERED: Ondansetron ODT 4 MG TAB PO PRN (15:18)
[2019-06-05] MEDS ORDERED: Acetaminophen 325 MG TAB PO PRN (15:18)
[2019-06-05] MEDS ORDERED: hydrALAZINE 20 MG/ML VIAL SLOW IVP PRN (15:18)
[2019-06-05] MEDS ORDERED: Ondansetron PF 4 MG/2 ML Vial IVP PRN (15:18)
[2019-06-05 16:22] VITALS: BMI 38.4
[2019-06-05] MEDS: Sodium Chloride 0.9% 1,000 ML IV SCH (16:25)
[2019-06-05 17:10] LABS: Troponin I 0.125 ng/mL (< 0.028)
[2019-06-05] MEDS ORDERED: HYDROcodone/Acetaminophen 5/325 mg Tablet PO PRN (17:20)
[2019-06-05] MEDS ORDERED: Morphine 4 MG/ML VIAL SLOW IVP PRN (17:20)
[2019-06-05] MEDS: Morphine 2 MG/ML SYRINGE SLOW IVP PRN (17:58)
[2019-06-05 20:11] LABS: Troponin I 0.135 ng/mL (< 0.028)
--- NOTE | 2019-06-05 20:43 | HP ---
PRIMARY CARE: Dr. Michelle. CHIEF COMPLAINT: Bright red blood per rectum. HISTORY OF PRESENT ILLNESS: Ms. Fishman is a very pleasant 53-year-old female, who has a history of coronary artery disease as well as chronic combined systolic and diastolic heart failure. She also has a history of hypertension. She was in her usual state of health until last night. She says that she initially had felt constipated, but then shortly after that she started having some explosive diarrhea. She noticed that it was mostly blood. She says that later on that night, it continued and she said she has spent almost 2 hours straight on the toilet, just passing what look like blood. She also noted some lower abdominal pain, which she says was like a tight heavy feeling as well as a low-grade temperature. She says the pain was kind of cramping in nature and did not seem to be brought on or alleviated by anything. She also says that she vomited about 3 times as well and as a result of these symptoms, she came to the ER for evaluation. She does have a history of heart disease and says it is not her heart this time and denies any chest pain or shortness of breath. No palpitations and it is noted that she had a similar episode about 2 months ago, which was attributed to possible ischemic colitis. She says that she has not had a GI evaluation recently. REVIEW OF SYSTEMS: CONSTITUTIONAL: No fevers or chills. No night sweats. No weight loss. HEENT: No headache. No dizziness. No visual changes. No sore throat. No rhinorrhea. NECK: No neck pain. No adenopathy. PULMONARY: No hemoptysis. No cough. No wheezing. CARDIOVASCULAR: Denies any chest pain. No shortness of breath. No PND. No orthopnea. GASTROINTESTINAL: As per the history of present illness. GENITOURINARY: No urinary frequency or hematuria. No hesitancy. NEUROLOGIC: No focal weakness or numbness. No seizures. PSYCHIATRIC: No symptoms of anxiety or depression. SKIN AND INTEGUMENT: No skin changes. No rash. PAST MEDICAL HISTORY: Significant for hypertension, hyperlipidemia, hypothyroidism, coronary artery disease, chronic systolic and diastolic heart failure, as well as SVT. PAST SURGICAL HISTORY: She had an AICD placed 4 years ago and then had an upgrade a couple of years after that. ALLERGIES: INCLUDE PINEAPPLE, WHICH CAUSES LEFT EYE SWELLING; IODINE AND PENICILLIN, WHICH CAUSES HER THROAT TO TIGHTEN; WELL AN ALLERGY TO SHELLFISH, WHICH CAUSES THE SAME. SOCIAL HISTORY: She smokes about half a pack a day for 30 years. She is , has 1 child. Denies any alcohol use or illicit drug use. FAMILY HISTORY: Significant for coronary artery disease. CURRENT MEDICATIONS: Include: 1. Carvedilol 12.5 mg twice daily. 2. Simvastatin 5 mg once a day. 3. Lisinopril 10 mg once daily. 4. Furosemide 20 mg daily. 5. Potassium chloride 10 mEq daily. 6. Magnesium 100 mg daily. 7. Celexa 40 mg once a day. PHYSICAL EXAMINATION: GENERAL: She is alert and oriented. She appears to be in no acute distress. She is well developed and well nourished, slightly disheveled in appearance. VITAL SIGNS: Blood pressure was 132/87, heart rate 80, respiratory rate of 16, temperature is 98.2. HEENT: Pupils are equal, round, and reactive to light. Extraocular muscles are intact. Sclerae anicteric. Throat, there is no erythema, no exudates. She did have poor dentition. NECK: There is no adenopathy. No bruits. LUNGS: Clear to auscultation. There is no wheezing. No rales. No rhonchi. CARDIOVASCULAR: She has a normal S1 and S2. There is no S3 or S4. No murmurs, clicks, or rubs. ABDOMEN: Soft, obese. She does have some lower abdominal tenderness, but there is no rebound. No guarding. No organomegaly. EXTREMITIES: She has no clubbing or cyanosis. No edema. No calf tenderness. No joint effusions. NEUROLOGIC: Her cranial nerves are intact. Muscle strength is 5/5 in both her upper and lower extremities. SKIN AND INTEGUMENT: No skin changes. No rashes. LABORATORY DATA: White blood cell count is 12.1, hemoglobin 15.4, hematocrit is 45.3, and platelet count is 217. Sodium 137, potassium 4.1, chloride is 105, CO2 is 21, BUN of 11, creatinine 1.08, glucose is 133. She had a CT scan of the abdomen and pelvis, which showed bilateral nonobstructing infrarenal stones and some mucosal thickening and pericolic fat stranding involving the splenic flexure and descending colon. ASSESSMENT: 1. This is a pleasant 53-year-old female, who is being admitted and placed in observation for bright red blood per rectum. There has not been any significant decrease in her hemoglobin. Since this is her second episode and she has not had a gastrointestinal evaluation, we will go ahead and consult Gastrointestinal. We will place her on empiric antibiotics if this in event is an infectious colitis. Place her on moderate IV fluids cautiously given her history of heart failure and check stool studies. 2. Chronic systolic and diastolic heart failure. This is compensated and generally a [place] [employer] class II on admission. 3. Hypertension. Currently, her blood pressure is controlled. 4. Deep venous thrombosis prophylaxis will be with SCDs only and she will be placed on IV Protonix. Job ID: [id number]
[2019-06-05] MEDS: Pantoprazole 40 MG VIAL IVP SCH (21:17)
[2019-06-05] MEDS: metroNIDAZOLE 500 MG in Premix Bag 1 BAG IVPB SCH (21:21)
--- NOTE | 2019-06-06 01:50 | CON ---
DATE OF CONSULTATION: 06/05/2019 REASON FOR CONSULTATION: Abdominal pain, hematochezia, and CAT scan showing colitis involving the splenic flexure, descending colon. HISTORY OF PRESENT ILLNESS: Phoebe Fishman is a very pleasant 53-year-old female with a history of longstanding cardiac disease. The patient has a previous myocardial infarction and stent placement. The first myocardial infarction was 4 years ago. The patient appears to have ischemic cardiomyopathy, low ejection fraction. The patient was hospitalized in August 2018 for cardiac failure. She also has history of ventricular tachycardia. The patient has undergone AICD placement in the past and also has had ablation in September 2017. After ablation, she has done very well. She does walk fairly regularly. Does not have any chest discomfort, dyspnea, or palpitation. The patient was hospitalized here in March 2019 because of abdominal pain and diarrhea. The symptoms started after she ate some [place] food. diarrhea. She had a CAT scan of abdomen done at that time, which revealed colitis to the right colon. She was sent home on antibiotics and afterwards see a rotary drum tanner. However, she has not seen anybody after discharge. She had done well after discharge in March 2019. She woke up at 10 o'clock last night with some feeling of urgency to go to the bathroom. She went and came out. go to the bathroom. She did pass some liquids. She turned around to look at her commode, she saw large amount of blood. She also found blood in her tissue paper. The pain is somewhat mild to moderate. It is not really severe. The pain is over the lower abdomen,it was a kind of diffuse and cramping. She has more pain over the left lower quadrant and in the left upper quadrant of the descending colon area. There is no fever or chills. The patient had a stool yesterday, but since then she had no more stool. She feels like going to the bathroom, when she goes, nothing comes out. She has had no bleeding today. She had no similar episodes. No history of any colonoscopy in the past. She has no family history of colon cancer. Denies any fever. She has no other complaints. ALLERGIES: 1. PINEAPPLE. 2. IV CONTRAST. 3. PENICILLIN. 4. SHELLFISH. SOCIAL HISTORY: The patient is a smoker. She smokes a pack of cigarettes per day. She has smoked 2 packs of cigarettes before. She seldom drink alcohol. MEDICAL ILLNESSES: 1. Myocardial infarction x2. 2. Congestive heart failure with poor ejection fraction. 3. Cardiac arrhythmia. 4. Status post AICD placement. 5. Hypertension. 6. Hyperlipidemia. 7. Hypothyroidism. PAST SURGICAL HISTORY: AICD placement. She has had cardiac stent placement. Also has had tonsillectomy in the past. NEUROPSYCHIATRIC HISTORY: She has history of depression and anxiety. FAMILY HISTORY: Mother had stroke. Father had heart disease and on father's side, strong family history of coronary artery disease. No family history of any colon cancer or any malignancy. MEDICATIONS: List reviewed. REVIEW OF SYSTEMS: CONSTITUTIONAL: No history of any weight loss. She has good exercise tolerance. No fever, no chills. HEENT: No chronic headache. Eyes, no diplopia, no impaired vision. Ears, no hearing loss. Nose, no nosebleed. Throat, no sore throat. No dysphagia. LUNGS: No chronic coughing, hemoptysis, or dyspnea. CARDIOVASCULAR: No chest pain. No palpitation. No acute dyspnea, orthopnea, or PND. GI: As in history of present illness. : No dysuria, hematuria, or frequency of urination. MUSCULOSKELETAL/NEUROENDOCRINE: Unremarkable. PHYSICAL EXAMINATION: GENERAL: She is obese, appears very comfortable. She is awake, alert, and communicative. She is in no distress. VITAL SIGNS: Stable. Temperature 97.5 degrees Fahrenheit, pulse is 88 and blood pressure is 125/72. HEENT: Conjunctivae are clear. NECK: Supple. No adenitis or thyromegaly. CARDIOVASCULAR: First and second heart sounds heard. LUNGS: Clear to auscultation. ABDOMEN: Mildly protuberant and soft. Abdomen is tender minimally across the lower abdomen. There is no rebound or guarding. She is nontender over the left upper quadrant over the left colon area. No organomegaly. No masses. EXTREMITIES: Reveal no edema. LABORATORY DATA: CBC; WBC 12,100, hemoglobin 15.3, hematocrit 47.3, MCV 93.6, platelet count 217,000, polymorphs 81, lymphocytes 12. Chemistries; sodium is 137, potassium 4.1, chloride 105, bicarb 21, BUN is 11, creatinine 1.08, glucose 133, calcium 9.2, bilirubin 1.4, AST is 13, ALT 14, alkaline phosphatase 7. Troponin is high at 0.125. Albumin 4.2. Abdominal CAT scan done show what appears to be a colitis involving the splenic flexure, descending colon. She has bilateral renal calculus, nonobstructing. CLINICAL IMPRESSION: 1. A 53-year-old female with strong history of coronary artery disease and vascular disease. She has had stent placement and also AICD placement. The patient was hospitalized 2 months ago with abdominal pain and diarrhea. At that time, was found to have colitis to the right colon. At the present time, she comes with abdominal pain, diarrhea, and also bleeding. She has colitis on the left side. Although, she has history of large amount of blood loss, on admission, she had normal CBC. Possibility is infectious colitis versus ischemic colitis. 2. Coronary artery disease, status post stent placement. 3. Myocardial infarction x2. 4. Congestive heart failure. 5. Hypertension. 6. Hyperlipidemia. 7. Hypothyroidism. 8. Anxiety and depression. RECOMMENDATIONS: 1. Follow up H and H. 2. May consider colonoscopy in the next 24 hours. In the meantime, continue symptomatic treatment. Job ID: [id number]
[2019-06-06 05:05] LABS: Anion Gap 10 mmol/L (10-20); BUN (Urea Nitrogen) 7 mg/dL (9.8-20.1); Calc. Creatinine Clearance 137 mL/min (70-130); Carbon Dioxide 20 mmol/L (22-29); Chloride 109 mmol/L (98-107); Estimated GFR-MDRD 74; Glucose 93 mg/dL (70-105); Potassium 3.9 mmol/L (3.5-5.1); Sodium 135 mmol/L (136-145)
[2019-06-06] MEDS: metroNIDAZOLE 500 MG in Premix Bag 1 BAG IVPB SCH ×3 (06:07→23:43)
[2019-06-06 06:15] LABS: #Eosinphils 0.2 thou/uL (0.0-0.7); #Lymphocytes 1.4 thou/uL (1.20-3.40); #Monocytes 0.3 thou/uL (0.11-0.59); #Neutrophils 5.3 thou/uL (1.40-6.50); %Basophils 0.2 % (0.0-1.0); %Eosinophils 2.8 % (0.0-10.0); %Monocytes 4.4 % (0.0-10.0); %Neutrophils 73.5 % (42.0-75.0); Hemoglobin 13.4 g/dL (12.0-16.0); Mean Corpuscular HGB CONC 33.7 g/dL (32.0-36.0); Mean Corpuscular Hemoglobin 32.9 pg (27.0-31.0); Mean Corpuscular Volume 97.7 fL (78.0-98.0); Mean Platelet Volume 8.5 fL (7.4-10.4); Platelet Count 157 thou/uL (130-400); RBC Distribution Width 13.2 % (11.5-14.5); Red Blood Cell (RBC) Count 4.08 mill/uL (4.20-5.40); White Blood Cell (WBC) Count 7.2 thou/uL (4.8-10.8)
[2019-06-06] MEDS: Carvedilol 6.25 MG TAB PO SCH ×2 (08:58→23:42)
[2019-06-06] MEDS: Escitalopram Oxalate 20 mg Tablet PO SCH (08:59)
[2019-06-06] MEDS: Pantoprazole 40 MG VIAL IVP SCH ×2 (09:00→23:43)
[2019-06-06] MEDS: Magnesium Oxide 400 MG TAB PO SCH (09:00)
[2019-06-06] MEDS ORDERED: Non-Formulary Item 1 EACH (Sotalol Hcl [Sotalol] 120 MG) PO SCH (09:00)
[2019-06-06] MEDS: Saccharomyces boulardii 250 MG CAP PO SCH (09:00)
[2019-06-06] MEDS: Lisinopril 2.5 MG TAB PO SCH (09:00)
[2019-06-06] MEDS: Sotalol HCl 80 MG TAB PO SCH ×2 (09:01→23:41)
[2019-06-06] MEDS: Aspirin 81 mg Enteric Coated Tablet PO SCH (09:03)
[2019-06-06] MEDS: Sodium Chloride 0.9% 1,000 ML IV SCH (09:04)
[2019-06-06] MEDS: Morphine 2 MG/ML SYRINGE SLOW IVP PRN (09:12)
--- NOTE | 2019-06-06 10:42 | PRG ---
DATE OF SERVICE: 06/06/2019 SUBJECTIVE: This is a 53-year-old female hospitalized with abdominal cramping, diarrhea, and hematochezia. The CAT scan showed what appears to be left-sided colitis. She is actually not comfortable yesterday than today. She complains of abdominal cramping across the abdomen. She also had a bloody stool this morning. Her blood count did drop down slightly from yesterday. She is not having diarrhea. Her laboratory data from today show WBC 7200, hemoglobin is 13.4 from 15.4, hematocrit 39.8, no bandemia, polymorphs 73, lymphocytes 19. PHYSICAL EXAMINATION: GENERAL: Appears to be in mild discomfort. VITAL SIGNS: Afebrile, pulse is 80, and blood pressure 110/59. CARDIOVASCULAR AND LUNGS: Within normal limits. ABDOMEN: Soft. Abdomen is mildly tender across lower abdomen. Surprisingly, she is nontender over the left upper quadrant of the left colon area. CLINICAL IMPRESSION: The patient most likely has ischemic colitis versus infectious colitis. She is already on metronidazole. RECOMMENDATIONS: 1. Add ciprofloxacin twice a day. 2. Clear liquid diet. 3. Follow up H and H. 4. Colonoscopy tomorrow after adequate bowel prep. Job ID: [id number]
--- NOTE | 2019-06-06 10:49 | PDOC.HOSPP ---
- Subjective Encounter Date: 06/06/19 Encounter Time: 10:47 Subjective: Ms. Fishman was seen today in follow-up of bloody diarrhea. She continues to have abdominal pain which she rates a 9/10. She also continues to have hematochezia. - Objective Vital Signs & Weight: Vital Signs (12 hours) Temp Pulse Resp BP BP Pulse Ox 06/06/19 09:01 80 06/06/19 09:00 80 06/06/19 07:07 97.7 F 80 18 110/59 L 94 L 06/06/19 04:00 97.4 F L 80 18 107/59 L 92 L 06/06/19 03:16 95 06/05/19 23:30 97.8 F 82 14 98/52 L 93 L Weight Weight 238 lb I&O: 06/05/19 06/06/19 06/07/19 06:59 06:59 06:59 Intake Total 1000 240 Output Total 1200 900 Balance -200 -660 Result Diagrams: 06/06/19 05:55 06/06/19 04:43 Hospitalist ROS - Medication Medications: Active Medications Generic Name Dose Route Start Last Admin Trade Name Freq PRN Reason Stop Dose Admin Aspirin 81 mg 06/06/19 09:00 06/06/19 09:03 Ecotrin PO 81 mg DAILY MALIHA Administration Carvedilol 12.5 mg 06/06/19 09:00 06/06/19 08:58 Coreg PO 12.5 mg BID MALIHA Administration Escitalopram Oxalate 40 mg 06/06/19 09:00 06/06/19 08:59 Lexapro PO 40 mg DAILY MALIHA Administration Metronidazole 500 mg/ Device 100 mls @ 100 mls/hr 06/05/19 22:00 06/06/19 06: 07 IVPB 100 mls Q8HR MALIHA Administration Sodium Chloride 1,000 mls @ 60 mls/hr 06/05/19 15:18 06/06/19 09:04 Normal Saline 0.9% IV 1,000 mls .[id number] MALIHA Administration Lisinopril 2.5 mg 06/06/19 09:00 06/06/19 09:00 Zestril PO 2.5 mg DAILY MALIHA Administration Magnesium Oxide 100 mg 06/06/19 09:00 06/06/19 09:00 Magnesium Oxide PO 100 mg DAILY MALIHA Administration Morphine Sulfate 2 mg 06/05/19 17:20 06/06/19 09:12 Morphine SLOW IVP 2 mg Q4H PRN Administration Moderate Pain (4-6) Pantoprazole Sodium 40 mg 06/05/19 21:00 06/06/19 09:00 Protonix IVP 40 mg Q12HR MALIHA Administration Saccharomyces Boulardii 250 mg 06/06/19 09:00 06/06/19 09:00 Florastor PO 250 mg DAILY MALIHA Administration Sertraline HCl 25 mg 06/06/19 09:00 06/06/19 09:00 Zoloft PO 25 mg DAILY MALIHA Administration Sodium Chloride 10 ml 06/06/19 09:00 06/06/19 09:01 Flush - Normal Saline IVF 10 ml Q12HR MALIHA Administration Sotalol HCl 120 mg 06/06/19 09:00 06/06/19 09:01 Betapace PO 120 mg BID MALIHA Administration - Exam Eye: PERRL, anicteric sclera Heart: RRR, no murmur, no gallops, no rubs, normal peripheral pulses Respiratory: CTAB, no wheezes, no rales, no ronchi, normal chest expansion, no tachypnea, normal percussion Gastrointestinal: soft, non-distended, normal bowel sounds, no palpable masses, no hepatomegaly, tender to palpation (Diffuse) Hosp A/P (1) Acute colitis Code(s): K52.9 - NONINFECTIVE GASTROENTERITIS AND COLITIS, UNSPECIFIED Status : Acute (2) AICD (automatic cardioverter/defibrillator) present Code(s): Z95.810 - PRESENCE OF AUTOMATIC (IMPLANTABLE) CARDIAC DEFIBRILLATOR Status: Chronic (3) Coronary artery disease Code(s): I25.10 - ATHSCL HEART DISEASE OF [place] CORONARY ARTERY W/O ANG PCTRS Status: Chronic Qualifiers: (4) Hyperlipidemia Code(s): E78.5 - HYPERLIPIDEMIA, UNSPECIFIED Status: Chronic Qualifiers: (5) Hypertension Code(s): I10 - ESSENTIAL (PRIMARY) HYPERTENSION Status: Chronic Qualifiers: (6) Chronic combined systolic and diastolic CHF, NYHA class 2 Code(s): I50.42 - CHRONIC COMBINED SYSTOLIC AND DIASTOLIC HRT FAIL Status: Chronic - Plan * Acute Colitis- continue empiric antibiotics * GI input appreciated- plan is for colonoscopy tomorrow * History of SVT- continue Sotalol * Chronic combined systolic and diastolic heart failure- continue IV fluids, but closely monitor for volume overload * HTN- blood pressure is stable
[2019-06-06] MEDS ORDERED: GoLYTELY 4,000 ml Bottle PO SCH (17:00)
[2019-06-06] MEDS ORDERED: Simvastatin 40 MG TAB PO SCH (21:00)
[2019-06-06] MEDS: Atorvastatin Calcium 20 MG TAB PO SCH (23:42)
[2019-06-07] MEDS: metroNIDAZOLE 500 MG in Premix Bag 1 BAG IVPB SCH ×3 (05:37→20:15)
[2019-06-07] MEDS: Sodium Chloride 0.9% 1,000 ML IV SCH (05:38)
[2019-06-07 06:13] LABS: #Eosinphils 0.2 thou/uL (0.0-0.7); #Lymphocytes 1.5 thou/uL (1.20-3.40); #Monocytes 0.4 thou/uL (0.11-0.59); %Basophils 0.6 % (0.0-1.0); %Eosinophils 3.8 % (0.0-10.0); %Lymphocytes 24.1 % (21.0-51.0); %Monocytes 6.2 % (0.0-10.0); %Neutrophils 65.3 % (42.0-75.0); Hemoglobin 12.9 g/dL (12.0-16.0); Mean Corpuscular HGB CONC 33.8 g/dL (32.0-36.0); Mean Corpuscular Hemoglobin 32.6 pg (27.0-31.0); Mean Corpuscular Volume 96.2 fL (78.0-98.0); Mean Platelet Volume 8.3 fL (7.4-10.4); Platelet Count 159 thou/uL (130-400); RBC Distribution Width 13.1 % (11.5-14.5); Red Blood Cell (RBC) Count 3.95 mill/uL (4.20-5.40); White Blood Cell (WBC) Count 6.1 thou/uL (4.8-10.8)
[2019-06-07 06:32] LABS: Anion Gap 9 mmol/L (10-20); BUN (Urea Nitrogen) 5 mg/dL (9.8-20.1); Calc. Creatinine Clearance 135 mL/min (70-130); Calcium 8.5 mg/dL (7.8-10.44); Carbon Dioxide 24 mmol/L (22-29); Chloride 110 mmol/L (98-107); Estimated GFR-MDRD 73; Glucose 89 mg/dL (70-105); Potassium 3.6 mmol/L (3.5-5.1); Sodium 139 mmol/L (136-145)
[2019-06-07] MEDS: Carvedilol 6.25 MG TAB PO SCH ×2 (10:12→20:15)
[2019-06-07] MEDS: Aspirin 81 mg Enteric Coated Tablet PO SCH (10:12)
[2019-06-07] MEDS: Escitalopram Oxalate 20 mg Tablet PO SCH (10:13)
[2019-06-07] MEDS: Magnesium Oxide 400 MG TAB PO SCH (10:13)
[2019-06-07] MEDS: Lisinopril 2.5 MG TAB PO SCH (10:13)
[2019-06-07] MEDS: Saccharomyces boulardii 250 MG CAP PO SCH (10:14)
[2019-06-07] MEDS: Sotalol HCl 80 MG TAB PO SCH ×2 (10:14→20:14)
[2019-06-07] MEDS: Pantoprazole 40 MG VIAL IVP SCH ×2 (10:18→20:14)
[2019-06-07] MEDS ORDERED: PROPOFOL 200 MG/20 ML VIAL ONE (10:30)
[2019-06-07] MEDS ORDERED: Lidocaine 1% PF 5 ML VIAL ONE (10:30)
--- NOTE | 2019-06-07 10:41 | PDOC.HOSPP ---
- Subjective Subjective: Continues to have some cramping and discomfort. She would like to eat. - Objective Vital Signs & Weight: Vital Signs (12 hours) Temp Pulse Resp BP BP Pulse Ox 06/07/19 10:14 81 06/07/19 10:13 85 06/07/19 10:12 114/72 06/07/19 07:03 97.6 F 81 16 114/61 95 06/07/19 04:17 82 18 106/65 94 L 06/07/19 04:10 98 F 82 12 99/54 L 94 L 06/07/19 03:26 94 L 06/06/19 23:42 107/59 L 06/06/19 23:41 80 06/06/19 23:32 98.0 F 80 14 118/66 94 L Weight Admit Weight 238 lb Weight 238 lb I&O: 06/06/19 06/07/19 06/08/19 06:59 06:59 06:59 Intake Total 1000 1828 Output Total 1200 2200 600 Balance -200 -372 -600 Result Diagrams: 06/07/19 05:51 06/07/19 05:51 Hospitalist ROS - Medication Medications: Active Medications Generic Name Dose Route Start Last Admin Trade Name Freq PRN Reason Stop Dose Admin Aspirin 81 mg 06/06/19 09:00 06/07/19 10:12 Ecotrin PO 81 mg DAILY MALIHA Administration Atorvastatin Calcium 20 mg 06/06/19 21:00 06/06/19 23:42 Lipitor PO 20 mg HS MALIHA Administration Carvedilol 12.5 mg 06/06/19 09:00 06/07/19 10:12 Coreg PO 12.5 mg BID MALIHA Administration Escitalopram Oxalate 40 mg 06/06/19 09:00 06/07/19 10:13 Lexapro PO 40 mg DAILY MALIHA Administration Metronidazole 500 mg/ Device 100 mls @ 100 mls/hr 06/05/19 22:00 06/07/19 05: 37 IVPB 100 mls Q8HR MALIHA Administration Sodium Chloride 1,000 mls @ 60 mls/hr 06/05/19 15:18 06/07/19 05:38 Normal Saline 0.9% IV Not Given .[id number] MALIHA Lisinopril 2.5 mg 06/06/19 09:00 06/07/19 10:13 Zestril PO 2.5 mg DAILY MALIHA Administration Magnesium Oxide 100 mg 06/06/19 09:00 06/07/19 10:13 Magnesium Oxide PO 100 mg DAILY MALIHA Administration Morphine Sulfate 2 mg 06/05/19 17:20 06/06/19 09:12 Morphine SLOW IVP 2 mg Q4H PRN Administration Moderate Pain (4-6) Pantoprazole Sodium 40 mg 06/05/19 21:00 06/07/19 10:18 Protonix IVP 40 mg Q12HR MALIHA Administration Saccharomyces Boulardii 250 mg 06/06/19 09:00 06/07/19 10:14 Florastor PO 250 mg DAILY MALIHA Administration Sertraline HCl 25 mg 06/06/19 09:00 06/07/19 10:14 Zoloft PO 25 mg DAILY MALIHA Administration Sodium Chloride 10 ml 06/06/19 09:00 06/07/19 10:14 Flush - Normal Saline IVF 10 ml Q12HR MALIHA Administration Sotalol HCl 120 mg 06/06/19 09:00 06/07/19 10:14 Betapace PO 120 mg BID MALIHA Administration - Exam General Appearance: NAD, awake alert Heart: RRR, no murmur, no gallops, no rubs, normal peripheral pulses Respiratory: CTAB, no wheezes, no rales, no ronchi, normal chest expansion, no tachypnea, normal percussion Gastrointestinal: soft, non-distended, tender to palpation (mildly, diffusely.) Gastrointestinal - other findings: Hyperactive bowel sounds. Skin: normal turgor Psychiatric: normal affect, normal behavior, A&O x 3 Hosp A/P (1) Acute colitis Code(s): K52.9 - NONINFECTIVE GASTROENTERITIS AND COLITIS, UNSPECIFIED Status : Acute (2) Chronic combined systolic and diastolic CHF, NYHA class 2 Code(s): I50.42 - CHRONIC COMBINED SYSTOLIC AND DIASTOLIC HRT FAIL Status: Chronic (3) History of PSVT (paroxysmal supraventricular tachycardia) Code(s): Z86.79 - PERSONAL HISTORY OF OTHER DISEASES OF THE CIRCULATORY SYSTEM Status: Acute (4) AICD (automatic cardioverter/defibrillator) present Code(s): Z95.810 - PRESENCE OF AUTOMATIC (IMPLANTABLE) CARDIAC DEFIBRILLATOR Status: Chronic (5) Coronary artery disease Code(s): I25.10 - ATHSCL HEART DISEASE OF [place] CORONARY ARTERY W/O ANG PCTRS Status: Chronic Qualifiers: (6) Hyperlipidemia Code(s): E78.5 - HYPERLIPIDEMIA, UNSPECIFIED Status: Chronic Qualifiers: (7) Hypertension Code(s): I10 - ESSENTIAL (PRIMARY) HYPERTENSION Status: Chronic Qualifiers: (8) Hypothyroidism Code(s): E03.9 - HYPOTHYROIDISM, UNSPECIFIED Status: Chronic Qualifiers: - Plan Discussed with GI. Suspects this is more likely ischemic colitis than infectious. She is on Flagyl, but has drug interactions with both quinolones and azithromycin. D/W GI. OK to stay with just Flagyl. Advance diet. Anticipate discharge tomorrow.
--- NOTE | 2019-06-07 15:00 | OP ---
DATE OF PROCEDURE: 06/07/2019 PROCEDURES PERFORMED: 1. Colonoscopy with polypectomy. 2. Colonoscopy with biopsy. PREOPERATIVE DIAGNOSES: Abdominal pain, hematochezia, CAT scan showing colitis of the left colon. POSTOPERATIVE DIAGNOSES: 1. Colitis, sigmoid to the descending colon. 2. Pedunculated polyp sigmoid colon. 3. Hemorrhoids. 4. No active bleeding seen at the time of endoscopy, although there was blood-stained fluid mostly in the left colon, which was suctioned out. DESCRIPTION OF PROCEDURE: The patient was placed on her left lateral position and was given sedation by Anesthesia Department. A rectal exam was done before the scope was advanced into the rectum. No lesions felt on rectal exam. A Pentax video colonoscope was introduced into the rectum and advanced all the way to the cecum. The prep was very good. The patient had blood-stained fluid mostly in the left colon up to the transverse colon area. There was no active bleeding seen. After this was suctioned out, there was no active bleeding seen. The sigmoid colon showed a pedunculated polyp. This was removed with snare cautery with good hemostasis. In the sigmoid colon, descending colon, there was ulcerations, mucosal edema, loss of vascular pattern, and mild oozing of blood. Biopsies obtained from the sigmoid and descending colon area. The splenic flexure again showed mild mucosal edema and erythema. The transverse colon, hepatic flexure, ascending colon, cecum, no pathology seen. Rectum did show hemorrhoids. The patient could not keep the air insufflated and kept leaking it out. The sigmoid colon was somewhat difficult to show and also the rectum could not retroflex well. IMPRESSION: 1. Colitis, left colon, most likely ischemic versus infectious. 2. Pedunculated sigmoid polyp, status post snare cautery. 3. Hemorrhoids. RECOMMENDATIONS: 1. Discontinue n.p.o. 2. Clear liquid diet. 3. Continue . 4. Follow up labs. Job ID: [id number]
[2019-06-07] MEDS: Atorvastatin Calcium 20 MG TAB PO SCH (20:15)
[2019-06-08 04:34] LABS: Hemoglobin 12.9 g/dL (12.0-16.0)
[2019-06-08] MEDS: metroNIDAZOLE 500 MG in Premix Bag 1 BAG IVPB SCH ×2 (05:23→14:12)
[2019-06-08] MEDS: Magnesium Oxide 400 MG TAB PO SCH (08:52)
[2019-06-08] MEDS: Carvedilol 6.25 MG TAB PO SCH (08:52)
[2019-06-08] MEDS: Aspirin 81 mg Enteric Coated Tablet PO SCH (08:52)
[2019-06-08] MEDS: Lisinopril 2.5 MG TAB PO SCH (08:52)
[2019-06-08] MEDS: Escitalopram Oxalate 20 mg Tablet PO SCH (08:52)
[2019-06-08] MEDS: Sotalol HCl 80 MG TAB PO SCH (08:53)
[2019-06-08] MEDS: Pantoprazole 40 MG VIAL IVP SCH (08:53)
[2019-06-08] MEDS: Saccharomyces boulardii 250 MG CAP PO SCH (08:53)
[2019-06-08 09:06] VITALS: TEMP 97.5
[2019-06-08 12:26] VITALS: BP 119/77
--- NOTE | 2019-06-09 09:15 | DIS ---
DATE OF ADMISSION: 06/05/2019 DATE OF DISCHARGE: 06/08/2019 DISCHARGE DISPOSITION: Home. FOLLOWUP: 1. Follow up with primary care physician, Dr. Gandhi in 1 week. 2. Follow up with Gastroenterology, Dr. Oliver in 2 weeks. CODE STATUS: Full code. The patient was seen and examined on the day of discharge. Denies any new complaints. No chest pain, shortness of breath, palpitations, diarrhea, nausea, or vomiting reported. DISCHARGE MEDICATIONS: 1. Flagyl 500 mg 3 times daily for next 5 days. 2. Florastor 250 mg daily. All other home medications were left unchanged. INPATIENT PROCEDURES: On June 07, 2019; the patient underwent colonoscopy that showed sigmoid colitis along with pedunculated polyp in the sigmoid colon. It also showed hemorrhoids. There was no active bleeding seen at the time of endoscopy, although there was blood stained fluid mostly in the left colon, which was suctioned out. TEST PENDING AT DISCHARGE: Biopsy as well as pathology from colon polyp. BRIEF HOSPITAL COURSE: The patient is a 53-year-old female with coronary artery disease and congestive heart failure, presented to the hospital with bleeding per rectum. Please refer to the history and physical for further details. The patient was admitted to the hospital with a diagnosis of lower gastrointestinal bleeding. The patient was monitored on the telemetry unit. She was started on IV fluids as well as antibiotics. CT scan of the abdomen and pelvis done at [facility] was consistent with infectious versus inflammatory colitis. The patient had colonoscopy as discussed above. Her symptoms have significantly improved. She appears stable for discharge. Due to penicillin allergy as well as interaction with sotalol, she was not started on ciprofloxacin or Levaquin. She was advised to follow up on the colon biopsy report. FINAL DIAGNOSES: 1. Left-sided colitis, suspected ischemic versus infectious. Biopsy pending. 2. Pedunculated sigmoid polyp, status post snare cautery. The patient was advised to follow up on the pathology report. 3. Hemorrhoids. 4. Acute blood loss anemia. 5. Mild hyponatremia. 6. Elevated troponins probably secondary to demand ischemia. Please note that the patient's troponins are chronically elevated. 7. Chronic kidney disease, stage 3. 8. Chronically elevated LFTs. 9. Bilateral nonobstructing renal calculi. 10. Chronic systolic and diastolic heart failure, compensated. 11. Hypertension. 12. Hyperlipidemia. 13. Anxiety. 14. Multiple drug allergies. 15. Hypothyroidism. 16. History of supraventricular tachycardia. PLAN: Plan of care was discussed with the patient in detail. She stated understanding. Job ID: [id number]
--- NOTE | 2019-06-13 09:53 | EKG ---
Test Reason : Blood Pressure : / mmHG Vent. Rate : 080 BPM Atrial Rate : 080 BPM P-R Int : 128 ms QRS Dur : 192 ms QT Int : 508 ms P-R-T Axes : 119 232 053 degrees QTc Int : 585 ms AV sequential or dual chamber electronic pacemaker Confirmed by MARVA SILVESTRE D.O. ([id number]), design editor REINIER LANCASTER ([id number]) on 06/13/2019 9:53:23 AM Referred By: Confirmed By:MARVA SILVESTRE D.O.
== END 2019-06-08 14:49 | disposition home or self-care (01) ==
LOC: ERS 11:06 → 2SW 16:09
PROVIDERS: ADMIT Internal Medicine; ATTEND Internal Medicine
PROC: 0DBM8ZX Excision of Descending Colon, Via Natural or Artificial Opening Endoscopic, Diagnostic (ICD-10-PCS; principal; 2019-06-07)
PROC: 0DBN8ZX Excision of Sigmoid Colon, Via Natural or Artificial Opening Endoscopic, Diagnostic (ICD-10-PCS; 2019-06-07)
PROC: 0DBN8ZX Excision of Sigmoid Colon, Via Natural or Artificial Opening Endoscopic, Diagnostic (ICD-10-PCS; 2019-06-07)
DX: K92.1 Melena (principal); K55.039 Acute (reversible) ischemia of large intestine, extent unspecified; D12.5 Benign neoplasm of sigmoid colon; K64.9 Unspecified hemorrhoids; I25.10 Atherosclerotic heart disease of native coronary artery without angina pectoris; I13.2 Hypertensive heart and chronic kidney disease with heart failure and with stage 5 chronic kidney disease, or end stage renal disease; N18.3 Chronic kidney disease, stage 3 (moderate); I50.42 Chronic combined systolic (congestive) and diastolic (congestive) heart failure; E78.5 Hyperlipidemia, unspecified; E03.9 Hypothyroidism, unspecified; I47.1 Supraventricular tachycardia; F17.210 Nicotine dependence, cigarettes, uncomplicated; I25.2 Old myocardial infarction; F32.9 Major depressive disorder, single episode, unspecified; F41.9 Anxiety disorder, unspecified; D62 Acute posthemorrhagic anemia; E87.1 Hypo-osmolality and hyponatremia; R79.89 Other specified abnormal findings of blood chemistry; N20.0 Calculus of kidney; Z79.82 Long term (current) use of aspirin; Z79.899 Other long term (current) drug therapy; Z88.0 Allergy status to penicillin; Z91.041 Radiographic dye allergy status; Z91.013 Allergy to seafood; Z91.018 Allergy to other foods; Z95.810 Presence of automatic (implantable) cardiac defibrillator; Z95.5 Presence of coronary angioplasty implant and graft
CPT/HCPCS: 45380; 45385; 80048 ×2; 84484; 85014 ×2; 85018 ×2; 85025 ×2; 87040; 88305; 93005; 94760; 96361 ×4; 96365; 96366 ×3; 96368; 96372; 96375; 96376 ×4; 99285; G0378 ×5; 36415; C9113; J0500; J0744; J2001; J2270; J2704

== ENCOUNTER 2019-06-22 10:03 | Observation (INO) | payer MEDICARE ==
[2019-06-22 10:54] LABS: #Eosinphils 0.3 thou/uL (0.0-0.7); #Monocytes 0.3 thou/uL (0.11-0.59); %Basophils 0.2 % (0.0-1.0); %Eosinophils 4.5 % (0.0-10.0); %Lymphocytes 30.6 % (21.0-51.0); %Monocytes 4.3 % (0.0-10.0); %Neutrophils 60.4 % (42.0-75.0); Hemoglobin 13.6 g/dL (12.0-16.0); Mean Corpuscular HGB CONC 33.8 g/dL (32.0-36.0); Mean Corpuscular Hemoglobin 32.5 pg (27.0-31.0); Mean Platelet Volume 8.9 fL (7.4-10.4); Platelet Count 231 thou/uL (130-400); RBC Distribution Width 13.7 % (11.5-14.5); Red Blood Cell (RBC) Count 4.19 mill/uL (4.20-5.40); White Blood Cell (WBC) Count 6.6 thou/uL (4.8-10.8)
[2019-06-22 11:03] LABS: ALT (SGPT) 9 U/L (8-55); AST (SGOT) 12 U/L (5-34); Alkaline Phosphatase 63 U/L (40-110); Anion Gap 12 mmol/L (10-20); BUN (Urea Nitrogen) 7 mg/dL (9.8-20.1); Bilirubin, Total 2.1 mg/dL (0.2-1.2); Calc. Creatinine Clearance 0 mL/min (70-130); Calcium 10.1 mg/dL (7.8-10.44); Carbon Dioxide 28 mmol/L (22-29); Chloride 104 mmol/L (98-107); Estimated GFR-MDRD 41; Globulin 2.4 g/dL (2.4-3.5); Glucose 162 mg/dL (70-105); Potassium 3.7 mmol/L (3.5-5.1); Protein, Total 6.4 g/dL (6.0-8.3); Sodium 140 mmol/L (136-145)
[2019-06-22 11:26] LABS: CKMB 0.8 ng/mL (0-6.6)
[2019-06-22] MEDS ORDERED: methylPREDNISolone Sod Succ/PF 125 MG/2 ML VIAL ONE (11:50)
[2019-06-22] MEDS ORDERED: Sodium Chloride 0.9% 100 ML ONE (11:56)
[2019-06-22] MEDS ORDERED: Furosemide 40 MG/4 ML VIAL SLOW IVP SCH (13:15)
--- NOTE | 2019-06-22 13:17 | RAD ---
PORTABLE CHEST 1 VIEW: Date: 06/22/19 Time: 1035 hours HISTORY: Chest pain. FINDINGS/IMPRESSION: Comparison made with exam of 03/25/19. The heart is enlarged. Left-sided AICD remains in place. No lobar consolidation, pneumothoraces, claudia k pulmonary edema, or large effusions are seen. POS: TPC
[2019-06-22 13:43] LABS: Troponin I 0.117 ng/mL (< 0.028)
[2019-06-22] MEDS ORDERED: Ondansetron PF 4 MG/2 ML Vial IVP PRN (15:14)
[2019-06-22] MEDS: Acetaminophen 325 MG TAB PO PRN (15:32)
[2019-06-22 16:58] LABS: Troponin I 0.108 ng/mL (< 0.028)
[2019-06-22] MEDS: Ondansetron ODT 4 MG TAB PO PRN (18:17)
[2019-06-22] MEDS ORDERED: Morphine 2 MG/ML SYRINGE SLOW IVP SCH (18:45)
[2019-06-22] MEDS: Sotalol HCl 80 MG TAB PO SCH (19:54)
[2019-06-22] MEDS: Carvedilol 25 MG TAB PO SCH (19:57)
[2019-06-22] MEDS: Famotidine 20 MG TAB PO SCH (19:57)
[2019-06-22] MEDS ORDERED: Simvastatin 40 MG TAB PO SCH (21:00)
--- NOTE | 2019-06-22 22:05 | HP ---
PRIMARY CARE PHYSICIAN: Dr. Gandhi. CHIEF COMPLAINT: Chest pain and shortness of breath. HISTORY OF PRESENT ILLNESS: Ms. Fishman is a pleasant 53-year-old female, with past medical history of hypertension, hyperlipidemia, coronary artery disease, and chronic combined systolic and diastolic heart failure, who had presented to the ED earlier today after worsening chest pain and shortness of breath that had started just few days ago. She states that symptoms have been on and off over the last 4 to 5 days, she states that she was in the hospital about 2 weeks ago for colitis and was treated with antibiotics, now she states since then she has "not been the same." She had denied any fever, chills, any headache, blurred vision, dizziness, or any palpitations. She states that she has had a mild left lower quadrant belly pain that has been improving; however, she has also noticed some nausea and vomiting, where she has not been able to take her home medications including furosemide as she is supposed to prior to her chest pain and shortness of breath starting. She has overall felt quite weak and just not herself. She had stated that she feels that her belly is more distended along with some swelling down her lower extremities. In the ED, she was treated for more of a COPD exacerbation and treated with IV Solu-Medrol and two rounds of DuoNeb, which she states helped with her symptoms. She was given 40 mg of IV Lasix, and her chest pain and her shortness of breath essentially resolved. Looking back, her last echocardiogram displayed an ejection fraction of 20% to 25%, and her last heart catheterization by Dr. Trevino on 05/27/2018, revealed patent stents. REVIEW OF SYSTEMS: All other systems reviewed and found to be negative unless mentioned in the HPI. PAST MEDICAL HISTORY: Hypertension; hyperlipidemia; coronary artery disease; atrial fibrillation, status post ablation; chronic systolic and diastolic heart failure; and hypothyroidism. PAST SURGICAL HISTORY: AICD placed four years ago. SOCIAL HISTORY: The patient reports smoking about half pack of cigarettes per day, but denies any alcohol or illicit drug use. KNOWN ALLERGIES: Pineapple, iodine contrast, penicillin, and shellfish. HOME MEDICATIONS: 1. Furosemide 40 mg oral daily. 2. Aspirin 81 mg daily. 3. Carvedilol 25 mg oral b.i.d. 4. Citalopram 40 mg oral daily. 5. Lisinopril 2.5 mg oral daily. 6. Magnesium oxide 400 mg oral daily. 7. Potassium chloride 10 mEq oral daily. 8. Simvastatin 40 mg p.o. at bedtime. 9. Sotalol 120 mg p.o. b.i.d. 10. Pepcid 20 mg oral b.i.d. PHYSICAL EXAMINATION: VITAL SIGNS: BP 121/78, pulse 87, respirations 28, temp 97.8, and O2 saturation 96% on 2 L of oxygen via nasal cannula. GENERAL: The patient is awake, alert, and oriented x3. She is currently lying comfortably in bed and in no acute distress. HEENT: Atraumatic, normocephalic. Pupils are round and reactive to light. Extraocular muscles are intact. Moist mucous membranes noted. NECK: Soft and supple. Trachea midline. CARDIOVASCULAR: Positive S1 and S2. Regular rate and rhythm. No murmur auscultated. RESPIRATORY: Clear to auscultation bilaterally. No wheezes, rales, or rhonchi. ABDOMEN: Soft, nontender. Bowel sounds present. MUSCULOSKELETAL: Moves all extremities equal. Pedal and radial pulses 2+ bilaterally. The patient has trace to 1+ nonpitting edema in her lower extremities. NEUROLOGIC: Cranial nerves 2 through 12 grossly intact. No focal deficits noted. Speech intact and normal. Gait, not assessed. SKIN: Warm, dry, and intact. No rashes. No ulceration noted. PSYCHIATRIC: Good mood and affect. LABORATORY DATA: WBC 6.6, RBC 4.19, hemoglobin 13.6, hematocrit 40.2, and platelets 231. Sodium 140, potassium 3.7, anion gap 12, BUN 7, creatinine 1.34, estimated GFR 41, glucose 162, CK-MB 0.8, troponin 0.125 and 0.117. BNP 1153.6. DIAGNOSTIC IMAGING: Portable chest x-ray showed the heart is enlarged and left-sided AICD remains in place with no lobar consolidation, pneumothorax, belen pulmonary edema, or large effusions noted. ASSESSMENT AND PLAN: 1. Acute on chronic systolic and diastolic heart failure. The patient will be treated with IV furosemide 40 mg x1 now and IV 40 mg daily. She will also be restarted on her home regimen. A repeat echocardiogram will be ordered to assess cardiac status. We will also place consult for Cardiology Services in a.m. for further evaluation and recommendations. 2. Hypertension. Monitor blood pressure and other vital signs closely. 3. Hyperlipidemia. Continue home statin. 4. History of atrial fibrillation, status post ablation. Continue oral sotalol and other home regimen at this time. 5. Deep venous thrombosis and gastrointestinal prophylaxis. 6. Code status. Full code. DISPOSITION: Pending further workup, clinical findings, and patient's progress. Job ID: [id number]
[2019-06-23 04:28] LABS: #Lymphocytes 0.8 thou/uL (1.20-3.40); #Monocytes 0.1 thou/uL (0.11-0.59); #Neutrophils 7.2 thou/uL (1.40-6.50); %Basophils 0.3 % (0.0-1.0); %Eosinophils 0.3 % (0.0-10.0); %Lymphocytes 9.5 % (21.0-51.0); %Monocytes 0.9 % (0.0-10.0); %Neutrophils 89.1 % (42.0-75.0); Hemoglobin 12.7 g/dL (12.0-16.0); Mean Corpuscular HGB CONC 33.2 g/dL (32.0-36.0); Mean Corpuscular Hemoglobin 32.7 pg (27.0-31.0); Mean Corpuscular Volume 98.4 fL (78.0-98.0); Mean Platelet Volume 8.7 fL (7.4-10.4); Platelet Count 228 thou/uL (130-400); RBC Distribution Width 13.5 % (11.5-14.5); Red Blood Cell (RBC) Count 3.89 mill/uL (4.20-5.40); White Blood Cell (WBC) Count 8.1 thou/uL (4.8-10.8)
[2019-06-23 04:32] LABS: Anion Gap 13 mmol/L (10-20); BUN (Urea Nitrogen) 5 mg/dL (9.8-20.1); Calc. Creatinine Clearance 87 mL/min (70-130); Calcium 8.6 mg/dL (7.8-10.44); Carbon Dioxide 23 mmol/L (22-29); Chloride 104 mmol/L (98-107); Estimated GFR-MDRD 42; Glucose 184 mg/dL (70-105); Potassium 3.7 mmol/L (3.5-5.1); Sodium 136 mmol/L (136-145)
[2019-06-23] MEDS ORDERED: Potassium Chloride 10 MEQ TAB PO SCH (08:00)
[2019-06-23] MEDS: Famotidine 20 MG TAB PO SCH (08:54)
[2019-06-23] MEDS: Sotalol HCl 80 MG TAB PO SCH (08:54)
[2019-06-23] MEDS: Carvedilol 25 MG TAB PO SCH (08:56)
[2019-06-23] MEDS ORDERED: Enoxaparin Sodium 40 MG/0.4 ML SYRINGE SC SCH (09:00)
[2019-06-23] MEDS ORDERED: Lisinopril 2.5 MG TAB PO SCH (09:00)
[2019-06-23] MEDS ORDERED: Furosemide 40 MG/4 ML VIAL SLOW IVP SCH ×2 (09:00→14:00)
[2019-06-23] MEDS ORDERED: Magnesium Oxide 400 MG TAB PO SCH (09:00)
[2019-06-23] MEDS ORDERED: Citalopram 20 MG TAB PO SCH (09:00)
[2019-06-23] MEDS ORDERED: Aspirin 81 mg Enteric Coated Tablet PO SCH (09:00)
[2019-06-23 11:40] VITALS: BMI 39.8
[2019-06-23] MEDS: Acetaminophen 325 MG TAB PO PRN (12:31)
[2019-06-23] MEDS: Ondansetron ODT 4 MG TAB PO PRN (12:31)
[2019-06-23 16:08] VITALS: BP 109/60; TEMP 97.6
--- NOTE | 2019-06-23 18:06 | CON ---
DATE OF CONSULTATION: 06/23/2019 REASON FOR CONSULTATION: Shortness of breath. HISTORY OF PRESENT ILLNESS: Ms. Fishman is a very pleasant 53-year-old white female, who comes to the hospital for shortness of breath. She has a history of ischemic cardiomyopathy, EF about 20% to 25%. She has had an AICD in place and she has had stents placed in the past. She has episodes of increased shortness of breath, which accompanied with chest tightness. She has been having a lot of issues with her fluid levels. She has been told that she probably needs her furosemide increased to twice a day rather than once a day every day. She was given a dose of IV Lasix in the ER last night and her chest pain and shortness of breath resolved immediately. She was admitted for rule out and Cardiology is being consulted for further help. PAST MEDICAL HISTORY: 1. Hypertension. 2. Hyperlipidemia. 3. CAD. 4. History of atrial fibrillation status post ablation. 5. Chronic systolic and diastolic heart failure. 6. Hypothyroidism. PAST SURGICAL HISTORY: AICD placed. She has had multiple AICD shocks in the past. Significantly decreased with amiodarone and then subsequently had to be placed on sotalol. SOCIAL HISTORY: She smokes about half a pack of cigarettes a day. No alcohol or drug use. OUTPATIENT MEDICATIONS: 1. Lasix 40 mg a day. 2. Aspirin 81 a day. 3. Carvedilol 25 mg b.i.d. 4. Citalopram. 5. Lisinopril 2.5 a day. 6. Magnesium oxide. 7. Potassium chloride. 8. Simvastatin 40 mg a day. 9. Sotalol 120 mg b.i.d. 10. Pepcid 20 mg b.i.d. ALLERGIES: PINEAPPLE, IODINE, PENICILLIN, AND SHELLFISH. REVIEW OF SYSTEMS: A 12-point review of systems was done and was all negative unless stated in the history of present illness PHYSICAL EXAMINATION: VITAL SIGNS: Temperature 97.6, pulse 80, respiratory rate 20, saturating 93% on room air, blood pressure 109/60. GENERAL: Awake, alert, and oriented x3, in no distress. HEENT: Normocephalic and atraumatic. NECK: Supple. LUNGS: Clear. CARDIOVASCULAR: S1 and S2. No S3 or S4. No murmurs. ABDOMEN: Soft. Positive bowel sounds. EXTREMITIES: No edema. SKIN: Warm and dry. LABORATORY DATA: Laboratory work was reviewed. CBC and CMP were unremarkable except for creatinine of 1.3. Troponin was 0.12, 0.11, and 0.10, this is her baseline. BNP was 1153. Chest x-ray was reviewed. ASSESSMENT AND PLAN: 1. Axrvw-cd-hzunxck systolic heart failure. 2. Ischemic cardiomyopathy, ejection fraction at 20% to 25%. 3. Presence of an automatic implantable cardioverter-defibrillator. PLAN: She is already feeling back to normal after one dose of IV Lasix. I will recommend she may be able to be discharged home. We will increase her Lasix to 40 mg p.o. b.i.d. for the next 4 days and then back to once a day. We will follow up in the office. She is already scheduled to see Neli in the Heart failure Clinic in 2 weeks, so she will keep this appointment and she will see me in 1 month. Thank you for letting me to participate in the care of your patient. We will sign off. Please call with any questions. Job ID: [id number]
--- NOTE | 2019-06-24 13:50 | DIS ---
DATE OF ADMISSION: 06/22/2019 DATE OF DISCHARGE: 06/23/2019 PRIMARY DISCHARGE DIAGNOSES: Acute on chronic congestive heart failure exacerbation with systolic dysfunction and ejection fraction of around 30%, AHA stage C, [place] Heart Association classification stage III, hypertension, diabetes mellitus type 2, dyslipidemia, hypothyroidism, coronary artery disease with prior cardiac catheterization done in May of 2018 revealed patent stent in the left circumflex and right coronary artery. PROCEDURES DONE DURING HOSPITALIZATION: Chest x-ray showed pulmonary vascular congestion. White count of 8, H and H 12 and 38, platelet count 228 with 60% neutrophils. BUN 5, creatinine 1.3. BNP is 1153. Albumin is 4.0. INPATIENT CONSULT: Dr. Trevino for Cardiology. DISCHARGE MEDICATIONS: 1. Carvedilol 25 mg twice daily. 2. Celexa 40 mg daily. 3. Pepcid 20 mg twice daily. 4. Lasix 40 mg twice daily for 4 days, then to continue at once daily. 5. Magnesium oxide 400 mg daily. 6. Potassium chloride 10 mEq p.o. daily. 7. Zocor 40 mg p.o. at bedtime. 8. Sotalol 120 mg twice daily. 9. Aspirin 81 mg p.o. daily. 10. Lisinopril 2.5 mg p.o. daily. DISCHARGE PLAN: The patient to follow up with Heart Failure clinic in 1 week. She also needs to follow up with Dr. Trevino in 30 days. She needs follow up with her primary care physician, Dr. Odell in 1 week BRIEF COURSE DURING HOSPITALIZATION: The patient initially came in with complaints of shortness of breath and chest pain. She was gently diuresed during her stay here. She has known history of CHF with ejection fraction of around 25% to 30%. The patient has responded well to diuresis. She was up and walking around after gentle diuresis. She was evaluated by Dr. Trevino as well. She remained hemodynamically stable. She was advised to continue Lasix twice daily for the next 4 days per Cardiology advise and to scale it back to 40 mg daily. She has a followup appointment at [facility] failure Clinic in 1 week. She is tolerating oral solid diet with no further chest pains or orthopnea. Please note, I have seen and examined the patient on the day of discharge. The patient is cleared for discharge by Dr. Trevino. Job ID: [id number] [facility]
--- NOTE | 2019-06-27 14:37 | EKG ---
Test Reason : Blood Pressure : / mmHG Vent. Rate : 080 BPM Atrial Rate : 080 BPM P-R Int : 000 ms QRS Dur : 196 ms QT Int : 492 ms P-R-T Axes : 043 -80 060 degrees QTc Int : 567 ms AV dual-paced rhythm Abnormal ECG Confirmed by ARIANA FULLER DO ([id number]), purchasing expeditor SABRINA LOZANO ([id number]) on 06/27/2019 2:37:03 PM Referred By: Confirmed By:ARIANA FULLER DO
--- NOTE | 2019-06-29 22:23 | EKG ---
Test Reason : Blood Pressure : / mmHG Vent. Rate : 081 BPM Atrial Rate : 048 BPM P-R Int : 000 ms QRS Dur : 200 ms QT Int : 506 ms P-R-T Axes : 000 239 033 degrees QTc Int : 587 ms AV dual-paced rhythm Biventricular pacemaker detected Abnormal ECG When compared with ECG of 05-JUN-2019 12:04, No significant change was found Confirmed by JONAH MURGUIA M.D. ([id number] on 06/29/2019 10:22:45 PM Referred By: CAMERON Confirmed By:JONAH MURGUIA M.D.
== END 2019-06-23 17:35 | disposition home or self-care (01) ==
LOC: ERS 10:03 → INTOOBSV 14:15 → 2SW 14:15
PROVIDERS: ADMIT Internal Medicine; ATTEND Internal Medicine
DX: I11.0 Hypertensive heart disease with heart failure (principal); I50.43 Acute on chronic combined systolic (congestive) and diastolic (congestive) heart failure; E11.9 Type 2 diabetes mellitus without complications; E03.9 Hypothyroidism, unspecified; E78.5 Hyperlipidemia, unspecified; F17.210 Nicotine dependence, cigarettes, uncomplicated; F41.9 Anxiety disorder, unspecified; F32.9 Major depressive disorder, single episode, unspecified; I25.10 Atherosclerotic heart disease of native coronary artery without angina pectoris; I25.5 Ischemic cardiomyopathy; I48.91 Unspecified atrial fibrillation; I25.2 Old myocardial infarction; Z79.899 Other long term (current) drug therapy; Z88.0 Allergy status to penicillin; Z91.041 Radiographic dye allergy status; Z91.013 Allergy to seafood; Z91.018 Allergy to other foods; Z95.5 Presence of coronary angioplasty implant and graft; Z95.810 Presence of automatic (implantable) cardiac defibrillator
CPT/HCPCS: 71045; 80048; 80053; 82553; 83880; 84484 ×2; 85025 ×2; 87077; 87086; 93005; 93306; 94640 ×2; 96372; 96374; 96375; 96376; 97139; 99285; G0378 ×3; 36415; 93010; J1650; J1940; J2270; J2930; J3490; J7620; Q0162

== ENCOUNTER 2019-09-08 20:39 | Emergency (ER) | payer MEDICARE ==
[2019-09-08 21:29] LABS: #Basophils 0.1 thou/uL (0.0-0.2); #Eosinphils 0.3 thou/uL (0.0-0.7); #Lymphocytes 2.2 thou/uL (1.20-3.40); #Monocytes 0.4 thou/uL (0.11-0.59); #Neutrophils 5.1 thou/uL (1.40-6.50); %Lymphocytes 27.2 % (21.0-51.0); %Neutrophils 62.8 % (42.0-75.0); Hemoglobin 14.1 g/dL (12.0-16.0); Mean Corpuscular HGB CONC 34.8 g/dL (32.0-36.0); Mean Corpuscular Hemoglobin 33.8 pg (27.0-31.0); Mean Corpuscular Volume 97.1 fL (78.0-98.0); Mean Platelet Volume 7.9 fL (7.4-10.4); Platelet Count 260 thou/uL (130-400); RBC Distribution Width 12.8 % (11.5-14.5); Red Blood Cell (RBC) Count 4.18 mill/uL (4.20-5.40); White Blood Cell (WBC) Count 8.1 thou/uL (4.8-10.8)
--- NOTE | 2019-09-08 21:35 | RAD ---
EXAM: Portable chest PROVIDED CLINICAL HISTORY: Chest pain COMPARISON: 06/22/2019 FINDINGS: Cardiac and mediastinal silhouette is unchanged in appearance. No focal consolidation, pleural fluid or pneumothorax evident. Left subclavian cardiac pacing device redemonstrated. IMPRESSION: No evidence for an acute cardiopulmonary process.
[2019-09-08 21:54] LABS: ALT (SGPT) 9 U/L (8-55); AST (SGOT) 12 U/L (5-34); Albumin 3.9 g/dL (3.5-5.0); Alkaline Phosphatase 65 U/L (40-110); Anion Gap 12 mmol/L (10-20); BUN (Urea Nitrogen) 12 mg/dL (9.8-20.1); Bilirubin, Total 1.1 mg/dL (0.2-1.2); Calc. Creatinine Clearance 0 mL/min (70-130); Calcium 8.9 mg/dL (7.8-10.44); Carbon Dioxide 22 mmol/L (22-29); Chloride 104 mmol/L (98-107); Estimated GFR-MDRD 51; Globulin 2.7 g/dL (2.4-3.5); Glucose 110 mg/dL (70-105); Potassium 3.9 mmol/L (3.5-5.1); Protein, Total 6.6 g/dL (6.0-8.3); Sodium 134 mmol/L (136-145)
[2019-09-08 22:15] LABS: CKMB 1.2 ng/mL (0-6.6)
[2019-09-08] MEDS ORDERED: Morphine 4 MG/ML VIAL ONE (22:15)
[2019-09-09 00:22] LABS: Troponin I 0.129 ng/mL (< 0.028)
== END 2019-09-09 00:54 | disposition left against medical advice (07) ==
LOC: ERS 20:39
DX: R07.9 Chest pain, unspecified (principal); E66.9 Obesity, unspecified; I25.2 Old myocardial infarction; I49.9 Cardiac arrhythmia, unspecified; I25.10 Atherosclerotic heart disease of native coronary artery without angina pectoris; I48.91 Unspecified atrial fibrillation; E03.9 Hypothyroidism, unspecified; E78.5 Hyperlipidemia, unspecified; E78.00 Pure hypercholesterolemia, unspecified; I10 Essential (primary) hypertension; F41.9 Anxiety disorder, unspecified; F32.9 Major depressive disorder, single episode, unspecified; F17.210 Nicotine dependence, cigarettes, uncomplicated; Z79.899 Other long term (current) drug therapy; Z95.0 Presence of cardiac pacemaker; Z79.82 Long term (current) use of aspirin
CPT/HCPCS: 36415; 71045; 80053; 82553; 83880; 84484; 85025; 93005; 96374; J2270

== ENCOUNTER 2019-11-08 23:24 | Inpatient (IN) | payer MEDICARE ==
[2019-11-08] MEDS ORDERED: Morphine 4 MG/ML VIAL ONE (23:59)
[2019-11-09 01:40] LABS: Troponin I 0.148 ng/mL (< 0.028)
[2019-11-09] MEDS ORDERED: HYDROcodone/Acetaminophen 5/325 mg Tablet ONE ×2 (03:35→08:18)
[2019-11-09] MEDS ORDERED: hydrALAZINE 20 MG/ML VIAL SLOW IVP PRN (04:32)
[2019-11-09] MEDS ORDERED: Ondansetron ODT 4 MG TAB PO PRN (04:32)
[2019-11-09] MEDS ORDERED: Nitroglycerin 0.4 MG TAB (25 Tab Bottle) PO PRN (04:32)
[2019-11-09] MEDS ORDERED: Ondansetron PF 4 MG/2 ML Vial IVP PRN (04:32)
[2019-11-09] MEDS ORDERED: Acetaminophen 325 MG TAB PO PRN (04:32)
--- NOTE | 2019-11-09 04:43 | HP ---
PRIMARY CARE PHYSICIAN: Nelson Gandhi MD CHIEF COMPLAINT: Chest pain. HISTORY OF PRESENT ILLNESS: Ms. Fishman is a pleasant 54-year-old female, who has a history of coronary artery disease. She is status post stent placement as well as history of an AICD. She says that about 3 days ago, she started having chest pain. She says this felt like a squeezing sensation and she says when it would happen, she felt like she could not breathe. She says that her symptoms did not "go into ventricular tachycardia," so she was not that worried about it and thought it would "work its way out," however, it did not. She says this pain would happen when she was just doing normal activities. She did get some diaphoresis as well and she felt like she might be having "her third heart attack." She denies any leg pain or leg swelling. She has had stable 1-pillow orthopnea and denies any waking up through the night short of breath, but because of her symptoms, she came to the ER for evaluation. She originally went to the ER in [place] and then was transferred to our facility. The patient was evaluated and given IV morphine and is being admitted for observation. REVIEW OF SYSTEMS: All systems are reviewed and are negative except for that mentioned in the history of present illness. PAST MEDICAL HISTORY: Significant for hypertension, hyperlipidemia, coronary artery disease, chronic systolic as well as diastolic heart failure, and hypothyroidism. PAST SURGICAL HISTORY: She has had an AICD as well as stent placement. ALLERGIES: TO PENICILLIN, SHELLFISH, PINEAPPLE, AND IODINE. SOCIAL HISTORY: She smokes about a half a pack of cigarettes daily, she quit yesterday. She denies any alcohol or drug use. She has a domestic partner, but is currently not . FAMILY HISTORY: Significant for mother and brother, who had stroke and heart disease in her father. CURRENT MEDICATIONS: Include, 1. Escitalopram 40 mg daily. 2. Sotalol 120 mg twice a day. 3. Potassium chloride 10 mEq daily. 4. Simvastatin 5 mg daily. 5. Carvedilol 25 mg twice a day. 6. Famotidine 20 mg daily. 7. Magnesium oxide 400 mg as directed. 8. Torsemide 20 mg daily. 9. Aspirin 81 mg daily. 10. Citalopram 40 mg daily. PHYSICAL EXAMINATION: GENERAL: She is alert and oriented. She appears to be in no acute distress. She is well developed and well nourished. VITAL SIGNS: Blood pressure was 132/86, heart rate 80, respiratory rate of 18, temperature is 98, and O2 saturation was 97% on room air. HEENT: Pupils are equal, round, and reactive. Extraocular muscles are intact. Her sclerae are anicteric. Throat; no erythema, no exudates. NECK: No adenopathy no bruits. LUNGS: She has some mild expiratory wheeze and rhonchi, but no belen rales. CARDIOVASCULAR: She had a normal S1, S2. I did hear an S3. She does have a grade 2/6 systolic murmur. ABDOMEN: Obese. Soft, nontender, and nondistended. Positive for bowel sounds. No rebound. No guarding. No organomegaly. EXTREMITIES: There is no calf tenderness. No joint effusions. NEUROLOGIC: Nonfocal. LABORATORY DATA: Her EKG appears to be biventricular paced by my reading. Sodium is 139, potassium 3.4, chloride is 102, CO2 is 25, BUN of 14, creatinine 1.54, glucose was 156. Troponin is 0.148. White blood cell count 6.7, hemoglobin 13.1, hematocrit is 40.4, and platelet count was 232. She has a chest x-ray, showing cardiomegaly. There is no evidence of any acute cardiopulmonary process. ASSESSMENT: 1. This is a pleasant 54-year-old female, who has a history of coronary artery disease, who presents with chest pain. It is a bit atypical, which she has significant risk factors for coronary artery disease. It appears that she had a cardiac catheterization back in May 26, 2018. At that time, she had some mild coronary artery disease, but patent stents to the left circumflex and RCA. She also had an echocardiogram around that same time showing an ejection fraction of 20% to 25%. She states she has had no recent evaluation. For this reason, we will go ahead and repeat the echocardiogram. However, we will hold off on the stress test given the elevated troponin, albeit, it appears to be chronically elevated and consult Cardiology for further recommendations. 2. Hypertension. Her blood pressure appears to be fairly well controlled. We will continue her home medications. 3. Chronic systolic heart failure. This appears to be clinically compensated and we will be getting an echocardiogram to help assess. 4. Hypothyroidism. She appears to be clinically euthyroid. If the TSH has not been done, we will go ahead and get one during this hospital stay and likely a free T4 as well. Job ID: [id number]
[2019-11-09] MEDS: HYDROcodone/Acetaminophen 5/325 mg Tablet PO PRN ×2 (04:51→08:48)
[2019-11-09] MEDS ORDERED: Nicotine 14 MG PATCH ONE (05:58)
[2019-11-09] MEDS ORDERED: Nitroglycerin 2% Ointment 1 INCH/1 GM Packet TOP SCH (06:00)
[2019-11-09] MEDS: Nicotine 14 MG PATCH TD SCH (06:01)
[2019-11-09 06:41] LABS: Free T4 (Free Thyroxine) 0.81 ng/dL (0.70-1.48); Thyroid Stimulating Hormone 12.3715 uIU/mL (0.35-4.94)
[2019-11-09] MEDS ORDERED: Enoxaparin Sodium 40 MG/0.4 ML SYRINGE ONE (08:18)
[2019-11-09] MEDS ORDERED: Famotidine/PF 20 mg/2ml Vial ONE (08:18)
[2019-11-09] MEDS: Enoxaparin Sodium 40 MG/0.4 ML SYRINGE SC SCH (08:30)
[2019-11-09] MEDS: Famotidine 20 MG TAB PO SCH ×2 (08:47→20:26)
[2019-11-09] MEDS ORDERED: Calcium Carbonate 500 MG ChewTAB PO PRN (10:12)
[2019-11-09] MEDS ORDERED: Torsemide 20 MG TAB PO SCH (10:15)
[2019-11-09] MEDS ORDERED: Sotalol HCl 80 MG TAB PO SCH (10:15)
[2019-11-09] MEDS ORDERED: Potassium Chloride 20 MEQ TAB PO SCH (10:15)
[2019-11-09] MEDS ORDERED: Aspirin 81 mg Enteric Coated Tablet PO SCH (10:30)
[2019-11-09] MEDS ORDERED: diphenhydrAMINE 25 MG CAP PO PRN (10:32)
[2019-11-09 11:10] LABS: Albumin 3.8 g/dL (3.5-5.0); Anion Gap 10 mmol/L (10-20); BUN (Urea Nitrogen) 13 mg/dL (9.8-20.1); Calc. Creatinine Clearance 0 mL/min (70-130); Calcium 10.3 mg/dL (7.8-10.44); Carbon Dioxide 27 mmol/L (22-29); Chloride 104 mmol/L (98-107); Estimated GFR-MDRD 41; Glucose 93 mg/dL (70-105); Magnesium 1.8 mg/dL (1.6-2.6); Phosphorus 3.8 mg/dL (2.3-4.7); Potassium 3.9 mmol/L (3.5-5.1); Sodium 137 mmol/L (136-145)
[2019-11-09 14:14] VITALS: BMI 42.4
[2019-11-09] MEDS ORDERED: Morphine 2 MG/ML SYRINGE SLOW IVP PRN (14:39)
[2019-11-09] MEDS: Potassium Chloride 20 MEQ TAB PO SCH (16:43)
[2019-11-09] MEDS: Carvedilol 6.25 MG TAB PO SCH (16:46)
[2019-11-09] MEDS ORDERED: Carvedilol 25 MG TAB PO SCH (17:00)
--- NOTE | 2019-11-09 17:25 | CON ---
DATE OF CONSULTATION: 11/09/2019 REASON FOR CONSULTATION: Chest pain. HISTORY OF PRESENT ILLNESS: Ms. Fishman is a pleasant 54-year-old white female, who comes to the hospital for chest pain. She states she is having pain sensation in the middle with some squeeze on the back of her interscapular region. She got concerned and decided to come in for further evaluation. On my evaluation, she is not having any more chest pain. Her troponin has been in the indeterminate range x3 and her BNP is only mildly elevated. Her TSH is high and free T4 is on the low side. Currently denies any chest pain, tightness, or pressure. PAST MEDICAL HISTORY: 1. Hypertension. 2. Hyperlipidemia. 3. Coronary artery disease, status post two MIs. 4. Ischemic cardiomyopathy. 5. Hypothyroidism. SURGICAL HISTORY: 1. AICD in place. 2. Stent placement. SOCIAL HISTORY: Continues to smoke half a pack of cigarettes a day. No alcohol or drugs. OUTPATIENT MEDICATIONS: 1. Escitalopram. 2. Sotalol 120 mg b.i.d. 3. Potassium chloride 10 mEq a day. 4. Simvastatin 5 mg a day. 5. Carvedilol 25 mg b.i.d. 6. Famotidine. 7. Magnesium oxide. 8. Torsemide 20 mg a day. 9. Aspirin 81 a day. 10. Citalopram 40 mg a day. ALLERGIES: PENICILLIN, SHELLFISH, PINEAPPLE, AND IODINE. FAMILY HISTORY: Heart disease in father. Stroke in mother and brother. REVIEW OF SYSTEMS: A 12-point review of systems was done and was all negative unless stated in the history of present illness. PHYSICAL EXAMINATION: VITAL SIGNS: Temperature 97.6, pulse 81, respiratory rate 18, saturations 94% on room air, blood pressure 103/64. GENERAL: Awake, alert, and oriented x3. No distress. HEENT: Normocephalic and atraumatic. NECK: Supple. LUNGS: Have reduced breath sounds with expiratory wheezes. CARDIOVASCULAR: S1 and S2. No S3 or S4. No murmurs. ABDOMEN: Soft. Positive bowel sounds. EXTREMITIES: Trace edema. SKIN: Warm and dry. LABORATORY DATA: Laboratory work was reviewed. CBC is unremarkable. Chemistries: Potassium was 3.4, but back to 3.9 today, creatinine is better at 1.34; glucose was 156, down to 93. Troponin was 0.12 and 0.14, with a BNP of 625. TSH was 12.3 and free T4 of 0.81. Lipase was normal. Albumin was normal. EKG was reviewed. ASSESSMENT AND PLAN: 1. Chest pain. Atypical. No plan to do heart catheterization unless her troponins bumped to a positive range. She always has a mild troponin leak and she is always in the indeterminate range . 2. Concern for possible chronic obstructive pulmonary disease. She has not been diagnosed with this, but she has been smoking about a pack a day for a long time now. We would recommend nebs to see if this makes her feel any better. Her chest tightness may be related to some level of chronic obstructive pulmonary disease exacerbation. 3. Ischemic cardiomyopathy. EF is reduced. We will get an echocardiogram. Last time we did an echo was back in 2018. Thank you for letting us to participate in the care of this patient. We will follow. Job ID: [id number]
[2019-11-09] MEDS: Sotalol HCl 80 MG TAB PO SCH (20:26)
[2019-11-09] MEDS: Atorvastatin Calcium 20 MG TAB PO SCH (20:27)
[2019-11-10 05:08] LABS: #Eosinphils 0.3 thou/uL (0.0-0.7); #Lymphocytes 1.7 thou/uL (1.20-3.40); #Monocytes 0.3 thou/uL (0.11-0.59); #Neutrophils 4.1 thou/uL (1.40-6.50); %Basophils 0.7 % (0.0-1.0); %Eosinophils 5.1 % (0.0-10.0); %Lymphocytes 26.1 % (21.0-51.0); %Monocytes 5.2 % (0.0-10.0); %Neutrophils 62.9 % (42.0-75.0); Hemoglobin 13.5 g/dL (12.0-16.0); Mean Corpuscular HGB CONC 33.1 g/dL (32.0-36.0); Mean Corpuscular Hemoglobin 32.7 pg (27.0-31.0); Mean Corpuscular Volume 98.7 fL (78.0-98.0); Mean Platelet Volume 8.6 fL (7.4-10.4); Platelet Count 191 thou/uL (130-400); RBC Distribution Width 13.9 % (11.5-14.5); Red Blood Cell (RBC) Count 4.14 mill/uL (4.20-5.40); White Blood Cell (WBC) Count 6.5 thou/uL (4.8-10.8)
[2019-11-10 05:55] LABS: Anion Gap 11 mmol/L (10-20); BUN (Urea Nitrogen) 17 mg/dL (9.8-20.1); Calc. Creatinine Clearance 80 mL/min (70-130); Calcium 9.1 mg/dL (7.8-10.44); Carbon Dioxide 26 mmol/L (22-29); Cardiac Risk 3.2 (Less than 4.5); Chloride 103 mmol/L (98-107); Cholesterol 86 mg/dl (< 200 Desired); Estimated GFR-MDRD 36; Glucose 96 mg/dL (70-105); HDL Cholesterol 27 mg/dL (>60 Neg Risk); LDL Cholesterol, Calculated 31 mg/dL; Potassium 3.8 mmol/L (3.5-5.1); Sodium 136 mmol/L (136-145); Triglycerides 142 mg/dL (Less than 150)
[2019-11-10] MEDS: Nicotine 14 MG PATCH TD SCH (07:30)
[2019-11-10] MEDS ORDERED: Sacubitril 24.5 MG/Valsartan 25.5 MG TABLET PO SCH (09:08)
[2019-11-10] MEDS: Carvedilol 6.25 MG TAB PO SCH ×2 (09:37→16:33)
[2019-11-10] MEDS: Aspirin 81 mg Enteric Coated Tablet PO SCH (09:38)
[2019-11-10] MEDS: Potassium Chloride 20 MEQ TAB PO SCH ×2 (09:38→16:32)
[2019-11-10] MEDS: Sotalol HCl 80 MG TAB PO SCH ×2 (09:39→19:54)
[2019-11-10] MEDS: Magnesium Oxide 400 MG TAB PO SCH (09:39)
[2019-11-10] MEDS: Citalopram 20 MG TAB PO SCH (09:39)
[2019-11-10] MEDS: Enoxaparin Sodium 40 MG/0.4 ML SYRINGE SC SCH (09:39)
[2019-11-10] MEDS: Famotidine 20 MG TAB PO SCH ×2 (09:39→19:55)
[2019-11-10] MEDS: Torsemide 20 MG TAB PO SCH (09:40)
[2019-11-10] MEDS ORDERED: Cyclobenzaprine 10 MG TAB PO PRN (10:50)
[2019-11-10] MEDS: HYDROcodone/Acetaminophen 5/325 mg Tablet PO PRN ×2 (11:07→19:55)
[2019-11-10] MEDS: Atorvastatin Calcium 20 MG TAB PO SCH (19:55)
--- NOTE | 2019-11-10 20:57 | PRG ---
DATE OF SERVICE: 11/10/2019 SUBJECTIVE: A 54-year-old female with congestive heart failure, coronary artery disease, hypertension, and hyperlipidemia, presented to the hospital yesterday with chest discomfort of 3 days' duration. She also has intermittent shortness of breath during the chest pain episode. At this time, she continues to have on and off chest discomfort. She denies any nausea, vomiting, diaphoresis, palpitations, or syncope. REVIEW OF SYSTEMS: All other review of systems was reviewed and was found negative. CURRENT MEDICATIONS: Reviewed. PHYSICAL EXAMINATION: VITAL SIGNS: Temperature 97.4, pulse of 80, blood pressure of 113/73, O2 saturation 97% on room air, and respirations of 16. GENERAL: A 54-year-old female in no apparent distress. Still has intermittent chest discomfort. LUNGS: Clear to auscultation bilaterally with diminished air entry at bilateral bases. No rales or rhonchi. No wheezing. HEART: S1 and S2 present. Regular. No rubs or gallops. ABDOMEN: Soft, nontender. Bowel sounds present. No rebound or guarding. No costovertebral angle tenderness. EXTREMITIES: No edema or calf tenderness. NEUROLOGIC: Grossly nonfocal. PSYCHIATRY: Alert, awake, and oriented x3. Normal affect. DIAGNOSTIC DATA: Telemetry monitoring by my review showed paced rhythm. Echocardiogram showed ejection fraction of 15% to 20% with severe mitral regurgitation, [id number] tricuspid regurgitation. Chest x-ray by my review showed cardiomegaly without any acute process. IMPRESSION: 1. Chest discomfort. 2. Acute on chronic systolic heart failure, ejection fraction 15% to 20% range, status post AICD. (POA) 3. Hypertension. 4. Hyperlipidemia. 5. Morbid obesity with a BMI of 41.8. 6. Tobacco dependence. 7. Coronary artery disease, status post myocardial infarction. 8. Hypothyroidism. 9. CKD 3 PLAN: The patient will be monitored on the telemetry unit. We will continue aspirin along with beta blockers. Continue sotalol. We will continue torsemide. Entresto was started today. Tobacco cessation was emphasized. We will recheck basic metabolic profile in a.m. We will discharge the patient once cleared by Cardiology. Job ID: [id number] [facility]
[2019-11-11] MEDS: Nicotine 14 MG PATCH TD SCH (04:50)
[2019-11-11 05:44] LABS: Anion Gap 12 mmol/L (10-20); BUN (Urea Nitrogen) 16 mg/dL (9.8-20.1); Calc. Creatinine Clearance 94 mL/min (70-130); Calcium 8.2 mg/dL (7.8-10.44); Carbon Dioxide 24 mmol/L (22-29); Chloride 106 mmol/L (98-107); Estimated GFR-MDRD 44; Glucose 122 mg/dL (70-105); Magnesium 2.1 mg/dL (1.6-2.6); Sodium 138 mmol/L (136-145)
[2019-11-11] MEDS: Potassium Chloride 20 MEQ TAB PO SCH ×2 (09:17→17:26)
[2019-11-11] MEDS: Enoxaparin Sodium 40 MG/0.4 ML SYRINGE SC SCH (09:17)
[2019-11-11] MEDS: Magnesium Oxide 400 MG TAB PO SCH (09:17)
[2019-11-11] MEDS: HYDROcodone/Acetaminophen 5/325 mg Tablet PO PRN ×3 (09:17→21:31)
[2019-11-11] MEDS: Carvedilol 6.25 MG TAB PO SCH ×2 (09:18→17:25)
[2019-11-11] MEDS: Aspirin 81 mg Enteric Coated Tablet PO SCH (09:18)
[2019-11-11] MEDS: Torsemide 20 MG TAB PO SCH (09:18)
[2019-11-11] MEDS: Citalopram 20 MG TAB PO SCH (09:18)
[2019-11-11] MEDS: Famotidine 20 MG TAB PO SCH ×2 (09:18→21:27)
[2019-11-11] MEDS: Sotalol HCl 80 MG TAB PO SCH ×2 (09:18→21:25)
[2019-11-11] MEDS ORDERED: Furosemide 40 MG/4 ML VIAL SLOW IVP SCH (14:30)
--- NOTE | 2019-11-11 14:30 | PDOC.HOSPP ---
- Subjective Encounter Date: 11/11/19 Encounter Time: 14:28 Subjective: Patient seen and examined for CHF. SOB at rest - worse with mild exertion and lying down. No other complaints. No overnight events - Objective Vital Signs & Weight: Vital Signs (12 hours) Temp Pulse Resp BP BP BP Pulse Ox 11/11/19 11:20 97.9 F 80 16 112/70 94 L 11/11/19 09:18 80 106/55 L 11/11/19 08:41 93 L 11/11/19 07:58 97.5 F L 80 16 120/79 93 L 11/11/19 04:00 97.4 F L 80 20 105/57 L 96 Weight Weight 257 lb 1.6 oz I&O: 11/10/19 11/11/19 11/12/19 06:59 06:59 06:59 Intake Total 1200 720 Output Total 400 Balance 1200 320 Result Diagrams: 11/10/19 04:38 11/11/19 04:52 EKG Reviewed by me: Yes (Tele SR) Hospitalist ROS - Review of Systems Respiratory: reports: cough, dry, shortness of breath, SOB with excertion. denies: hemoptysis, pleuritic pain, sputum, wheezing, other Cardiovascular: denies: chest pain, palpitations, orthopnea, paroxysmal noc. dyspnea, edema, light headedness, other - Medication Medications: Active Medications Generic Name Dose Route Start Last Admin Trade Name Freq PRN Reason Stop Dose Admin Hydrocodone Bitart/Acetaminophen 1 tab 11/09/19 04:32 11/11/19 09:17 [place] 5/325 PO 1 tab Q4H PRN Administration Moderate Pain (4-6) Albuterol/Ipratropium 3 ml 11/09/19 04:32 11/11/19 09:09 Duoneb NEB 3 ml Q4H PRN Administration SOB &/or Wheezing Aspirin 81 mg 11/10/19 09:00 11/11/19 09:18 Ecotrin PO 81 mg DAILY MALIHA Administration Atorvastatin Calcium 20 mg 11/09/19 21:00 11/10/19 19:55 Lipitor PO 20 mg HS MALIHA Administration Carvedilol 12.5 mg 11/09/19 17:00 11/11/19 09:18 Coreg PO 12.5 mg BID-WM MALIHA Administration Citalopram Hydrobromide 40 mg 11/10/19 09:00 11/11/19 09:18 Celexa PO 40 mg DAILY MALIHA Administration Enoxaparin Sodium 40 mg 11/09/19 09:00 11/11/19 09:17 Lovenox SC 40 mg 0900 MALIHA Administration Famotidine 20 mg 11/09/19 09:00 11/11/19 09:18 Pepcid PO 20 mg BID MALIHA Administration Magnesium Oxide 400 mg 11/10/19 09:00 11/11/19 09:17 Magnesium Oxide PO 400 mg DAILY MALIHA Administration Nicotine 14 mg 11/09/19 06:00 11/11/19 04:50 Nicoderm Patch TD Not Given Q24HR [facility] Potassium Chloride 20 meq 11/09/19 17:00 11/11/19 09:17 K-Dur PO 20 meq BID-WM MALIHA Administration Sacubitril/Valsartan 1 tab 11/10/19 09:00 11/11/19 09:19 Entresto 24 Mg-26 Mg Tablet PO 1 tab BID MALIHA Administration Sodium Chloride 10 ml 11/10/19 21:00 11/11/19 09:19 Flush - Normal Saline IVF 10 ml Q12HR MALIHA Administration Sotalol HCl 120 mg 11/09/19 21:00 11/11/19 09:18 Betapace PO 120 mg BID [facility] Administration Torsemide 20 mg 11/10/19 09:00 11/11/19 09:18 Demadex PO 20 mg DAILY MALIHA Administration - Exam General - other findings: Mild resp distress Heart: RRR, no gallops Respiratory: no wheezes, rales, rhonchi Gastrointestinal: non-tender, non-distended Extremities: no edema Hosp A/P - Plan DVT proph w/SCDs 1. Acute on chronic systolic heart failure, ejection fraction 15% to 20% range 2. Chest discomfort. 3. Hypertension. 4. Hyperlipidemia. 5. Morbid obesity with a BMI of 41.8. 6. Tobacco dependence. 7. Coronary artery disease, status post myocardial infarction. 8. status post AICD. 9. Hypothyroidism. PLAN: IV Lasix 40 mg BID Cont Entresto Cont Sotalol Cont Coreg Tobacco cessation BMP in AM Ambulate
--- NOTE | 2019-11-11 15:25 | PQF ---
CLINICAL DOCUMENTATION IMPROVEMENT CLARIFICATION FORM: ICD-10 Updated PLEASE DO AN ADDENDUM TO THE PROGRESS NOTE WITH ANY DOCUMENTATION UPDATES OR ADDITIONS AND CARRY THROUGH TO DC SUMMARY. THANK YOU. DATE: 11/11/2019 ATTN: Dr. Johnson Please exercise your independent, professional judgment in responding to the clarification form. Clinical indicators are provided on the bottom of this form for your review Please check appropriate box(s): [ ] Associated Diagnosis: [ ] Other diagnosis [ ] Unable to determine In addition, please specify: Present on Admission (POA): [ ] Yes [ ] No [ ] Unable to determine For continuity of documentation, please document condition throughout progress notes and discharge summary. Thank You. CLINICAL INDICATORS - SIGNS / SYMPTOMS/ LABS are present in the medical record: 11/08 11/09 11/10 LABS: Creatinine 1.34 1.49 1.26 Estimated GFR 41 36 44 RISKS: H&P 11/08: PMH significant for HTN, CAD, Chronic systolic as well as diastolic HF , and hypothyroidism. Current medications: Torsemide 20 mg daily TREATMENT: Labs: BMP ordered 11/08; 11/09 11/10 (Elizabeth) IV Lasix BMP in am Thank you, Erika (This form is maintained as a part of the permanent medical record) 2014 [employer]. All Rights Reserved Erika Duke, RN, BSN [email or web address] Office: [phone] [facility]
--- NOTE | 2019-11-11 19:06 | PDOC.CPN ---
- Subjective Date: 11/11/19 Time: 19:04 Interval history: She is feeling better after iv diuresis. No more chest pain. Echo unchanged from last evaluation. - Review of Systems General: denies: fever/chills, weight/appetite/sleep changes, night sweats, fatigue Respiratory: denies: cough, congestion, shortness of breath, exercise intolerance Cardiovascular: denies: chest pain, palpitation, edema, paroxysmal nocturnal dyspnea, orthopnea Gastrointestinal: denies: nausea, vomiting, diarrhea, constipation, abd pain, GI bleeding Musculoskeletal: denies: pain, tenderness, stiffness, swelling, arthritis/ arthralgias Neurological: denies: numbness, syncope, seizure, weakness - Objective Allergies/Adverse Reactions: Allergies Allergy/AdvReac Type Severity Reaction Status Date / Time pineapple Allergy Unknown Hives Verified 06/22/19 14:26 Iodinated Contrast Media Allergy Hives Verified 06/22/19 14:26 Penicillins Allergy Verified 06/22/19 14:26 shellfish derived Allergy Verified 06/22/19 14:26 Visit Medications: Current Medications Acetaminophen (Tylenol) 650 mg PO Q4H PRN PRN Reason: Headache/Fever/Mild Pain (1-3) Hydrocodone Bitart/Acetaminophen ([place] 5/325) 1 tab PO Q4H PRN PRN Reason: Moderate Pain (4-6) Last Admin: 11/11/19 15:24 Dose: 1 tab Albuterol/Ipratropium (Duoneb) 3 ml NEB Q4H PRN PRN Reason: SOB &/or Wheezing Last Admin: 11/11/19 09:09 Dose: 3 ml Aspirin (Ecotrin) 81 mg PO DAILY [facility] Last Admin: 11/11/19 09:18 Dose: 81 mg Atorvastatin Calcium (Lipitor) 20 mg PO HS [facility] Last Admin: 11/10/19 19:55 Dose: 20 mg Calcium Carbonate (Tums) 1,000 mg PO QIDPRN PRN PRN Reason: Indigestion Carvedilol (Coreg) 12.5 mg PO BID-WM [facility] Last Admin: 11/11/19 17:25 Dose: 12.5 mg Citalopram Hydrobromide (Celexa) 40 mg PO DAILY [facility] Last Admin: 11/11/19 09:18 Dose: 40 mg Cyclobenzaprine HCl (Flexeril) 10 mg PO TIDPRN PRN PRN Reason: Muscle Spasm Diphenhydramine HCl (Benadryl) 25 mg PO Q6H PRN PRN Reason: Allergies Famotidine (Pepcid) 20 mg PO BID [facility] Last Admin: 11/11/19 09:18 Dose: 20 mg Furosemide (Lasix) 40 mg SLOW IVP 0600,1400 [facility] Hydralazine HCl (Apresoline) 10 mg SLOW IVP Q4H PRN PRN Reason: SBP > 180 and HR < 70 Magnesium Oxide (Magnesium Oxide) 400 mg PO DAILY [facility] Last Admin: 11/11/19 09:17 Dose: 400 mg Nicotine (Nicoderm Patch) 14 mg TD Q24HR [facility] Last Admin: 11/11/19 04:50 Dose: Not Given Nitroglycerin (Nitrostat) 0.4 mg PO Q5MIN PRN PRN Reason: Chest Pain Ondansetron HCl (Zofran Odt) 4 mg PO Q6H PRN PRN Reason: Nausea/Vomiting Ondansetron HCl (Zofran) 4 mg IVP Q6H PRN PRN Reason: Nausea/Vomiting Potassium Chloride (K-Dur) 20 meq PO BID-[facility] Last Admin: 11/11/19 17:26 Dose: 20 meq Sacubitril/Valsartan (Entresto 24 Mg-26 Mg Tablet) 1 tab PO BID [facility] Last Admin: 11/11/19 09:19 Dose: 1 tab Sodium Chloride (Flush - Normal Saline) 10 ml IVF Q12HR [facility] Last Admin: 11/11/19 09:19 Dose: 10 ml Sodium Chloride (Flush - Normal Saline) 10 ml IVF PRN PRN PRN Reason: Saline Flush Sotalol HCl (Betapace) 120 mg PO BID [facility] Last Admin: 11/11/19 09:18 Dose: 120 mg Vital Signs & Weight: Vital Signs Temp Pulse Resp BP BP Pulse Ox 11/11/19 17:25 106/55 L 11/11/19 15:41 97.5 F L 90 16 113/70 94 L 11/11/19 11:20 97.9 F 80 16 112/70 94 L 11/11/19 09:18 80 106/55 L 11/11/19 08:41 93 L 11/11/19 07:58 97.5 F L 80 16 120/79 93 L Weight 257 lb 1.6 oz - Physical Exam General: alert & oriented x3 HEENT: mucus membranes moist Neck: supple neck Cardiac: regular rate and rhythm Lungs: clear to auscultation Neuro: grossly intact Abdomen: active bowel sounds Extremities: 1+ LE edema Skin: clear Musculoskeletal: normal range of motion - Labs Result Diagrams: 11/10/19 04:38 11/11/19 04:52 Troponin/CKMB Troponin I 0.148 ng/mL (< 0.028) H 11/09/19 01:06 - Telemetry Sinus rhythms and dysrhythmias: sinus rhythm - Assessment/Plan Assessment/Plan: 1. Acute on chronic systolic CHF 2. Ischemic CM EF at 20% 3. CAD PLAN: - IV diureis. - Home tomorrow if she remains stable. - She follows up in CHF clinic next week.
[2019-11-11] MEDS: Atorvastatin Calcium 20 MG TAB PO SCH (21:28)
[2019-11-12] MEDS: HYDROcodone/Acetaminophen 5/325 mg Tablet PO PRN (02:48)
[2019-11-12] MEDS: Nicotine 14 MG PATCH TD SCH (05:11)
[2019-11-12 05:29] LABS: Anion Gap 12 mmol/L (10-20); BUN (Urea Nitrogen) 17 mg/dL (9.8-20.1); Calc. Creatinine Clearance 90 mL/min (70-130); Carbon Dioxide 26 mmol/L (22-29); Chloride 103 mmol/L (98-107); Estimated GFR-MDRD 42; Glucose 111 mg/dL (70-105); Magnesium 2.2 mg/dL (1.6-2.6); Potassium 4.7 mmol/L (3.5-5.1); Sodium 136 mmol/L (136-145)
[2019-11-12] MEDS ORDERED: Furosemide 40 MG/4 ML VIAL SLOW IVP SCH (06:00)
[2019-11-12] MEDS: Citalopram 20 MG TAB PO SCH (08:18)
[2019-11-12] MEDS: Carvedilol 6.25 MG TAB PO SCH (08:18)
[2019-11-12] MEDS: Magnesium Oxide 400 MG TAB PO SCH (08:18)
[2019-11-12] MEDS: Potassium Chloride 20 MEQ TAB PO SCH (08:19)
[2019-11-12] MEDS: Sotalol HCl 80 MG TAB PO SCH (08:19)
[2019-11-12] MEDS: Famotidine 20 MG TAB PO SCH (08:19)
[2019-11-12] MEDS: Aspirin 81 mg Enteric Coated Tablet PO SCH (08:19)
--- NOTE | 2019-11-12 08:23 | PDOC.CPN ---
- Subjective Date: 11/12/19 Time: 08:22 Interval history: DOing well. Breatihyng back to baseline. She has been walking around the halls and feels much better. - Review of Systems General: denies: fever/chills, weight/appetite/sleep changes, night sweats, fatigue Respiratory: denies: cough, congestion, shortness of breath, exercise intolerance Cardiovascular: denies: chest pain, palpitation, edema, paroxysmal nocturnal dyspnea, orthopnea Gastrointestinal: denies: nausea, vomiting, diarrhea, constipation, abd pain, GI bleeding Musculoskeletal: denies: pain, tenderness, stiffness, swelling, arthritis/ arthralgias Neurological: denies: numbness, syncope, seizure, weakness - Objective Allergies/Adverse Reactions: Allergies Allergy/AdvReac Type Severity Reaction Status Date / Time pineapple Allergy Unknown Hives Verified 06/22/19 14:26 Iodinated Contrast Media Allergy Hives Verified 06/22/19 14:26 Penicillins Allergy Verified 06/22/19 14:26 shellfish derived Allergy Verified 06/22/19 14:26 Visit Medications: Current Medications Acetaminophen (Tylenol) 650 mg PO Q4H PRN PRN Reason: Headache/Fever/Mild Pain (1-3) Hydrocodone Bitart/Acetaminophen ([place] 5/325) 1 tab PO Q4H PRN PRN Reason: Moderate Pain (4-6) Last Admin: 11/12/19 02:48 Dose: 1 tab Albuterol/Ipratropium (Duoneb) 3 ml NEB Q4H PRN PRN Reason: SOB &/or Wheezing Last Admin: 11/11/19 09:09 Dose: 3 ml Aspirin (Ecotrin) 81 mg PO DAILY [facility] Last Admin: 11/12/19 08:19 Dose: 81 mg Atorvastatin Calcium (Lipitor) 20 mg PO HS [facility] Last Admin: 11/11/19 21:28 Dose: 20 mg Calcium Carbonate (Tums) 1,000 mg PO QIDPRN PRN PRN Reason: Indigestion Carvedilol (Coreg) 12.5 mg PO BID-WM [facility] Last Admin: 11/12/19 08:18 Dose: 12.5 mg Citalopram Hydrobromide (Celexa) 40 mg PO DAILY [facility] Last Admin: 11/12/19 08:18 Dose: 40 mg Cyclobenzaprine HCl (Flexeril) 10 mg PO TIDPRN PRN PRN Reason: Muscle Spasm Diphenhydramine HCl (Benadryl) 25 mg PO Q6H PRN PRN Reason: Allergies Famotidine (Pepcid) 20 mg PO BID [facility] Last Admin: 11/12/19 08:19 Dose: 20 mg Furosemide (Lasix) 40 mg SLOW IVP 0600,1400 [facility] Last Admin: 11/12/19 05:07 Dose: 40 mg Hydralazine HCl (Apresoline) 10 mg SLOW IVP Q4H PRN PRN Reason: SBP > 180 and HR < 70 Magnesium Oxide (Magnesium Oxide) 400 mg PO DAILY [facility] Last Admin: 11/12/19 08:18 Dose: 400 mg Nicotine (Nicoderm Patch) 14 mg TD Q24HR [facility] Last Admin: 11/12/19 05:11 Dose: Not Given Nitroglycerin (Nitrostat) 0.4 mg PO Q5MIN PRN PRN Reason: Chest Pain Ondansetron HCl (Zofran Odt) 4 mg PO Q6H PRN PRN Reason: Nausea/Vomiting Ondansetron HCl (Zofran) 4 mg IVP Q6H PRN PRN Reason: Nausea/Vomiting Potassium Chloride (K-Dur) 20 meq PO BID-[facility] Last Admin: 11/12/19 08:19 Dose: 20 meq Sacubitril/Valsartan (Entresto 24 Mg-26 Mg Tablet) 1 tab PO BID [facility] Last Admin: 11/12/19 08:19 Dose: 1 tab Sodium Chloride (Flush - Normal Saline) 10 ml IVF Q12HR [facility] Last Admin: 11/12/19 08:18 Dose: Not Given Sodium Chloride (Flush - Normal Saline) 10 ml IVF PRN PRN PRN Reason: Saline Flush Last Admin: 11/12/19 05:07 Dose: 10 ml Sotalol HCl (Betapace) 120 mg PO BID [facility] Last Admin: 11/12/19 08:19 Dose: 120 mg Vital Signs & Weight: Vital Signs Temp Pulse Resp BP BP Pulse Ox 11/12/19 08:19 85 11/12/19 08:18 105/70 11/12/19 02:50 97.0 F L 85 13 111/74 96 11/11/19 23:56 97.6 F 83 16 106/67 92 L 11/11/19 21:25 95 105/70 Weight 255 lb 12.8 oz - Physical Exam General: alert & oriented x3 HEENT: mucus membranes moist Neck: supple neck Cardiac: regular rate and rhythm Lungs: clear to auscultation Neuro: grossly intact Abdomen: unremarkable Extremities: no edema Skin: clear Musculoskeletal: no pain - Labs Result Diagrams: 11/10/19 04:38 11/12/19 04:48 Troponin/CKMB Troponin I 0.148 ng/mL (< 0.028) H 11/09/19 01:06 - Telemetry Sinus rhythms and dysrhythmias: other (AV paced.) - Assessment/Plan Assessment/Plan: 1. Acute on chronic systolic CHF 2. Ischemic CM EF at 20% 3. CAD PLAN: - Continue home regimen. - May discharge home. - Follow up as scheduled at the CHF clinic. - Will sign off. Please call with any questions.
[2019-11-12 08:29] VITALS: BP 119/72; TEMP 97.5
--- NOTE | 2019-11-13 12:04 | DIS ---
DATE OF ADMISSION: 11/09/2019 DATE OF DISCHARGE: 11/12/2019 DISCHARGE DISPOSITION: Home. FOLLOWUP: 1. Follow up with primary care physician, Dr. Gandhi, in 1 week. 2. Follow up with Cardiology, Dr. Trevino as scheduled. 3. Outpatient Heart Failure Clinic followup. DISCHARGE MEDICATIONS: 1. Carvedilol 12.5 mg b.i.d. 2. Entresto 24/26 b.i.d. 3. Potassium was discontinued. All other home medications were left unchanged. DISCHARGE PHYSICAL EXAMINATION: On the day of discharge, her vital signs showed temperature 97.5, pulse of 86, respirations 22, blood pressure 119/72, and O2 saturation 97% on room air. BRIEF HOSPITAL COURSE: The patient is a 54-year-old female with coronary artery disease and chronic systolic heart failure, ejection fraction 15% to 20% range, presented to the hospital on 09 November 2019 with chest discomfort along with shortness of breath. A workup was consistent with acute on chronic systolic heart failure exacerbation that improved with diuresis. The patient was also evaluated by Cardiology, Dr. Trevino. Echocardiogram this admission showed ejection fraction 15% to 20% range with severe mitral regurgitation, [id number] tricuspid regurgitation. Entresto was added. Lifestyle modification was emphasized. Potassium on the day of discharge was 4.7. Repeat labs in 3 to 4 days is recommended. Primary care physician advised to follow. The patient is chest pain free. FINAL DIAGNOSES: 1. Acute on chronic systolic heart failure exacerbation, ejection fraction 15% to 20% range. 2. Chest discomfort. 3. Hypertension. 4. Hyperlipidemia. 5. Morbid obesity with a BMI of 41.8. 6. CKD 3. 7. Status post AICD. 8. Coronary artery disease status post MO. 9. Hypothyroidism. 10. Tobacco dependence, the patient was counseled. The patient understands the above plan of care. Job ID: [id number] MTDD
== END 2019-11-12 10:24 | disposition home or self-care (01) | DRG 291 ==
LOC: ERS 23:24 → ERHOLD 11-09 00:02 → OBSVTOIN 11-09 00:02 → 2SW 11-09 13:18
PROVIDERS: ADMIT Internal Medicine; ATTEND Internal Medicine
DX: I13.0 Hypertensive heart and chronic kidney disease with heart failure and stage 1 through stage 4 chronic kidney disease, or unspecified chronic kidney disease (principal); I50.43 Acute on chronic combined systolic (congestive) and diastolic (congestive) heart failure; Z68.41 Body mass index [BMI] 40.0-44.9, adult; E78.5 Hyperlipidemia, unspecified; I48.91 Unspecified atrial fibrillation; E03.9 Hypothyroidism, unspecified; E78.00 Pure hypercholesterolemia, unspecified; F41.9 Anxiety disorder, unspecified; F32.9 Major depressive disorder, single episode, unspecified; E66.01 Morbid (severe) obesity due to excess calories; I25.10 Atherosclerotic heart disease of native coronary artery without angina pectoris; N18.3 Chronic kidney disease, stage 3 (moderate); I25.5 Ischemic cardiomyopathy; Z79.01 Long term (current) use of anticoagulants; Z95.810 Presence of automatic (implantable) cardiac defibrillator; Z95.5 Presence of coronary angioplasty implant and graft; Z88.8 Allergy status to other drugs, medicaments and biological substances; Z88.0 Allergy status to penicillin; Z91.013 Allergy to seafood; I25.2 Old myocardial infarction
CPT/HCPCS: 36415; 80048; 80061; 80069; 83735; 84439; 84443; 84484; 85025; 93306; 94640; 94760; 96374; J1650; J1940; J2270; J7620; S0028

== ENCOUNTER 2019-11-16 04:19 | Observation (INO) | payer MEDICARE ==
[2019-11-16] MEDS ORDERED: methylPREDNISolone Sod Succ 40 MG VIAL ONE (05:11)
[2019-11-16] MEDS ORDERED: Famotidine/PF 20 mg/2ml Vial ONE (05:11)
[2019-11-16] MEDS ORDERED: diphenhydrAMINE 50 MG/ML VIAL ONE (05:11)
[2019-11-16] MEDS ORDERED: Nitroglycerin 0.4 MG TAB (25 Tab Bottle) SL PRN (07:33)
[2019-11-16 08:32] LABS: Troponin I 0.146 ng/mL (< 0.028)
--- NOTE | 2019-11-16 08:41 | CT ---
PRELIMINARY REPORT/[facility]/EMERGENCY AFTER HOURS PROCEDURE: PROCEDURE: CTA Chest with IV Contrast Material . HISTORY: Chest pain. TECHNIQUE: Axial images were performed with multiplanar and 3-D (maximum intensity projection and sarah face-shaded) reconstructions. The patient was given iodinated nonionic IV contrast . COMPARISON: None . FINDINGS: Mild atherosclerosis thoracic aorta with no aneurysm. Aorta is unopacified with contrast. No evidence of pulmonary embolus. Mediastinum and hilar regions show no masses or lymphadenopathy. Moderate cardiomegaly with no pericardial fluid. Pacemaker leads in the RIGHT heart. No pulmonary consolidation, masses, or pleural fluid. Mild dependent atelectasis both lung patino. Visualized upper abdomen is unremarkable. No acute bony abnormality. IMPRESSION: No pulmonary embolus. Moderate cardiomegaly. No pulmonary consolidation. ELECTRONICALLY SIGNED BY: Lorenzo Acosta MD Nov 16, 2019 6:29:45 AM CDT This report is intended for review by the ordering physician only, in accordance of law. If you recei ve this report in error, please call [facility] at [phone]. FINAL REPORT CT PULMONARY ANGIOGRAM WITH IV CONTRAST AND 3D POSTPROCESSING: I agree with the preliminary report given by [facility]. POS: [facility]
[2019-11-16] MEDS ORDERED: Non-Formulary Item 1 EACH (Carvedilol [Coreg] 12.5 MG) PO SCH (09:00)
[2019-11-16] MEDS ORDERED: Non-Formulary Item 1 EACH (Sotalol Hcl [Sotalol] 120 MG) PO SCH (09:00)
[2019-11-16] MEDS: Enoxaparin Sodium 40 MG/0.4 ML SYRINGE SC SCH (09:30)
[2019-11-16] MEDS: Aspirin 81 mg Enteric Coated Tablet PO SCH (10:44)
[2019-11-16] MEDS: Sotalol HCl 80 MG TAB PO SCH ×2 (10:45→19:40)
[2019-11-16] MEDS: Carvedilol 6.25 MG TAB PO SCH ×2 (10:45→19:42)
[2019-11-16 11:17] VITALS: BMI 38.1
[2019-11-16 11:21] LABS: Troponin I 0.142 ng/mL (< 0.028)
[2019-11-16] MEDS: Nicotine 21 MG PATCH TD SCH (11:34)
--- NOTE | 2019-11-16 13:08 | HP ---
CHIEF COMPLAINT: Chest pain. HISTORY OF PRESENT ILLNESS: The patient is a 54-year-old with past medical history of heart failure with reduced ejection fraction of 15% to 20%, status post AICD; history of hypertension; hyperlipidemia; chronic kidney disease, stage 3; hypothyroidism; and smoking; who was recently discharged from our hospital after being managed for CHF exacerbation. The patient returned to the ER today with complaints of chest pain that started yesterday. She stated that her pain is a sharp quality pain, localized to the left side of her chest, nonradiating, and not associated with shortness of breath, nausea, vomiting, or dizziness. The patient stated that her pain is not similar to her previous pains in the past. The patient apparently had multiple cardiac catheterizations in the past, which did not reveal significant blockages. She is followed by Dr. Trevino from Cardiology. At this time, the patient's pain improved in the ER after receiving morphine and nitroglycerin. REVIEW OF SYSTEMS: Negative except as noted in HPI. PAST MEDICAL HISTORY: Heart failure with EF of 15% to 20%, hypertension, coronary artery disease, hyperlipidemia, CKD 3, hypothyroidism. PAST SURGICAL HISTORY: The patient had an AICD and stent placement in the past. ALLERGIES: SHE IS ALLERGIC TO PENICILLIN, SHELLFISH, PINEAPPLE, AND IODINE. SOCIAL HISTORY: The patient is a half a pack cigarette smoker daily, denies alcohol or drug use. FAMILY HISTORY: Significant for heart disease in her father and stroke in her mother and brother. CURRENT MEDICATIONS: 1. Carvedilol 12.5 mg b.i.d. 2. Entresto 24/26 mg b.i.d. 3. Simvastatin 40 mg p.o. at bedtime. 4. Torsemide 20 mg orally daily. 5. Aspirin 81 mg orally daily. 6. Sotalol 120 mg orally twice daily. PHYSICAL EXAMINATION: GENERAL: The patient is alert and oriented x3. HEENT: Head is normocephalic and atraumatic. Her extraocular muscles are intact. NECK: Supple. CHEST: Revealed normal S1 and S2. No murmurs, rubs, or gallops. Auscultation of the lungs revealed crackles at the bases bilaterally. ABDOMEN: Soft, nontender, nondistended. EXTREMITIES: No peripheral edema noted on extremity examination. NEUROLOGIC: Revealed normal cranial nerves 2 through 12. No focal deficits. RELEVANT LABORATORY DATA AND IMAGING: The patient's initial troponin was slightly elevated at 0.146. Her EKG did not show any ST elevations. CT angiogram of the chest did not reveal any pulmonary emboli or infiltrates. IMPRESSION AND PLAN: 1. Chest pain. Description of the patient's chest pain is atypical. We will continue aspirin and atorvastatin in addition to the rest of her cardiac medications including Entresto and carvedilol. Sublingual nitroglycerin q.5 minutes p.r.n. for chest pain. The patient's HEART score is 4, correlating with risk of major cardiac morbidity and mortality of 12% to 16%. Cardiology consulted. 2. Heart failure with reduced ejection fraction that appears to be stable at this time. There is slight evidence of pulmonary edema on auscultation of the chest. I would initiate low-salt diet, fluid restriction, and Bumex per Cardiology recommendations. 3. Coronary artery disease. 4. Hypertension. 5. Hyperlipidemia. 6. Chronic kidney disease, stage 3. 7. Hypothyroidism. Job ID: [id number]
[2019-11-16] MEDS: Bumetanide 1 MG/4 ML VIAL IVP SCH (13:44)
[2019-11-16] MEDS: Morphine 2 MG/ML SYRINGE SLOW IVP PRN ×2 (13:44→18:44)
[2019-11-16] MEDS ORDERED: Iopamidol 370 76% 100 ML VIAL ONE (14:47)
--- NOTE | 2019-11-16 16:45 | CON ---
DATE OF CONSULTATION: 11/16/2019 HISTORY OF PRESENT ILLNESS: Ms. Fishman is here for a repeat episode of chest pain. She states the episode was very atypical. It was more of abdominal pain up to the chest and into the back and then in her left arm. She states this is not typical pain she has had in the past when she needed stents placed. She has had several admissions for chest pain throughout the years. The last few times, we have cathed her, she has had widely patent stents. We would only do a repeat catheterization if her troponins were positive. At this time, her troponins remains in the indeterminate range, which is where it always is. Past medical history, surgical history, medications, social history, family history are all unchanged. Please see my last consultation on 11/09/2019 as well as discharge summary for an updated medication list. PHYSICAL EXAMINATION: VITAL SIGNS: Temperature 97.4, pulse 80, respiratory rate 16, sat 94% on room air, and blood pressure 107/58. GENERAL: Awake, alert and oriented x3, in no distress. HEENT: Normocephalic and atraumatic. NECK: Supple. LUNGS: Clear. CARDIOVASCULAR: S1 and S2. No S3 or S4. No murmurs. ABDOMEN: Soft. Positive bowel sounds. EXTREMITIES: Trace edema. SKIN: Warm and dry. LABORATORY DATA: Laboratory work was reviewed. Troponin was 0.14 and 0.14. This is unchanged from what it has been since May of last year. EKG, no ischemic changes. CT angio of the chest showed no evidence of pulmonary embolism, moderate cardiomegaly, and no pulmonary consolidation. ASSESSMENT: 1. Atypical chest pain. 2. Previous stenting. 3. Ischemic cardiomyopathy with last ejection fraction on echocardiogram done about a week or 2 ago showed 15% to 20% with severe mitral regurgitation. This is chronic for her. PLAN: 1. She has been ruled out. I doubt this is an acute coronary syndrome. We will give one dose of IV Lasix and probably discharge her home this afternoon. 2. Follow up in the office in 4 weeks. Thank you for letting us to participate in the care of your patient. We will sign off. Please call with any questions. Job ID: [id number]
[2019-11-16] MEDS ORDERED: Atorvastatin Calcium 40 MG TAB PO SCH (21:00)
[2019-11-17 05:05] LABS: Anion Gap 11 mmol/L (10-20); BUN (Urea Nitrogen) 20 mg/dL (9.8-20.1); Calc. Creatinine Clearance 86 mL/min (70-130); Carbon Dioxide 27 mmol/L (22-29); Chloride 102 mmol/L (98-107); Estimated GFR-MDRD 44; Glucose 156 mg/dL (70-105); Potassium 5.1 mmol/L (3.5-5.1); Sodium 135 mmol/L (136-145)
[2019-11-17] MEDS: Bumetanide 1 MG/4 ML VIAL IVP SCH (05:12)
[2019-11-17 05:37] LABS: Band 10 % (5-11); Lymphocytes 11 % (21-51); MDiff Complete? YES; Mean Corpuscular HGB CONC 31.1 g/dL (32.0-36.0); Mean Corpuscular Hemoglobin 31.3 pg (27.0-31.0); Mean Platelet Volume 8.2 fL (7.4-10.4); Monocytes 2 % (0-10); Neutrophil 77 % (42-75); Platelet Count 237 thou/uL (130-400); Platelet Morphology Comment Appears Adequate; RBC Distribution Width 13.5 % (11.5-14.5); Red Blood Cell (RBC) Count 4.46 mill/uL (4.20-5.40)
[2019-11-17] MEDS: Aspirin 81 mg Enteric Coated Tablet PO SCH (08:19)
[2019-11-17] MEDS: Sotalol HCl 80 MG TAB PO SCH (08:19)
[2019-11-17] MEDS: Enoxaparin Sodium 40 MG/0.4 ML SYRINGE SC SCH (08:20)
[2019-11-17] MEDS: Carvedilol 6.25 MG TAB PO SCH (08:20)
[2019-11-17] MEDS: Nicotine 21 MG PATCH TD SCH (08:21)
[2019-11-17 08:25] VITALS: BP 121/72; TEMP 97.4
--- NOTE | 2019-11-18 00:37 | DIS ---
DATE OF ADMISSION: 11/16/2019 DATE OF DISCHARGE: 11/17/2019 HISTORY OF PRESENT ILLNESS AND HOSPITAL COURSE: The patient is a 54-year-old female with past medical history of chronic kidney disease stage 3, hyperlipidemia, hypertension, and heart failure with ejection fraction of 15% to 20% with an AICD, who presented to the hospital with complaints of sharp left-sided chest pain. The patient was seen by her nozzle tender, Dr. Trevino, who thought her presentation is atypical for coronary artery disease. Her EKG was unremarkable for ST elevations and serial troponins were slightly elevated at 0.14, which is likely related to her severe congestive heart failure with low EF. DISCHARGE DIAGNOSES: 1. Chest pain. 2. Heart failure with reduced ejection fraction. 3. Coronary artery disease. 4. Hypertension. 5. Hyperlipidemia. 6. Chronic kidney disease, stage 3. 7. Hypothyroidism. DISCHARGE MEDICATIONS: 1. Aspirin 81 mg orally daily. 2. Carvedilol 12.5 mg orally twice daily. 3. Entresto 24/26 mg orally twice daily. 4. Sotalol 120 mg orally b.i.d. 5. Calcium carbonate 1000 mg orally 4 times a day as needed for indigestion. 6. Benadryl 25 mg orally every 6 hours as needed for allergies. 7. Simvastatin 40 mg orally nightly. 8. Torsemide 20 mg orally daily. FOLLOWUP: The patient was instructed to follow up with her PCP in 1 week. ACTIVITY: As tolerated. DIET: Cardiac diet was also recommended. Job ID: [id number]
--- NOTE | 2019-11-21 14:12 | EKG ---
Test Reason : Blood Pressure : / mmHG Vent. Rate : 080 BPM Atrial Rate : 080 BPM P-R Int : 000 ms QRS Dur : 202 ms QT Int : 510 ms P-R-T Axes : 000 228 -12 degrees QTc Int : 588 ms AV sequential or dual chamber electronic pacemaker Confirmed by ARAVIND TAPIA DO ([id number]), department editor SABRINA LOZANO ([id number]) on 11/21/2019 2:12:17 PM Referred By: Confirmed By:ARAVIND TAPIA DO
== END 2019-11-17 11:21 | disposition home or self-care (01) ==
LOC: ERS 04:19 → ERHOLD 07:35 → 2SW 11:19
PROVIDERS: ADMIT Internal Medicine; ATTEND Internal Medicine
DX: R07.89 Other chest pain (principal); I13.0 Hypertensive heart and chronic kidney disease with heart failure and stage 1 through stage 4 chronic kidney disease, or unspecified chronic kidney disease; I50.20 Unspecified systolic (congestive) heart failure; I25.10 Atherosclerotic heart disease of native coronary artery without angina pectoris; N18.3 Chronic kidney disease, stage 3 (moderate); E78.5 Hyperlipidemia, unspecified; E03.9 Hypothyroidism, unspecified; I25.5 Ischemic cardiomyopathy; F17.210 Nicotine dependence, cigarettes, uncomplicated; Z79.82 Long term (current) use of aspirin; Z79.899 Other long term (current) drug therapy; Z95.5 Presence of coronary angioplasty implant and graft; Z88.0 Allergy status to penicillin; Z91.041 Radiographic dye allergy status
CPT/HCPCS: 71275; 80048; 84484; 85025; 93005; 96372; 96374; 96375 ×2; 96376 ×2; 97139 ×4; 99285; G0378 ×3; 36415; J1200; J1650; J2270; J2920; J3490; Q9967; S0028

== ENCOUNTER 2019-11-29 22:34 | Observation (INO) | payer MEDICARE ==
--- NOTE | 2019-11-29 22:59 | RAD ---
EXAM: Single view of the chest HISTORY: Chest pain COMPARISON: 11/16/2019 FINDINGS: Single view of the chest shows an enlarged but stable cardiomediastinal silhouette. The pa cemaker is unchanged in position. There is no evidence of consolidation, mass, or pleural effusion. The bones are unremarkable. IMPRESSION: Cardiomegaly without evidence of acute cardiopulmonary disease
[2019-11-29 23:02] LABS: #Eosinphils 0.3 thou/uL (0.0-0.7); #Lymphocytes 2.4 thou/uL (1.20-3.40); #Monocytes 0.4 thou/uL (0.11-0.59); #Neutrophils 4.9 thou/uL (1.40-6.50); %Basophils 0.5 % (0.0-1.0); %Eosinophils 3.7 % (0.0-10.0); %Lymphocytes 29.3 % (21.0-51.0); %Neutrophils 61.4 % (42.0-75.0); Hemoglobin 13.3 g/dL (12.0-16.0); Mean Corpuscular Hemoglobin 33.3 pg (27.0-31.0); Mean Corpuscular Volume 97.9 fL (78.0-98.0); Mean Platelet Volume 9.1 fL (7.4-10.4); Platelet Count 198 thou/uL (130-400); RBC Distribution Width 13.2 % (11.5-14.5)
[2019-11-29 23:25] LABS: ALT (SGPT) 8 U/L (8-55); AST (SGOT) 11 U/L (5-34); Albumin 3.7 g/dL (3.5-5.0); Alkaline Phosphatase 49 U/L (40-110); Anion Gap 11 mmol/L (10-20); BUN (Urea Nitrogen) 10 mg/dL (9.8-20.1); Bilirubin, Total 2.5 mg/dL (0.2-1.2); CK (CPK) 68 U/L (29-168); Calc. Creatinine Clearance 0 mL/min (70-130); Calcium 9.9 mg/dL (7.8-10.44); Carbon Dioxide 24 mmol/L (22-29); Chloride 104 mmol/L (98-107); Estimated GFR-MDRD 38; Globulin 2.4 g/dL (2.4-3.5); Glucose 119 mg/dL (70-105); Lipase 13 U/L (8-78); Potassium 3.2 mmol/L (3.5-5.1); Protein, Total 6.1 g/dL (6.0-8.3); Sodium 136 mmol/L (136-145)
[2019-11-29 23:45] LABS: CKMB 1.2 ng/mL (0-6.6)
[2019-11-29] MEDS ORDERED: Furosemide 40 MG/4 ML VIAL ONE (23:55)
--- NOTE | 2019-11-30 01:46 | HP ---
PRIMARY CARE PROVIDER: Dr. El. CHIEF COMPLAINT: General malaise, cough, and shortness of breath. HISTORY OF PRESENT ILLNESS: This is a 54-year-old female who presents to [facility] Emergency Department, complaining of general malaise, shortness of breath, cough, allergy symptoms without documented fever, chills, travel history, or exposure. The patient does state that she was recently admitted to [facility] from 11/15 through 11/17/2019 for chest pain and cardiomyopathy with known ejection fraction of 15% to 20%. The patient states she was recently placed on Entresto and continued on her regular outpatient medication to include torsemide 20 mg daily. The patient denied any increased lower extremity swelling, orthopnea, hemoptysis, nausea, vomiting, or diarrhea. The patient admits to some generalized pain in her upper back and shoulders, rating at 5/10. The patient does admit to seasonal allergies and noted increased wheezing in the last 24 to 48 hours. The patient does admit to continuing to use tobacco products daily. In the emergency room, the patient underwent general evaluation including chest imaging showing cardiomegaly without prominent pulmonary edema. Metabolic survey showed elevated BNP to 1825 up from previous value of 227 on 11/16/2019. The patient received IV Lasix 40 mg x1 and was referred to the Hospitalist Service for evaluation. PAST MEDICAL HISTORY: 1. Chronic systolic congestive heart failure with ejection fraction of 15% to 20%. 2. Ischemic cardiomyopathy with ejection fraction of 15% to 20%, status post AICD placement. 3. Hypertension. 4. Coronary artery disease. 5. Hyperlipidemia. 6. Chronic kidney disease, stage 3. 7. Hypothyroidism. 8. Tobacco abuse. PAST SURGICAL HISTORY: 1. Status post AICD placement. 2. Status post cardiac catheterization with stent placement. CURRENT MEDICATIONS: 1. Aspirin 81 mg p.o. daily. 2. Carvedilol 12.5 mg p.o. b.i.d. 3. Entresto 24/26 mg one tablet p.o. b.i.d. 4. Sotalol 120 mg p.o. b.i.d. 5. Calcium carbonate 1000 mg p.o. q.i.d. p.r.n. 6. Benadryl 25 mg p.o. q.6 hours p.r.n. 7. Simvastatin 40 mg p.o. at bedtime. 8. Torsemide 20 mg p.o. daily. ALLERGIES: PENICILLIN, SHELLFISH, PINEAPPLE, AND IODINE. FAMILY HISTORY: Positive for coronary artery disease in her father. Mother and brother with CVA. SOCIAL HISTORY: The patient continues to smoke a half a pack of cigarettes daily. No alcohol or illicit drug use. . REVIEW OF SYSTEMS: CONSTITUTIONAL: Negative for weight loss or gain, ability to conduct usual activities. SKIN: Negative for rash, itching. EYES: Negative for double vision, pain. ENT/MOUTH: Negative for nose bleeding, neck stiffness, pain, tenderness. CARDIOVASCULAR: Negative for palpitations, dyspnea on exertion, orthopnea. RESPIRATORY: Positive for shortness of breath and cough. Negative for wheezing, hemoptysis, fever, or night sweats. GASTROINTESTINAL: Negative for poor appetite, abdominal pain, heartburn, nausea, vomiting, constipation, or diarrhea. GENITOURINARY: Negative for urgency, frequency, dysuria, nocturia. MUSCULOSKELETAL: Negative for pain, swelling. NEUROLOGIC/PSYCHIATRIC: Negative for anxiety, depression. ALLERGY/IMMUNOLOGIC: Negative for skin rash, bleeding tendency. Otherwise negative except as stated per HPI. PHYSICAL EXAMINATION: VITAL SIGNS: On admission, blood pressure 110/70, pulse 80, respiratory rate is 12, temperature 98.1 degrees Fahrenheit, and O2 saturation 97% on room air. GENERAL APPEARANCE: This is a 54-year-old female, alert and oriented x3, pleasant, responsive, in no acute distress. HEENT: Pupils are equal, round, reactive to light and accommodation. Extraocular muscles are intact. No scleral icterus. No conjunctival injection. Nares patent. OP is clear. Teeth in fair repair. NECK: Supple. No cervical adenopathy. No thyromegaly. No carotid bruits. No JVD appreciated. CERVICAL SPINE: With full active and passive range of motion. No meningeal signs noted. CHEST: Bilateral expiratory wheezing. Occasional crackles in the basilar segments. Diminished breath sounds bilaterally. CARDIOVASCULAR: S1, S2 without noted murmur, rub, or gallop. AICD device in the left upper chest wall. ABDOMEN: Obese, soft, nontender, and nondistended. Bowel sounds are positive in all 4 quadrants. There is no hepatosplenomegaly. No abdominal bruits. No rebound or guarding appreciated. EXTREMITIES: Warm and dry with fair turgor. No clubbing, cyanosis, or asymmetric edema appreciated. Pulses palpable distally at the dorsalis pedis, posterior tibial, and popliteal arteries bilaterally. Capillary refill less than 2 seconds. NEUROLOGIC: Cranial nerves 2 through 12 are grossly intact. No focal or lateralizing signs appreciated. PERTINENT LABORATORY AND X-RAY FINDINGS: Sodium 136, potassium 3.2, chloride 104, CO2 of 24, BUN 10, creatinine 1.44, estimated GFR of 38, glucose 119, calcium 9.9, total bilirubin 2.5, AST 11, ALT 8, alkaline phosphatase 49. Troponin I 0.138. BNP 1825, previously noted 227 on 11/16/2019. Lipase 13. CBC showed a white blood cell count of 8.0, hemoglobin 13, hematocrit 39, and platelet count 198 with normal differential. Portable chest x-ray dated 11/29/2019, showed cardiomegaly with AICD device in place. No acute infiltrate identified. EKG dated 11/29/2019 by my interpretation, shows a paced rhythm with heart rates in the 80s. No acute ST-T wave changes appreciated. Normal axis. ASSESSMENT AND PLAN: 1. Acute on chronic systolic congestive heart failure with ejection fraction of 15% to 20%. Mild exacerbation and decompensation noted on admission. Continue Lasix 40 mg IV b.i.d. Monitor I's and O's and daily weight. Continue Entresto 24/26 mg p.o. b.i.d. Continue aspirin 81 mg daily. 2. Dyspnea. Suspect multifactorial in conjunction with tobacco abuse. We will initiate DuoNebs q.4 hours scheduled. 3. Hypokalemia. Potassium chloride supplementation with repeat potassium level in the a.m. 4. Chronic kidney disease, stage 3. Avoid nephrotoxic agents. Limit contrast exposure. Serial creatinine monitoring. 5. Hypothyroidism. Repeat TSH and free T4 level in the a.m. 6. Elevated troponin I. Suspect demand ischemia in the context of known cardiomyopathy and chronic kidney disease. No current evidence to suggest acute coronary syndrome. Continue medical management. 7. Tobacco abuse. Smoking cessation resources prior to discharge. 8. Prophylaxis. SCDs while in bed. Pepcid 20 mg p.o. b.i.d.. CODE STATUS: Full. Surrogate medical decision maker is the patient's spouse. Job ID: [id number]
[2019-11-30] MEDS ORDERED: Labetalol HCl 100 MG/20 ML VIAL SLOW IVP PRN (01:50)
[2019-11-30] MEDS ORDERED: Ondansetron PF 4 MG/2 ML Vial IVP PRN (01:50)
[2019-11-30] MEDS ORDERED: Ondansetron ODT 4 MG TAB PO PRN (01:50)
[2019-11-30] MEDS ORDERED: Calcium Carbonate 500 MG ChewTAB PO PRN (01:50)
[2019-11-30] MEDS ORDERED: Potassium Chloride 20 MEQ TAB PO SCH ×3 (02:15→09:15)
[2019-11-30 02:22] LABS: Troponin I 0.145 ng/mL (< 0.028)
[2019-11-30] MEDS: Acetaminophen 500 MG TAB PO PRN ×2 (03:51→14:59)
[2019-11-30 05:40] LABS: Band 2 % (5-11); Eosinophils 2 % (0-10); Hemoglobin 13.4 g/dL (12.0-16.0); Lymphocytes 35 % (21-51); MDiff Complete? YES; Mean Corpuscular HGB CONC 33.6 g/dL (32.0-36.0); Mean Corpuscular Hemoglobin 32.8 pg (27.0-31.0); Mean Corpuscular Volume 97.8 fL (78.0-98.0); Mean Platelet Volume 9.5 fL (7.4-10.4); Monocytes 5 % (0-10); Neutrophil 55 % (42-75); Platelet Count 193 thou/uL (130-400); Platelet Morphology Comment Appears Adequate; RBC Distribution Width 13.3 % (11.5-14.5); Reactive Lymphocytes 1 % (0-10); Red Blood Cell (RBC) Count 4.08 mill/uL (4.20-5.40); White Blood Cell (WBC) Count 5.9 thou/uL (4.8-10.8)
[2019-11-30 05:51] LABS: Anion Gap 13 mmol/L (10-20); BUN (Urea Nitrogen) 11 mg/dL (9.8-20.1); Calc. Creatinine Clearance 77 mL/min (70-130); Calcium 9.7 mg/dL (7.8-10.44); Carbon Dioxide 27 mmol/L (22-29); Chloride 102 mmol/L (98-107); Estimated GFR-MDRD 39; Glucose 105 mg/dL (70-105); Magnesium 1.6 mg/dL (1.6-2.6); Potassium 3.2 mmol/L (3.5-5.1); Sodium 139 mmol/L (136-145)
[2019-11-30 05:58] LABS: Troponin I 0.135 ng/mL (< 0.028)
[2019-11-30 06:09] LABS: Free T4 (Free Thyroxine) 0.86 ng/dL (0.70-1.48)
[2019-11-30] MEDS: Furosemide 40 MG/4 ML VIAL SLOW IVP SCH ×2 (06:13→16:04)
[2019-11-30] MEDS: Aspirin 81 mg Enteric Coated Tablet PO SCH (08:27)
[2019-11-30] MEDS: Famotidine 20 MG TAB PO SCH (08:27)
[2019-11-30] MEDS: Sotalol HCl 80 MG TAB PO SCH ×2 (08:27→20:34)
[2019-11-30] MEDS: Carvedilol 6.25 MG TAB PO SCH ×2 (08:27→20:41)
[2019-11-30] MEDS: Potassium Chloride 20 MEQ TAB PO SCH ×2 (08:27→16:04)
[2019-11-30] MEDS: Atorvastatin Calcium 20 MG TAB PO SCH (20:34)
[2019-12-01 04:58] LABS: Anion Gap 11 mmol/L (10-20); BUN (Urea Nitrogen) 20 mg/dL (9.8-20.1); Calc. Creatinine Clearance 65 mL/min (70-130); Calcium 8.8 mg/dL (7.8-10.44); Carbon Dioxide 30 mmol/L (22-29); Chloride 101 mmol/L (98-107); Estimated GFR-MDRD 31; Glucose 123 mg/dL (70-105); Potassium 4.2 mmol/L (3.5-5.1); Sodium 138 mmol/L (136-145)
[2019-12-01 04:59] LABS: Band 2 % (5-11); Eosinophils 2 % (0-10); Lymphocytes 15 % (21-51); MDiff Complete? YES; Mean Corpuscular HGB CONC 32.6 g/dL (32.0-36.0); Mean Corpuscular Hemoglobin 32.5 pg (27.0-31.0); Mean Corpuscular Volume 99.7 fL (78.0-98.0); Mean Platelet Volume 9.3 fL (7.4-10.4); Monocytes 1 % (0-10); Neutrophil 80 % (42-75); Platelet Count 202 thou/uL (130-400); Platelet Morphology Comment Appears Adequate; RBC Distribution Width 13.4 % (11.5-14.5); RBC Morphology Normal
[2019-12-01] MEDS: Furosemide 40 MG/4 ML VIAL SLOW IVP SCH ×2 (05:03→16:37)
[2019-12-01] MEDS: Acetaminophen 500 MG TAB PO PRN ×3 (08:54→20:03)
[2019-12-01] MEDS: Aspirin 81 mg Enteric Coated Tablet PO SCH (08:55)
[2019-12-01] MEDS: Sotalol HCl 80 MG TAB PO SCH ×2 (08:55→19:58)
[2019-12-01] MEDS: Famotidine 20 MG TAB PO SCH (08:55)
[2019-12-01] MEDS: Potassium Chloride 20 MEQ TAB PO SCH ×2 (08:55→16:37)
[2019-12-01] MEDS: Carvedilol 6.25 MG TAB PO SCH (08:55)
[2019-12-01] MEDS: diphenhydrAMINE 25 MG CAP PO PRN ×2 (11:51→18:23)
--- NOTE | 2019-12-01 15:52 | PDOC.HOSPP ---
- Subjective Encounter Date: 12/01/19 Subjective: Feels less short of breath - Objective Vital Signs & Weight: Vital Signs (12 hours) Temp Pulse Resp BP BP Pulse Ox 12/01/19 15:16 97.8 F 83 20 99/61 95 12/01/19 14:52 85 16 93 L 12/01/19 13:40 83 100/65 12/01/19 13:10 83 90/55 L 12/01/19 11:46 97.4 F L 82 18 97/52 L 93 L 12/01/19 10:56 86 16 12/01/19 08:55 81 107/67 12/01/19 07:34 98.6 F 81 16 107/67 98 12/01/19 07:17 80 14 12/01/19 04:48 83 99/63 Weight Admit Weight 238 lb 3.2 oz Weight 239 lb 9.6 oz I&O: 11/30/19 12/01/19 12/02/19 06:59 06:59 06:59 Intake Total 240 1180 1080 Output Total 650 3800 Balance -410 -9831 1080 Result Diagrams: 12/01/19 04:23 12/01/19 04:23 Hospitalist ROS - Medication Medications: Active Medications Generic Name Dose Route Start Last Admin Trade Name Freq PRN Reason Stop Dose Admin Acetaminophen 1,000 mg 11/30/19 01:50 12/01/19 14:18 Tylenol PO 1,000 mg Q6H PRN Administration Mild Pain (1-3) Albuterol/Ipratropium 3 ml 11/30/19 02:30 12/01/19 14:52 Duoneb NEB 3 ml [id number] MALIHA Administration Aspirin 81 mg 11/30/19 09:00 12/01/19 08:55 Ecotrin PO 81 mg DAILY MALIHA Administration Atorvastatin Calcium 20 mg 11/30/19 21:00 11/30/19 20:34 Lipitor PO 20 mg HS MALIHA Administration Diphenhydramine HCl 25 mg 12/01/19 10:54 12/01/19 11:51 Benadryl PO 25 mg Q6H PRN Administration Itching & Insomnia Famotidine 20 mg 11/30/19 09:00 12/01/19 08:55 Pepcid PO 20 mg DAILY MALIHA Administration Furosemide 40 mg 11/30/19 06:00 12/01/19 05:03 Lasix SLOW IVP Not Given 0600,1400 MALIHA Potassium Chloride 40 meq 11/30/19 08:00 12/01/19 08:55 K-Dur PO 40 meq BID-WM MALIHA Administration Sodium Chloride 10 ml 11/30/19 21:00 12/01/19 08:56 Flush - Normal Saline IVF 10 ml Q12HR MALIHA Administration - Exam General Appearance: awake alert Neck: supple Heart: RRR, no murmur, no gallops, no rubs, normal peripheral pulses Respiratory: no tachypnea, rhonchi Gastrointestinal: soft, non-tender, non-distended, normal bowel sounds Neurological: cranial nerve grossly intact, no weakness Hosp A/P (1) Acute on chronic combined systolic and diastolic ACC/AHA stage C congestive heart failure Code(s): I50.43 - ACUTE ON CHRONIC COMBINED SYSTOLIC AND DIASTOLIC HRT FAIL Status: Acute (2) Coronary artery disease Code(s): I25.10 - ATHSCL HEART DISEASE OF [place] CORONARY ARTERY W/O ANG PCTRS Status: Chronic Qualifiers: (3) Hyperlipidemia Code(s): E78.5 - HYPERLIPIDEMIA, UNSPECIFIED Status: Chronic Qualifiers: (4) Hypertension Code(s): I10 - ESSENTIAL (PRIMARY) HYPERTENSION Status: Chronic Qualifiers: - Plan BP on the lower side Hold entresto, carvedilol, and decrease sotalol to 80 mg bid. Continue IV lasix BID.
[2019-12-01] MEDS: Benzocaine (Dental) 20% 10 gm Tube TOP PRN (16:31)
[2019-12-01] MEDS: Atorvastatin Calcium 20 MG TAB PO SCH (19:59)
[2019-12-02] MEDS: Benzocaine (Dental) 20% 10 gm Tube TOP PRN (00:25)
[2019-12-02 00:43] VITALS: BMI 37.7
[2019-12-02 04:53] LABS: Anion Gap 12 mmol/L (10-20); BUN (Urea Nitrogen) 20 mg/dL (9.8-20.1); Calc. Creatinine Clearance 77 mL/min (70-130); Calcium 8.9 mg/dL (7.8-10.44); Carbon Dioxide 25 mmol/L (22-29); Chloride 101 mmol/L (98-107); Estimated GFR-MDRD 39; Glucose 136 mg/dL (70-105); Potassium 4.3 mmol/L (3.5-5.1); Sodium 134 mmol/L (136-145)
[2019-12-02 05:14] LABS: Eosinophils 2 % (0-10); Hemoglobin 14.7 g/dL (12.0-16.0); Lymphocytes 32 % (21-51); MDiff Complete? YES; Mean Corpuscular HGB CONC 31.6 g/dL (32.0-36.0); Mean Corpuscular Hemoglobin 31.9 pg (27.0-31.0); Mean Platelet Volume 9.2 fL (7.4-10.4); Monocytes 3 % (0-10); Neutrophil 63 % (42-75); Platelet Count 239 thou/uL (130-400); Platelet Morphology Comment Appears Adequate; RBC Distribution Width 13.5 % (11.5-14.5); Red Blood Cell (RBC) Count 4.62 mill/uL (4.20-5.40); White Blood Cell (WBC) Count 6.2 thou/uL (4.8-10.8)
[2019-12-02] MEDS: Furosemide 40 MG/4 ML VIAL SLOW IVP SCH (06:01)
[2019-12-02 08:07] VITALS: TEMP 97.6
[2019-12-02] MEDS: Sotalol HCl 80 MG TAB PO SCH (08:40)
[2019-12-02] MEDS: Potassium Chloride 20 MEQ TAB PO SCH (08:40)
[2019-12-02] MEDS: Aspirin 81 mg Enteric Coated Tablet PO SCH (08:40)
[2019-12-02] MEDS: Famotidine 20 MG TAB PO SCH (08:41)
[2019-12-02 11:30] VITALS: BP 109/71
--- NOTE | 2019-12-03 15:29 | EKG ---
Test Reason : Blood Pressure : / mmHG Vent. Rate : 082 BPM Atrial Rate : 045 BPM P-R Int : 000 ms QRS Dur : 224 ms QT Int : 500 ms P-R-T Axes : 000 -22 051 degrees QTc Int : 584 ms AV sequential or dual chamber electronic pacemaker Confirmed by KASSY JOHNSON MD ([id number]), scientific editor REINIER LANCASTER ([id number]) on 12/03/2019 3:29:12 PM Referred By: Confirmed By:KASSY JOHNSON MD
== END 2019-12-02 13:35 | disposition home or self-care (01) ==
LOC: ERS 22:34 → 2SW 11-30 00:34
PROVIDERS: ADMIT Family Medicine; ATTEND Family Medicine
DX: I13.0 Hypertensive heart and chronic kidney disease with heart failure and stage 1 through stage 4 chronic kidney disease, or unspecified chronic kidney disease (principal); N18.3 Chronic kidney disease, stage 3 (moderate); I50.43 Acute on chronic combined systolic (congestive) and diastolic (congestive) heart failure; R53.81 Other malaise; I25.10 Atherosclerotic heart disease of native coronary artery without angina pectoris; E78.5 Hyperlipidemia, unspecified; E87.6 Hypokalemia; I25.5 Ischemic cardiomyopathy; E03.9 Hypothyroidism, unspecified; F17.210 Nicotine dependence, cigarettes, uncomplicated; R79.89 Other specified abnormal findings of blood chemistry; Z79.82 Long term (current) use of aspirin; Z79.899 Other long term (current) drug therapy; Z88.0 Allergy status to penicillin; Z91.013 Allergy to seafood; Z91.018 Allergy to other foods; Z91.041 Radiographic dye allergy status; Z95.5 Presence of coronary angioplasty implant and graft; Z95.810 Presence of automatic (implantable) cardiac defibrillator
CPT/HCPCS: 71045; 80048 ×3; 80053; 82550; 82553; 83690; 83735; 83880 ×2; 84439; 84443; 84484 ×3; 85007 ×3; 85025; 85027 ×3; 93005; 94640 ×4; 96374; 96376 ×3; 99285; G0378 ×4; 36415; J1940; J7620; Q0163

== ENCOUNTER 2020-01-11 03:01 | Emergency (ER) | payer MEDICARE ==
[2020-01-11 03:29] LABS: #Eosinphils 0.2 thou/uL (0.0-0.7); #Lymphocytes 2.1 thou/uL (1.20-3.40); #Monocytes 0.4 thou/uL (0.11-0.59); #Neutrophils 6.4 thou/uL (1.40-6.50); %Basophils 0.5 % (0.0-1.0); %Eosinophils 2.5 % (0.0-10.0); %Lymphocytes 22.5 % (21.0-51.0); %Monocytes 4.7 % (0.0-10.0); %Neutrophils 69.8 % (42.0-75.0); Hemoglobin 13.9 g/dL (12.0-16.0); Mean Corpuscular HGB CONC 33.2 g/dL (32.0-36.0); Mean Corpuscular Hemoglobin 32.6 pg (27.0-31.0); Mean Corpuscular Volume 98.2 fL (78.0-98.0); Mean Platelet Volume 8.9 fL (7.4-10.4); Platelet Count 206 thou/uL (130-400); RBC Distribution Width 13.8 % (11.5-14.5); Red Blood Cell (RBC) Count 4.27 mill/uL (4.20-5.40); White Blood Cell (WBC) Count 9.1 thou/uL (4.8-10.8)
[2020-01-11 03:48] LABS: ALT (SGPT) 8 U/L (8-55); AST (SGOT) 10 U/L (5-34); Albumin 3.7 g/dL (3.5-5.0); Alkaline Phosphatase 63 U/L (40-110); Anion Gap 13 mmol/L (10-20); BUN (Urea Nitrogen) 14 mg/dL (9.8-20.1); Bilirubin, Total 2.3 mg/dL (0.2-1.2); CK (CPK) 47 U/L (29-168); Calc. Creatinine Clearance 0 mL/min (70-130); Calcium 9.7 mg/dL (7.8-10.44); Carbon Dioxide 23 mmol/L (22-29); Chloride 104 mmol/L (98-107); Estimated GFR-MDRD 40; Globulin 2.7 g/dL (2.4-3.5); Glucose 110 mg/dL (70-105); Potassium 3.9 mmol/L (3.5-5.1); Protein, Total 6.4 g/dL (6.0-8.3); Sodium 136 mmol/L (136-145)
[2020-01-11 04:09] LABS: CKMB 1.2 ng/mL (0-6.6)
[2020-01-11] MEDS ORDERED: predniSONE 20 MG TAB ONE (04:15)
--- NOTE | 2020-01-11 07:37 | RAD ---
Exam: Chest one view HISTORY:Cough. Body ache. Comparison: 11/29/2019 FINDINGS: Cardiac silhouette:Persistent cardiomegaly Pacing device: Stable left-sided defibrillator. Aorta: Unremarkable Pulmonary vessels: Normal Costophrenic angles: Clear LUNGS: No masses or consolidation. Pneumothorax: None Osseous abnormalities: None IMPRESSION: 1. Cardiomegaly without evidence of congestive heart failure.
--- NOTE | 2020-01-21 16:34 | EKG ---
Test Reason : EMERGENCY Blood Pressure : / mmHG Vent. Rate : 080 BPM Atrial Rate : 075 BPM P-R Int : 000 ms QRS Dur : 200 ms QT Int : 500 ms P-R-T Axes : 000 -45 060 degrees QTc Int : 576 ms AV sequential or dual chamber electronic pacemaker Confirmed by SHEILA CAIN ([id number]), advertising editor REINIER LANCASTER ([id number]) on 01/21/2020 4:34:20 PM Referred By: Confirmed By:SHEILA CAIN
== END 2020-01-11 06:12 | disposition home or self-care (01) ==
LOC: ERS 03:01
DX: R05 Cough (principal); M79.10 Myalgia, unspecified site; I25.10 Atherosclerotic heart disease of native coronary artery without angina pectoris; I48.91 Unspecified atrial fibrillation; E03.9 Hypothyroidism, unspecified; I10 Essential (primary) hypertension; E78.00 Pure hypercholesterolemia, unspecified; E78.5 Hyperlipidemia, unspecified; F41.9 Anxiety disorder, unspecified; F32.9 Major depressive disorder, single episode, unspecified; Z79.899 Other long term (current) drug therapy; Z79.82 Long term (current) use of aspirin; Z79.891 Long term (current) use of opiate analgesic
CPT/HCPCS: 36415; 71045; 80053; 82550; 82553; 83880; 84484; 85025; 93005; J7512

== ENCOUNTER 2020-03-10 13:54 | Observation (INO) | payer MEDICARE ==
[2020-03-10] MEDS ORDERED: Fentanyl 100 MCG/2 ML VIAL ONE (14:50)
[2020-03-10 15:30] LABS: CKMB 1.2 ng/mL (0-6.6)
[2020-03-10] MEDS ORDERED: Enoxaparin Sodium 100 MG/ML SYRINGE ONE (15:44)
[2020-03-10] MEDS ORDERED: Acetaminophen 325 MG TAB PO PRN (18:28)
[2020-03-10 19:25] LABS: Troponin I 0.182 ng/mL (< 0.028)
[2020-03-10] MEDS: Sotalol HCl 80 MG TAB PO SCH ×3 (20:12→21:28)
[2020-03-10] MEDS: Nitroglycerin 0.4 MG TAB (25 Tab Bottle) PO PRN (20:17)
[2020-03-10 20:21] VITALS: BMI 38.1
--- NOTE | 2020-03-10 21:51 | HP ---
CHIEF COMPLAINT: Problems of breathing for 3 to 4 days associated with some chest pain. HISTORY OF PRESENT ILLNESS: The patient is a 54-year-old female, who presented to an outside emergency department. Initially, the patient had presented there with her daughter, whom they were fearing might have had a stroke. The patient reported that she was extremely stressed about the situation and started developing some chest pain. She reported the pain was 10/10, primarily in the left anterior chest area, described as a pressure or crushing type pain, seems to be worse if she feels stressed. It is constant and has not changed much from the original presentation to the outside ER till now. She does report that she has had a couple of episodes of vomiting in the past couple of days thinking primarily with some phlegm. She has some fluctuations between diarrhea and constipation. She also has some chronic two pillow orthopnea. REVIEW OF SYSTEMS: The patient reported some umbilical drainage recently which was thought to be possibly related to some infection. She has no fever. No urinary symptoms. All other systems were reviewed. All pertinent positives and negatives noted in the history of present illness. PAST MEDICAL HISTORY: Allergic rhinitis, coronary artery disease with NH x2, hypertension, hyperlipidemia, generalized anxiety with panic attacks, major depressive disorder, some herniated cervical disk. She has significant ischemic cardiomyopathy with an ejection fraction of 20% to 25%. PAST SURGICAL HISTORY: Tonsillectomy for coronary stents, three cardiac ablations with ultimately defibrillator placed. FAMILY HISTORY: Notable for prior CVAs, cardiovascular disease, dementia, hypertension. SOCIAL HISTORY: The patient is a smoker, smokes less than a pack a day for 30 years. Denies alcohol or drugs. She is not . She is full code. She has a friend, Buddy Quiroga, who would be her surrogate decision maker should that be necessary. ALLERGIES: PENICILLIN, IODINATED CONTRAST, SHELLFISH, PINEAPPLES, AND ENTRESTO WHICH APPARENTLY CAUSES SIGNIFICANT HYPOTENSION. CURRENT MEDICATIONS: 1. Sotalol 120 mg p.o. b.i.d. 2. Torsemide 20 mg p.o. daily. 3. Carvedilol 25 mg b.i.d. 4. Citalopram 40 mg daily. 5. Aspirin 81 mg daily. 6. Simvastatin 40 mg p.o. daily. 7. Daily Benadryl. PHYSICAL EXAMINATION: VITAL SIGNS: BP 150/88, pulse 81, respirations 17, temp 98.0, O2 saturation 95% on room air. GENERAL APPEARANCE: Age-appropriate female. She appears a little distressed. She was asleep when I entered the room on the [facility]. She wakens easily. HEENT: PERRL. No OP lesions. NECK: Supple and symmetric. HEART: Regular rate and rhythm. LUNGS: Clear bilaterally. ABDOMEN: Soft, nondistended. It is tender to palpation in the right upper quadrant with some mild guarding and positive Antunez sign. EXTREMITIES: No cyanosis, clubbing, or edema. NEURO: The patient appears to have normal cognition. Cranial nerves are intact. She has no focal deficits. PSYCH: Again, the patient appears somewhat distressed and anxious, but no other atypical behavior. LABORATORY DATA: White count 7.4, hemoglobin 15.5, platelets 212. Chemistries normal. Creatinine 1.47 with a GFR of 37, calcium 10.7, magnesium 1.7, total bilirubin 2.6, AST 14, ALT 10, alkaline phosphatase 71. Initial troponin 0.181, subsequent 0.194. BNP 682.6. Chest x-ray shows no acute cardiopulmonary findings other than stable cardiomegaly. EKG shows paced rhythm with occasional PVCs at 81 beats per minute. IMPRESSION AND PLAN: 1. Chest pain sounds very atypical as this is not changed significantly since the onset seems to have been brought on by some stress related to her daughter and a potential stroke and has not abated even though she was calm enough to fall asleep in the exam room. She has a significant history of coronary disease. However, this still sounds atypical. She does have slight elevation of troponins. However, this is consistent with her numbers over the last several years and do not appear to represent a significant abrupt change. The patient's manager medicaid is Dr. Trevino. His partner, Dr. Zimmerman, spoke with the ER physician, preferred to have the patient here for further monitoring and evaluation. We will continue on telemetry and continue to track her troponins. She does not appear to have dissection and her symptoms are not consistent with pulmonary embolism at this point either. We will give p.r.n. nitroglycerin as well. 2. Right upper quadrant abdominal tenderness with positive Antunez's and elevation of the bilirubin. Her bilirubin has been elevated for a while, but this is the highest number that she has had. She has had a couple episodes of vomiting in the past few days. Therefore, concern that she may have some cholecystitis. We will obtain ultrasound of the gallbladder in the morning. 3. History of coronary disease. We will continue with her usual home medications. 4. Cardiomyopathy with chronic systolic heart failure and grade 2 diastolic dysfunction. We will continue with her usual home regimen of beta blockers and diuretics. 5. History of arrhythmia. The patient has a defibrillator placed. We will continue with the sotalol. 6. History of anxiety and depression. Continue high dose citalopram. 7. History of hyperlipidemia. Continue with the simvastatin. Job ID: [id number]
--- NOTE | 2020-03-11 07:09 | ULT ---
RIGHT UPPER QUADRANT ULTRASOUND: Date: 03/11/2020 PROVIDED CLINICAL HISTORY: Abdominal pain. FINDINGS: The visualized IVC and pancreas appear normal. Liver demonstrates no solid mass or intrahepatic bilia ry ductal dilatation. 1.4 cm cyst seen in the right hepatic lobe. The common duct is not dilated. The gallbladder demonstrates no stones, wall thickening, or pericholecystic fluid. The right kidney demo nstrates no hydronephrosis or mass. IMPRESSION: No evidence for an acute process. POS: ARPITA
[2020-03-11] MEDS: Potassium Chloride 10 MEQ TAB PO SCH (09:13)
[2020-03-11] MEDS: Citalopram 20 MG TAB PO SCH (09:13)
[2020-03-11] MEDS: Aspirin 81 mg Enteric Coated Tablet PO SCH (09:14)
[2020-03-11] MEDS: Sotalol HCl 80 MG TAB PO SCH ×3 (09:14→20:32)
[2020-03-11] MEDS: Carvedilol 25 MG TAB PO SCH ×2 (09:30→17:04)
[2020-03-11] MEDS: Torsemide 20 MG TAB PO SCH (10:28)
--- NOTE | 2020-03-11 10:54 | PDOC.HOSPP ---
- Subjective Encounter Date: 03/11/20 Subjective: She continues reports some tightness in her chest. She has no peripheral edema but says she never gets peripheral edema. - Objective Vital Signs & Weight: Vital Signs (12 hours) Temp Pulse Resp BP Pulse Ox 03/11/20 09:29 80 03/11/20 09:14 80 03/11/20 08:12 97.3 F L 80 14 97/55 L 97 03/11/20 04:00 97.9 F 82 18 98/59 L 92 L Weight Weight 236 lb 3 oz I&O: 03/10/20 03/11/20 03/12/20 06:59 06:59 06:59 Intake Total 360 Output Total 300 Balance 60 Hospitalist ROS - Medication Medications: Active Medications Generic Name Dose Route Start Last Admin Trade Name Freq PRN Reason Stop Dose Admin Aspirin 81 mg 03/11/20 09:00 03/11/20 09:14 Ecotrin PO 81 mg DAILY MALIHA Administration Carvedilol 25 mg 03/11/20 08:00 03/11/20 09:30 Coreg PO Not Given BID- MALIHA Citalopram Hydrobromide 40 mg 03/11/20 09:00 03/11/20 09:13 Celexa PO 40 mg DAILY MALIHA Administration Nitroglycerin 0.4 mg 03/10/20 18:32 03/10/20 20:17 Nitrostat PO 1 tab Q5MIN PRN Administration Chest Pain Potassium Chloride 10 meq 03/11/20 08:00 03/11/20 09:13 Klor-Con 10 PO 10 meq QAM-WM MALIHA Administration Sotalol HCl 80 mg 03/10/20 21:00 03/11/20 09:29 Betapace PO 80 mg BID MALIHA Administration Torsemide 20 mg 03/11/20 09:00 03/11/20 10:28 Demadex PO 20 mg DAILY MALIHA Administration - Exam General Appearance: NAD, awake alert Heart: RRR, no gallops, no rubs, normal peripheral pulses, II/IV Respiratory: CTAB, no wheezes, no rales, no ronchi, normal chest expansion, no tachypnea, normal percussion Gastrointestinal: soft, non-tender, non-distended, normal bowel sounds, no palpable masses, no hepatomegaly, no splenomegaly, no bruit Extremities: no cyanosis, no clubbing, no edema Skin: normal turgor Musculoskeletal: normal tone Psychiatric: normal affect, normal behavior, A&O x 3 Hosp A/P (1) Chest pain Code(s): R07.9 - CHEST PAIN, UNSPECIFIED Status: Acute Qualifiers: (2) AICD (automatic cardioverter/defibrillator) present Code(s): Z95.810 - PRESENCE OF AUTOMATIC (IMPLANTABLE) CARDIAC DEFIBRILLATOR Status: Chronic (3) Chronic combined systolic (congestive) and diastolic (congestive) heart failure Code(s): I50.42 - CHRONIC COMBINED SYSTOLIC AND DIASTOLIC HRT FAIL Status: Chronic (4) Coronary artery disease Code(s): I25.10 - ATHSCL HEART DISEASE OF [place] CORONARY ARTERY W/O ANG PCTRS Status: Chronic Qualifiers: (5) Hyperlipidemia Code(s): E78.5 - HYPERLIPIDEMIA, UNSPECIFIED Status: Chronic Qualifiers: (6) Hypertension Code(s): I10 - ESSENTIAL (PRIMARY) HYPERTENSION Status: Chronic Qualifiers: (7) Hypothyroidism Code(s): E03.9 - HYPOTHYROIDISM, UNSPECIFIED Status: Chronic Qualifiers: (8) Dyspnea Code(s): R06.00 - DYSPNEA, UNSPECIFIED Status: Acute (9) CKD (chronic kidney disease), stage III Code(s): N18.3 - CHRONIC KIDNEY DISEASE, STAGE 3 (MODERATE) Status: Acute (10) Anxiety disorder Code(s): F41.9 - ANXIETY DISORDER, UNSPECIFIED Status: Acute - Plan Dyspnea: Patient presented with chest discomfort associated with a highly stressful event related to her daughter. She also reports some orthopnea and some dyspnea. Her chest x-ray was clear. She does have chronic cardiomegaly. Her BNP was close to her baseline. She had no pulmonary edema. No peripheral edema. Will attempt to give her an additional dose of diuresis now. Chest pain: Patient has significant history of coronary disease with an ischemic cardiomyopathy. She also has grade 2 diastolic dysfunction and mitral valve disorder. Her troponins were at her baseline and did not trend upward. This does not appear to be consistent with angina or PE. However given her cardiac history it is unclear. Cardiology consult pending continue with telemetry. Chronic combined systolic and diastolic heart failure: As above we will go ahead and give an additional dose of diuretic now. She does not have overt signs of decompensation other than the dyspnea and chronic orthopnea. History of arrhythmia: Patient has a defibrillator in place. Continuing with the sotalol. Coronary artery disease: Continuing with Coreg and aspirin. Her blood pressure was a bit low this morning and so her Coreg dose was held this morning. Chronic kidney disease stage III: She appears to be at her current baseline. Hyperlipidemia: Continue statin. Hypertension: Blood pressure was actually bit low this morning. Coreg has been held. Generalized anxiety disorder with history of panic attacks: Continue her home dose of citalopram.
[2020-03-11] MEDS ORDERED: Furosemide 20 MG/2 ML VIAL SLOW IVP SCH (11:00)
--- NOTE | 2020-03-11 17:02 | CON ---
DATE OF CONSULTATION: HISTORY OF PRESENT ILLNESS: The patient is an unfortunate 54-year-old woman, who presents with recurrent chest discomfort. The patient has a long history of coronary artery disease. She has previously undergone PTCA and stent placement. She has a history of a severe ischemic cardiomyopathy and has also had placement of an automatic implantable cardiac defibrillator. Most recently, the patient underwent a cardiac catheterization in August of 2018. She was found to have patent stents in the right coronary artery and only mild coronary artery disease in the left anterior descending artery. The patient also has had ventricular tachycardia and has undergone an ablation. The patient has been on multiple occasions with chest discomfort. She states once again was under a great deal of stress and started developing left-sided chest discomfort. The discomfort was persistent yesterday, but has subsequently resolved. The patient states she has been compliant with her medications, but continues to smoke. PAST MEDICAL HISTORY: 1. Coronary artery disease. 2. Ischemic cardiomyopathy. 3. Hypertension. 4. Dyslipidemia. 5. Morbid obesity. 6. History of panic disorder. PAST SURGICAL HISTORY: Tonsillectomy. FAMILY HISTORY: Father had coronary artery disease. ALLERGIES: PINEAPPLE, IODINE, AND PENICILLIN. SOCIAL HISTORY: Long history of tobacco abuse. MEDICATIONS: On admission, see nursing list. REVIEW OF SYSTEMS: Ten-point systems otherwise unremarkable. PHYSICAL EXAMINATION: GENERAL: An obese woman, who is in no acute distress. VITAL SIGNS: Blood pressure 120/70. NECK: No jugular venous distention. LUNGS: Clear to auscultation. HEART: Regular rate and rhythm. Normal S1 and S2. No murmurs. ABDOMEN: Distended. EXTREMITIES: Showed trace edema. LABORATORY RESULTS: White blood cell count 7.4, hemoglobin 15.5, hematocrit 51.0, platelets were 212. Sodium was 138, potassium 3.7, chloride 103, bicarbonate 23 , BUN 11, and creatinine 1.47. Troponin was 0.182. EKG dual-chamber electronic pacemaker. IMPRESSION: 1. Chest pain, atypical. 2. History of percutaneous transluminal coronary angioplasty and stent placement. 3. Ischemic cardiomyopathy. 4. Hypertension. 5. Dyslipidemia. 6. History of ventricular tachycardia. 7. History of AICD placement. 8. Morbid obesity. 9. Tobacco abuse. This patient presents with atypical chest pain. Cardiac enzymes revealed no evidence of myocardial infarction. Recheck the patient's troponin level. The patient will continue on her present medications. She has been apparently on Entresto,but was intolerant to this medication. We will follow this patient with you through her hospitalization. Job ID: [id number] NAYANA
[2020-03-11 17:20] LABS: Troponin I 0.173 ng/mL (< 0.028)
[2020-03-11] MEDS: Nitroglycerin 0.4 MG TAB (25 Tab Bottle) PO PRN ×3 (17:54→18:04)
[2020-03-11] MEDS ORDERED: Atorvastatin Calcium 20 MG TAB PO SCH (21:00)
[2020-03-12 07:34] VITALS: BP 108/71; TEMP 97.3
[2020-03-12] MEDS: Sotalol HCl 80 MG TAB PO SCH (08:45)
[2020-03-12] MEDS: Potassium Chloride 10 MEQ TAB PO SCH (08:45)
[2020-03-12] MEDS: Carvedilol 25 MG TAB PO SCH (08:45)
[2020-03-12] MEDS: Citalopram 20 MG TAB PO SCH (08:45)
[2020-03-12] MEDS: Torsemide 20 MG TAB PO SCH (08:45)
[2020-03-12] MEDS: Aspirin 81 mg Enteric Coated Tablet PO SCH (08:45)
--- NOTE | 2020-03-12 23:09 | DIS ---
DATE OF ADMISSION: 03/10/2020 DATE OF DISCHARGE: 03/12/2020 DISCHARGE DIAGNOSES: 1. Chest pain. 2. Coronary artery disease. 3. Ischemic cardiomyopathy. 4. Chronic combined systolic and diastolic heart failure, ejection fraction of 20% to 25%. 5. Hyperlipidemia. 6. Hypertension. 7. Hypothyroidism. 8. Dyspnea. 9. Chronic kidney disease, stage 3. 10. Anxiety disorder. HISTORY: The patient is a 54-year-old female, who has the above-mentioned past medical history. The patient reportedly went to the emergency department with her daughter initially in [place] because there was concern that her daughter was having a stroke. The patient had a great deal of stress and anxiety surrounding this episode and subsequently developed chest pain. She was therefore seen in the emergency department herself. She was noted to have some elevated troponins, which were chronic, but could not have pain relief and was therefore transferred to this facility. The patient had ultimately three negative troponins and reported some associated dyspnea, although chest x-ray was negative. HOSPITAL COURSE: The patient was admitted to the hospital. She was seen in consultation by Cardiology. Additional troponins were ordered. She had levels that were consistent with many prior troponins. She did continue to have a little orthopnea and felt a little short of breath and she was given an additional dose of Lasix which she tolerated well, although at times, blood pressure was 90 systolic. Once her blood pressure leveled off, her pain improved. She felt well and was felt to be stable for discharge to home without further intervention. Cardiology recommended discharge as well. PHYSICAL EXAMINATION: VITAL SIGNS: At the time of discharge, temperature was 97.3, pulse 80, respirations 18, O2 saturation 96% on room air, BP 108/71. GENERAL APPEARANCE: Age-appropriate. HEART: Regular. No murmurs. LUNGS: Clear. ABDOMEN: Benign. EXTREMITIES: No edema. DISPOSITION: The patient is discharged to home. She is to have a heart healthy low-sodium diet. ACTIVITY: As tolerated. HOME MEDICATIONS: 1. Diphenhydramine 25 mg p.r.n. 2. Calcium 1000 mg q.i.d. 3. Carvedilol 12.5 mg b.i.d. 4. Citalopram 40 mg daily. 5. Zocor 40 mg at bedtime. 6. Aspirin 81 mg daily. 7. Sotalol 80 mg b.i.d. 8. Torsemide 20 mg daily. FOLLOWUP: She is to follow up with Dr. Tao in 7 days and she is to follow up with Dr. Trevino as well. Job ID: [id number] MTDD
== END 2020-03-12 11:28 | disposition home or self-care (01) ==
LOC: ERS 13:54 → 2NO 16:11
PROVIDERS: ADMIT Internal Medicine; ATTEND Internal Medicine
DX: R07.89 Other chest pain (principal); I25.10 Atherosclerotic heart disease of native coronary artery without angina pectoris; I25.5 Ischemic cardiomyopathy; I13.0 Hypertensive heart and chronic kidney disease with heart failure and stage 1 through stage 4 chronic kidney disease, or unspecified chronic kidney disease; N18.3 Chronic kidney disease, stage 3 (moderate); I50.42 Chronic combined systolic (congestive) and diastolic (congestive) heart failure; E78.5 Hyperlipidemia, unspecified; E03.9 Hypothyroidism, unspecified; R06.00 Dyspnea, unspecified; F41.1 Generalized anxiety disorder; F41.0 Panic disorder [episodic paroxysmal anxiety]; R10.811 Right upper quadrant abdominal tenderness; J30.9 Allergic rhinitis, unspecified; I25.2 Old myocardial infarction; F32.9 Major depressive disorder, single episode, unspecified; F17.210 Nicotine dependence, cigarettes, uncomplicated; E66.01 Morbid (severe) obesity due to excess calories; Z68.37 Body mass index [BMI] 37.0-37.9, adult; Z79.82 Long term (current) use of aspirin; Z79.899 Other long term (current) drug therapy; Z88.0 Allergy status to penicillin; Z88.8 Allergy status to other drugs, medicaments and biological substances; Z91.013 Allergy to seafood; Z91.018 Allergy to other foods; Z91.041 Radiographic dye allergy status; Z95.5 Presence of coronary angioplasty implant and graft; Z95.810 Presence of automatic (implantable) cardiac defibrillator
CPT/HCPCS: 36415; 76705; 82553; 84484; 93005; 94760; 96372; 96374; 96375; G0378; J1650; J1940; J3010

== ENCOUNTER 2020-03-20 08:50 | Emergency (ER) | payer MEDICARE ==
--- NOTE | 2020-03-20 09:16 | RAD ---
RADIOGRAPH CHEST 1 VIEW: DATE: 03/20/2020 HISTORY: 54 year old female with midsternal acute chest pain FINDINGS: There is cardiomegaly. There is no evidence of airspace density, pulmonary edema, or pneumothorax. Th e lateral costophrenic angles are not effaced. Multilead left subclavian AICD. IMPRESSION: 1) No acute pulmonary findings. 2) cardiomegaly without congestive heart failure.
[2020-03-20 09:26] LABS: #Basophils 0.1 thou/uL (0.0-0.2); #Eosinphils 0.1 thou/uL (0.0-0.7); #Lymphocytes 1.3 thou/uL (1.20-3.40); #Monocytes 0.3 thou/uL (0.11-0.59); #Neutrophils 5.3 thou/uL (1.40-6.50); %Basophils 0.8 % (0.0-1.0); %Eosinophils 0.9 % (0.0-10.0); %Lymphocytes 18.5 % (21.0-51.0); %Monocytes 4.7 % (0.0-10.0); Hemoglobin 14.2 g/dL (12.0-16.0); Mean Corpuscular HGB CONC 32.5 g/dL (32.0-36.0); Mean Corpuscular Hemoglobin 31.9 pg (27.0-31.0); Mean Platelet Volume 8.7 fL (7.4-10.4); Platelet Count 178 thou/uL (130-400); RBC Distribution Width 14.7 % (11.5-14.5); Red Blood Cell (RBC) Count 4.44 mill/uL (4.20-5.40); White Blood Cell (WBC) Count 7.1 thou/uL (4.8-10.8)
[2020-03-20 09:50] LABS: ALT (SGPT) 22 U/L (8-55); AST (SGOT) 30 U/L (5-34); Albumin 3.7 g/dL (3.5-5.0); Alkaline Phosphatase 70 U/L (40-110); Anion Gap 12 mmol/L (10-20); BUN (Urea Nitrogen) 10 mg/dL (9.8-20.1); Bilirubin, Total 2.9 mg/dL (0.2-1.2); CK (CPK) 52 U/L (29-168); Calc. Creatinine Clearance 0 mL/min (70-130); Carbon Dioxide 23 mmol/L (22-29); Chloride 105 mmol/L (98-107); Estimated GFR-MDRD 34; Globulin 2.6 g/dL (2.4-3.5); Glucose 130 mg/dL (70-105); Lipase 7 U/L (8-78); Potassium 3.6 mmol/L (3.5-5.1); Protein, Total 6.3 g/dL (6.0-8.3); Sodium 136 mmol/L (136-145)
[2020-03-20 10:09] LABS: CKMB 0.9 ng/mL (0-6.6)
[2020-03-20 12:23] LABS: Troponin I 0.177 ng/mL (< 0.028)
== END 2020-03-20 12:40 | disposition home or self-care (01) ==
LOC: ERS 08:50
DX: R07.2 Precordial pain (principal); R05 Cough; R11.2 Nausea with vomiting, unspecified; F41.9 Anxiety disorder, unspecified; F32.9 Major depressive disorder, single episode, unspecified; F17.210 Nicotine dependence, cigarettes, uncomplicated; I48.91 Unspecified atrial fibrillation; E03.9 Hypothyroidism, unspecified; E78.5 Hyperlipidemia, unspecified; E78.00 Pure hypercholesterolemia, unspecified; I10 Essential (primary) hypertension; I25.2 Old myocardial infarction; I25.10 Atherosclerotic heart disease of native coronary artery without angina pectoris; Z79.891 Long term (current) use of opiate analgesic; Z79.82 Long term (current) use of aspirin; Z79.899 Other long term (current) drug therapy
CPT/HCPCS: 36415; 71045; 80053; 82550; 82553; 83690; 83880; 84484; 85025; 93005

== ENCOUNTER 2020-03-22 12:20 | Emergency (ER) | payer MEDICARE ==
[2020-03-22] MEDS ORDERED: Ondansetron PF 4 MG/2 ML Vial ONE (13:25)
[2020-03-22] MEDS ORDERED: Ketorolac Tromethamine 30 MG/ML VIAL ONE (13:25)
[2020-03-22 13:52] LABS: Bilirubin 1+ (Negative); Blood, Urine 1+ (Negative); Clarity Clear (Clear); Glucose, Urine (Dipstick) Normal (Negative); Ketone, Urine Negative (Negative); Leukocyte Negative Leu/uL (Negative); Nitrite Negative (Negative); Protein, Urine (Dipstick) 50 mg/dL (Neg-Trace); RBC/HPF 0-3 HPF (0-3); Specific Gravity, Urine 1.026 (1.002-1.036); Squamous Epithelial 0-3 HPF (0-3); Urobilinogen 3 mg/dL (Less than 2); pH, Urine 5.5 (5.0-9.0)
[2020-03-22 13:56] LABS: #Eosinphils 0.1 thou/uL (0.0-0.7); #Lymphocytes 1.7 thou/uL (1.20-3.40); #Monocytes 0.4 thou/uL (0.11-0.59); #Neutrophils 4.3 thou/uL (1.40-6.50); %Eosinophils 1.9 % (0.0-10.0); %Monocytes 6.6 % (0.0-10.0); %Neutrophils 65.5 % (42.0-75.0); Hemoglobin 14.3 g/dL (12.0-16.0); Mean Corpuscular HGB CONC 31.6 g/dL (32.0-36.0); Mean Corpuscular Hemoglobin 30.7 pg (27.0-31.0); Mean Corpuscular Volume 97.2 fL (78.0-98.0); Mean Platelet Volume 9.1 fL (7.4-10.4); Platelet Count 185 thou/uL (130-400); RBC Distribution Width 14.7 % (11.5-14.5); Red Blood Cell (RBC) Count 4.64 mill/uL (4.20-5.40); White Blood Cell (WBC) Count 6.6 thou/uL (4.8-10.8)
[2020-03-22 14:01] LABS: Bacteria/HPF None Seen HPF (None Seen); Mucous/LPF 3+ LPF (<2+); WBC/HPF 0-3 HPF (0-3)
--- NOTE | 2020-03-22 14:06 | ULT ---
GALLBLADDER ULTRASOUND: HISTORY: Right upper quadrant abdominal pain FINDINGS: There is a 1.8 x 1.6 x 1.4 cm septated cyst in the right lobe of the liver. No intrahepatic ductal di latation is seen. No gallstones, gallbladder wall thickening or pericholecystic fluid are seen. The right kidney is normal. The pancreas is obscured by overlying bowel gas The common duct [id number] in diameter. No free fluid is seen in the Fabian's pouch. IMPRESSION: 1. Septated cyst in the right lobe of the liver 2. No evidence of cholelithiasis
--- NOTE | 2020-03-22 14:13 | RAD ---
XR Chest 1 View Portable HISTORY: Chest pain, abdominal pain COMPARISON: 03/20/2020 FINDINGS: The heart size is enlarged but stable. The lungs are well expanded without focal areas of c onsolidation, belen pulmonary edema, pneumothorax,, or pleural effusions. IMPRESSION: No radiographic evidence of acute cardiopulmonary process.
[2020-03-22 14:16] LABS: ALT (SGPT) 23 U/L (8-55); AST (SGOT) 23 U/L (5-34); Albumin 3.5 g/dL (3.5-5.0); Alkaline Phosphatase 63 U/L (40-110); Anion Gap 11 mmol/L (10-20); BUN (Urea Nitrogen) 9 mg/dL (9.8-20.1); Bilirubin, Total 3.7 mg/dL (0.2-1.2); Calc. Creatinine Clearance 0 mL/min (70-130); Calcium 8.2 mg/dL (7.8-10.44); Carbon Dioxide 26 mmol/L (22-29); Chloride 103 mmol/L (98-107); Estimated GFR-MDRD 43; Globulin 2.7 g/dL (2.4-3.5); Glucose 103 mg/dL (70-105); Lipase 9 U/L (8-78); Protein, Total 6.2 g/dL (6.0-8.3); Sodium 137 mmol/L (136-145)
[2020-03-22 14:27] LABS: Potassium 2.9 mmol/L (3.5-5.1)
[2020-03-22 15:00] LABS: CKMB 1.1 ng/mL (0-6.6)
[2020-03-22] MEDS ORDERED: Potassium Chloride 20 MEQ TAB ONE (15:52)
== END 2020-03-22 16:35 | disposition home or self-care (01) ==
LOC: ERS 12:20
DX: R10.13 Epigastric pain (principal); R10.11 Right upper quadrant pain; R11.2 Nausea with vomiting, unspecified; E03.9 Hypothyroidism, unspecified; E78.5 Hyperlipidemia, unspecified; I25.10 Atherosclerotic heart disease of native coronary artery without angina pectoris; I48.91 Unspecified atrial fibrillation; I10 Essential (primary) hypertension; F32.9 Major depressive disorder, single episode, unspecified; F41.9 Anxiety disorder, unspecified; F17.210 Nicotine dependence, cigarettes, uncomplicated; I25.2 Old myocardial infarction
CPT/HCPCS: 36415; 51701; 71045; 76705; 80053; 81003; 81015; 82553; 83605; 83690; 84484; 85025; 93005; 96361; 96374; 96375; J1885; J2405

== ENCOUNTER 2020-05-30 18:02 | Inpatient (IN) | payer MEDICARE, OTHER ==
[2020-05-30] MEDS ORDERED: fentaNYL Citrate/PF 2,000 MCG in Sodium Chloride 0.9% 60 ML IV SCH ×2 (18:30→21:45)
--- NOTE | 2020-05-30 19:16 | RAD ---
PORTABLE CHEST: Date: 05-30-2020 PROVIDED CLINICAL HISTORY: Overdose FINDINGS: Comparison 05-30-2020 at 4:42 p.m. The supine nature of the examination limits sensitivity for detection of pneumothorax and pleural flu id. There is obscuration of the left hemidiaphragm that may reflect left basilar pleural and/or paren chymal opacity. Support apparatus appears stable. IMPRESSION: Stable radiographic appearance of the chest. POS: ARPITA
[2020-05-30 19:20] LABS: ALT (SGPT) 21 U/L (8-55); AST (SGOT) 50 U/L (5-34); Albumin 3.6 g/dL (3.5-5.0); Alkaline Phosphatase 67 U/L (40-110); Anion Gap 17 mmol/L (10-20); BUN (Urea Nitrogen) 16 mg/dL (9.8-20.1); Bilirubin, Total 1.7 mg/dL (0.2-1.2); Calc. Creatinine Clearance 0 mL/min (70-130); Calcium 7.9 mg/dL (7.8-10.44); Carbon Dioxide 25 mmol/L (22-29); Chloride 101 mmol/L (98-107); Estimated GFR-MDRD 30; Globulin 3.6 g/dL (2.4-3.5); Glucose 111 mg/dL (70-105); Magnesium 1.8 mg/dL (1.6-2.6); Potassium 4.3 mmol/L (3.5-5.1); Protein, Total 7.2 g/dL (6.0-8.3); Sodium 139 mmol/L (136-145)
[2020-05-30] MEDS ORDERED: Ventilator Sedation Protocol 1 EACH FS SCH (21:30)
[2020-05-30] MEDS ORDERED: Morphine 2 MG/ML VIAL SLOW IVP PRN (21:45)
[2020-05-30] MEDS ORDERED: Fentanyl BOLUS 250 ML IVPB PRN (21:45)
[2020-05-30] MEDS ORDERED: Lorazepam 2 MG/ML VIAL SLOW IVP PRN (21:45)
[2020-05-30] MEDS ORDERED: Propofol BOLUS 1,000 MG/100 ML VIAL IV PRN (21:45)
[2020-05-30] MEDS ORDERED: Propofol 1,000 MG/100 ML VIAL IV PRN (21:45)
[2020-05-30] MEDS ORDERED: DISCONTINUE PREVIOUS NARCOTIC PAIN MEDICATIONS AND BENZODIAZEPINES FS SCH (21:45)
--- NOTE | 2020-05-30 21:54 | PDOC.FPRHP ---
- History of Present Illness Chief Complaint: OD History of Present Illness: Pt is a 54yo female presents to ED, intubated due to OD. History obtained from EMS and patient's daughter. Pt was found altered, sitting in a lawn chair in the rain with empty bottle of benadryl. States it was a suicide attempt. Daughter said she has attempted suicide in the past. EMS said pt was unresponsive, GCS 3 so she was intubated. Poison control was called. Narcan was given in ED. ED Course: Narcan, bicarb, zofran, diprivan, fentanyl, atomidate, succinyl choline - Allergies/Adverse Reactions Allergies Allergy/AdvReac Type Severity Reaction Status Date / Time pineapple Allergy Unknown Hives Verified 05/30/20 22:17 Iodinated Contrast Media Allergy Hives Verified 05/30/20 22:17 Penicillins Allergy Verified 05/30/20 22:17 shellfish derived Allergy Verified 05/30/20 22:17 - Home Medications Medication Instructions Recorded Confirmed Type Aspirin [Ecotrin Low Strength] 81 mg PO DAILY #30 tab 04/11/17 05/04/20 Rx Simvastatin [Zocor] 40 mg PO HS 05/25/18 05/04/20 History Calcium Carbonate [Tums] 1,000 mg PO QID PRN 11/09/19 05/04/20 History diphenhydrAMINE HCl [Benadryl 25 mg PO Q6HR PRN 11/09/19 05/04/20 History Allergy] Sotalol HCl [Betapace] 80 mg PO BID #60 tab 12/02/19 05/04/20 Rx Torsemide [Demadex] 1 tab PO DAILY #60 tab 12/02/19 05/04/20 Rx Carvedilol [Coreg] 0 mg PO BID 03/10/20 05/04/20 History Citalopram [CeleXA] 40 mg PO DAILY 03/10/20 05/04/20 History - History history obtained from past medical records. PMHx: a fib s/p ablation, AICD, stent, HLD, hyperthyroidism, CAD, [place], CHF, HTN, valve insufficiency, COPD, anxiety/depression, CKD, tobacco abuse PSHx: tonsillectomy, defibrillator FHx: unable to obtain Social: smokes tobacco - Review of Systems ROS unobtainable: due to endotracheal tube - Vital signs BP: 108/89, HR 80, RR 14, O2 97% on vent - Physical Exam -Constitutional: intubated and sedated HEENT: normocephalic and atraumatic, no scleral icterus -HEENT: PERRL Neck: trachea midline, no JVD Heart: RRR, pulses present, no edema -Heart: 2/6 holosytolic murmur heard at upper sternal border Lungs: CTAB, no wheezing Abdomen: soft, no masses/distention Musculoskeletal: normal structure, normal tone -Neurological: GCS 3t FMR H&P: Results - Labs Result Diagrams: 05/31/20 03:22 05/31/20 03:22 Lab results: Sodium 139 mmol/L (136-145) 05/30/20 18:30 Potassium 4.3 mmol/L (3.5-5.1) 05/30/20 18:30 Chloride 101 mmol/L (98-107) 05/30/20 18:30 Carbon Dioxide 25 mmol/L (22-29) 05/30/20 18:30 BUN 16 mg/dL (9.8-20.1) 05/30/20 18:30 Creatinine 1.76 mg/dL (0.6-1.1) H 05/30/20 18:30 Glucose 111 mg/dL (70-105) H 05/30/20 18:30 Lactic Acid 2.2 mmol/L (0.5-2.2) 05/30/20 18:30 Calcium 7.9 mg/dL (7.8-10.44) 05/30/20 18:30 Total Bilirubin 1.7 mg/dL (0.2-1.2) H 05/30/20 18:30 AST 50 U/L (5-34) H 05/30/20 18:30 ALT 21 U/L (8-55) 05/30/20 18:30 Alkaline Phosphatase 67 U/L (40-110) 05/30/20 18:30 Serum Total Protein 7.2 g/dL (6.0-8.3) 05/30/20 18:30 Albumin 3.6 g/dL (3.5-5.0) 05/30/20 18:30 - EKG Interpretation EKG: reviewed, widened QTc, has defibrillator - Radiology Interpretation Chest x-ray Status: report reviewed by me (cardiomegaly, ETT and NG tube in place, defibrillator seen) FMR H&P: A/P - Plan #Antihistamine toxicity 2/2 OD -QRS widened -poison control consulted- monitor ekg, give sodium bicarb, check Mg, Ca, K, benzo for seizure -intubated due to AMS. Vent settings: SIMV, 450/14/40%/5 -continue sedation, will consult pulmonology, appreciate recs -consult [facility] when medically stable #elevated trop -0.296, will trend #hx of paroxysmal a fib -s/p ablation -admit to ICU, will monitor -needs med rec #Chronic Health Problems -HLD, hyperthyroidism, CAD, CHF, HTN, anxiety/depression, CKD, tobacco abuse -needs med rec Code: Full GI Ppx: pepcid DVT ppx: lovenox Diet: NPO Dispo: Admit to ICU, intubated, LOS >48hrs FMR H&P: Upper Level - Plan Date/Time: 05/30/202153 Ms Fishman is a 54yo female with pmh of HFrEF with AICD, CAD presents after suicide attempt by taking half a bottle of Benadryl she was unresponsive with GCS of 3 therefore she was intubated. She was transferred from [facility] ED. There she was given Naloxone, Zofran, 1L NS, Amidate, Succinylcholine, Diprivan, Ns bicarb 1meq/kg, fentanyl and started on NS @250ml/hr. Here she was continued on Fentanyl for sedation. PE: Vent settings: SIMV 450/14/40%/5 General: Intubated and sedated with Fentanyl CV: Paced rhythm, murmur present Pulm: CTA b/l Abdomen: BS + Extremities: No edema, dorsalis pedis 2+ b/l Skin: No rash or lesions Neuro: PERRL, gag reflex present. Withdrawals to pain. A/P: Respiratory: Vent settings: SIMV 450/14/40%/5 Intubated to due to inability to protect Airway. Initial GCS 3. Neuro: Antihistamine OD- Given Bicarb at [facility]. Benzos for seizures. Monitor electrolytes. Continue Sedation protocol. Soft restraints. CV: QRS prolonged. Given Bicarb at ED. Elevated troponin, continue to trend. Psych: Suicide Attempt- will contact [facility] once medically stable. CM consulted GI -Pepcid BID for ppx /Renal -Strict I&O Code status: FULL PPx: Pepcid and Lovenox Dispo: Admit to ICU for >48hr stay I, Graciela Mathews, have evaluated this patient and agree with findings/plan as outlined by summer internship resident. Pertinent changes/additions are listed here. Addendum - Attending - Attending Attestation Date/Time: 05/30/20 1316 I personally evaluated the patient and discussed the management with Dr. Sameer dennis/Reid I agree with the History, Examination, Assessment and Plan documented above with any addition or exceptions noted below. see my dictated H&P for details. Document #[id number]
[2020-05-30 21:58] LABS: Lactic Acid 1.8 mmol/L (0.5-2.2)
--- NOTE | 2020-05-31 00:10 | HP ---
CHIEF COMPLAINT: Altered mental status, intentional overdose. HISTORY OF PRESENT ILLNESS: I have discussed the case and reviewed all documentation performed by doctors Vicky and Reid. I agree with documentation found in their history and physical unless otherwise stated in the following attestation. In summary, Ms. Fishman is a 54-year-old female with a past medical history of coronary artery disease status post LAD and RCA stenting, heart failure with reduced ejection fraction of 15% to 20% with most recent echo in 05/04/2020, history of previous suicide attempts, AICD placement, hypertension, hyperlipidemia, and multiple psychiatric issues. She presented from the [facility] ER as a transfer after the patient told a bystander that she had intentionally took half bottle of Benadryl earlier today. She was seen in the [facility] ER and noted to be increasingly somnolent and intubated for airway protection. She was then transferred for care at [facility]. Per ER reports, the patient's daughter, who lives out of state was contacted and states her mother has a history of prior suicide attempts. No other history able to be obtained at this time as the patient is sedated and intubated. She presents for followup with her next of kin to obtain additional history. Please see the resident note for past medical, surgical, social, family, allergies and medication list. FOCUSED PHYSICAL EXAMINATION: VITAL SIGNS: Blood pressure 102/78, pulse 80, respiratory rate 14, temp 98.8 Fahrenheit, pulse ox 97% on mechanical ventilation, 40% FiO2, SIMV with 10/5 pressure support and PEEP. GENERAL: Intubated, sedated, no acute distress. HEENT: Normocephalic, atraumatic. Pupils are constricted, but reactive to light. Endotracheal tube is in place and secured. CARDIOVASCULAR: Normal rate, regular rhythm. 2/6 murmur auscultated throughout. PULMONARY: Clear to auscultation bilaterally. ABDOMEN: Soft, nondistended. PERTINENT LABORATORY FINDINGS: Hemoglobin 17.2, hematocrit 57.8, MCV 101.0, platelets 239. Sodium 133, bicarb 15, trended to 25. Creatinine 1.8, trended to 1.76, baseline appears to be 1.3. Glucose 302, trended to 111. Lactic acid 6.1, total room bilirubin 1.7, baseline appears to be in this range. Troponin 0.296, trended to 0.316. BNP 987 with baseline appearing to be in this range. Urinalysis unremarkable. Urine tox positive for benzodiazepines. EKG normal sinus rhythm with prolonged QTc of 600 and a QRS interval of 230. No ST elevation or depression noted. Left bundle branch block noted. Chest x-ray, endotracheal and orogastric tubes in place. No acute processes. ASSESSMENT: Ms. Fishman is a 54-year-old woman with multiple chronic medical problems and a history of prior suicide attempts, who presents with suicide attempt via Benadryl overdose. She is intubated and sedated for supportive measures at this time. Plan is as follows. 1. Acute Hypoxic Respiratory Distress 2/ Benadryl Overdose: Supportive care. See #2. 2. Suicide attempt via incidental overdose of Benadryl: Continue supportive measures. We will contact pulmonology in the morning. Poison Control was contacted by [facility]. We will follow up recommendations, p.r.n. benzodiazepines for seizures. Repeat EKG tomorrow morning. Monitor electrolytes. 3. Acute kidney injury. Continue IV fluids trend. 4. Elevated troponin without ischemia, likely related to underlying ischemic cardiomyopathy and Benadryl overdose. We will continue to trend. Do not suspect acute coronary syndrome at this time. 5. Hyperbilirubinemia. The patient had a right upper quadrant ultrasound performed earlier this year that did not show signs of cirrhosis. However, the patient has not had hepatitis screen performed. We will order hepatitis B, hepatitis C, human immunodeficiency, and RPR to rule out infectious pathologies. We will order ferritin to evaluate for hemochromatosis. 6. Ischemic cardiomyopathy, appears stable. We will monitor for signs of fluid overload. 7. Heart failure with reduced ejection fraction. See previous. 8. Polycythemia. This may be due to hemoconcentration. We will continue to trend. 9. Macrocytosis. We will obtain a B12 and folate. DISPOSITION AND LENGTH OF STAY: The patient was admitted under inpatient status and placed in the ICU. Length of stay likely greater than 2 midnights. Upon further chart review, the patient appears to follow with Dr. Gandhi. We will transfer care to hospitalist team tomorrow morning. Approximately 45 minutes of critical care time was spent by me in the care of this patient. Job ID: [id number] [facility]
[2020-05-31 00:16] LABS: Syphilis Antibody Nonreactive (Nonreactive); Syphilis Antibody Index 0.06 S/CO (<1.00 Non-Reactive)
[2020-05-31 00:22] LABS: Vitamin B12 559 pg/mL (211-911)
[2020-05-31 00:31] LABS: HBCM Index 0.07 S/CO (0-0.79); HBSAg Index 0.14 S/CO (0-0.99); HIV (1/2) Antibody/Antigen Non-Reactive (NonReactive); HIV 1/2 INDEX 0.06 S/CO (<1.00); Hep A IgM AB Non-Reactive (NonReactive); Hep A IgM S/CO 0.32 S/CO (0-0.79); Hep B Surf Ag Non-Reactive S/CO (NonReactive); Hep C IgG Ab Non-Reactive (NonReactive); Hep C Index 0.09 S/CO (0-0.79); Hepatitis B Core IgM Abs Non-Reactive (NonReactive)
[2020-05-31] MEDS: Lactated Ringer's 1,000 ML IV SCH ×4 (01:44→23:02)
[2020-05-31 03:33] LABS: #Lymphocytes 1.9 thou/uL (1.20-3.40); #Monocytes 0.3 thou/uL (0.11-0.59); #Neutrophils 5.8 thou/uL (1.40-6.50); %Basophils 0.3 % (0.0-1.0); %Eosinophils 0.5 % (0.0-10.0); %Lymphocytes 23.5 % (21.0-51.0); %Monocytes 3.4 % (0.0-10.0); %Neutrophils 72.2 % (42.0-75.0); Hemoglobin 15.3 g/dL (12.0-16.0); Mean Corpuscular HGB CONC 32.4 g/dL (32.0-36.0); Mean Corpuscular Hemoglobin 31.8 pg (27.0-31.0); Mean Platelet Volume 9.4 fL (7.4-10.4); Platelet Count 165 thou/uL (130-400); RBC Distribution Width 15.6 % (11.5-14.5); Red Blood Cell (RBC) Count 4.83 mill/uL (4.20-5.40)
[2020-05-31 03:50] LABS: Phosphorus 3.2 mg/dL (2.3-4.7)
[2020-05-31 03:52] LABS: ALT (SGPT) 17 U/L (8-55); AST (SGOT) 31 U/L (5-34); Albumin 3.3 g/dL (3.5-5.0); Alkaline Phosphatase 63 U/L (40-110); Anion Gap 16 mmol/L (10-20); BUN (Urea Nitrogen) 20 mg/dL (9.8-20.1); Bilirubin, Total 1.5 mg/dL (0.2-1.2); Calc. Creatinine Clearance 0 mL/min (70-130); Calcium 7.9 mg/dL (7.8-10.44); Carbon Dioxide 26 mmol/L (22-29); Chloride 101 mmol/L (98-107); Estimated GFR-MDRD 35; Globulin 2.5 g/dL (2.4-3.5); Glucose 96 mg/dL (70-105); Magnesium 1.7 mg/dL (1.6-2.6); Protein, Total 5.8 g/dL (6.0-8.3); Sodium 140 mmol/L (136-145)
[2020-05-31 03:56] LABS: Troponin I 0.245 ng/mL (< 0.028)
[2020-05-31 03:57] LABS: Potassium 2.6 mmol/L (3.5-5.1)
[2020-05-31] MEDS ORDERED: Potassium Chloride 40 MEQ in Sodium Chloride 0.9% 250 ML 250 ML IVPB SCH (04:15)
[2020-05-31 07:42] LABS: Actual Bicarbonate (HCO3a) 25.9 mEq/L (22-28); Base Excess (BEa) 1.4 mEq/L (-2.0 to +3.0); CO2 Tension 40.7 mmHg (35.0-45.0); Calcium, Ionized (arterial) 1.08 mmol/L (1.12-1.30); Carboxyhemoglobin (COHb) 0.9 gm% (0.0-3.0); Hemoglobin (Hb) 16.6 g/dL (12.0-16.0); O2 Tension (PaO2), arterial 83.3 mmHg (80.0-100.0); Potassium - ABG Lab 3.55 mmol/L (3.70-5.30); pH, Arterial 7.42 (7.35-7.45)
--- NOTE | 2020-05-31 07:44 | RAD ---
Chest AP view INDICATION: Daily cc examination while on a ventilator COMPARISON: May 30, 2020 FINDINGS: Lungs: The lungs are clear Cardiac silhouette: There is stable cardiomegaly Pulmonary vasculature: Normal Pleural spaces: No pleural effusion or pneumothorax is demonstrated. Upper abdomen: No abnormality seen. Osseous structures: No acute osseous abnormality. Additional findings: ET tube, gastric catheter and multi lead AICD is unchanged. There are numerous cardiac leads overlying the patient. IMPRESSION: 1. Stable cardiomegaly. 2. Stable tubes and lines. 3. No pneumothorax
[2020-05-31 07:46] LABS: ALV-art Gradient 151.025 mmHg (0-20); Puncture Site LRA
[2020-05-31] MEDS: Enoxaparin Sodium 40 MG/0.4 ML SYRINGE SC SCH (09:23)
[2020-05-31] MEDS: Famotidine/PF 20 mg/2ml Vial SLOW IVP SCH ×2 (09:23→20:46)
[2020-05-31 11:46] LABS: Anion Gap 18 mmol/L (10-20); BUN (Urea Nitrogen) 23 mg/dL (9.8-20.1); Calc. Creatinine Clearance 60 mL/min (70-130); Calcium 8.3 mg/dL (7.8-10.44); Carbon Dioxide 20 mmol/L (22-29); Chloride 105 mmol/L (98-107); Estimated GFR-MDRD 31; Glucose 135 mg/dL (70-105); Potassium 4.6 mmol/L (3.5-5.1); Sodium 138 mmol/L (136-145)
[2020-05-31 13:33] LABS: SARS-CoV-2 MS2 Positive; SARS-CoV-2 N Gene Negative; SARS-CoV-2 S Gene Negative; SARS-CoV-2 by NAA Not Detected (NotDetected); SARS-CoV-2 orf1ab Negative
--- NOTE | 2020-05-31 16:20 | PDOC.HOSPP ---
- Subjective Encounter Date: 05/31/20 Encounter Time: 16:18 Subjective: pt up in bed extubated. states that she did not try to hurt herself. - Objective Vital Signs & Weight: Vital Signs (12 hours) Temp Pulse Resp BP Pulse Ox 05/31/20 12:00 98 F 93 L 05/31/20 09:15 80 24 H 96 05/31/20 08:00 98.8 F 14 05/31/20 07:40 95 05/31/20 06:37 80 104/73 05/31/20 05:52 98.6 F 05/31/20 05:51 14 Weight Weight 223 lb 5.252 oz Most Recent Monitor Data Heart Rate from ECG 80 NIBP 135/94 NIBP BP-Mean 107 Respiration from ECG 21 SpO2 95 I&O: 05/30/20 05/31/20 06/01/20 06:59 06:59 06:59 Intake Total 655 200 Output Total 325 220 Balance 330 -20 Result Diagrams: 05/31/20 03:22 05/31/20 10:08 Hospitalist ROS - Review of Systems Cardiovascular: denies: chest pain, palpitations, orthopnea, paroxysmal noc. dyspnea, edema, light headedness, other Gastrointestinal: denies: nausea, vomiting, abdominal pain, diarrhea, constipation, melena, hematochezia, other Genitourinary: denies: dysuria, frequency, incontinence, hematuria, retention, other - Medication Medications: Active Medications Generic Name Dose Route Start Last Admin Trade Name Freq PRN Reason Stop Dose Admin Enoxaparin Sodium 40 mg 05/31/20 09:00 05/31/20 09:23 Enoxaparin Sodium 40 Mg/0.4 Ml Syringe SC 40 mg 0900 MALIHA Administration Famotidine 20 mg 05/31/20 09:00 05/31/20 09:23 Famotidine/Pf 20 Mg/2ml Vial SLOW IVP 20 mg Q12HR MALIHA Administration Lactated Ringer's 1,000 mls @ 125 mls/hr 05/31/20 01:45 05/31/20 14:09 Lactated Ringer's IV 1,000 mls .Q8H MALIHA Administration Propofol 1,000 mg 05/30/20 21:45 05/30/20 22:00 Propofol 1,000 Mg/100 Ml Vial IV 06/29/20 21:45 1,000 mg INF PRN Administration TO ACHIEVE GOAL RASS Protocol Sodium Chloride 10 ml 05/31/20 09:00 05/31/20 09:23 Flush - Normal Saline 10 Ml Syringe IVF 10 ml Q12HR MALIHA Administration - Exam Heart: negative: RRR, no murmur, no gallops, no rubs, normal peripheral pulses, irregular, diminshed peripheral pulses, murmur present, II/IV, III/IV Respiratory: negative: CTAB, no wheezes, no rales, no ronchi, normal chest expansion, no tachypnea, normal percussion, rales, rhonchi, tachypneic, wheezes Gastrointestinal: negative: soft, non-tender, non-distended, normal bowel sounds, no palpable masses, no hepatomegaly, no splenomegaly, no bruit, no guarding, no rigidity, tender to palpation, distended, diminished bowl sounds, voluntary guarding Extremities: 1+ LE edema Hosp A/P (1) Overdose Code(s): T50.901A - POISONING BY UNSP DRUG/MEDS/BIOL SUBST, ACCIDENTAL, INIT Status: Acute (2) Suicide Code(s): X83.8XXA - INTENTIONAL SELF-HARM BY OTHER SPECIFIED MEANS, INIT ENCNTR Status: Acute (3) Anxiety disorder Code(s): F41.9 - ANXIETY DISORDER, UNSPECIFIED Status: Acute (4) CKD (chronic kidney disease), stage III Code(s): N18.3 - CHRONIC KIDNEY DISEASE, STAGE 3 (MODERATE) Status: Acute (5) AICD (automatic cardioverter/defibrillator) present Code(s): Z95.810 - PRESENCE OF AUTOMATIC (IMPLANTABLE) CARDIAC DEFIBRILLATOR Status: Chronic (6) Chronic combined systolic (congestive) and diastolic (congestive) heart failure Code(s): I50.42 - CHRONIC COMBINED SYSTOLIC AND DIASTOLIC HRT FAIL Status: Chronic - Plan will get [facility] to see pt. pt states that she wanted to sleep and could not sleep for couple days since thoughts were racing and so she decided to take benadryl to help her sleep. will transfer her to medical. she is paced. elevated trops most likely due to demand. will ask nurse to update her home meds.
[2020-05-31] MEDS ORDERED: Carvedilol 6.25 MG TAB PO SCH (17:00)
[2020-06-01] MEDS ORDERED: Cepastat Lozenges 1 LOZ PO PRN (02:58)
[2020-06-01] MEDS: Lactated Ringer's 1,000 ML IV SCH (07:12)
[2020-06-01] MEDS ORDERED: Aspirin 81 mg Enteric Coated Tablet PO SCH (09:00)
[2020-06-01] MEDS: Famotidine/PF 20 mg/2ml Vial SLOW IVP SCH (09:25)
[2020-06-01] MEDS: Enoxaparin Sodium 40 MG/0.4 ML SYRINGE SC SCH (09:26)
--- NOTE | 2020-06-01 10:12 | PDOC.HOSPP ---
- Subjective Encounter Date: 06/01/20 Encounter Time: 10:10 Subjective: pt up in bed no complains - Objective Vital Signs & Weight: Vital Signs (12 hours) Temp Pulse Resp BP Pulse Ox 06/01/20 07:26 97.9 F 76 16 110/74 90 L 06/01/20 04:30 97.6 F 80 18 104/73 97 06/01/20 00:22 97.5 F L 63 16 111/78 94 L Weight Weight 234 lb 6.4 oz Most Recent Monitor Data Heart Rate from ECG 80 NIBP 104/75 NIBP BP-Mean 84 Respiration from ECG 16 SpO2 95 I&O: 05/31/20 06/01/20 06/02/20 06:59 06:59 06:59 Intake Total 655 2000 Output Total 325 315 Balance 330 1685 Result Diagrams: 05/31/20 03:22 05/31/20 10:08 Hospitalist ROS - Review of Systems Cardiovascular: denies: chest pain, palpitations, orthopnea, paroxysmal noc. dyspnea, edema, light headedness, other Gastrointestinal: denies: nausea, vomiting, abdominal pain, diarrhea, constipation, melena, hematochezia, other Genitourinary: denies: dysuria, frequency, incontinence, hematuria, retention, other - Medication Medications: Active Medications Generic Name Dose Route Start Last Admin Trade Name Freq PRN Reason Stop Dose Admin Aspirin 81 mg 06/01/20 09:00 06/01/20 09:26 Aspirin 81 Mg Enteric Coated Tablet PO 81 mg DAILY MALIHA Administration Enoxaparin Sodium 40 mg 05/31/20 09:00 06/01/20 09:26 Enoxaparin Sodium 40 Mg/0.4 Ml Syringe SC 40 mg 899 MALIHA Administration Famotidine 20 mg 05/31/20 09:00 06/01/20 09:25 Famotidine/Pf 20 Mg/2ml Vial SLOW IVP 20 mg Q12HR MALIHA Administration Propofol 1,000 mg 05/30/20 21:45 05/30/20 22:00 Propofol 1,000 Mg/100 Ml Vial IV 06/29/20 21:45 1,000 mg INF PRN Administration TO ACHIEVE GOAL RASS Protocol Sodium Chloride 10 ml 05/31/20 09:00 06/01/20 09:26 Flush - Normal Saline 10 Ml Syringe IVF 10 ml Q12HR MALIHA Administration Throat Lozenges 1 rosy 06/01/20 02:58 06/01/20 03:26 Cepastat Lozenges 1 Rosy PO 1 rosy Q2H PRN Administration Sore Throat - Exam Heart: negative: RRR, no murmur, no gallops, no rubs, normal peripheral pulses, irregular, diminshed peripheral pulses, murmur present, II/IV, III/IV Respiratory: negative: CTAB, no wheezes, no rales, no ronchi, normal chest expansion, no tachypnea, normal percussion, rales, rhonchi, tachypneic, wheezes Gastrointestinal: negative: soft, non-tender, non-distended, normal bowel sounds, no palpable masses, no hepatomegaly, no splenomegaly, no bruit, no guarding, no rigidity, tender to palpation, distended, diminished bowl sounds, voluntary guarding Hosp A/P (1) Overdose Code(s): T50.901A - POISONING BY UNSP DRUG/MEDS/BIOL SUBST, ACCIDENTAL, INIT Status: Acute (2) Suicide Code(s): X83.8XXA - INTENTIONAL SELF-HARM BY OTHER SPECIFIED MEANS, INIT ENCNTR Status: Acute (3) Anxiety disorder Code(s): F41.9 - ANXIETY DISORDER, UNSPECIFIED Status: Acute (4) CKD (chronic kidney disease), stage III Code(s): N18.3 - CHRONIC KIDNEY DISEASE, STAGE 3 (MODERATE) Status: Acute (5) AICD (automatic cardioverter/defibrillator) present Code(s): Z95.810 - PRESENCE OF AUTOMATIC (IMPLANTABLE) CARDIAC DEFIBRILLATOR Status: Chronic (6) Chronic combined systolic (congestive) and diastolic (congestive) heart failure Code(s): I50.42 - CHRONIC COMBINED SYSTOLIC AND DIASTOLIC HRT FAIL Status: Chronic - Plan will get [facility] to see pt. pt states that she wanted to sleep and could not sleep for couple days since thoughts were racing and so she decided to take benadryl to help her sleep. will transfer her to medical. she is paced. elevated trops most likely due to demand. will ask nurse to update her home meds. 06/01 will stop fluids. will ambulate pt. Mental health to see pt. will start her home meds. will ask nurse to clarify home meds. she is not on entresto not sure? if creatinine improves will start pt on lisinopril.
[2020-06-01] MEDS ORDERED: Magnesium 2 GM/50 ML 2 GM in Premix Bag 1 BAG IVPB SCH (10:15)
[2020-06-01 10:42] LABS: #Basophils 0.1 thou/uL (0.0-0.2); #Eosinphils 0.2 thou/uL (0.0-0.7); #Lymphocytes 1.4 thou/uL (1.20-3.40); #Monocytes 0.4 thou/uL (0.11-0.59); #Neutrophils 5.9 thou/uL (1.40-6.50); %Basophils 1.1 % (0.0-1.0); %Lymphocytes 17.6 % (21.0-51.0); %Monocytes 4.5 % (0.0-10.0); %Neutrophils 74.8 % (42.0-75.0); Hemoglobin 14.9 g/dL (12.0-16.0); Mean Corpuscular HGB CONC 31.4 g/dL (32.0-36.0); Mean Corpuscular Hemoglobin 31.8 pg (27.0-31.0); Mean Platelet Volume 9.1 fL (7.4-10.4); Platelet Count 153 thou/uL (130-400); RBC Distribution Width 15.4 % (11.5-14.5); Red Blood Cell (RBC) Count 4.69 mill/uL (4.20-5.40); White Blood Cell (WBC) Count 7.9 thou/uL (4.8-10.8)
[2020-06-01 11:03] LABS: ALT (SGPT) 15 U/L (8-55); AST (SGOT) 21 U/L (5-34); Albumin 3.3 g/dL (3.5-5.0); Alkaline Phosphatase 66 U/L (40-110); Anion Gap 14 mmol/L (10-20); BUN (Urea Nitrogen) 19 mg/dL (9.8-20.1); Bilirubin, Total 2.1 mg/dL (0.2-1.2); Calc. Creatinine Clearance 88 mL/min (70-130); Calcium 8.3 mg/dL (7.8-10.44); Carbon Dioxide 25 mmol/L (22-29); Chloride 96 mmol/L (98-107); Estimated GFR-MDRD 46; Globulin 2.8 g/dL (2.4-3.5); Glucose 131 mg/dL (70-105); Magnesium 1.4 mg/dL (1.6-2.6); Potassium 3.4 mmol/L (3.5-5.1); Protein, Total 6.1 g/dL (6.0-8.3); Sodium 132 mmol/L (136-145)
[2020-06-01] MEDS ORDERED: Atorvastatin Calcium 20 MG TAB PO SCH (21:00)
[2020-06-01] MEDS: Sotalol HCl 80 MG TAB PO SCH (22:40)
[2020-06-01] MEDS: Famotidine 20 MG TAB PO SCH (22:41)
[2020-06-02] MEDS ORDERED: Acetaminophen 325 MG TAB PO PRN (05:55)
[2020-06-02] MEDS ORDERED: Potassium Chloride 20 MEQ TAB PO SCH (07:30)
[2020-06-02 08:52] LABS: Anion Gap 14 mmol/L (10-20); BUN (Urea Nitrogen) 14 mg/dL (9.8-20.1); Calc. Creatinine Clearance 105 mL/min (70-130); Calcium 8.7 mg/dL (7.8-10.44); Carbon Dioxide 27 mmol/L (22-29); Chloride 99 mmol/L (98-107); Estimated GFR-MDRD 56; Glucose 89 mg/dL (70-105); Magnesium 1.7 mg/dL (1.6-2.6); Potassium 3.6 mmol/L (3.5-5.1); Sodium 136 mmol/L (136-145)
[2020-06-02] MEDS ORDERED: Aspirin 81 mg Enteric Coated Tablet PO SCH (09:00)
[2020-06-02] MEDS ORDERED: Citalopram 20 MG TAB PO SCH (09:00)
[2020-06-02] MEDS ORDERED: Torsemide 20 MG TAB PO SCH (09:00)
[2020-06-02] MEDS: Famotidine 20 MG TAB PO SCH (09:02)
--- NOTE | 2020-06-02 09:09 | RAD ---
CHEST 1 VIEW: INDICATION: History of wheezing. COMPARISON: Prior exam dated 05/31/2020. FINDINGS: The patient has been extubated with gastric catheter removal. AICD and cardiomegaly are stable. Mil d pulmonary vascular congestion persists but appears slightly improved from the prior exam. No pleur al effusion or pneumothorax is evident. IMPRESSION: 1. Cardiomegaly with mild pulmonary vascular congestion. The extent of the pulmonary vascular conge stion appears improved from the prior exam. 2. Interval extubation with gastric catheter removal. POS: BH
[2020-06-02] MEDS: Enoxaparin Sodium 40 MG/0.4 ML SYRINGE SC SCH (09:20)
[2020-06-02] MEDS: Sotalol HCl 80 MG TAB PO SCH (09:52)
[2020-06-02] MEDS ORDERED: Carvedilol 6.25 MG TAB PO SCH (12:00)
[2020-06-02 15:50] VITALS: BP 105/72; TEMP 97.9
--- NOTE | 2020-06-03 08:02 | DIS ---
DATE OF ADMISSION: 05/30/2020 DATE OF DISCHARGE: 06/02/2020 DISCHARGE DIAGNOSES: 1. Acute hypoxic hypercapnic respiratory failure secondary to overdose. 2. Benadryl overdose. 3. Systolic heart failure, compensated. HOSPITAL COURSE: The patient is a 54-year-old female, who initially presented to the hospital on 05/30 after she drank half the bottle of Benadryl. She stated that she was unable to sleep and that is why she drank it. She denied making the suicide attempt; however, her daughter states that she has attended suicide in the past. She was found unresponsive and at this time, EMS went ahead and intubated her in the field. She was also given Narcan in the field. The patient was marched in the ICU. She was extubated. She was watched on the floor for few days, following that Poison Control was also notified. The patient at this time continued to improve. Her medications were titrated. She was actually on sotalol, however, I did speak with the fiber optic central office installer to recommended again sotalol given her low blood pressure. I recommended to put her on Coreg. Her home medications will be as of the following, she is going to be on; 1. Carvedilol 3.125 b.i.d. 2. Aspirin 81 mg daily. 3. Citalopram 40 mg daily. 4. Simvastatin 40 mg at bedtime. 5. Demadex one tablet daily. 6. Lisinopril 2.5 p.o. daily. PHYSICAL EXAMINATION: VITAL SIGNS: Temperature of 97.9, pulse 83, respiratory rate 18, oxygen saturation 99% on room air, and blood pressure 105/72. GENERAL: She is awake, alert, and oriented x3. Does not appear in distress. CV: S1 and S2 present. No murmurs, rubs, or gallops. Her medication again has been titrated. I spoke with the fiber optic central office installer to change from sotalol to Coreg. Also, the patient denies that this was a suicidal attempt. However, given the family's concern, she will be transferred to inpatient psychiatric facility. Job ID: [id number]
--- NOTE | 2020-06-04 20:06 | CON ---
DATE OF CONSULTATION: 05/31/2020 HISTORY OF PRESENT ILLNESS: Ms. Fishman is a 54-year-old female, found in her front yard with a half empty bottle of Benadryl, sitting in a lawn chair unresponsive. She subsequently was intubated. Once she was transferred to critical care unit, I was also consulted because of mechanical ventilation. She awakens. She nods that she took extra Benadryl on purpose. PAST MEDICAL HISTORY: Remarkable for: 1. Coronary artery stenting. 2. History of cardiomyopathy. 3. History of previous suicide attempts. 4. History of defibrillator. 5. Hypertension. 6. Lipid disorder. FAMILY HISTORY: Noncontributory. SOCIAL HISTORY: Unknown. REVIEW OF SYSTEMS: Not obtainable since she is intubated. PHYSICAL EXAMINATION: VITAL SIGNS: She is afebrile, respiratory rate is 14, oximetry is 95 and she is ventilated, and blood pressure 95/72. GENERAL: She is slightly unkempt. HEENT: Pupils are equal. Sclerae are anicteric. NECK: Supple. LUNGS: Clear. HEART: Regular rhythm. S1 and S2 are normal. There is grade 1/6 to 2/6 systolic murmur. ABDOMEN: Soft and nontender. EXTREMITIES: Without clubbing, cyanosis, or edema. She moved all 4 extremities. LABORATORY DATA: White count 8, hemoglobin 15.3, and platelets 165. Electrolytes are normal with the exception of a creatinine 1.71. IMPRESSION: Suicide attempts, now resolving with Benadryl. Do spontaneous breathing trial once she is stable. If spontaneous breathing trial passes criteria for extubation, she will be extubated. CRITICAL CARE TIME: 30 minutes. Job ID: [id number]
== END 2020-06-02 19:25 | DRG 917 ==
LOC: ERS 18:02 → CCU 18:18 → 2SE 05-31 19:08
PROVIDERS: ADMIT Internal Medicine; ATTEND Internal Medicine
PROC: 0BH17EZ Insertion of Endotracheal Airway into Trachea, Via Natural or Artificial Opening (ICD-10-PCS; principal; 2020-05-30)
PROC: 5A1935Z Respiratory Ventilation, Less than 24 Consecutive Hours (ICD-10-PCS; 2020-05-30)
DX: T45.0X2A Poisoning by antiallergic and antiemetic drugs, intentional self-harm, initial encounter (principal); J96.01 Acute respiratory failure with hypoxia; N17.9 Acute kidney failure, unspecified; I13.2 Hypertensive heart and chronic kidney disease with heart failure and with stage 5 chronic kidney disease, or end stage renal disease; I50.22 Chronic systolic (congestive) heart failure; I24.8 Other forms of acute ischemic heart disease; E78.00 Pure hypercholesterolemia, unspecified; Y92.9 Unspecified place or not applicable; I25.10 Atherosclerotic heart disease of native coronary artery without angina pectoris; I48.0 Paroxysmal atrial fibrillation; I11.0 Hypertensive heart disease with heart failure; E80.6 Other disorders of bilirubin metabolism; D75.89 Other specified diseases of blood and blood-forming organs; D75.1 Secondary polycythemia; I25.5 Ischemic cardiomyopathy; E05.90 Thyrotoxicosis, unspecified without thyrotoxic crisis or storm; Z90.49 Acquired absence of other specified parts of digestive tract; Z88.0 Allergy status to penicillin; Z91.013 Allergy to seafood; Z88.6 Allergy status to analgesic agent; Z79.899 Other long term (current) drug therapy; Z79.82 Long term (current) use of aspirin; I25.2 Old myocardial infarction; Z95.5 Presence of coronary angioplasty implant and graft; Z20.828 Contact with and (suspected) exposure to other viral communicable diseases; Z95.810 Presence of automatic (implantable) cardiac defibrillator
CPT/HCPCS: 31500; 36415; 71045; 80048; 80053; 80074; 82607; 82728; 82805; 83605; 83735; 84100; 84484; 85025; 86780; 87389; 87635; 93005; 93010; 94002; 94003; 94760; 96365; 96366; 99292; J1650; J2704; J3475; J3480; J7050; S0028; U0003